=== PATIENT | male | born 1950 | race Caucasian/White ===

== ENCOUNTER 2018-09-23 09:17 | Inpatient (IN) ==
[2018-09-23 10:20] LABS: Basophils # (auto) 0.01 K/uL (0-0.2); Basophils % (auto) 0.2 %; Eosinophils # (auto) 0.04 K/uL (0-0.5); Eosinophils % (auto) 0.7 %; Hematocrit (blood only) 43.5 % (42-52); Hemoglobin 15.5 g/dL (14.0-18.0); Immature Granulocytes # (auto) 0.01 K/uL (0.00-0.02); Immature Granulocytes % (auto) 0.2 %; Lymphocytes # (auto) 1.72 K/uL (1.2-3.4); Lymphocytes % (auto) 29.5 %; Mean Corpuscular Hgb Conc 35.6 g/dL (32-36); Mean Corpuscular Volume 89.3 fL (80-100); Mean Platelet Volume 10.2 fL (7.4-10.4); Monocytes # (auto) 0.66 K/uL (0.11-0.59); Monocytes % (auto) 11.3 %; Neutrophils # (auto) 3.39 K/uL (1.4-6.5); Neutrophils % (auto) 58.1 %; Platelet Count 199 K/uL (130-400); RDW Coefficient of Variation 12.8 % (11.5-14.5); RDW Standard Deviation 41.4 fL (36.4-46.3); Red Blood Count 4.87 M/uL (4.7-6.1); White Blood Count 5.83 K/uL (4.8-10.8)
[2018-09-23 10:36] LABS: Appearance Urine Clear (Clear); Bacteria Urine Automated Negative (Negative); Color Urine Dark Yellow; Epithelial Cell Urine Auto 20-30 /lpf (0-5); Glucose Urine UA Negative (Negative); Ketones Urine Trace (Negative); Leukocyte Esterase Urine Trace (Negative); Nitrite Urine Negative (Negative); Protein Urine Negative (Negative); Specific Gravity Urine 1.028 (1.000-1.030); Urobilinogen Urine Negative (Negative)
[2018-09-23 10:39] LABS: Albumin Level 3.8 gm/dl (3.4-5.0); BUN Creatinine Ratio 13.9 (10-20); Calcium 8.8 mg/dl (8.5-10.1); Creatinine Clr Calc Pharmacy 83.9 ml/min; Est GFR (African American) 82.8; Est GFR (Non-African American) 71.5
[2018-09-23 10:41] LABS: Bilirubin Urine Negative (Negative); Ictotest Urine Negative (Negative)
[2018-09-23 10:42] LABS: Acetaminophen < 2 ug/ml (10-30)
[2018-09-23 10:43] LABS: Salicylate < 1.7 mg/dl (2.8-20)
[2018-09-23 10:49] LABS: Albumin Globulin Ratio 0.9 (0.9-2); Bilirubin,Total 0.6 mg/dl (0.2-1); Globulin 4.1 gm/dl (2.5-4.0); Total Protein 7.9 gm/dl (6.4-8.2)
[2018-09-23 11:05] LABS: Amphetamines+Metham, Urine Neg (Neg); Barbiturates, Urine Neg (Neg); Benzodiazepine, Urine Neg (Neg); Cocaine, Urine Neg (Neg); MDMA (Ecstacy), Urine Neg (Neg); Methadone, Urine Neg (Neg); Opiate, Urine Neg (Neg); Phencyclidine, Urine Neg (Neg)
--- NOTE | 2018-09-23 14:15 | Emergency Department Note ---
Entered by Rosa M Gutierrez acting as a scribe for Erwin Christensen MD History of Present Illness General Chief complaint: Mental Health Evaluation Stated complaint: 302 Time Seen by Provider: 09/23/18 09:38 Source: patient and police History of Present Illness Provider complaint: mental health evaluation Onset (ago): hour(s) (today) Location: head Pain Consistency: + constant Maximum Pain Intensity: 0 Quality: + other (mental health evaluation ) Associated symptoms: + denies other symptoms (denies SI and HI) The patient is a 67 year old white male w/ PMHx of schizophrenia who presents to the ED w/ CC of a mental health evaluation today. The patient denies having suicidal and homicidal ideation. He denies having visual and auditory hallucinations. He states that he has not taken his medications in weeks as they made his heart race. The patient states that he has seen someone for his mental health quarterly. He states that he has not had alcoholic beverages in 2 days. He states that he chews tobacco but denies other drug use. Per police, the patient threatened to hurt his older father who the patient lives with. Police report that the patient's father asked the patient's sister to call [employer] today but states that she called the police instead. Police state that the patient wanted to hurt his father. Per police, the patient has a history of schizophrenia and was having hallucinations. Home Medications Home Medications Medication Instructions Recorded Confirmed Type benztropine 1 mg PO QDD 09/23/18 09/23/18 History chlorpromazine 100 mg PO QDD 09/23/18 09/23/18 History ibuprofen 200 mg PO QID PRN 09/23/18 09/23/18 History olanzapine 20 mg PO BIDM 09/23/18 09/23/18 History Allergies Allergy/AdvReac Type Severity Reaction Status Date / Time No Known Allergies Allergy Unknown Verified 05/23/16 15:11 Past Med/Surg History Medical History Schizophrenia (Chronic) Social History Feels Safe at Home: Yes Smoking Status: Never smoker Tobacco Type: smokeless tobacco Beliefs That Will Affect Care: None Preferred Language: Togolese Communication Ability: Effective Autopsy Assistant Required: No Review of Systems See HPI for pertinent positives & negatives. and A total of 10 systems reviewed and were otherwise negative Physical Exam Vital Signs Vital Signs - 24 hr 09/23/18 09:29 09/23/18 09:48 09/23/18 14:07 Temperature 36.7 C Temperature Source Oral Oral Sepsis Recent Fever Within 48 Hours No Sepsis New/Unexplained Change in Mental Status No Sepsis Action Taken by Nursing No Action Required Pulse Rate 68 72 Pulse Rate [Right Radial] Pulse Rhythm [Right Radial] Pulse Strength [Right Radial] Respiratory Rate 18 18 Respiratory Effort / Characteristics Non-Labored Spontaneous Respiratory Depth Normal Respiratory Pattern Regular Blood Pressure 132/82 122/90 Blood Pressure [Right Arm] Blood Pressure Mean 98 Blood Pressure Mean [Right Arm] Blood Pressure Position [Right Arm] Pulse Oximetry 97 100 Oxygen Delivery Method Room Air Room Air 09/23/18 15:53 Temperature 36.6 C Temperature Source Oral Sepsis Recent Fever Within 48 Hours Sepsis New/Unexplained Change in Mental Status Sepsis Action Taken by Nursing Pulse Rate Pulse Rate [Right Radial] 73 Pulse Rhythm [Right Radial] Regular Pulse Strength [Right Radial] Normal Respiratory Rate 16 Respiratory Effort / Characteristics Non-Labored Spontaneous Respiratory Depth Normal Respiratory Pattern Regular Blood Pressure Blood Pressure [Right Arm] 131/91 Blood Pressure Mean Blood Pressure Mean [Right Arm] 104 Blood Pressure Position [Right Arm] Sitting Pulse Oximetry Oxygen Delivery Method GENERAL: Well appearing, well nourished, NAD, non-toxic. Wearing glasses. EYE EXAM: Normal conjunctiva. PERRL, no anisocoria and EOM's grossly intact w/o pain OROPHARYNX: No exudate, posterior pharynx is clear, no tonsillar/uvular deviation or swelling. NECK: Supple, no nuchal rigidity, no adenopathy, non-tender. No signs of meningismus. LUNGS: Clear to auscultation bilaterally. Normal chest wall mechanics. HEART: Normal sinus rhythm, no MRG. ABDOMEN: Abdomen soft, non-tender, no masses, no rebound or guarding. BACK: No CVA TTP. SKIN: No rashes and no bruising. UPPER EXTREMITIES: Upper extremities are grossly normal. LOWER EXTREMITIES: No pitting edema. No calf pain. NEURO EXAM: Cranial nerves II-XII grossly intact, normal speech, 5/5 strength throughout, moves all 4 extremities on command w/o issue. PSYCH: Denies SI, HI, or AVH. Course 0944: Past medical records reviewed. The patient was evaluated in room A7, and a complete history and physical examination were performed. 1113: The patient is medically clear. 1340: The patient was admitted to [facility]. Medical Decision Making Medical Records Attestation: I reviewed the patient's medical records. Home Medications Current Medication List: was personally reviewed by me Laboratory Data Attestation: I reviewed the patient's lab results. Result diagrams: 09/23/18 10:02 09/23/18 10:02 Lab Results 09/23/18 09/23/18 09/23/18 Range/Units 09:55 09:55 10:02 WBC 5.83 (4.8-10.8) K/uL RBC 4.87 (4.7-6.1) M/uL Hgb 15.5 (14.0-18.0) g/dL Hct 43.5 (42-52) % MCV 89.3 (80-100) fL MCH 31.8 (25-34) pg MCHC 35.6 (32-36) g/dL RDW Std Deviation 41.4 (36.4-46.3) fL RDW Coeff of Nerissa 12.8 (11.5-14.5) % Plt Count 199 (130-400) K/uL MPV 10.2 (7.4-10.4) fL Immature Gran % (Auto) 0.2 % Neut % (Auto) 58.1 % Lymph % (Auto) 29.5 % [place] % (Auto) 11.3 % Eos % (Auto) 0.7 % Baso % (Auto) 0.2 % Immature Gran # (Auto) 0.01 (0.00-0.02) K/uL Neut # (Auto) 3.39 (1.4-6.5) K/uL Lymph # (Auto) 1.72 (1.2-3.4) K/uL [place] # (Auto) 0.66 H (0.11-0.59) K/uL Eos # (Auto) 0.04 (0-0.5) K/uL Baso # (Auto) 0.01 (0-0.2) K/uL Sodium (136-145) mmol/L Potassium (3.5-5.1) mmol/L Chloride (98-107) mmol/L Carbon Dioxide (21-32) mmol/L Anion Gap (3-11) BUN (7-18) mg/dl Creatinine (0.6-1.4) mg/dl Est Cr Clr Drug Dosing ml/min Est GFR ( Amer) Est GFR (Non-Af Amer) BUN/Creatinine Ratio (10-20) Glucose (70-99) mg/dl Calcium (8.5-10.1) mg/dl Total Bilirubin (0.2-1) mg/dl AST (15-37) U/L ALT (12-78) U/L Alkaline Phosphatase (45-117) U/L Total Protein (6.4-8.2) gm/dl Albumin (3.4-5.0) gm/dl Globulin (2.5-4.0) gm/dl Albumin/Globulin Ratio (0.9-2) TSH (0.300-4.500) uIu/ml Urine Color Dark Yellow Urine Appearance Clear (Clear) Urine pH 5.0 (4.5-7.5) Ur Specific [place] 1.028 (1.000-1.030) Urine Protein Negative (Negative) Urine Glucose (UA) Negative (Negative) Urine Ketones Trace H (Negative) Urine Blood Trace H (Negative) Urine Nitrite Negative (Negative) Urine Bilirubin Negative (Negative) Urine Urobilinogen Negative (Negative) Ur Leukocyte Esterase Trace H (Negative) Urine WBC (Auto) 5-10 H (0-5) /hpf Urine RBC (Auto) 0-4 (0-4) /hpf U Hyaline Cast (Auto) 5-10 H (0-5) /lpf U Epithel Cells (Auto) 20-30 H (0-5) /lpf Urine Bacteria (Auto) Negative (Negative) Salicylates (2.8-20) mg/dl Urine Opiates Screen Neg (Neg) Ur Methadone, Qual Neg (Neg) Acetaminophen (10-30) ug/ml Urine Barbiturates Neg (Neg) Ur Phencyclidine (PCP) Neg (Neg) U Amphetamin/Meth Scrn Neg (Neg) MDMA (Ecstasy) Screen Neg (Neg) U Benzodiazepines Scrn Neg (Neg) Ur Cocaine Metabolite Neg (Neg) U Marijuana (THC) Screen Neg (Neg) Ethyl Alcohol mg/dL (0-3) mg/dl 09/23/18 09/23/18 09/23/18 Range/Units 10:02 10:02 10:02 WBC (4.8-10.8) K/uL RBC (4.7-6.1) M/uL Hgb (14.0-18.0) g/dL Hct (42-52) % MCV (80-100) fL MCH (25-34) pg MCHC (32-36) g/dL RDW Std Deviation (36.4-46.3) fL RDW Coeff of Nerissa (11.5-14.5) % Plt Count (130-400) K/uL MPV (7.4-10.4) fL Immature Gran % (Auto) % Neut % (Auto) % Lymph % (Auto) % [place] % (Auto) % Eos % (Auto) % Baso % (Auto) % Immature Gran # (Auto) (0.00-0.02) K/uL Neut # (Auto) (1.4-6.5) K/uL Lymph # (Auto) (1.2-3.4) K/uL [place] # (Auto) (0.11-0.59) K/uL Eos # (Auto) (0-0.5) K/uL Baso # (Auto) (0-0.2) K/uL Sodium 135 L (136-145) mmol/L Potassium 4.0 (3.5-5.1) mmol/L Chloride 102 (98-107) mmol/L Carbon Dioxide 23 (21-32) mmol/L Anion Gap 9.0 (3-11) BUN 15 (7-18) mg/dl Creatinine 1.07 (0.6-1.4) mg/dl Est Cr Clr Drug Dosing 83.9 ml/min Est GFR ( Amer) 82.8 Est GFR (Non-Af Amer) 71.5 BUN/Creatinine Ratio 13.9 (10-20) Glucose 183 H (70-99) mg/dl Calcium 8.8 (8.5-10.1) mg/dl Total Bilirubin 0.6 (0.2-1) mg/dl AST 23 (15-37) U/L ALT 39 (12-78) U/L Alkaline Phosphatase 67 (45-117) U/L Total Protein 7.9 (6.4-8.2) gm/dl Albumin 3.8 (3.4-5.0) gm/dl Globulin 4.1 H (2.5-4.0) gm/dl Albumin/Globulin Ratio 0.9 (0.9-2) TSH 1.550 (0.300-4.500) uIu/ml Urine Color Urine Appearance (Clear) Urine pH (4.5-7.5) Ur Specific [place] (1.000-1.030) Urine Protein (Negative) Urine Glucose (UA) (Negative) Urine Ketones (Negative) Urine Blood (Negative) Urine Nitrite (Negative) Urine Bilirubin (Negative) Urine Urobilinogen (Negative) Ur Leukocyte Esterase (Negative) Urine WBC (Auto) (0-5) /hpf Urine RBC (Auto) (0-4) /hpf U Hyaline Cast (Auto) (0-5) /lpf U Epithel Cells (Auto) (0-5) /lpf Urine Bacteria (Auto) (Negative) Salicylates < 1.7 L (2.8-20) mg/dl Urine Opiates Screen (Neg) Ur Methadone, Qual (Neg) Acetaminophen < 2 L (10-30) ug/ml Urine Barbiturates (Neg) Ur Phencyclidine (PCP) (Neg) U Amphetamin/Meth Scrn (Neg) MDMA (Ecstasy) Screen (Neg) U Benzodiazepines Scrn (Neg) Ur Cocaine Metabolite (Neg) U Marijuana (THC) Screen (Neg) Ethyl Alcohol mg/dL < 3.0 (0-3) mg/dl Blood Pressure Blood Pressure Findings: Normal blood pressure MDM Narrative The patient is a 67 year old white male w/ PMHx of schizophrenia who presents to the ED w/ CC of a mental health evaluation today. Differential diagnosis: Etiologies such as psychiatric disorder, infection, hypoglycemia, electrolyte abnormalities, cardiac sources, intracerebral event, toxicological process, neurologic disorder, as well as others were entertained. Patient was seen and evaluated the bedside. There was concern that the patient may be a threat where he was living to his elderly father. The patient did not have any acute complaints. The patient does state that he does use chewing tobacco but no drugs or alcohol. The currently denies any SI, HI, or AVH. The patient has not been taking his medications as prescribed. Patient did a blood work completed the patient was medically cleared. The patient did have his 302 upheld. The patient was admitted to 3 . Impression & Plan Behavioral disorder, Encounter for tobacco use cessation counseling Discharge Plan Visit Data *Final* Discharge Date/Time: 09/23/18 14:07 Chief Complaint: Mental Health Evaluation Stated Complaint: 302 ED Provider: Erwin Christensen Discharge Problem: Behavioral disorder, Encounter for tobacco use cessation counseling Patient Disposition: Admitted As Inpatient Discharge Instructions Interventions: ED Discharge Assessment Last Done: 09/23/18 14:07 The scribe's documentation has been prepared under my direction and personally reviewed by me in its entirety. I confirm that the note above accurately reflects all work, treatment, procedures, and medical decision making performed by me.
[2018-09-23] MEDS ORDERED: BISMUTH SUBSALICYLATE PER ML OMNICELL CHARGE PO PRN (14:32)
[2018-09-23] MEDS ORDERED: ALUMINUM/MAGNESIUM SUSP 30 ML UDC PO PRN (14:32)
[2018-09-23] MEDS ORDERED: ACETAMINOPHEN 325 MG TAB PO PRN (14:32)
[2018-09-23] MEDS ORDERED: SODIUM CHLORIDE 0.65% NA SOLN 45 ML (OCEAN) PRN (14:32)
[2018-09-23] MEDS ORDERED: MAGNESIUM HYDROXIDE SUSP 30 ML UDC PO PRN (14:32)
--- NOTE | 2018-09-23 15:17 | History & Physical ---
Date of Service September 23, 2018 Impression / Recommendations Impression 67 yo M with h/o schizophrenia admitted on a 302 for reportedly threatening to hurt his father, whom he lives with. It is reported that patient has been off his medications for several months and was having hallucinations. Patient denies that he wanted to hurt his father and denies SI/HI and denies having any hallucinations. Patient is with tangentiality and some disorganzation on interview and would benefit from antipsychotic therapy. He has been non- compliant with medications for several months now. He does deny any psychotic symptoms and no major delusions, paranoia or AVH were elicited at this time. However given 302 report of threat to his father and non-compliance with medications, yin will need admission for stabilization. Discussed Invega, given likely need for H[place], and patient reports he has not had this before. Will start Invega PO and consider HARRINGTON if tolerated by patient. (1) Schizophrenia: - Start Invega 3mg PO qhs Inventory Assets Strengths: future oriented, access to care, no suicide attempts Needs: meds, therapy Risk Factors Assessment Male: Yes : Yes Do You Have Access To A Gun?: No Health Problems: No Mental Health Diagnoses: Yes Substance Use Disorders: No Previous Attempt: No Previous Psychiatric Hospitalization: Yes Hopelessness: No Protective Factors Assessment Congregation Beliefs: No : No Responsible for Young Children: No Employed: No Supportive Family: Yes Psychiatric History Identifying Data TOI MCCALL is a 67-year-old M who currently lives with his father at home, has a history of schizophreania, and was admitted on 09/23/18 14:32 on a 302 involuntary commitment for reportedly threatening to hurt his father. Chief Complaint "I'm ok" History of Present Illness 67 yo M with h/o schizophrenia admitted on a 302 for reportedly threatening to hurt his father, whom he lives with. It is reported that patient has been off his medications for several months and was having hallucinations. Patient denies that he wanted to hurt his father and denies SI/HI and denies having any hallucinations. He states he stopped taking his meds in November and reports side effects as the reason why. He reports side effects to haldol and thorazine but denies any allergic reactions. He states he wanted to use natural treatments as well and stopped meds. He states he is cooks, cleans, showers for himself. He was overall tangential on interview and disorganized at times. He made irrelevant statements at times however was redirectable to the line of questioning. He denied any depressive or manic symptoms and denied any history of suicide attempts. Discussed invega and/or another antipsychotic and he stated he wanted natural treatments. Past Psychiatric History Previous Psych History: schizophrenia Current Psychiatric Diagnosis: Paranoid Schizophrenia Previous Psych Admissions: yes Do You Have Access To A Gun?: No History of Previous Suicide Attempt: No Past Medication Trials: navane, thorazine, haldol, zyprexa Allergies Allergy/AdvReac Type Severity Reaction Status Date / Time No Known Allergies Allergy Unknown Verified 05/23/16 15:11 Home Medications Home Medications Medication Instructions Recorded Confirmed Type benztropine 1 mg PO QDD 09/23/18 09/23/18 History chlorpromazine 100 mg PO QDD 09/23/18 09/23/18 History ibuprofen 200 mg PO QID PRN 09/23/18 09/23/18 History olanzapine 20 mg PO BIDM 09/23/18 09/23/18 History Family History Family History of: Doesn't Know Alcohol History Hx of Alcohol Use Over the Past 12 Months: No Smoking Use tobacco type: smokeless tobacco Smoking Status: Never smoker Substance History Hx of Prescription Med Misuse Over the Past 12 Months: No Hx of Over the Counter Med Misuse Over the Past 12 Months: No Hx of Inhalent Misuse Over the Past 12 Months: No Hx of Organic Substance Use Over the Past 12 Months: No Hx of Illegal Substances/Street Drug Use Over Past 12 Months: No Personal History Living Arrangements: Home Patient History Medical History Schizophrenia (Chronic) Social History Feels Safe at Home: Yes Smoking Status: Never smoker Tobacco Type: smokeless tobacco Preferred Language: Burmese Review of Systems All systems reviewed & are unremarkable except as noted in HPI & below Physical Exam Psychiatric Orientation: alert, oriented to person and oriented to place Apperance: appropriately dressed Eye Contact: + fair eye contact Motor Behavior: no abnormal motor movements Speech: normal rate/rhythm/volume of speech Affect: euthymic affect and mood congruent with affect Thought Process: + circumstantial thought process and + tangential thought process Thought Content: reality based without delusions Suicidal Thoughts: denies suicidal thoughts Homicidal Thoughts: denies homicidal thoughts Hallucinations: no auditory hallucinations and no visual hallucinations Cognition: attention grossly intact Insight: + poor insight Judgement: + poor judgement Vital Signs (Past 24 Hours) Last Vital Signs Temp 36.7 C 09/23/18 09:29 Pulse 68 09/23/18 09:29 Resp 18 09/23/18 09:29 BP 132/82 09/23/18 09:29 Pulse Ox 97 09/23/18 09:29 Results & Data Laboratory Results Laboratory Results - last 24 hr 09/23/18 09/23/18 09/23/18 09:55 09:55 10:02 WBC 5.83 RBC 4.87 Hgb 15.5 Hct 43.5 MCV 89.3 MCH 31.8 MCHC 35.6 RDW Std Deviation 41.4 RDW Coeff of Nerissa 12.8 Plt Count 199 MPV 10.2 Immature Gran % (Auto) 0.2 Neut % (Auto) 58.1 Lymph % (Auto) 29.5 [place] % (Auto) 11.3 Eos % (Auto) 0.7 Baso % (Auto) 0.2 Immature Gran # (Auto) 0.01 Neut # (Auto) 3.39 Lymph # (Auto) 1.72 [place] # (Auto) 0.66 H Eos # (Auto) 0.04 Baso # (Auto) 0.01 Sodium Potassium Chloride Carbon Dioxide Anion Gap BUN Creatinine Est Cr Clr Drug Dosing Est GFR ( Amer) Est GFR (Non-Af Amer) BUN/Creatinine Ratio Glucose Calcium Total Bilirubin AST ALT Alkaline Phosphatase Total Protein Albumin Globulin Albumin/Globulin Ratio TSH Urine Color Dark Yellow Urine Appearance Clear Urine pH 5.0 Ur Specific [place] 1.028 Urine Protein Negative Urine Glucose (UA) Negative Urine Ketones Trace H Urine Blood Trace H Urine Nitrite Negative Urine Bilirubin Negative Urine Urobilinogen Negative Ur Leukocyte Esterase Trace H Urine WBC (Auto) 5-10 H Urine RBC (Auto) 0-4 U Hyaline Cast (Auto) 5-10 H U Epithel Cells (Auto) 20-30 H Urine Bacteria (Auto) Negative Salicylates Urine Opiates Screen Neg Ur Methadone, Qual Neg Acetaminophen Urine Barbiturates Neg Ur Phencyclidine (PCP) Neg U Amphetamin/Meth Scrn Neg MDMA (Ecstasy) Screen Neg U Benzodiazepines Scrn Neg Ur Cocaine Metabolite Neg U Marijuana (THC) Screen Neg Ethyl Alcohol mg/dL 09/23/18 09/23/18 09/23/18 10:02 10:02 10:02 WBC RBC Hgb Hct MCV MCH MCHC RDW Std Deviation RDW Coeff of Nerissa Plt Count MPV Immature Gran % (Auto) Neut % (Auto) Lymph % (Auto) [place] % (Auto) Eos % (Auto) Baso % (Auto) Immature Gran # (Auto) Neut # (Auto) Lymph # (Auto) [place] # (Auto) Eos # (Auto) Baso # (Auto) Sodium 135 L Potassium 4.0 Chloride 102 Carbon Dioxide 23 Anion Gap 9.0 BUN 15 Creatinine 1.07 Est Cr Clr Drug Dosing 83.9 Est GFR ( Amer) 82.8 Est GFR (Non-Af Amer) 71.5 BUN/Creatinine Ratio 13.9 Glucose 183 H Calcium 8.8 Total Bilirubin 0.6 AST 23 ALT 39 Alkaline Phosphatase 67 Total Protein 7.9 Albumin 3.8 Globulin 4.1 H Albumin/Globulin Ratio 0.9 TSH 1.550 Urine Color Urine Appearance Urine pH Ur Specific [place] Urine Protein Urine Glucose (UA) Urine Ketones Urine Blood Urine Nitrite Urine Bilirubin Urine Urobilinogen Ur Leukocyte Esterase Urine WBC (Auto) Urine RBC (Auto) U Hyaline Cast (Auto) U Epithel Cells (Auto) Urine Bacteria (Auto) Salicylates < 1.7 L Urine Opiates Screen Ur Methadone, Qual Acetaminophen < 2 L Urine Barbiturates Ur Phencyclidine (PCP) U Amphetamin/Meth Scrn MDMA (Ecstasy) Screen U Benzodiazepines Scrn Ur Cocaine Metabolite U Marijuana (THC) Screen Ethyl Alcohol mg/dL < 3.0 Current Inpatient Medications Current Inpatient Medications: Current Inpatient Medications Acetaminophen (Tylenol) 650 mg PO Q4H PRN PRN Reason: Headache or Minor Fever Stop: 10/23/18 14:31 Al Hydrox/Mg Hydrox/Simethicone (Maalox) 30 ml PO Q4H PRN PRN Reason: GI Upset Stop: 10/23/18 14:31 Bismuth Subsalicylate (Kaopectate) 15 ml PO PRN PRN PRN Reason: Loose Stool Stop: 10/23/18 14:31 Hydroxyzine HCl (Vistaril) 50 mg PO HSZ PRN PRN Reason: Insomnia Stop: 10/23/18 14:31 Magnesium Hydroxide (Milk Of Magnesia) 30 ml PO DAILY PRN PRN Reason: Heartburn Stop: 10/23/18 14:31 Paliperidone (Invega) 3 mg PO HS MARIAMA Stop: 10/23/18 20:59 Sodium Chloride ([place] Nasal) 1 - 2 sprays NA PRN PRN PRN Reason: Nasal Dryness/Congestion Stop: 10/23/18 14:31 CPT Code CPT Code Initial Hospital Care: [id number]
[2018-09-23] MEDS ORDERED: PALIPERIDONE 3 MG TABCR PO SCH (21:00)
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
[2018-09-24] MEDS: PALIPERIDONE 3 MG TABCR PO SCH ×2 (10:47→21:09)
[2018-09-25] MEDS: PALIPERIDONE 3 MG TABCR PO SCH ×2 (08:34→20:47)
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
[2018-09-25] MEDS ORDERED: PALIPERIDONE PALMITATE 234 MG/1.5 ML SYR IM ONE (12:00)
[2018-09-26] MEDS: PALIPERIDONE 3 MG TABCR PO SCH ×3 (07:45→21:04)
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
--- NOTE | 2018-09-27 09:50 | Psychiatric Progress Note ---
Date of Service September 27, 2018 Impression / Recommendations Impression 67 yo M with h/o schizophrenia admitted on a 302 for reportedly threatening to hurt his father, whom he lives with. It is reported that patient has been off his medications for several months and was having hallucinations. Patient continues to deny that he wanted to hurt his father and denies SI/HI/aVH. Possible TD noticed on admission with classic lip smacking type movement. This is likely from prior treatments with older first gen antipsychotics like Navane and thorazine for extended periods of time. Today, patient seems to be with improvement, much less disorganized and is likely reconstituting after receiving antipsychotic treatment. Second dose of Invega pending, completing treatment, family meeting and stability needs to be consistent prior to discharge and will need continued treatment at this time. 09/23/18: Discussed Invega, given likely need for HARRINGTON, and patient reports he has not had this before. Will start Invega PO and consider HARRINGTON if tolerated by patient. 09/24/18: Patient cooperative with medications and tolerated invega PO initial dose. Will increase to 3mg bid today and will consider first loading dose if tolerating increase. Did deny Si/Hi/aVH. Educated patient on Invega and patient agrees to take this medications. Encouraged patient to contact family members. Possible TD noticed on admission with classic lip smacking type movement. This is likely from prior treatments with older first generation antipsychotics like Navane and thorazine for extended periods of time. Will continue to observe for new side effects. 09/25/18: Patient with less tangentiality and less disorganization today. Tolerating PO invega and will initiate loading invega 234mg dose today. Patient with mild improvement, but given 302 and patient non-compliance with meds, will need continued treatment for stabilization. 09/26/18: Patient with continued improvement today and tolerated initial loading dose of Invega yesterday. with improving insight and will allow patient to sign in voluntarily today. Will continue treatment for stabilization. Decrease Invega PO to 3mg qhs to taper off and observe for stability. 09/27/18: Patient is appropriate and shows improving insight today with ability to relay what happened prior to admission and understand his need for medications. He seems to be reconstituting however remains with a delusion that their house is a cottage. Family meeting today. Second Invega loading planned for Sunday09/30/18. (1) Schizophrenia: - Continue Invega to 3mg PO qhs (consider stopping if patient stable wit HARRINGTON) - Invega IM 234mg loading dose given on 09/25/18 - Invega IM 156mg pending Inventory Assets Strengths: future oriented, access to care, no suicide attempts Needs: meds, therapy Risk Factors Assessment Male: Yes : Yes Do You Have Access To A Gun?: No Health Problems: No Mental Health Diagnoses: Yes Substance Use Disorders: No Previous Attempt: No Previous Psychiatric Hospitalization: Yes Hopelessness: No Protective Factors Assessment Baptist Beliefs: No : No Responsible for Young Children: No Employed: No Supportive Family: Yes Interval History Chief Complaint "I'm fine today doctor" Review of Systems Sleep Information Total Hours of Sleep: 6.25 Sleep Comments: very loud initial sleep snoring-obstructed breathing noted. he toileted at 0200. Meal Information Percent Meal Consumed - Breakfast: 100 Percent Meal Consumed - Lunch: 100 Percent Meal Consumed - Dinner: 100 Subjective Subjective Patient states that his mood feels better today. He reported that he has a family meeting on the phone with his sister today. He reports that he likes the invega and he is not having side effects. When asked about when happened with his father before admission, he states he was repetative about the the drive way and he got mad and was yelling at his dad. He states his dad didn't say much but it was he that got upset. He states "I know it's because I was off my medications". He also reported that [place] he lives [place], but that the [employer] has nothing to do with it. He denies SI/HI/AVH. Per nursing, he is cooperative and pleasant. Patient was seen & assessed and interval progress reviewed with Treatment Team and Nursing Physical Exam Psychiatric A+Ox3, euthymic affect Apperance: appropriately dressed and appropriately groomed Eye Contact: + fair eye contact Motor Behavior: no abnormal motor movements Speech: normal rate/rhythm/volume of speech Affect: euthymic affect and mood congruent with affect Thought Process: goal directed thought process Thought Content: + delusions (about his house being a owned cottage ( dad's house now owned by sister)); not paranoid Suicidal Thoughts: denies suicidal thoughts Homicidal Thoughts: denies homicidal thoughts Hallucinations: no auditory hallucinations and no visual hallucinations denies Cognition: recent memory grossly intact and remote memory grossly intact Estimated Intelligence: average estimated intelligence improving improving Vital Signs (Past 24 Hours) Last Vital Signs Temp 36.7 C 09/27/18 06:49 Pulse 93 H 09/27/18 06:50 Resp 16 09/27/18 06:49 BP 102/72 09/27/18 06:50 Pulse Ox 100 09/23/18 14:07 Results & Data Current Inpatient Medications Current Inpatient Medications: Current Inpatient Medications Acetaminophen (Tylenol) 650 mg PO Q4H PRN PRN Reason: Headache or Minor Fever Stop: 10/23/18 14:31 Al Hydrox/Mg Hydrox/Simethicone (Maalox) 30 ml PO Q4H PRN PRN Reason: GI Upset Stop: 10/23/18 14:31 Bismuth Subsalicylate (Kaopectate) 15 ml PO PRN PRN PRN Reason: Loose Stool Stop: 10/23/18 14:31 Hydroxyzine HCl (Vistaril) 50 mg PO HSZ PRN PRN Reason: Insomnia Stop: 10/23/18 14:31 Magnesium Hydroxide (Milk Of Magnesia) 30 ml PO DAILY PRN PRN Reason: Heartburn Stop: 10/23/18 14:31 Paliperidone (Invega) 3 mg PO HS MARIAMA Stop: 10/26/18 21:59 Last Admin: 09/26/18 21:04 Dose: 3 mg Sodium Chloride ([place] Nasal) 1 - 2 sprays NA PRN PRN PRN Reason: Nasal Dryness/Congestion Stop: 10/23/18 14:31 Post Discharge Appointments Primary Care Physician Name Of Family Doctor: Geovany Dumont in [place] Primary Care Provider Appointment Comment: [address] [place] [address] [place] [address] Psychiatrist Name of Psychiatrist: Cherri Amaro PA-C Psychiatrist's Therapist Name of Therapist: None Wader Boot Top Assembler Name of Wader Boot Top Assembler: INDY in the past, Contact Information Discharge Discharge Address: [address] [place] [address] EPIFANIO Barrios [id number] CPT Code CPT Code 80290 _ (1) Schizophrenia Schizophrenia type:
[2018-09-27] MEDS: PALIPERIDONE 3 MG TABCR PO SCH (21:23)
--- NOTE | 2018-09-28 07:23 | Psychiatric Progress Note ---
Date of Service September 28, 2018 Impression / Recommendations Impression 67 yo M with h/o schizophrenia admitted on a 302 for reportedly threatening to hurt his father, whom he lives with. It is reported that patient has been off his medications for several months and was having hallucinations. Here he is denying thoughts of harming himself or others, and has demonstrated improvement after being restarted on antipsychotic medication. He has received the first loading dose of Invega Sustenna. Continued inpatient treatment is necessary at this time due to ongoing psychosis, lack of insight, and the risk of noncompliance and decompensating if discharged prematurely. (1) Schizophrenia: 09/23/18: Discussed Invega, given likely need for HARRINGTON, and patient reports he has not had this before. Will start Invega PO and consider HARRINGTON if tolerated by patient. 09/24/18: Patient cooperative with medications and tolerated Invega PO initial dose. Will increase to 3mg bid today and will consider first loading dose if tolerating increase. Did deny Si/Hi/aVH. Educated patient on Invega and patient agrees to take this medications. Encouraged patient to contact family members. Possible TD noticed on admission with classic lip smacking type movement. This is likely from prior treatments with older first generation antipsychotics like Navane and thorazine for extended periods of time. Will continue to observe for new side effects. 09/25/18: Patient with less tangentiality and less disorganization today. Tolerating PO invega and will initiate loading Invega 234mg dose today. Patient with mild improvement, but given 302 and patient non-compliance with meds, will need continued treatment for stabilization. 09/26/18: Patient with continued improvement today and tolerated initial loading dose of Invega yesterday. with improving insight and will allow patient to sign in voluntarily today. Will continue treatment for stabilization. Decrease Invega PO to 3mg qhs to taper off and observe for stability. 09/27/18: Patient is appropriate and shows improving insight today with ability to relay what happened prior to admission and understand his need for medications. He seems to be reconstituting however remains with a delusion that their house is a cottage. Family meeting today. Second Invega loading planned for Sunday09/30/18. 09/28/18: Continue current medication plan. Encouraged ongoing group attendance , reality testing is able to tolerate, and discharge planning. Inventory Assets Strengths: future oriented, access to care, no suicide attempts Needs: meds, therapy Risk Factors Assessment Male: Yes : Yes Do You Have Access To A Gun?: No Health Problems: No Mental Health Diagnoses: Yes Substance Use Disorders: No Previous Attempt: No Previous Psychiatric Hospitalization: Yes Hopelessness: No Protective Factors Assessment Oriental Orthodox Beliefs: No : No Responsible for Young Children: No Employed: No Supportive Family: Yes Interval History Chief Complaint "Just going to the classes". Review of Systems Sleep Information Total Hours of Sleep: 5.5 Sleep Comments: stayed awake later then usual "because it's Sunday". he was asleep at 0100 Meal Information Percent Meal Consumed - Breakfast: 100 Percent Meal Consumed - Lunch: 100 Percent Meal Consumed - Dinner: 100 Subjective Subjective Patient was seen & assessed and interval progress reviewed with nursing and social work. Staff report he goes to some groups, has inappropriate laughter, and otherwise isolates on the unit. On my assessment, the patient states that he is enjoying his time here, is going to classes, and then becomes increasingly disorganized with word salad. He says "basic psych, even that was capitalist, jayant, the thesis, you know." He is able to answer yes or no questions appropriately, states he likes the groups, and is eating well. Physical Exam Mental Examination Overweight white male appearing stated age. Casually dressed, limited grooming and hygiene. Seated in no acute distress. Good eye contact and no abnormal movements. Alert and oriented to self and hospital. Cooperative with the assessment, but a limited historian. Mood is "doing well," and affect is euthymic. Speech is normal rate, volume, and tone. Thoughts are disorganized, unable to answer appropriately at times, but denies thoughts of harming himself or anyone else. Denies hallucinations and paranoia. Insight and judgment are impaired. Vital Signs (Past 24 Hours) Last Vital Signs Temp 36.6 C 09/28/18 06:37 Pulse 76 09/28/18 06:37 Resp 20 09/28/18 06:37 BP 115/73 09/28/18 06:37 Pulse Ox 100 09/23/18 14:07 Results & Data Current Inpatient Medications Current Inpatient Medications: Current Inpatient Medications Acetaminophen (Tylenol) 650 mg PO Q4H PRN PRN Reason: Headache or Minor Fever Stop: 10/23/18 14:31 Al Hydrox/Mg Hydrox/Simethicone (Maalox) 30 ml PO Q4H PRN PRN Reason: GI Upset Stop: 10/23/18 14:31 Bismuth Subsalicylate (Kaopectate) 15 ml PO PRN PRN PRN Reason: Loose Stool Stop: 10/23/18 14:31 Hydroxyzine HCl (Vistaril) 50 mg PO HSZ PRN PRN Reason: Insomnia Stop: 10/23/18 14:31 Magnesium Hydroxide (Milk Of Magnesia) 30 ml PO DAILY PRN PRN Reason: Heartburn Stop: 10/23/18 14:31 Paliperidone (Invega) 3 mg PO HS MARIAMA Stop: 10/26/18 21:59 Last Admin: 09/27/18 21:23 Dose: 3 mg Sodium Chloride ([place] Nasal) 1 - 2 sprays NA PRN PRN PRN Reason: Nasal Dryness/Congestion Stop: 10/23/18 14:31 Post Discharge Appointments Primary Care Physician Name Of Family Doctor: Geovany Dumont in [place] Primary Care Provider Appointment Comment: [address] [place] [address] [place] [address] Psychiatrist Name of Psychiatrist: Cherri Amaro PA-C Psychiatrist's Therapist Name of Therapist: None Product Safety Consultant Name of Product Safety Consultant: INDY in the past, Contact Information Discharge Discharge Address: [address] [place] [address] EPIFANIO Barrios [id number] CPT Code CPT Code 85740 _ (1) Schizophrenia Schizophrenia type:
[2018-09-28] MEDS: PALIPERIDONE 3 MG TABCR PO SCH (21:19)
--- NOTE | 2018-09-29 08:31 | Psychiatric Progress Note ---
Date of Service September 29, 2018 Impression / Recommendations Impression 67 yo M with h/o schizophrenia admitted on a 302 for reportedly threatening to hurt his father, whom he lives with. It is reported that patient has been off his medications for several months and was having hallucinations. Here he is denying thoughts of harming himself or others, and has demonstrated improvement after being restarted on antipsychotic medication. He has received the first loading dose of Invega Sustenna. Continued inpatient treatment is necessary at this time due to ongoing psychosis, lack of insight, and the risk of noncompliance, decompensation, and aggression towards others if discharged prematurely. (1) Schizophrenia: 09/23/18: Discussed Invega, given likely need for HARRINGTON, and patient reports he has not had this before. Will start Invega PO and consider HARRINGTON if tolerated by patient. 09/24/18: Patient cooperative with medications and tolerated Invega PO initial dose. Will increase to 3mg bid today and will consider first loading dose if tolerating increase. Did deny Si/Hi/aVH. Educated patient on Invega and patient agrees to take this medications. Encouraged patient to contact family members. Possible TD noticed on admission with classic lip smacking type movement. This is likely from prior treatments with older first generation antipsychotics like Navane and thorazine for extended periods of time. Will continue to observe for new side effects. 09/25/18: Patient with less tangentiality and less disorganization today. Tolerating PO invega and will initiate loading Invega 234mg dose today. Patient with mild improvement, but given 302 and patient non-compliance with meds, will need continued treatment for stabilization. 09/26/18: Patient with continued improvement today and tolerated initial loading dose of Invega yesterday. with improving insight and will allow patient to sign in voluntarily today. Will continue treatment for stabilization. Decrease Invega PO to 3mg qhs to taper off and observe for stability. 09/27/18: Patient is appropriate and shows improving insight today with ability to relay what happened prior to admission and understand his need for medications. He seems to be reconstituting however remains with a delusion that their house is [place] cottage. Family meeting today. Second Invega loading planned for Sunday09/30/18. 09/28/18: Continue current medication plan. Encouraged ongoing group attendance , reality testing as able to tolerate, and discharge planning. 09/29 -continue current plan. Contact family tomorrow for their assistance in ascertaining how close he is to baseline and to discuss discharge plans. Inventory Assets Strengths: future oriented, access to care, no suicide attempts Needs: meds, therapy Risk Factors Assessment Male: Yes : Yes Do You Have Access To A Gun?: No Health Problems: No Mental Health Diagnoses: Yes Substance Use Disorders: No Previous Attempt: No Previous Psychiatric Hospitalization: Yes Hopelessness: No Protective Factors Assessment Lutheran Beliefs: No : No Responsible for Young Children: No Employed: No Supportive Family: Yes Interval History Chief Complaint "All right". Review of Systems Sleep Information Total Hours of Sleep: 5.5 Sleep Comments: he again stayed up late because it is the weekend. he again sat at the little table facing the day area. he played the radio softly and would talk loudly with any one who talked to him. Meal Information Percent Meal Consumed - Breakfast: 100 Percent Meal Consumed - Lunch: 100 Percent Meal Consumed - Dinner: 100 Subjective Subjective Patient was seen & assessed and interval progress reviewed with Nursing. Staff report he remains disorganized, although improved from admission. He is taking medication as ordered and is scheduled for his second Invega Sustenna loading injection tomorrow. On my assessment, he states that his mood is "high, equaling out, may be a 7." He denies mood swings, suicidal thoughts, and thoughts of harming anyone else. He is spending his time "getting prepared, resting, in between lectures, therapy in the community." He describes sleep as "improving more and more," noting that he is a "light sleeper," but feels rested in the morning. He reports good appetite. When asked to explain why he was hospitalized, he states "I wouldn't give up the need of medication, the standard hospital, lemon picker the state police, the process." When asked about his discharge plans, he says "premonitions of dad, even more profound, love and sharing feelings." Physical Exam Mental Examination Weight white male appearing his stated age. Casually dressed, limited hygiene and grooming. Seated in no acute distress, with no abnormal movements. Good eye contact. Calm and cooperative with the assessment, but a limited historian due to disorganization. Mood is "high, equaling out, may be a 7," and affect is stable and mildly blunted. Speech is normal rate, volume, and tone. Thoughts are disorganized. He denies SI, HI, hallucinations, and paranoia. He is alert and oriented to self and situation. Insight and judgment are impaired. Vital Signs (Past 24 Hours) Last Vital Signs Temp 36.7 C 09/29/18 06:26 Pulse 97 H 09/29/18 06:26 Resp 20 09/29/18 06:26 BP 110/77 09/29/18 06:26 Pulse Ox 100 09/23/18 14:07 Results & Data Current Inpatient Medications Current Inpatient Medications: Current Inpatient Medications Acetaminophen (Tylenol) 650 mg PO Q4H PRN PRN Reason: Headache or Minor Fever Stop: 10/23/18 14:31 Al Hydrox/Mg Hydrox/Simethicone (Maalox) 30 ml PO Q4H PRN PRN Reason: GI Upset Stop: 10/23/18 14:31 Bismuth Subsalicylate (Kaopectate) 15 ml PO PRN PRN PRN Reason: Loose Stool Stop: 10/23/18 14:31 Hydroxyzine HCl (Vistaril) 50 mg PO HSZ PRN PRN Reason: Insomnia Stop: 10/23/18 14:31 Magnesium Hydroxide (Milk Of Magnesia) 30 ml PO DAILY PRN PRN Reason: Heartburn Stop: 10/23/18 14:31 Paliperidone (Invega) 3 mg PO HS MARIAMA Stop: 10/26/18 21:59 Last Admin: 09/28/18 21:19 Dose: 3 mg Paliperidone Palmitate (Invega Sustenna) 156 mg IM ONE ONE Stop: 09/30/18 09:01 Sodium Chloride ([place] Nasal) 1 - 2 sprays NA PRN PRN PRN Reason: Nasal Dryness/Congestion Stop: 10/23/18 14:31 Post Discharge Appointments Primary Care Physician Name Of Family Doctor: Geovany Dumont in [place] Primary Care Provider Appointment Comment: [address] [place] [address] [place] [address] Psychiatrist Name of Psychiatrist: Cherri Amaro PA-C Psychiatrist's Therapist Name of Therapist: None Turkey Farmer Name of Turkey Farmer: INDY in the past, Contact Information Discharge Discharge Address: [address], [place] [address] CPT Code CPT Code 98540 _ (1) Schizophrenia Schizophrenia type:
[2018-09-29] MEDS: PALIPERIDONE 3 MG TABCR PO SCH (21:05)
[2018-09-30] MEDS ORDERED: PALIPERIDONE PALMITATE 156 MG/ML SYR IM ONE (09:00)
--- NOTE | 2018-09-30 10:22 | Psychiatric Progress Note ---
Date of Service September 30, 2018 Impression / Recommendations Impression 67 yo M with h/o schizophrenia admitted on a 302 for reportedly threatening to hurt his father, whom he lives with. It is reported that patient has been off his medications for several months and was having hallucinations. Here he is denying thoughts of harming himself or others, and has demonstrated improvement after being restarted on antipsychotic medication, but continues to have some disorganization and delusional thought content. He has received the loading doses of Invega Sustenna, and oral Invega will be discontinued. Continued inpatient treatment is necessary at this time due to ongoing psychosis, lack of insight, and the risk of noncompliance, decompensation, and aggression towards others if discharged prematurely. He will meet with his case worker this afternoon, and we are working on increasing his outpatient supports and mental health services so that he can continue to stabilize and to decrease his risk of relapse after discharge. (1) Schizophrenia: 09/23/18: Discussed Invega, given likely need for HARRINGTON, and patient reports he has not had this before. Will start Invega PO and consider HARRINGTON if tolerated by patient. 09/24/18: Patient cooperative with medications and tolerated Invega PO initial dose. Will increase to 3mg bid today and will consider first loading dose if tolerating increase. Did deny Si/Hi/aVH. Educated patient on Invega and patient agrees to take this medications. Encouraged patient to contact family members. Possible TD noticed on admission with classic lip smacking type movement. This is likely from prior treatments with older first generation antipsychotics like Navane and thorazine for extended periods of time. Will continue to observe for new side effects. 09/25/18: Patient with less tangentiality and less disorganization today. Tolerating PO invega and will initiate loading Invega 234mg dose today. Patient with mild improvement, but given 302 and patient non-compliance with meds, will need continued treatment for stabilization. 09/26/18: Patient with continued improvement today and tolerated initial loading dose of Invega yesterday. with improving insight and will allow patient to sign in voluntarily today. Will continue treatment for stabilization. Decrease Invega PO to 3mg qhs to taper off and observe for stability. 09/27/18: Patient is appropriate and shows improving insight today with ability to relay what happened prior to admission and understand his need for medications. He seems to be reconstituting however remains with a delusion that their house is a cottage. Family meeting today. Second Invega loading planned for Sunday09/30/18. 09/28/18: Continue current medication plan. Encouraged ongoing group attendance , reality testing as able to tolerate, and discharge planning. 09/29 -continue current plan. Contact family tomorrow for their assistance in ascertaining how close he is to baseline and to discuss discharge plans. 09/30 - Second Invega Sustenna loading dose today. Discontinue PO Invega. Meeting with CM this afternoon - refer for psych rehab. Refer for home health. Inventory Assets Strengths: future oriented, access to care, no suicide attempts Needs: meds, therapy Risk Factors Assessment Male: Yes : Yes Do You Have Access To A Gun?: No Health Problems: No Mental Health Diagnoses: Yes Substance Use Disorders: No Previous Attempt: No Previous Psychiatric Hospitalization: Yes Hopelessness: No Protective Factors Assessment Restorationism Beliefs: No : No Responsible for Young Children: No Employed: No Supportive Family: Yes Interval History Chief Complaint "It was my presumption to go through the base service unit". Review of Systems Sleep Information Total Hours of Sleep: 5.5 Sleep Comments: pt appeared to wake up x2 to the bathroom. pt on q-15 minute checks Meal Information Percent Meal Consumed - Breakfast: 100 Percent Meal Consumed - Lunch: 90 Percent Meal Consumed - Dinner: 100 Subjective Subjective Patient was seen & assessed and interval progress reviewed with Treatment Team. Staff report he has been attending and participating in groups, and is scheduled to receive his second Sustenna loading injection today. His case worker is coming to meet with him tomorrow and we have recommended referral to Psych Rehab. His sister reported to staff that he is still expressing delusions , and she is worried about what will happen with her when their father dies, as he will likely need a supervised living situation. On my assessment, the patient states that his mood is good, he feels safe here, and he is hoping to be able to go home soon. He tolerated his second Invega Sustenna injection, and the oral medication was stopped. He is agreeable to meeting with his case worker this afternoon. Physical Exam Mental Examination Overweight white male appearing his stated age. Casually dressed, with limited hygiene and grooming. Good eye contact, and no abnormal movements. Calm and cooperative with the interview, and less disorganized than previously in his hospitalization. Mood is "pretty good," and affect is stable and euthymic. Speech is normal rate, volume, and tone. Thoughts are disorganized at times, but other times are goal-directed, and is able to answer questions appropriately for the most part. He denies SI, HI, hallucinations, and paranoia. Insight and judgment are fair. Vital Signs (Past 24 Hours) Last Vital Signs Temp 36.6 C 09/30/18 07:00 Pulse 89 09/30/18 07:01 Resp 16 09/30/18 07:00 BP 118/87 09/30/18 07:01 Pulse Ox 100 09/23/18 14:07 Results & Data Current Inpatient Medications Current Inpatient Medications: Current Inpatient Medications Acetaminophen (Tylenol) 650 mg PO Q4H PRN PRN Reason: Headache or Minor Fever Stop: 10/23/18 14:31 Al Hydrox/Mg Hydrox/Simethicone (Maalox) 30 ml PO Q4H PRN PRN Reason: GI Upset Stop: 10/23/18 14:31 Bismuth Subsalicylate (Kaopectate) 15 ml PO PRN PRN PRN Reason: Loose Stool Stop: 10/23/18 14:31 Hydroxyzine HCl (Vistaril) 50 mg PO HSZ PRN PRN Reason: Insomnia Stop: 10/23/18 14:31 Magnesium Hydroxide (Milk Of Magnesia) 30 ml PO DAILY PRN PRN Reason: Heartburn Stop: 10/23/18 14:31 Sodium Chloride ([place] Nasal) 1 - 2 sprays NA PRN PRN PRN Reason: Nasal Dryness/Congestion Stop: 10/23/18 14:31 Post Discharge Appointments Primary Care Physician Name Of Family Doctor: Geovany Dumont in [place] Primary Care Provider Appointment Comment: [address] [place] [address] [place] [address] Psychiatrist Name of Psychiatrist: Cherri Amaro PA-C Psychiatrist's Therapist Name of Therapist: None Starch Dumper Name of Starch Dumper: INDY in the past, Contact Information Discharge Discharge [address]: [address] [place] [address] [place] [address] CPT Code CPT Code 78277 _ (1) Schizophrenia Schizophrenia type:
--- NOTE | 2018-10-01 09:27 | Discharge Summary ---
Date of Service October 01, 2018 History of Present Illness 67 yo M with h/o schizophrenia admitted on a 302 for reportedly threatening to hurt his father, whom he lives with. It is reported that patient has been off his medications for several months and was having hallucinations. Patient denies that he wanted to hurt his father and denies SI/HI and denies having any hallucinations. He states he stopped taking his meds in November and reports side effects as the reason why. He reports side effects to haldol and thorazine but denies any allergic reactions. He states he wanted to use natural treatments as well and stopped meds. He states he is cooks, cleans, showers for himself. He was overall tangential on interview and disorganized at times. He made irrelevant statements at times however was redirectable to the line of questioning. He denied any depressive or manic symptoms and denied any history of suicide attempts. Discussed invega and/or another antipsychotic and he stated he wanted natural treatments. Physical Exam Psychiatric Orientation: alert, oriented x 3 and cooperative Apperance: appropriately dressed, appropriately groomed and appeared stated age Eye Contact: good eye contact Motor Behavior: steady gait and station and no abnormal motor movements Speech: normal rate/rhythm/volume of speech Affect: euthymic affect and mood congruent with affect Mood: no depressed mood and no anxious mood Thought Process: goal directed thought process Suicidal Thoughts: denies suicidal thoughts Homicidal Thoughts: denies homicidal thoughts Hallucinations: no auditory hallucinations and no visual hallucinations Cognition: attention grossly intact and language grossly intact Insight: + limited insight Judgement: + limited judgement Vital Signs (Past 24 Hours) Last Vital Signs Temp 36.6 C 10/01/18 08:30 Pulse 73 10/01/18 08:30 Resp 16 10/01/18 08:30 BP 113/80 10/01/18 08:30 Pulse Ox 100 10/01/18 08:30 Principal Diagnosis Schizophrenia Psychiatric Data On admission, the patient was started on paliperidone, with a plan to transition to the long-acting injectable Sustenna version if effective and tolerated. The dose was increased to 3 mg twice daily, and he tolerated it well. He is disorganization improved, and he was started on Invega Sustenna ( received the first loading dose 09/25/2018, and the second 09/30/2018). The oral paliperidone was discontinued. As his psychotic symptoms improved, he was able to attend and participate appropriately in groups. He was calm and cooperative throughout his stay, and consistently denied thoughts of harming himself or others. He did admit to getting into an argument with his father prior to admission, but denied that he had attempted to or wanted to hurt his father, and stated he planned to return home to live with him. He did have endorse delusions involving the , which per family are present at baseline. He did not bring these up spontaneously, and they did not appear to direct his behavior or prevent him from functioning on a day-to-day basis. He had inappropriate laughter at times, but this had improved by discharge. Although his disorganized thought process improved, he continued to make unintelligible statements at times. He was appropriate in his interactions with staff and peers. He was referred for case management, and his BCM met with him on the unit. His sister was also involved in treatment and discharge planning, and expressed concerns that once the patient's father dies, he will likely need to go to a supervised living situation. Day of Discharge Assessment The patient states he is looking forward to going home, "back to reality." He reports good mood, denies anxiety, and denies thoughts of harming himself or anyone else. He denies hallucinations and paranoia. He denies any safety concerns with discharge, and is able to review his emergency contact/safety plan. He denies side effects to medications. He says he is glad to be on a long acting injectable antipsychotic, stating it is nice not to have to take pills. He feels treatment here has been helpful. Transition of Care Transition Of Care Record: was reviewed with the patient Advance Directives Advance Directives Information Provided: Yes Advance Directives: No Mental Health Advance Directive: No Advance Directives on File: No Living Will: No Power of Starch Crab: No Advance Directives Reason:: Declines as Mental Health Visit. Risk Factors Assessment Male: Yes : Yes Do You Have Access To A Gun?: No Health Problems: No Mental Health Diagnoses: Yes Substance Use Disorders: No Previous Attempt: No Previous Psychiatric Hospitalization: Yes Hopelessness: No Protective Factors Assessment Evangelical Beliefs: No : No Responsible for Young Children: No Employed: No Supportive Family: Yes Tobacco Cessation at Discharge Tobacco Cessation Medication Prescribed at Discharge: Not Applicable/Non-Smoker Total Time Total Time Spent: Greater Than 30 Minutes Total Time Includes: Examination of the patient, Discharge Planning and Medication Reconciliation Discharge Data Lab Results 09/23/18 09/23/18 09/23/18 09:55 09:55 10:02 WBC 5.83 RBC 4.87 Hgb 15.5 Hct 43.5 MCV 89.3 MCH 31.8 MCHC 35.6 RDW Std Deviation 41.4 RDW Coeff of Nerissa 12.8 Plt Count 199 MPV 10.2 Immature Gran % (Auto) 0.2 Neut % (Auto) 58.1 Lymph % (Auto) 29.5 Carver % (Auto) 11.3 Eos % (Auto) 0.7 Baso % (Auto) 0.2 Immature Gran # (Auto) 0.01 Neut # (Auto) 3.39 Lymph # (Auto) 1.72 Carver # (Auto) 0.66 H Eos # (Auto) 0.04 Baso # (Auto) 0.01 Sodium Potassium Chloride Carbon Dioxide Anion Gap BUN Creatinine Est Cr Clr Drug Dosing Est GFR ( Amer) Est GFR (Non-Af Amer) BUN/Creatinine Ratio Glucose Calcium Total Bilirubin AST ALT Alkaline Phosphatase Total Protein Albumin Globulin Albumin/Globulin Ratio TSH Urine Color Dark Yellow Urine Appearance Clear Urine pH 5.0 Ur Specific [place] 1.028 Urine Protein Negative Urine Glucose (UA) Negative Urine Ketones Trace H Urine Blood Trace H Urine Nitrite Negative Urine Bilirubin Negative Urine Urobilinogen Negative Ur Leukocyte Esterase Trace H Urine WBC (Auto) 5-10 H Urine RBC (Auto) 0-4 U Hyaline Cast (Auto) 5-10 H U Epithel Cells (Auto) 20-30 H Urine Bacteria (Auto) Negative Salicylates Urine Opiates Screen Neg Ur Methadone, Qual Neg Acetaminophen Urine Barbiturates Neg Ur Phencyclidine (PCP) Neg U Amphetamin/Meth Scrn Neg MDMA (Ecstasy) Screen Neg U Benzodiazepines Scrn Neg Ur Cocaine Metabolite Neg U Marijuana (THC) Screen Neg Ethyl Alcohol mg/dL 09/23/18 09/23/18 09/23/18 10:02 10:02 10:02 WBC RBC Hgb Hct MCV MCH MCHC RDW Std Deviation RDW Coeff of Nerissa Plt Count MPV Immature Gran % (Auto) Neut % (Auto) Lymph % (Auto) Carver % (Auto) Eos % (Auto) Baso % (Auto) Immature Gran # (Auto) Neut # (Auto) Lymph # (Auto) Carver # (Auto) Eos # (Auto) Baso # (Auto) Sodium 135 L Potassium 4.0 Chloride 102 Carbon Dioxide 23 Anion Gap 9.0 BUN 15 Creatinine 1.07 Est Cr Clr Drug Dosing 83.9 Est GFR ( Amer) 82.8 Est GFR (Non-Af Amer) 71.5 BUN/Creatinine Ratio 13.9 Glucose 183 H Calcium 8.8 Total Bilirubin 0.6 AST 23 ALT 39 Alkaline Phosphatase 67 Total Protein 7.9 Albumin 3.8 Globulin 4.1 H Albumin/Globulin Ratio 0.9 TSH 1.550 Urine Color Urine Appearance Urine pH Ur Specific [place] Urine Protein Urine Glucose (UA) Urine Ketones Urine Blood Urine Nitrite Urine Bilirubin Urine Urobilinogen Ur Leukocyte Esterase Urine WBC (Auto) Urine RBC (Auto) U Hyaline Cast (Auto) U Epithel Cells (Auto) Urine Bacteria (Auto) Salicylates < 1.7 L Urine Opiates Screen Ur Methadone, Qual Acetaminophen < 2 L Urine Barbiturates Ur Phencyclidine (PCP) U Amphetamin/Meth Scrn MDMA (Ecstasy) Screen U Benzodiazepines Scrn Ur Cocaine Metabolite U Marijuana (THC) Screen Ethyl Alcohol mg/dL < 3.0 Hospital Course (1) Schizophrenia: 09/23/18: Discussed Invega, given likely need for HARRINGTON, and patient reports he has not had this before. Will start Invega PO and consider HARRINGTON if tolerated by patient. 09/24/18: Patient cooperative with medications and tolerated Invega PO initial dose. Will increase to 3mg bid today and will consider first loading dose if tolerating increase. Did deny Si/Hi/aVH. Educated patient on Invega and patient agrees to take this medications. Encouraged patient to contact family members. Possible TD noticed on admission with classic lip smacking type movement. This is likely from prior treatments with older first generation antipsychotics like Navane and thorazine for extended periods of time. Will continue to observe for new side effects. 09/25/18: Patient with less tangentiality and less disorganization today. Tolerating PO invega and will initiate loading Invega 234mg dose today. Patient with mild improvement, but given 302 and patient non-compliance with meds, will need continued treatment for stabilization. 09/26/18: Patient with continued improvement today and tolerated initial loading dose of Invega yesterday. with improving insight and will allow patient to sign in voluntarily today. Will continue treatment for stabilization. Decrease Invega PO to 3mg qhs to taper off and observe for stability. 09/27/18: Patient is appropriate and shows improving insight today with ability to relay what happened prior to admission and understand his need for medications. He seems to be reconstituting however remains with a delusion that their house is [place]. Family meeting today. Second Invega loading planned for Sunday09/30/18. 09/28/18: Continue current medication plan. Encouraged ongoing group attendance , reality testing as able to tolerate, and discharge planning. 09/29 -continue current plan. Contact family tomorrow for their assistance in ascertaining how close he is to baseline and to discuss discharge plans. 09/30 - Second Invega Sustenna loading dose today. Discontinue PO Invega. Meeting with CM this afternoon - refer for psych rehab. Refer for home health. 10/01 -discharged to home. -Invega Sustenna maintenance dose of 117 mg IM due 10/28/18. Prescription sent to patient's pharmacy. Referral for home health to administer the injection. -[facility] records were never received; fasting lipid profile and glucose for monitoring on an atypical antipsychotic will need to be followed up on as an outpatient. -Follow-up with supportive employment case manager, Josh Madison, and EPIFANIO Bae at [facility]. -The patient's sister was encouraged to explore options for supervised living situation, such as a [facility] or [facility], as patient will likely need this in the future. Post Discharge Appointments Primary Care Physician Name Of Family Doctor: Geovany Dumont in [place] Primary Care Provider Appointment Comment: [address] [place] [address] [place] [address] Psychiatrist Name of Psychiatrist: Cherri Amaro PA-C Psychiatrist's Date of Appointment with Psychiatrist: 10/03/18 Time of Appointment with Psychiatrist: 10am Therapist Name of Therapist: None Photoengraving Printer Name of Photoengraving Printer: BSU in the past, Smoking Cessation Counseling Tobacco Cessation Medication Prescribed at Discharge: Not Applicable/Non-Smoker Contact Information Discharge Discharge Address: [address] [facility], [place] [address] Discharge Plan Discharge Items Patient Disposition: Home - Home Health Services Reason For Visit: SCHIZOPHRENIA Discharge Diagnosis: Schizophrenia Discharge Goals: Improve disease control, Improve function, Learn about illness and Therapeutic intervention Activity: Per 'Additional Instructions' section Non-emergency contact: Primary Care Provider, Psychiatrist and Cake Washer Call non-emergency contact if: you have any medication questions and your symptoms worsen Diet: Regular Addtl Provider Instructions: SPECIAL CARE INSTRUCTIONS: 1. Follow through with your scheduled aftercare appointments. If unable to keep an appointment, please call to reschedule. 2. Take your medication only as prescribed. Medication should not be changed or stopped without the approval of your doctor. In the event of worsening symptoms or concerns about side effects, contact your doctor immediately. 3. Utilize new healthy coping skills, anger management skills, and stress management skills learned during your hospitalization. Journal feelings and process them with a support person. Identify stressors or situations that may result in relapse, deterioration or inappropriate behaviors and develop a plan to deal with those issues. 4. If your coping skills are ineffective and you are in crisis, contact your outpatient providers for direction. If unable to reach your providers, please call the CAN HELP LINE AT or go to the closest Emergency Room. 5. Avoid alcohol and un-prescribed drugs. 6. You have been provided with the Mental Health Advance Directives Pamphlet for your review. AFTERCARE APPOINTMENTS: * Please call your insurance company prior to your scheduled appointment to confirm your aftercare providers are covered. Take your insurance information to your appointments. WHO TO CALL AND WHEN: � Medical Emergencies:� For questions or emergencies related to your hospital stay, please contact the Inpatient Behavioral Health Unit at [phone]. � A line ordering clinician is on-call 26/03 for the Behavioral Health Unit for emergencies � At any time you feel your situation is an emergency, you may also call 911 immediately. Your Doctors Instructions noted above were prepared by provider Lisbeth Goddard MD. Prescriptions: New paliperidone palmitate [Invega Sustenna] 117 mg/0.75 mL Syringe 117 mg IM Q4WK Qty: 0.75 RF: 0 Discontinued chlorpromazine 100 mg tablet 100 mg PO QDD RF: 0 benztropine 1 mg tablet 1 mg PO QDD RF: 0 olanzapine 20 mg tablet 20 mg PO BIDM RF: 0 Stand-Alone Forms: My [facility] Admission Data Admit Date/Time: 09/23/18 14:32 Attending Provider: Lisbeth Goddard Admit Provider: Kenyon Sol Primary Care Provider: PCP,DANIEL Service: Psychiatry Other Interventions: Discharge Summary Assessment (RN) Last Done: 10/01/18 08:30 PSY Interdisciplinary Discharge Planning Last Done: 09/30/18 14:50 Pending Studies at Discharge: No
[2018-10-01] MEDS ORDERED: DESTROY THIS MEDICATION ONE (10:16)
[2018-10-28] MEDS ORDERED: PALIPERIDONE PALMITATE 117 MG/0.75 ML SYR IM SCH (09:00)
== END 2018-10-01 11:17 | disposition home health service (06) | DRG 885 ==
LOC: ED 09:17 → 3S 14:07 → SUATTDRO 14:32 → 3S 14:32

== ENCOUNTER 2019-10-20 08:24 | Inpatient (IN) ==
--- NOTE | 2019-10-20 08:24 | Emergency Department Note ---
Entered by Bia King acting as a scribe for Goyo Marshall MD History of Present Illness General Chief complaint: Neuro Symptoms/Deficit Physical Exam GENERAL: Awake, alert, well-appearing, in no distress HENT: Normocephalic, atraumatic. Oropharynx unremarkable. [Mucous membranes dry.] EYES: Normal conjunctiva. Sclera non-icteric. NECK: Supple. No nuchal rigidity. FROM. No JVD. RESPIRATORY: CTAB. CARDIAC: Regular rate, normal rhythm. Extremities warm and well perfused. Pulses equal. ABDOMEN: Soft, non-distended. No tenderness to palpation. No rebound or guarding. No masses. RECTAL: Deferred. MUSCULOSKELETAL: Chest examination reveals no tenderness. The back is symmetrical on inspection without obvious abnormality. There is no CVA tenderness to palpation. No joint edema. LOWER EXTREMITIES: Calves are equal size bilaterally and non-tender. No edema. No discoloration. NEURO: Normal sensorium. No sensory or motor deficits noted. SKIN: No rash or jaundice noted. Course Course 08: The patient was evaluated in room C3, and a complete history and physical examination were performed. Medical Decision Making Differential Diagnosis xxx Medical Records Attestation: I reviewed the patient's medical records. Home Medications Current Medication List: was personally reviewed by me Laboratory Data Attestation: I reviewed the patient's lab results. Imaging Data Radiologist's Impression: Radiology results as stated below per my review and the radiologist's interpretation: Blood Pressure Blood Pressure Findings: Elevated blood pressure Blood Pressure Disposition: Referred to patients primary care provider Discharge Plan Visit Data Chief Complaint: Neuro Symptoms/Deficit ED Provider: Goyo Marshall ED Midlevel Provider: Kelli Cedeño
[2019-10-20] MEDS ORDERED: SODIUM CHLORIDE 0.9% 1000ML 1,000 ML IV ONE (08:50)
[2019-10-20 09:14] LABS: Partial Thromboplastin Ratio 0.8; Partial Thromboplastin Time 21.2 Seconds (21.0-31.0); Prothrombin Time 10.6 Seconds (9.0-12.0)
[2019-10-20 09:37] LABS: Basophils # (auto) 0.01 K/uL (0-0.2); Basophils % (auto) 0.2 %; Eosinophils # (auto) 0.04 K/uL (0-0.5); Eosinophils % (auto) 0.9 %; Hematocrit (blood only) 38.7 % (42-52); Hemoglobin 12.8 g/dL (14.0-18.0); Immature Granulocytes # (auto) 0.01 K/uL (0.00-0.02); Immature Granulocytes % (auto) 0.2 %; Lymphocytes # (auto) 0.65 K/uL (1.2-3.4); Lymphocytes % (auto) 15.3 %; Mean Corpuscular Hemoglobin 31.1 pg (25-34); Mean Corpuscular Hgb Conc 33.1 g/dL (32-36); Mean Corpuscular Volume 94.2 fL (80-100); Mean Platelet Volume 9.5 fL (7.4-10.4); Monocytes # (auto) 0.32 K/uL (0.11-0.59); Monocytes % (auto) 7.5 %; Neutrophils # (auto) 3.21 K/uL (1.4-6.5); Neutrophils % (auto) 75.9 %; Platelet Count 154 K/uL (130-400); RDW Coefficient of Variation 14.1 % (11.5-14.5); RDW Standard Deviation 48.3 fL (36.4-46.3); Red Blood Count 4.11 M/uL (4.7-6.1); White Blood Count 4.24 K/uL (4.8-10.8)
[2019-10-20 09:54] LABS: Alanine Aminotransferase 14 U/L (12-78); Albumin Level 3.3 gm/dl (3.4-5.0); Aspartate Aminotransferase 12 U/L (15-37); BUN Creatinine Ratio 12.6 (10-20); Blood Urea Nitrogen 13 mg/dl (7-18); Carbon Dioxide 29 mmol/L (21-32); Chloride 106 mmol/L (98-107); Est GFR (African American) 82.2; Glucose 134 mg/dl (70-99); Potassium 3.9 mmol/L (3.5-5.1); Sodium 139 mmol/L (136-145)
[2019-10-20 09:58] LABS: Albumin Globulin Ratio 0.8 (0.9-2); Alkaline Phosphatase 85 U/L (45-117); Bilirubin,Total 0.5 mg/dl (0.2-1); Globulin 3.9 gm/dl (2.5-4.0); Total Protein 7.2 gm/dl (6.4-8.2); Troponin I < 0.015 ng/ml (0-0.045)
[2019-10-20] MEDS ORDERED: OPTIRAY 320 125ml IV PRN (10:13)
--- NOTE | 2019-10-20 10:27 | CT Scan Report ---
CT head/brain wo con CLINICAL HISTORY: transient R sided weakness COMPARISON STUDY: No previous studies for comparison. TECHNIQUE: Axial CT of the brain is performed from the vertex to the skull base. IV contrast was not administered for this examination. A dose lowering technique was utilized adhering to the principles of ALARA. CT DOSE: FINDINGS: No intra or extra-axial mass lesions are visualized. There is no CT evidence of acute cortical infarc tion. There is no evidence of midline shift. There is no acute hemorrhage. No calvarial fractures ar e visualized. There are minor white matter hypodensities likely on a small vessel basis. There is no evidence of pathologic ventricular dilatation. There is no evidence of acute sinusitis IMPRESSION: No acute intracranial findings ACT 112: Negative or not required by law. Electronically signed by: Herve Lal M.D. 10/20/2019 10:26 AM
--- NOTE | 2019-10-20 10:31 | CT Scan Report ---
CT angio neck with con CLINICAL HISTORY: transient R sided weakness COMPARISON STUDY: No previous studies for comparison. TECHNIQUE: CT angiography was performed from the aortic arch to the skull base. MIP imaging was perfo rmed. The patient was scanned in a dynamic helical fashion during intravenous administration of 120 c c of Optiray 320. A dose lowering technique was utilized adhering to the principles of ALARA. CT DOSE: Technique: CT angiogram of the carotid and vertebral arteries was obtained using intravenous contrast and 3-D reconstruction. NASCET criteria was utilized. Findings: There is mild dilatation of the ascending thoracic aorta which measures 37 mm. The right carotid revealed no evidence of aneurysm and no evidence of dissection. There is no evidenc e of hemodynamic significant stenosis. The left carotid revealed no evidence of hemodynamic significant stenosis. There is no evidence of an eurysm. There is no evidence of dissection. There is no evidence of hemodynamically significant vertebral stenosis. There is no evidence of verte bral dissection. IMPRESSION: No evidence of hemodynamically significant carotid or vertebral artery stenosis. No evidence of disse ction. ACT 112: Negative or not required by law. Electronically signed by: Herve Lal M.D. 10/20/2019 10:29 AM
--- NOTE | 2019-10-20 10:31 | CT Scan Report ---
CT angio head w con HISTORY: Mental status change transient R sided weakness TECHNIQUE: Multiaxial CT angiography of the head was performed IV contrast: 100 cc nonionic Maximu m intensity projection images were also obtained. A dose lowering technique was utilized adhering to the principles of ALARA. COMPARISON: None. FINDINGS: There is no mass, hematoma, midline shift, or acute infarct. Visualized intracranial procurement intern al carotid arteries, distal vertebral arteries, and basilar artery are widely patent. There is no sig nificant stenosis, occlusion, or aneurysm seen within the bilateral ACAs, MCAs, or balance sheet analyst. IMPRESSION: No significant stenosis, occlusion, or aneurysm within the [place]. Minimal scattered plaque formation ACT 112: Negative or not required by law. The above report was generated using voice recognition software. It may contain grammatical, syntax or spelling errors. Electronically signed by: Juan Morales M.D. 10/20/2019 10:29 AM
--- NOTE | 2019-10-20 11:08 | Emergency Department Note ---
ED Visit Note I saw this patient in conjunction with Dr. Marshall, and agree with the impression and assessment as outlined in his documentation. For all pertinent details and findings regarding this patient's care, please see his documentation. . Resident Activity Tracking Resident Involvement: Resident Care Provided Care Provided: Adult ED
--- NOTE | 2019-10-20 11:45 | History & Physical Report ---
Date of Service October 20, 2019 Assessment & Plan (1) Status post fall: Fall on the kitchen floor, seems to be mechanical fall No significant injury We will get PT and OT evaluation (2) TIA (transient ischemic attack): Questionable TIA symptoms observed by EMS Right-sided weakness with right facial droop Completely resolved on arrival Denies any symptoms during examination Initial work-up with CT of the head, CTA, EKG are unremarkable Will administer baby aspirin We will get an MRI of the head and ECHO Neuro consult if MRI is positive.Did not show any stroke (3) Schizophrenia: Has been getting Invega intramuscularly as directed We will continue that as an outpatient No acute symptoms of schizophrenia (4) Hypertension: Blood pressure is controlled Continue beta-tc (5) Occasional tremors: Has significant tremors involving the extremities Seems to be occasional and not any resting tremor Will observe (6) Abdominal aortic aneurysm (AAA) >39 mm diameter: No acute symptoms (7) Hyperlipidemia: Continue statin DVT prophylaxis Subcu heparin CODE STATUS Full Talk to RINA, the sister Latisha#[phone] History of Present Illness Chief Complaint: Mechanical fall at home with questionable right-sided weakness Primary Care Provider: Cholo Santiago MD He is a 68-year-old male with significant past medical history of paranoid schizophrenia, hypertension, hyperlipidemia, history of tobacco use disorder and vitamin D deficiency was brought into the ER with a history of fall early this morning around 7:30 AM. He lives with the dad and in the morning he woke up and went down the stairs to go to the kitchen to make some food. He ended up falling on the kitchen floor without any significant injury and the loss of consciousness. After repeated questioning he mentioned to have some dizziness before the fall but denies any other significant symptoms. The EMS noted that he had some right-sided weakness and questionable right facial droop when they arrived at his home. He denies any history of fever no chills, any cough and no phlegm. He denies any problem with his speech, any weakness of any side of the body or any numbness no tingling involving any extremities. Denied any visual symptoms or any worsening of his tremors. During examination he did not have any symptoms except some generalized weakness. Denies any visual symptoms, any headache, any problem with speech or swallowing, any numbness and/or tingling involving any of the extremities. His initial work-up including CT of the head, CTA and relevant blood works were unremarkable. He was admitted to medical telemetry unit for continuation of care. Allergies Allergy/AdvReac Type Severity Reaction Status Date / Time No Known Allergies Allergy Unknown Verified 10/08/19 03:10 Home Medications Home Medications Medication Instructions Recorded Confirmed Type haloperidol 10 mg PO BID 07/21/19 10/20/19 History acetaminophen [Tylenol] 325 mg PO Q4H PRN 10/08/19 10/20/19 History ferrous sulfate 325 mg PO TIDM 10/08/19 10/20/19 History oxycodone-acetaminophen 1 tab PO Q8H PRN 10/08/19 10/20/19 History paliperidone palmitate [Invega 234 mg IM DIRECTED 10/08/19 10/20/19 History Sustenna] pioglitazone 30 mg PO DAILY 10/08/19 10/20/19 History potassium chloride 20 meq PO BID 10/08/19 10/20/19 History metoprolol succinate 12.5 mg PO DAILY 10/20/19 10/20/19 History Past Med/Surg History Medical History (Updated 10/20/19 @ 13:51 by Bia King) Abdominal aortic aneurysm (AAA) >39 mm diameter Homicidal ideation (Inactive) Noncompliance with medications (Inactive) Paranoid schizophrenia (Inactive) Psychosis (Inactive) Schizophrenia (Chronic) Suicide ideation (Inactive) Family History Other Family history non-contributory Social History Preferred Language: F[place]ian Communication Ability: Effective Quality Control Lab Technician Required: No Beliefs That Will Affect Care: None Current Living Situation: Parent Other Information That Helps Us Care for You: No Feels Safe at Home: Yes Safety Concerns: Feels Safe At This Time Smoking Status: Never smoker Tobacco Type: cigarettes ; Cigarettes Per Day: 1 pack ; Hx Alcohol Use: No Hx Substance Use: No Review of Systems Review of Systems: All systems reviewed & are unremarkable except as noted in HPI & below Physical Exam Physical Exam: Lying in bed comfortably Constitutional: well developed, well nourished and + ill appearing; no acute distress Eyes: PERRL, conjunctivae normal, anicteric sclerae ENMT: external ear and nose normal, oropharynx normal Neck: trachea midline, no thyromegaly Respiratory: normal respiratory effort; no respiratory distress Auscultation: lungs clear to auscultation bilaterally Cardiovascular: Rate/Rhythm: regular rate and regular rhythm Heart Sounds: no murmur Extremities: + edema (Trace edema bilaterally) Gastrointestinal (Abdomen): Inspection/Auscultation: abdomen normal to inspection and normal bowel sounds Musculoskeletal: No cyanosis or clubbing, extremities more motor strength about 4-5 over 5 Neurologic: moves all extremities; no focal motor deficits Motor/Sensory: + tremor (Has tremors involving mainly the upper extremities. Seems to be benign) Alert, awake and oriented x3. Generally weak. Psychiatric: Orientation: alert and oriented x 3 Insight: + limited insight Lymphatic: no cervical or axillary lymphadenopathy Results & Data Vital Signs (Past 12 Hours) Vital Signs Temp Pulse Pulse Resp BP BP Pulse Ox 10/20/19 11:01 60 12 137/81 96 10/20/19 11:00 63 14 10/20/19 10:31 62 13 99 10/20/19 10:30 61 22 115/89 99 10/20/19 10:01 63 15 97 10/20/19 10:00 63 16 131/79 98 10/20/19 09:53 65 14 113/77 98 10/20/19 09:31 24 98 10/20/19 09:30 27 H 113/77 98 10/20/19 09:01 83 23 96 10/20/19 09:00 84 18 107/73 96 10/20/19 08:58 85 20 101/74 97 10/20/19 08:32 36.4 C L 87 14 102/71 98 10/20/19 08:31 84 16 97 10/20/19 08:29 93 H 17 102/71 97 Laboratory Results Short CBC 10/20/19 Range/Units 09:23 WBC 4.24 L (4.8-10.8) K/uL Hgb 12.8 L (14.0-18.0) g/dL Hct 38.7 L (42-52) % Plt Count 154 (130-400) K/uL BMP 10/20/19 09:23 Sodium 139 Potassium 3.9 Chloride 106 Carbon Dioxide 29 BUN 13 Creatinine 1.07 Glucose 134 H Calcium 9.0 Cardiac Enzymes 10/20/19 Range/Units 09:23 Troponin I < 0.015 (0-0.045) ng/ml Liver Function 10/20/19 Range/Units 09:23 Total Bilirubin 0.5 (0.2-1) mg/dl AST 12 L (15-37) U/L ALT 14 (12-78) U/L Alkaline Phosphatase 85 (45-117) U/L Albumin 3.3 L (3.4-5.0) gm/dl Medications Administered Current Inpatient Medications Ioversol (Optiray 320 125ml) 120 ml IV ONCE PRN PRN Reason: Interaction Checking Stop: 10/24/19 10:12 Last Admin: 10/20/19 10:14 Dose: 120 ml Documented by: Code Status & VTE Plan Code Status Full code VTE Prophylaxis Plan VTE Prophylaxis will be ordered: Yes
[2019-10-20] MEDS ORDERED: ACETAMINOPHEN 325 MG TAB PO PRN (14:25)
--- NOTE | 2019-10-20 15:43 | Magnetic Resonance Report ---
MRI OF THE BRAIN WITHOUT IV CONTRAST CLINICAL HISTORY: Transient ischemic attack. COMPARISON STUDY: CT of the brain dated 10/20/2019. TECHNIQUE: MRI of the brain was performed utilizing various T1 and T2-weighted sequences in the axial , sagittal, and coronal planes. IV contrast was not administered for this examination. FINDINGS: Brain parenchyma: There is age-related involutional change noting minimal microangiopathic disease. T here is no hemorrhage or mass effect. There is no restricted diffusion to suggest acute ischemia. Gra y-white matter differentiation is preserved. No extra-axial fluid collection is seen. The cerebellar tonsils are normal in configuration. Ventricles, sulci, and cisterns: Prominent secondary to involutional change. Pituitary and sella: Unremarkable. Intracranial vasculature: Normal flow voids are maintained at the skull base. Orbits: The bony orbits are grossly intact. Orbital contents are normal in appearance. Sinuses and mastoids: There is a 2.2 cm retention cyst in the right maxillary antrum. A subcentimeter retention cyst is noted on the left. The paranasal sinuses are otherwise clear. The mastoid air cell s are well pneumatized. Calvarium: Unremarkable. Cervical cord: Partially visualized cervical spinal cord is normal in morphology and signal intensity . IMPRESSION: No acute intracranial abnormality. ACT 112: Negative or not required by law. Electronically signed by: Ad George M.D. 10/20/2019 3:42 PM
[2019-10-20] MEDS: METOPROLOL SUCC 25MG EXT REL TAB PO SCH (15:58)
[2019-10-20] MEDS: FERROUS SULFATE 325 MG TAB PO SCH ×2 (15:58→18:35)
--- NOTE | 2019-10-20 15:59 | Emergency Department Note ---
Entered by Bia King acting as a scribe for Goyo Marshall MD History of Present Illness General Chief complaint: TIA Symptoms Time Seen by Provider: 10/20/19 08:27 Source: patient and EMS Mode of arrival: EMS History of Present Illness Onset (ago): hour(s) (0730 this morning) Location: head (weakness) Severity: similar to prior episodes Pain Consistency: + now resolved Quality: + other (weakness) Associated symptoms: + weakness and + other (Positive dizzy, fall, facial droop. Negative blurry vision, trouble speaking.); no syncope Treatments prior to arrival: none The patient is a 68 year old male presenting to the Emergency Department complaining of resolved weakness starting at 0730 this morning. EMS reports that the patient fell in his kitchen this morning. They state that after the fall the patients right arm and leg were weak and that the patient had a right sided facial droop. They explain that the patients weakness resolved before his arrival to the hospital. 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 The patient reports that he was in the kitchen and suddenly became dizzy and fell. He states that he didnt lose consciousness or hit his head upon his fall. He explains that he has a resting tremor. He notes that he had an aortic repair within the past month. He adds that he has no history of NC or CVA. The patient denies blurry vision and trouble speaking. Home Medications Home Medications Medication Instructions Recorded Confirmed Type haloperidol 10 mg PO BID 07/21/19 10/20/19 History acetaminophen [Tylenol] 325 mg PO Q4H PRN 10/08/19 10/20/19 History ferrous sulfate 325 mg PO TIDM 10/08/19 10/20/19 History oxycodone-acetaminophen 1 tab PO Q8H PRN 10/08/19 10/20/19 History paliperidone palmitate [Invega 234 mg IM DIRECTED 10/08/19 10/20/19 History Sustenna] pioglitazone 30 mg PO DAILY 10/08/19 10/20/19 History potassium chloride 20 meq PO BID 10/08/19 10/20/19 History metoprolol succinate 12.5 mg PO DAILY 10/20/19 10/20/19 History Allergies Allergy/AdvReac Type Severity Reaction Status Date / Time No Known Allergies Allergy Unknown Verified 10/08/19 03:10 Past Med/Surg History Medical History Abdominal aortic aneurysm (AAA) >39 mm diameter Homicidal ideation (Inactive) Noncompliance with medications (Inactive) Paranoid schizophrenia (Inactive) Psychosis (Inactive) Schizophrenia (Chronic) Suicide ideation (Inactive) Family History Other Family history non-contributory Social History Preferred Language: [place] Communication Ability: Effective Dialysis Nurse Required: No Beliefs That Will Affect Care: None Current Living Situation: Parent Other Information That Helps Us Care for You: No Feels Safe at Home: Yes Safety Concerns: Feels Safe At This Time Smoking Status: Never smoker Tobacco Type: cigarettes ; Cigarettes Per Day: 1 pack ; Hx Alcohol Use: No Hx Substance Use: No Review of Systems See HPI for pertinent positives & negatives. and A total of 10 systems reviewed and were otherwise negative Physical Exam Vital Signs Vital Signs - 24 hr 10/20/19 08:29 10/20/19 08:31 10/20/19 08:32 Temperature 36.4 C L Temperature Source Oral Pulse Rate 93 H 84 87 Pulse Rate [Apical] Pulse Rate from SpO2 Sensor 88 85 Pulse Rhythm Regular Pulse Rhythm [Apical] Pulse Strength Normal Pulse Strength [Apical] Respiratory Rate 17 16 14 Respiratory Effort / Characteristics Non-Labored Spontaneous Respiratory Depth Normal Respiratory Pattern Regular Blood Pressure 102/71 102/71 Blood Pressure [Right Arm] Blood Pressure Mean 79 81 Blood Pressure Mean [Right Arm] Blood Pressure Position Sitting Blood Pressure Position [Right Arm] Pulse Oximetry 97 97 98 Oxygen Delivery Method Room Air Sepsis Recent Fever Within 48 Hours No Sepsis New/Unexplained Change in Mental Status No Sepsis Action Taken by Nursing No Action Required 10/20/19 08:58 10/20/19 09:00 10/20/19 09:01 Temperature Temperature Source Pulse Rate 85 84 83 Pulse Rate [Apical] Pulse Rate from SpO2 Sensor 86 84 83 Pulse Rhythm Pulse Rhythm [Apical] Pulse Strength Pulse Strength [Apical] Respiratory Rate 20 18 23 Respiratory Effort / Characteristics Respiratory Depth Respiratory Pattern Blood Pressure 101/74 107/73 Blood Pressure [Right Arm] Blood Pressure Mean 84 80 Blood Pressure Mean [Right Arm] Blood Pressure Position Blood Pressure Position [Right Arm] Pulse Oximetry 97 96 96 Oxygen Delivery Method Sepsis Recent Fever Within 48 Hours Sepsis New/Unexplained Change in Mental Status Sepsis Action Taken by Nursing 10/20/19 09:30 10/20/19 09:31 10/20/19 09:53 Temperature Temperature Source Pulse Rate Pulse Rate [Apical] 65 Pulse Rate from SpO2 Sensor 81 80 Pulse Rhythm Pulse Rhythm [Apical] Regular Pulse Strength Pulse Strength [Apical] Normal Respiratory Rate 27 H 24 14 Respiratory Effort / Characteristics Non-Labored Spontaneous Respiratory Depth Normal Respiratory Pattern Regular Blood Pressure 113/77 Blood Pressure [Right Arm] 113/77 Blood Pressure Mean 83 Blood Pressure Mean [Right Arm] 89 Blood Pressure Position Blood Pressure Position [Right Arm] Sitting Pulse Oximetry 98 98 98 Oxygen Delivery Method Room Air Sepsis Recent Fever Within 48 Hours Sepsis New/Unexplained Change in Mental Status Sepsis Action Taken by Nursing 10/20/19 10:00 10/20/19 10:01 10/20/19 10:30 Temperature Temperature Source Pulse Rate 63 63 61 Pulse Rate [Apical] Pulse Rate from SpO2 Sensor 64 65 98 H Pulse Rhythm Pulse Rhythm [Apical] Pulse Strength Pulse Strength [Apical] Respiratory Rate 16 15 22 Respiratory Effort / Characteristics Respiratory Depth Respiratory Pattern Blood Pressure 131/79 115/89 Blood Pressure [Right Arm] Blood Pressure Mean 90 108 Blood Pressure Mean [Right Arm] Blood Pressure Position Blood Pressure Position [Right Arm] Pulse Oximetry 98 97 99 Oxygen Delivery Method Sepsis Recent Fever Within 48 Hours Sepsis New/Unexplained Change in Mental Status Sepsis Action Taken by Nursing 10/20/19 10:31 10/20/19 11:00 10/20/19 11:01 Temperature Temperature Source Pulse Rate 62 63 60 Pulse Rate [Apical] Pulse Rate from SpO2 Sensor 62 61 Pulse Rhythm Pulse Rhythm [Apical] Pulse Strength Pulse Strength [Apical] Respiratory Rate 13 14 12 Respiratory Effort / Characteristics Respiratory Depth Respiratory Pattern Blood Pressure 137/81 Blood Pressure [Right Arm] Blood Pressure Mean 95 Blood Pressure Mean [Right Arm] Blood Pressure Position Blood Pressure Position [Right Arm] Pulse Oximetry 99 96 Oxygen Delivery Method Sepsis Recent Fever Within 48 Hours Sepsis New/Unexplained Change in Mental Status Sepsis Action Taken by Nursing 10/20/19 11:02 10/20/19 11:30 10/20/19 11:31 Temperature Temperature Source Pulse Rate 58 L 77 Pulse Rate [Apical] Pulse Rate from SpO2 Sensor 58 L 77 83 Pulse Rhythm Pulse Rhythm [Apical] Pulse Strength Pulse Strength [Apical] Respiratory Rate 12 14 15 Respiratory Effort / Characteristics Respiratory Depth Respiratory Pattern Blood Pressure 130/88 Blood Pressure [Right Arm] Blood Pressure Mean 93 Blood Pressure Mean [Right Arm] Blood Pressure Position Blood Pressure Position [Right Arm] Pulse Oximetry 96 98 97 Oxygen Delivery Method Sepsis Recent Fever Within 48 Hours Sepsis New/Unexplained Change in Mental Status Sepsis Action Taken by Nursing GENERAL: Awake, alert, fatigued-appearing, in no distress HENT: Normocephalic, atraumatic. Oropharynx with dry mucous membranes and otherwise unremarkable. EYES: Normal conjunctiva. Sclera non-icteric. EOMI. No nystamgus. PEARRL. NECK: Supple. No nuchal rigidity. FROM. No JVD. RESPIRATORY: CTAB. CARDIAC: Regular rate, normal rhythm. Extremities warm and well perfused. Pulses equal. ABDOMEN: Abdominal incision sight well healed. Soft, non-distended. No tenderness to palpation. No rebound or guarding. No masses. RECTAL: Deferred. MUSCULOSKELETAL: Chest examination reveals no tenderness. The back is symmetrical on inspection without obvious abnormality. There is no CVA tenderness to palpation. No joint edema. LOWER EXTREMITIES: Calves are equal size bilaterally and non-tender. No edema. No discoloration. NEURO: Normal sensorium. No sensory or motor deficits noted. Normal cerebellar function including finger to nose, alternating palms and heal to garza. 5/5 strength. SILT x 4 extremities. SKIN: No rash or jaundice noted. Course Course 08: The patient was evaluated in room C3, and a complete history and physical examination were performed. 1051: I reevaluated the patient at this time. 1055: I discussed the patients case with Suzi Sebastian PA-C. Dr. Sridhar Armenta hospitalist will evaluate the patient for further management. Administered Medications Ferrous Sulfate (Feosol) 325 mg PO TIDM MARIAMA Stop: 11/19/19 14:24 Last Admin: 10/20/19 18:35 Dose: 325 mg Documented by: [id number] Admin: 10/20/19 15:58 Dose: 325 mg Documented by: [id number] Haloperidol (Haldol) 10 mg PO BID MARIAMA Stop: 11/19/19 20:59 Last Admin: 10/20/19 20:52 Dose: 10 mg Documented by: [id number] Heparin Sodium (Porcine) (Heparin Sodium (Porcine)) 5,000 units SQ Q12 MARIAMA Stop: 11/19/19 20:59 Last Admin: 10/20/19 20:53 Dose: 5,000 units Documented by: [id number] Cosigned by: [id number] Metoprolol Succinate (Toprol Xl) 12.5 mg PO DAILY MARIAMA Stop: 11/19/19 14:24 Last Admin: 10/20/19 15:58 Dose: 12.5 mg Documented by: [id number] Potassium Chloride (Klor-Con M20) 20 meq PO BID MARIAMA Stop: 11/19/19 20:59 Last Admin: 10/20/19 20:53 Dose: 20 meq Documented by: [id number] Discontinued Medications Sodium Chloride (Nss 1000ml) 1,000 mls @ 999 mls/hr IV .Q1H1M ONE Stop: 10/20/19 09:50 Last Infusion: 10/20/19 11:13 Dose: 0 mls/hr Documented by: [id number] Admin: 10/20/19 08:57 Dose: 999 mls/hr Documented by: [id number] Ioversol (Optiray 320 125ml) 120 ml IV ONCE PRN PRN Reason: Interaction Checking Stop: 10/24/19 10:12 Last Admin: 10/20/19 10:14 Dose: 120 ml Documented by: [id number] Medical Decision Making Differential Diagnosis Differential Diagnosis includes but is not limited to dehydration, stroke, anemia, hypoglycemia, hyponatremia, hypernatremia, urinary tract infection, pneumonia, bronchitis, sepsis, gastroenteritis, additional abdominal pathology, metabolic abnormalities and infections. Medical Records Attestation: I reviewed the patient's medical records. Home Medications Current Medication List: was personally reviewed by me Laboratory Data Attestation: I reviewed the patient's lab results. Result diagrams: 10/20/19 09:23 10/20/19 09:23 Lab Results 10/20/19 10/20/19 10/20/19 Range/Units 08:47 08:55 09:23 WBC 4.24 L (4.8-10.8) K/uL RBC 4.11 L (4.7-6.1) M/uL Hgb 12.8 L (14.0-18.0) g/dL Hct 38.7 L (42-52) % MCV 94.2 (80-100) fL MCH 31.1 (25-34) pg MCHC 33.1 (32-36) g/dL RDW Std Deviation 48.3 H (36.4-46.3) fL RDW Coeff of Nerissa 14.1 (11.5-14.5) % Plt Count 154 (130-400) K/uL MPV 9.5 (7.4-10.4) fL Immature Gran % (Auto) 0.2 % Neut % (Auto) 75.9 % Lymph % (Auto) 15.3 % Burnet % (Auto) 7.5 % Eos % (Auto) 0.9 % Baso % (Auto) 0.2 % Immature Gran # (Auto) 0.01 (0.00-0.02) K/uL Neut # (Auto) 3.21 (1.4-6.5) K/uL Lymph # (Auto) 0.65 L (1.2-3.4) K/uL [place]et # (Auto) 0.32 (0.11-0.59) K/uL Eos # (Auto) 0.04 (0-0.5) K/uL Baso # (Auto) 0.01 (0-0.2) K/uL PT 10.6 (9.0-12.0) Seconds INR 1.0 (0.9-1.1) APTT 21.2 (21.0-31.0) Seconds PTT Ratio 0.8 Sodium (136-145) mmol/L Potassium (3.5-5.1) mmol/L Chloride (98-107) mmol/L Carbon Dioxide (21-32) mmol/L Anion Gap (3-11) BUN (7-18) mg/dl Creatinine (0.6-1.4) mg/dl Est Cr Clr Drug Dosing Est GFR ( Amer) Est GFR (Non-Af Amer) BUN/Creatinine Ratio (10-20) Glucose (70-99) mg/dl POC Glucose 141 H (70-99) mg/dl Calcium (8.5-10.1) mg/dl Total Bilirubin (0.2-1) mg/dl AST (15-37) U/L ALT (12-78) U/L Alkaline Phosphatase (45-117) U/L Troponin I (0-0.045) ng/ml Total Protein (6.4-8.2) gm/dl Albumin (3.4-5.0) gm/dl Globulin (2.5-4.0) gm/dl Albumin/Globulin Ratio (0.9-2) 10/20/19 Range/Units 09:23 WBC (4.8-10.8) K/uL RBC (4.7-6.1) M/uL Hgb (14.0-18.0) g/dL Hct (42-52) % MCV (80-100) fL MCH (25-34) pg MCHC (32-36) g/dL RDW Std Deviation (36.4-46.3) fL RDW Coeff of Nerissa (11.5-14.5) % Plt Count (130-400) K/uL MPV (7.4-10.4) fL Immature Gran % (Auto) % Neut % (Auto) % Lymph % (Auto) % Burnet % (Auto) % Eos % (Auto) % Baso % (Auto) % Immature Gran # (Auto) (0.00-0.02) K/uL Neut # (Auto) (1.4-6.5) K/uL Lymph # (Auto) (1.2-3.4) K/uL [place]et # (Auto) (0.11-0.59) K/uL Eos # (Auto) (0-0.5) K/uL Baso # (Auto) (0-0.2) K/uL PT (9.0-12.0) Seconds INR (0.9-1.1) APTT (21.0-31.0) Seconds PTT Ratio Sodium 139 (136-145) mmol/L Potassium 3.9 (3.5-5.1) mmol/L Chloride 106 (98-107) mmol/L Carbon Dioxide 29 (21-32) mmol/L Anion Gap 4.0 (3-11) BUN 13 (7-18) mg/dl Creatinine 1.07 (0.6-1.4) mg/dl Est Cr Clr Drug Dosing Not Reportable Est GFR ( Amer) 82.2 Est GFR (Non-Af Amer) 71.0 BUN/Creatinine Ratio 12.6 (10-20) Glucose 134 H (70-99) mg/dl POC Glucose (70-99) mg/dl Calcium 9.0 (8.5-10.1) mg/dl Total Bilirubin 0.5 (0.2-1) mg/dl AST 12 L (15-37) U/L ALT 14 (12-78) U/L Alkaline Phosphatase 85 (45-117) U/L Troponin I < 0.015 (0-0.045) ng/ml Total Protein 7.2 (6.4-8.2) gm/dl Albumin 3.3 L (3.4-5.0) gm/dl Globulin 3.9 (2.5-4.0) gm/dl Albumin/Globulin Ratio 0.8 L (0.9-2) Imaging Data Radiologist's Impression: Radiology results as stated below per my review and the radiologist's interpretation: CT angio head w con HISTORY: Mental status change transient R sided weakness TECHNIQUE: Multiaxial CT angiography of the head was performed IV contrast: 100 cc nonionic Maximum intensity projection images were also obtained. A dose lowering technique was utilized adhering to the principles of ALARA. COMPARISON: None. FINDINGS: There is no mass, hematoma, midline shift, or acute infarct. Visualized intracranial internal carotid arteries, distal vertebral arteries, and basilar artery are widely patent. There is no significant stenosis, occlusion, or aneurysm seen within the bilateral ACAs, MCAs, or graduate intern. IMPRESSION: No significant stenosis, occlusion, or aneurysm within the standing [place] of [place]. Minimal scattered plaque formation ACT 112: Negative or not required by law. The above report was generated using voice recognition software. It may contain grammatical, syntax or spelling errors. Electronically signed by: Juan Morales M.D. 10/20/2019 10:[address] angio neck with con CLINICAL HISTORY: transient R sided weakness COMPARISON STUDY: No previous studies for comparison. TECHNIQUE: CT angiography was performed from the aortic arch to the skull base. MIP imaging was performed. The patient was scanned in a dynamic helical fashion during intravenous administration of 120 cc of Optiray 320. A dose lowering technique was utilized adhering to the principles of ALARA. CT DOSE: Technique: CT angiogram of the carotid and vertebral arteries was obtained using intravenous contrast and 3-D reconstruction. NASCET criteria was utilized. Findings: There is mild dilatation of the ascending thoracic aorta which measures 37 mm. The right carotid revealed no evidence of aneurysm and no evidence of dissection. There is no evidence of hemodynamic significant stenosis. The left carotid revealed no evidence of hemodynamic significant stenosis. There is no evidence of aneurysm. There is no evidence of dissection. There is no evidence of hemodynamically significant vertebral stenosis. There is no evidence of vertebral dissection. IMPRESSION: No evidence of hemodynamically significant carotid or vertebral artery stenosis. No evidence of dissection. ACT 112: Negative or not required by law. Electronically signed by: Herve Lal M.D. 10/20/2019 10:[address] head/brain wo con CLINICAL HISTORY: transient R sided weakness COMPARISON STUDY: No previous studies for comparison. TECHNIQUE: Axial CT of the brain is performed from the vertex to the skull base. IV contrast was not administered for this examination. A dose lowering technique was utilized adhering to the principles of ALARA. CT DOSE: FINDINGS: No intra or extra-axial mass lesions are visualized. There is no CT evidence of acute cortical infarction. There is no evidence of midline shift. There is no acute hemorrhage. No calvarial fractures are visualized. There are minor white matter hypodensities likely on a small vessel basis. There is no evidence of pathologic ventricular dilatation. There is no evidence of acute sinusitis IMPRESSION: No acute intracranial findings ACT 112: Negative or not required by law. Electronically signed by: Herve Lal M.D. 10/20/2019 10:26 AM ECG Data Attestation: I personally reviewed and interpreted this ECG as follows: Indication: + weakness Rate (beats per minute): 85 ECG Intervals/blocks: + Normal QRS (QRS 86.) and + Normal QT-c (QT-c 452.) ECG [place]: + Normal ECG ST segments: no ST depression and no ST elevation Blood Pressure Blood Pressure Findings: Elevated blood pressure Blood Pressure Disposition: further management by hospitalist ANILA Alvarez The patient is a pleasant 68-year-old gentleman with a past medical history of hypertension, hyperlipidemia, schizophrenia, AAA repair within the past month who presents emergency department after having dizziness leading to a fall in the kitchen this morning with subsequent note of right arm and leg weakness and right-sided facial droop that resolved after minutes per HPI. On arrival the patient is no acute distress, afebrile stable vital signs. On exam the patient has no focal neuro deficits at this time. EKG without overt acute ischemia. WBC 4.2, nonspecific and similar to prior. H/H 12.8/30.7 similar to prior values. Platelets within normal limits. Chemistry without acidosis. Electrolytes and LFTs unremarkable. Troponin negative/undetectable. CT CTA of the head and neck was performed and negative for ICH, ischemia, severe narrowing or occlusion of large vessels. Patient was agreeable for admission for further stroke evaluation. Resident, Dr. Cedeño, discussed the case with Geovany Bennett PA-C, who will evaluate the patient for admission. Impression & Plan Stroke-like symptom, Near syncope, Schizophrenia, S/P AAA repair Discharge Plan Visit Data *Final* Discharge Date/Time: 10/20/19 13:44 Chief Complaint: TIA Symptoms ED Provider: Goyo Marshall ED Midlevel Provider: Kelli Cedeño Discharge Problem: Stroke-like symptom, Near syncope, Schizophrenia, S/P AAA repair Patient Disposition: Admitted As Inpatient Discharge Instructions Interventions: ED Discharge Assessment Last Done: 10/20/19 13:44 The scribe's documentation has been prepared under my direction and personally reviewed by me in its entirety. I confirm that the note above accurately reflects all work, treatment, procedures, and medical decision making performed by me.
[2019-10-20] MEDS: HALOPERIDOL 10 MG TABLET PO SCH (20:52)
[2019-10-20] MEDS: HEPARIN SOD 5,000 UNIT/0.5 ML VIAL SQ SCH (20:53)
[2019-10-20] MEDS: POTASSIUM CHLORIDE 20 MEQ TABCR PO SCH (20:53)
[2019-10-21] MEDS: METOPROLOL SUCC 25MG EXT REL TAB PO SCH (09:21)
[2019-10-21] MEDS: HALOPERIDOL 10 MG TABLET PO SCH ×2 (09:21→20:57)
[2019-10-21] MEDS: POTASSIUM CHLORIDE 20 MEQ TABCR PO SCH ×2 (09:21→20:53)
[2019-10-21] MEDS: PIOGLITAZONE HCL 15 MG TAB PO SCH (09:21)
[2019-10-21] MEDS: FERROUS SULFATE 325 MG TAB PO SCH ×3 (09:22→18:04)
[2019-10-21] MEDS: HEPARIN SOD 5,000 UNIT/0.5 ML VIAL SQ SCH ×2 (09:22→20:53)
[2019-10-21] MEDS: ASPIRIN 81 MG ECTAB PO SCH (09:22)
--- NOTE | 2019-10-21 14:37 | Hospitalist Progress Note ---
Date of Service October 21, 2019 Assessment & Plan (1) Status post fall: Fall on the kitchen floor, seems to be mechanical fall No significant injury PT/OT on board and no inpatient rehab required (2) Stroke-like symptom: Questionable TIA symptoms observed by EMS Right-sided weakness with right facial droop Completely resolved on arrival Denies any symptoms during examination No focal neuro symptoms on exam CT / CTA head showed no acute intracranial finding CTA neck showed no evidence of hemodynamically significant carotid or vertebral artery stenosis. MRI brain showed no acute intracranial abnormality. ECHO showed no LV wall motion abnormality with EF 60-65% No focal neuro deficit on admission and during the hospital stay Will continue ASA 81mg daily TIA ruled out (3) Schizophrenia: His next Invega injection schedule on 10/28/19 at 12:45 pm at [facility] nurse from On Haldol 10mg BID No acute symptoms of schizophrenia Pt has no psychiatrist currently, his PCP has been prescribed the Invega and Haldol I told her sister that i would put a psych consult while in the hospital, she declined the service I spoke to our psych nurse liaison, who will try to provide some info about outpatient psych provider that we can arrange the pt to seen outpatient (4) Hypertension: Blood pressure is controlled Continue beta-tc (5) Occasional tremors: Has significant tremors involving the extremities Seems to be occasional and not any resting tremor Stable (6) Abdominal aortic aneurysm (AAA) >39 mm diameter: No acute symptoms (7) Hyperlipidemia: Continue statin DVT prophylaxis Subcu heparin CODE STATUS Full Disposition Will discharge home today with services Update provided to the sister who is the RINA Good#[phone] Admission and Anticipated Discharge Date Admission Date: October 20, 2019 Subjective Pt was seen and examined Lying in bed with no distress Pt said that he feels fine now He ambulates in the hallway with therapist He thinks the reason he fell is because of the Invega and haldol He said that when he takes the invega and haldol, he develops brief blanking moment sometimes He said that he gets his Invega every 21days . He is next Invega injection schedule on 10/28/19 at 12:45 pm at [facility] nurse from I spoke to his sister who is 2 hr away. She said that the invega has been keeping him stable and avoid any inpatient psych admission The sister said that his PCP has been prescribed the invega since pt has no psychiatrist at this time I offered the sister about to consult our inpatient psychiatrist, she declined the service Pt denies any chest pain, palpitation, dizziness and SOB Physical Exam Physical Exam: General- No acute distress Head- atraumatic Eyes- PERRL, EOMI, ENT- oropharynx clear Neck- supple, no JVD Lungs- clear to auscultation Heart- regular rhythm; no murmur Abdomen- normal bowel sounds, soft, nontender Extremities- no calf tenderness Neuro- alert, oriented x 3; PERRL, EOMI; no facial palsy; no dysarthria, +tremor in upper extremity Skin- warm & dry Results & Data ([facility]) Vital Signs (Past 12 Hours) Vital Signs Temp Pulse Pulse Resp BP Pulse Ox 10/21/19 07:26 36.3 C L 59 L 18 123/75 97 10/21/19 07:17 60 10/21/19 03:34 36.7 C 74 18 118/77 98 10/21/19 02:33 63
--- NOTE | 2019-10-21 18:02 | Communication Note ---
Date of Service: October 21, 2019 I was ready to discharge Mr Gao today. But after i went back to evaluate him again and to talk to his ride (brother in law i believe), Pt was very confused. He gave me a note to call someone that is in charge of euthanasia. Early today He was AAOx3 and followed commands. His brother in law said that, he has been feeling like that every time after getting the Invega Injection. He said that the patient had the injection few days ago and since them his symptoms wax and wane and sometimes he is like a zombie as per brother in law. He said that the patient lives with dad who is an elderly. Early I spoke to his sister about to be seen by our psychiatrist, she declined the service. Currently he is not acting appropriately and he is not safe to discharge him home today. Last year he was admitting for inpatient psych and he was discharged on Invega 117mg [id number], but currently he is on Invega 234mg [id number]. We will consult psych to evaluate if the Invega dose that he is getting his appropriate. Will continue monitor closely.
--- NOTE | 2019-10-21 20:47 | Electrocardiogram Report ---
Test Reason : Blood Pressure : / mmHG Vent. Rate : 085 BPM Atrial Rate : 085 BPM P-R Int : 158 ms QRS Dur : 086 ms QT Int : 380 ms P-R-T Axes : 043 029 026 degrees QTc Int : 452 ms Normal sinus rhythm Cannot rule out Inferior infarct (cited on or before 21-JUL-2019) Cannot rule out Anterior infarct , age undetermined Abnormal ECG When compared with ECG of 21-JUL-2019 12:50, No significant change Confirmed by Luiz Max ([id number]) on 10/21/2019 8:46:51 PM Referred By: REFERRED SELF Confirmed By:Luiz Max
--- NOTE | 2019-10-22 11:15 | Psychiatric Consultation ---
Date of Consultation October 22, 2019 Impression / Recommendations Impression Dr. Lisbeth Goddard was directly involved in review and discussion of the patient's case and participated in medical decision making regarding treatment recommendations. RECOMMENDATIONS: 10/22/2019 - Pt presents as cooperative and pleasant, admitting to episodes of confusion and disorganization - this was not overtly witnessed at time of this provider's encounter with the patient, as he was A&Ox4. - Pt reports numerous side effects he believes are related to receiving the Invega Sustenna - very few of which are likely to be directly related to this medication, at this point patient has received the injectable medication, and there are no acute recommendations at this time. Will attempt to gather collateral from PCP and most recent psychiatric prescriber regarding medication history and any history of adverse effects - Pt is refusing scheduled dosing of haloperidol based on reports it causes him to feel sedated. Will request outpatient records to clarify medication history. Continue regularly offering the scheduled medication, even if declining initial offer - We have been attempting to gather collateral from patient's sister/POA and case fitter regarding change in symptoms and psychiatric concerns. There are likely numerous explanations for episodic confusion, including but certainly not limited to transitioning between physical environments (hospitalization, physical rehab, home), recent surgical procedure, age, multiple medical conditions, and polypharmacy. Will attempt to better ascertain changes in patient's presentation to determine if there is sufficient criteria to suggest inpatient psychiatric admission. While the concern for possible harm to father is understandable, patient must demonstrate a clear and present danger to self or others or exhibit probability of , serious bodily injury or serious physical debilitation within the next 30 days. While it is possible patient may be meet such criteria, we will continue to gather information to suggest his current psychiatric symptoms are amenable to inpatient psychiatric treatment, and that this is the least restrictive and most appropriate setting for treatment. - In the interim, we will attempt to determine available for patient to be seen by a psychiatric prescriber promptly on an outpatient basis - We will update as able with additional recommendations - please reach out to our service with any questions or updates Psych History Identifying Data 68-year-old male admitted medically on 10/20/2019 after presenting to the ED s/p fall and stroke-like symptoms. Pt has reportedly been experiencing intermittent episodes of confusion. Psychiatric consultation was requested to determine impact of Invega Sustenna on these presenting symptoms - most recently injection was reportedly received several days prior to his admission. Chief Complaint "I passed out. This has been the second time now." History of Present Illness Luther Gao is a 68-year-old male admitted medically on 10/20/2019 after presenting to the ED s/p fall. Pt had reportedly exhibited stroke-like symptoms and was admitted for further work-up. Pt does have a reported history of schizophrenia. There was reported concern for increased confusion - with patient apparently suggesting he felt it was related to his Invega Sustenna injection. Psychiatric consultation was requested to evaluate this further. Pt was cooperative with psychiatric evaluation. He provided verbal consent to allow Nataliia Goins PA-C to observe today's interaction. Pt states he was brought to the hospital as "I passed out." He reports this has been the second incident of this, the first being in 07/2019. Before answering further questions, patient requests a notepad, showing this provider many notes he has written over the course of his admission. When asked what medical providers believe contributed to these falls, the patient states "I know what it was, psychosis." Pt believes his medications are causing these concerns. Pt states he has a list of side effects related to his Invega Sustenna. Pt lists: "saliva, hair loss, urinating, snuffles, dizziness, farting, and dandruff" as side effects directly related to this medication. Pt also feels the haloperidol is "abusive" - reporting concerns for sedation and "tripping." Pt denies concerns related to his mood, rating his mood a 7/10 rather consistently. He denies anxiety concerns. Pt denies SI/HI, and also states he has not been experiencing any auditory or visual hallucinations. He does admit to episodes of confusion that he reports are occurring on a daily basis. At this time, patient feels he is thinking rather clearly. Pt continues to decline to take his scheduled haloperidol. He does report desire for medication adjustments and is willing for referral for an outpatient psychiatric prescriber. He reports he continues to meet with his case fitter weekly. He denies any other outpatient psychiatric providers. Pt reports willingness at this time for inpatient psychiatric treatment should it be recommended. He remains agreeable with us communicating with his sister/POA and his case fitter to gather additional information. He denies other needs or concerns from our service at this time. Past Psychiatric History Previous Psych History: Reported history of schizophrenia. Pt was admitted to our unit in 09/2018, and was discharged on Invega Sustenna injections. He subsequently spent 2.5 - 3 months at the [facility] shortly thereafter. Pt had been followed at [facility], but has not been seen since August and had been following up with his PCP in the interim. Plan to re-establish care with a psychiatric prescriber was unknown. Pt does have a case fitter, Josh Madison, whom he reportedly sees every week. Previous Psych Admissions: [facility] - 09/2018 [facility] - Spring 2018 Past Medication Trials: Per past medical documentation: 1. Zyprexa 2. Cogentin 3. Navane 4. Thorazine 5. Haloperidol 6. Invega 7. Invega Sustenna Allergies Allergy/AdvReac Type Severity Reaction Status Date / Time No Known Allergies Allergy Unknown Verified 10/08/19 03:10 Home Medications Home Medications Medication Instructions Recorded Confirmed Type haloperidol 10 mg PO BID 07/21/19 10/20/19 History Invega Sustenna 234 mg IM DIRECTED 10/08/19 10/20/19 History acetaminophen [Tylenol] 325 mg PO Q4H PRN 10/08/19 10/20/19 History ferrous sulfate 325 mg PO TIDM 10/08/19 10/20/19 History pioglitazone 30 mg PO DAILY 10/08/19 10/20/19 History potassium chloride 20 meq PO BID 10/08/19 10/20/19 History metoprolol succinate 12.5 mg PO DAILY 10/20/19 10/20/19 History aspirin [Ecotrin Low Strength] 81 mg PO DAILY 30 Days #30 tab 10/21/19 Rx Family History Denied Substance Abuse History Denied Personal History Living Arrangements: Home (in [place] with elderly father (91y/o)) Marital Status: Single Number Of Children: 3 adult children; reports he has no relationship with children Beliefs That Will Affect Care: None History of Legal Problems: Denies Psychological Trauma History Comment: Denies Patient History Medical History Abdominal aortic aneurysm (AAA) >39 mm diameter Homicidal ideation (Inactive) Noncompliance with medications (Inactive) Paranoid schizophrenia (Inactive) Psychosis (Inactive) Schizophrenia (Chronic) Suicide ideation (Inactive) Family History Other Family history non-contributory Social History Preferred Language: Belarusian Communication Ability: Effective Virtualization Architect Required: No Beliefs That Will Affect Care: None Current Living Situation: Parent Other Information That Helps Us Care for You: No Feels Safe at Home: Yes Safety Concerns: Feels Safe At This Time Smoking Status: Never smoker Tobacco Type: cigarettes ; Cigarettes Per Day: 1 pack ; Hx Alcohol Use: No Hx Substance Use: No Physical Exam Psychiatric: Orientation: alert and oriented x 3 Eye Contact: + fair eye contact Motor Behavior: + tremor Speech: normal rate/rhythm/volume of speech Affect: + blunted affect Mood: no depressed mood and no anxious mood Thought Process: goal directed thought process Thought Content: no delusions, no hopelessness and no worthlessness Suicidal Thoughts: denies suicidal thoughts and denies suicidal intent Homicidal Thoughts: denies homicidal thoughts Hallucinations: no auditory hallucinations and no visual hallucinations denying these presently Cognition: attention grossly intact and language grossly intact; + recent memory not intact Insight: + limited insight Judgement: + limited judgement Vital Signs (Past 24 Hours): Last Vital Signs Temp 36.4 C L 10/22/19 08:55 Pulse 110 H 10/22/19 08:55 Resp 16 10/22/19 08:55 BP 100/48 L 10/22/19 09:02 Pulse Ox 97 10/22/19 08:55 Review of Systems Constitutional: denied Cardiovascular: denied Respiratory: denied Gastrointestinal: denied Neurological: denied Psychiatric: denies symptoms other than stated above Total of at least 10 systems reviewed, pertinent positives as above and in HPI. Results & Data (PSY) Medications Administered Aspirin (Ecotrin Ectab) 81 mg PO DAILY [facility] Stop: 11/20/19 08:59 Last Admin: 10/21/19 09:22 Dose: 81 mg Documented by: [id number] Ferrous Sulfate (Feosol) 325 mg PO TIDM [facility] Stop: 11/19/19 14:24 Last Admin: 10/21/19 18:04 Dose: Not Given Documented by: [id number] Admin: 10/21/19 12:28 Dose: 325 mg Documented by: [id number] Admin: 10/21/19 09:22 Dose: 325 mg Documented by: [id number] Admin: 10/20/19 18:35 Dose: 325 mg Documented by: [id number] Admin: 10/20/19 15:58 Dose: 325 mg Documented by: [id number] Haloperidol (Haldol) 10 mg PO BID MARI[facility] Stop: 11/19/19 20:59 Last Admin: 10/21/19 20:57 Dose: Not Given Documented by: [id number] Admin: 10/21/19 09:21 Dose: 10 mg Documented by: [id number] Admin: 10/20/19 20:52 Dose: 10 mg Documented by: [id number] Heparin Sodium (Porcine) (Heparin Sodium (Porcine)) 5,000 units SQ Q12 [facility] Stop: 11/19/19 20:59 Last Admin: 10/21/19 20:53 Dose: Not Given Documented by: [id number] Admin: 10/21/19 09:22 Dose: 5,000 units Documented by: [id number] Cosigned by: [id number] Admin: 10/20/19 20:53 Dose: 5,000 units Documented by: [id number] Cosigned by: [id number] Metoprolol Succinate (Toprol Xl) 12.5 mg PO DAILY [facility] Stop: 11/19/19 14:24 Last Admin: 10/21/19 09:21 Dose: 12.5 mg Documented by: [id number] Admin: 10/20/19 15:58 Dose: 12.5 mg Documented by: [id number] Pioglitazone HCl (Actos) 30 mg PO DAILY [facility] Stop: 11/20/19 08:59 Last Admin: 10/21/19 09:21 Dose: 30 mg Documented by: [id number] Potassium Chloride (Klor-Con M20) 20 meq PO BID [facility] Stop: 11/19/19 20:59 Last Admin: 10/21/19 20:53 Dose: Not Given Documented by: [id number] Admin: 10/21/19 09:21 Dose: 20 meq Documented by: [id number] Admin: 10/20/19 20:53 Dose: 20 meq Documented by: [id number] Coding Level of Care Code 51392 U Intl Hosp Care Lvl 2
--- NOTE | 2019-10-22 12:47 | Hospitalist Progress Note ---
Date of Service October 22, 2019 Assessment & Plan (1) Schizophrenia: His next Invega injection schedule on 10/28/19 at 12:45 pm at [facility] nurse from On Haldol 10mg BID Spoke with RN. We will continue to encourage patient to take medication Will appreciate psychiatry's evaluation and recommendations Attempted to contact patient's caser up Aly Gricelda. Call was unanswered. Will attempt again later in the day. (2) Status post fall: Fall on the kitchen floor, seems to be mechanical fall No significant injury PT/OT on board and no inpatient rehab required (3) Stroke-like symptom: Questionable TIA symptoms observed by EMS Right-sided weakness with right facial droop Completely resolved on arrival Denies any symptoms during examination No focal neuro symptoms on exam CT / CTA head showed no acute intracranial finding CTA neck showed no evidence of hemodynamically significant carotid or vertebral artery stenosis. MRI brain showed no acute intracranial abnormality. ECHO showed no LV wall motion abnormality with EF 60-65% No focal neuro deficit on admission and during the hospital stay Will continue ASA 81mg daily (4) Hypertension: Blood pressure is controlled Continue beta-tc (5) Occasional tremors: Reported to have significant tremors involving the extremities Seems to be occasional and not any resting tremor. Not present on my evaluation today Stable (6) Abdominal aortic aneurysm (AAA) >39 mm diameter: No acute symptoms (7) Hyperlipidemia: Continue statin DVT prophylaxis Sq heparin CODE STATUS Full Latisha (sister , RINA) #[phone] Admission and Anticipated Discharge Date Admission Date: October 21, 2019 Subjective Patient seen and examined. Patient denied any complaints today. Per RN, patient has been refusing his medications including Haldol. Patient believes some of the medication causing him to be sedated. Physical Exam Constitutional: + well hydrated and average body habitus; no acute distress and not ill appearing Eyes: PERRL, conjunctivae normal, anicteric sclerae ENMT: external ear and nose normal, oropharynx normal Respiratory: normal respiratory effort, lungs clear to auscultation Cardiovascular: RRR, no murmur, no edema Gastrointestinal (Abdomen): normal bowel sounds, soft, nontender, no hepatosplenomegaly Musculoskeletal: no cyanosis or clubbing, extremities motor strength 5/5 Neurologic: PERRL, EOMI, accommodation nl, no face palsy, no dysarthria Psychiatric: Orientation: alert and oriented x 3 Affect: + flat affect Results & Data ([facility]) Vital Signs (Past 12 Hours) Vital Signs Temp Pulse Resp BP BP Pulse Ox 10/22/19 09:02 100/48 L 10/22/19 08:55 36.4 C L 110 H 16 71/46 L 94/65 L 97 Laboratory Results Abnormal lab results 10/22/19 Range/Units 12:03 POC Glucose 107 H (70-99) mg/dl
[2019-10-22] MEDS: FERROUS SULFATE 325 MG TAB PO SCH ×3 (13:42→17:22)
[2019-10-22] MEDS: PIOGLITAZONE HCL 15 MG TAB PO SCH (13:42)
[2019-10-22] MEDS: HALOPERIDOL 10 MG TABLET PO SCH ×2 (13:42→20:42)
[2019-10-22] MEDS: ASPIRIN 81 MG ECTAB PO SCH (13:42)
[2019-10-22] MEDS: POTASSIUM CHLORIDE 20 MEQ TABCR PO SCH ×2 (13:43→20:41)
[2019-10-22] MEDS: METOPROLOL SUCC 25MG EXT REL TAB PO SCH (13:43)
[2019-10-22] MEDS: HEPARIN SOD 5,000 UNIT/0.5 ML VIAL SQ SCH ×2 (13:43→20:42)
[2019-10-23] MEDS: HALOPERIDOL 10 MG TABLET PO SCH ×2 (01:51→09:18)
[2019-10-23] MEDS: METOPROLOL SUCC 25MG EXT REL TAB PO SCH (09:18)
[2019-10-23] MEDS: PIOGLITAZONE HCL 15 MG TAB PO SCH (09:18)
[2019-10-23] MEDS: ASPIRIN 81 MG ECTAB PO SCH (09:18)
[2019-10-23] MEDS: HEPARIN SOD 5,000 UNIT/0.5 ML VIAL SQ SCH (09:19)
[2019-10-23] MEDS: POTASSIUM CHLORIDE 20 MEQ TABCR PO SCH (09:19)
[2019-10-23] MEDS: FERROUS SULFATE 325 MG TAB PO SCH ×3 (10:15→16:29)
--- NOTE | 2019-10-23 12:39 | Psychiatric Progress Note ---
Date of Service October 23, 2019 Impression / Recommendations Impression Dr. Lisbeth Goddard was directly involved in review and discussion of the patient's case and participated in medical decision making regarding treatment recommendations. See associated communication note from 10/23/2019 regarding treatment recommendations. RECOMMENDATIONS: 10/22/2019 - Pt remains cooperative and pleasant during evaluation, he continues to be A&Ox4 during conversations with this provider - Pt has been taking scheduled doses of oral haloperidol, and nursing notes suggest appropriate behavioral control - He is scheduled to receive his next injection of Invega Sustenna on 10/29/2019 - we are attempting to coordinate outpatient psychiatric medication management, as it is believed patient requires this level of care. Numerous phone calls have been made to the [facility] (housing records from former [facility] patients) and to [facility] directly regarding patient being high priority for psychiatric follow-up given chronic schizophrenia and treatment with routine [facility]. - Psychiatric liaison has gathered collateral information from numerous sources involved in the patient's care - none of which are able at this time to offer sufficient criteria for an involuntary inpatient psychiatric admission. Again, based on the presently available information, we cannot recommend pursuing inpatient psychiatric treatment against the patient's will. Interval History Identifying Information 68-year-old male admitted medically on 10/20/2019 after presenting to the ED s/p fall and stroke-like symptoms. Pt has reportedly been experiencing intermittent episodes of confusion. Initial psychiatric consultation was completed on 10/22/2019. Pt seen for follow-up today to better ascertain psychiatric di latosha recommendations. Chief Complaint "I'm been fine. I'm doing alright." Review of Systems Notes Constitutional: reports mild fatigue Cardiovascular: denied Respiratory: denied Gastrointestinal: denied Neurological: denied Psychiatric: denies symptoms other than stated above Total of at least 10 systems reviewed, pertinent positives as above and in HPI. Subjective Subjective Patient's case was reviewed and discussed during morning report with psychiatric nurse liaison and supervising psychiatrist. Patient was seen for initial psychiatric evaluation on 10/22/2019. Follow-up assessment was attempted today, specifically to assess patient's willingness for inpatient psychiatric treatment. Patient admits that he is "feeling all right." He does admit to "time-consuming boredness", but otherwise denies complaints - admitting he feels safe and well cared for in the hospital. Patient continues to deny suicidal ideation as well as any homicidal ideation or thoughts to physically harm any individuals. This provider specifically discussed concerns from his outpatient supports as it relates to potential harm to the patient's father if he were to return home. Patient denies any recall regarding history of agitation towards his father, denies making any threats recently, and denies any current thoughts to physically harm his father. Patient was able to verbalize that his father has in-home healthcare workers who assist him with his daily needs. The patient does admit that the patient himself is responsible for laundry, cooking his own meals, taking out the garbage, and caring for his personal hygiene. Patient does feel at this point that he would be able to maintain these roles if he were to be discharged home. This provider did discuss that we were continuing to determine if inpatient psychiatric treatment would be recommended. Patient was asked his willingness for inpatient treatment should this be the recommendation, to which she responded "no, not again. I will never do that again. I went voluntarily the last time, and it did not work out well for me." By this statement, patient is referring to the fact that he was admitted to [facility] behavioral health unit, and then was readmitted for inpatient psychiatric treatment at the [facility]. Pt did states that there is documentation of his psychiatric history "the philosophy and idealogy and everything." Pt does verbalize willingness to continue to follow-up with his current outpatient supports, and remains agreeable with outpatient psychiatric treatment for ongoing psychotropic medication management. He denies other needs or concerns from our service at this time. Physical Exam Psychiatric Orientation: alert, oriented x 3 and cooperative (and pleasant) Apperance: appropriately dressed (in hospital gown) and + disheveled (mildly unkempt) Eye Contact: good eye contact Motor Behavior: + tremor Speech: normal rate/rhythm/volume of speech (brief, but appropriate responses to questions) Affect: + flat affect Mood: no depressed mood ("I'm alright") Thought Process: goal directed thought process and + concrete thought process The majority of patient's conversation is reality-based. Pt does briefly mention a "Juan Negron" who claims he has documentation of his "treatment" - but does not verbalize any delusional content beyond offering this information Suicidal Thoughts: denies suicidal thoughts and denies suicidal intent Homicidal Thoughts: denies homicidal thoughts and denies homicidal intent Hallucinations: no auditory hallucinations and no visual hallucinations Cognition: attention grossly intact and language grossly intact Insight: + limited insight Judgement: + fair judgement Vital Signs (Past 24 Hours) Last Vital Signs Temp 36.3 C L 10/23/19 08:33 Pulse 67 10/23/19 08:33 Resp 16 10/23/19 08:33 BP 120/72 10/23/19 08:33 Pulse Ox 95 10/23/19 08:33 Results & Data ([facility]) Laboratory Results Laboratory Results - last 24 hr 10/22/19 10/22/19 17:01 20:07 POC Glucose 102 H 136 H Current Inpatient Medications Current Inpatient Medications: Current Inpatient Medications Acetaminophen (Tylenol) 325 mg PO Q4H PRN PRN Reason: pain/fever Stop: 11/19/19 14:24 Aspirin (Ecotrin Ectab) 81 mg PO DAILY [facility] Stop: 11/20/19 08:59 Last Admin: 10/23/19 09:18 Dose: 81 mg Documented by: Ferrous Sulfate (Feosol) 325 mg PO TIDM [facility]IAMA Stop: 11/19/19 14:24 Last Admin: 10/23/19 10:15 Dose: 325 mg Documented by: Haloperidol (Haldol) 10 mg PO BID MARIAMA Stop: 11/19/19 20:59 Last Admin: 10/23/19 09:18 Dose: 10 mg Documented by: Heparin Sodium (Porcine) (Heparin Sodium (Porcine)) 5,000 units SQ Q12 [facility] Stop: 11/19/19 20:59 Last Admin: 10/23/19 09:19 Dose: Not Given Documented by: Metoprolol Succinate (Toprol Xl) 12.5 mg PO DAILY [facility] Stop: 11/19/19 14:24 Last Admin: 10/23/19 09:18 Dose: 12.5 mg Documented by: Pioglitazone HCl (Actos) 30 mg PO DAILY [facility] Stop: 11/20/19 08:59 Last Admin: 10/23/19 09:18 Dose: 30 mg Documented by: Potassium Chloride (Klor-Con M20) 20 meq PO BID [facility]IAMA Stop: 11/19/19 20:59 Last Admin: 10/23/19 09:19 Dose: 20 meq Documented by: Mental Health & Subst Abuse Tx Psychiatrist Name of Psychiatrist: uJ - to call patient directly to schedule services Quilting Machine Operator Name of Quilting Machine Operator: Josh Madison Phone Number for Quilting Machine Operator: [phone] Post Discharge Appointments Other #1: Name of Aftercare Appointment: Tatiana Sparks Phone Number of Aftercare Appointment: [phone]
--- NOTE | 2019-10-23 15:11 | Communication Note ---
Date of Service: October 23, [address] Ross and reviewed patient's case, also discussed with Gypsy GODFREY who saw the patient today, and reviewed the records. Patient is known to me from pervious hospitalization. He lives with his elderly father, and both his outpatient immigration case manager and sister have expressed concerns that he might become aggressive. He also has a history of aggression, although I can find no indication in the record of when he was last aggressive, or what behaviors he has displayed that concerned his sister or immigration case manager. As of today he is unwi lling for inpatient psychiatric treatment, and based on the current information, he does not meet criteria for involuntarily commitment. I am concerned however that he does not have an outpatient psychiatrist or nonphysician prescriber to follow up with, as his referral for ongoing psychiatric care did not occur when [facility] closed, although the psychiatric liaison nurse has been working on this and trying to get him scheduled at [facility] for medication management. I have asked the liaison nurse to contact his father to clarify recent behavior and any safety concerns, and to determine if there are criteria for involuntary commitment. Dr. Ross indicates he will likely be discharged from medical care today or tomorrow.
--- NOTE | 2019-10-23 16:59 | Hospitalist Progress Note ---
Date of Service October 23, 2019 Assessment & Plan (1) Schizophrenia: His next Invega injection schedule on 10/28/19 at 12:45 pm at [facility] Pharm-A nurse from On Haldol 10mg BID Continue home medications Counselled patient on need to take his meds. Even though he stated he has some doubts about the psychiatric diagnosis, he stated he will take his meds as recommended Needs psychiatrist outpatient follow-up (2) Status post fall: Fall on the kitchen floor, seems to be mechanical fall No significant injury PT/OT evaluated and no inpatient rehab required (3) Stroke-like symptom: Questionable TIA symptoms observed by EMS Right-sided weakness with right facial droop Completely resolved on arrival Denies any symptoms during examination No focal neuro symptoms on exam CT / CTA head showed no acute intracranial finding CTA neck showed no evidence of hemodynamically significant carotid or vertebral artery stenosis. MRI brain showed no acute intracranial abnormality. ECHO showed no LV wall motion abnormality with EF 60-65% No focal neuro deficit on admission and during the hospital stay Will continue ASA 81mg daily (4) Hypertension: Blood pressure is controlled Continue beta-tc (5) Occasional tremors: Reported to have significant tremors involving the extremities Seems to be occasional and not any resting tremor. Not present on my evaluation today Stable (6) Abdominal aortic aneurysm (AAA) >39 mm diameter: No acute symptoms (7) Hyperlipidemia: Continue statin Diabetes mellitus Continue home medication pioglitazone Admission and Anticipated Discharge Date Admission Date: October 21, 2019 Plan to discharge today if sister is able to arrange transport. If not tomorrow morning Subjective Seen and examined today. Denies any complaints. No events per RN. Patient has agreed to start him his medications today. Spoke with Dr. Lisbeth Goddard earlier. Patient had apparently been considering voluntary hospitalization with psych 201 but changed his mind today. She stated that her liaison was working on getting more information to make a determination as to if patient needs to be 302 considering reports from patient's medical case manager and family. I later spoke with psychiatry liaison who confirmed that the psychiatric team do not recommend 302. I discussed with sister the final recommendations this evening. Patient stated he will like to be discharged this evening if sister is able to make transport arrangements today. Physical Exam Constitutional: + well hydrated; no acute distress Eyes: PERRL, conjunctivae normal, anicteric sclerae ENMT: external ear and nose normal, oropharynx normal Respiratory: normal respiratory effort, lungs clear to auscultation Cardiovascular: RRR, no murmur, no edema Gastrointestinal (Abdomen): normal bowel sounds, soft, nontender, no hepatosplenomegaly Musculoskeletal: no cyanosis or clubbing, extremities motor strength 5/5 Neurologic: PERRL, EOMI, accommodation nl, no face palsy, no dysarthria Psychiatric: Orientation: alert and oriented x 3 Affect: + flat affect Insight: + limited insight Results & Data ([facility]) Vital Signs (Past 12 Hours) Vital Signs Temp Pulse Resp BP Pulse Ox 10/23/19 15:00 36.9 C 61 16 109/67 97 10/23/19 08:33 36.3 C L 67 16 120/72 95
--- NOTE | 2019-10-23 18:57 | Discharge Summary ---
Date of Service October 23, 2019 Admission HPI Per Admitting Provider He is a 68-year-old male with significant past medical history of paranoid schizophrenia, hypertension, hyperlipidemia, history of tobacco use disorder and vitamin D deficiency was brought into the ER with a history of fall early this morning around 7:30 AM. He lives with the dad and in the morning he woke up and went down the stairs to go to the kitchen to make some food. He ended up falling on the kitchen floor without any significant injury and the loss of consciousness. After repeated questioning he mentioned to have some dizziness before the fall but denies any other significant symptoms. The EMS noted that he had some right-sided weakness and questionable right facial droop when they arrived at his home. He denies any history of fever no chills, any cough and no phlegm. He denies any problem with his speech, any weakness of any side of the body or any numbness no tingling involving any extremities. Denied any visual symptoms or any worsening of his tremors. During examination he did not have any symptoms except some generalized weakness. Denies any visual symptoms, any headache, any problem with speech or swallowing, any numbness and/or tingling involving any of the extremities. His initial work-up including CT of the head, CTA and relevant blood works were unremarkable. He was admitted to medical telemetry unit for continuation of care. Admission Exam Per Admitting Provider Physical Exam: Lying in bed comfortably Constitutional: well developed, well nourished and + ill appearing; no acute distress Eyes: PERRL, conjunctivae normal, anicteric sclerae ENMT: external ear and nose normal, oropharynx normal Neck: trachea midline, no thyromegaly Respiratory: normal respiratory effort; no respiratory distress Auscultation: lungs clear to auscultation bilaterally Cardiovascular: Rate/Rhythm: regular rate and regular rhythm Heart Sounds: no murmur Extremities: + edema (Trace edema bilaterally) Gastrointestinal (Abdomen): Inspection/Auscultation: abdomen normal to inspection and normal bowel sounds Musculoskeletal: No cyanosis or clubbing, extremities more motor strength about 4-5 over 5 Neurologic: moves all extremities; no focal motor deficits Motor/Sensory: + tremor (Has tremors involving mainly the upper extremities. Seems to be benign) Alert, awake and oriented x3. Generally weak. Psychiatric: Orientation: alert and oriented x 3 Insight: + limited insight Lymphatic: no cervical or axillary lymphadenopathy Principal Diagnosis Fall Stroke like symptom Schizophrenia Discharge Exam Constitutional: + well hydrated; no acute distress Eyes: PERRL, conjunctivae normal, anicteric sclerae ENMT: external ear and nose normal, oropharynx normal Respiratory: normal respiratory effort, lungs clear to auscultation Cardiovascular: RRR, no murmur, no edema Gastrointestinal (Abdomen): normal bowel sounds, soft, nontender, no hepatosplenomegaly Musculoskeletal: no cyanosis or clubbing, extremities motor strength 5/5 Neurologic: PERRL, EOMI, accommodation nl, no face palsy, no dysarthria Psychiatric: Orientation: alert and oriented x 3 Affect: + flat affect Insight: + limited insight Discharge Data Allergies Allergy/AdvReac Type Severity Reaction Status Date / Time No Known Allergies Allergy Unknown Verified 10/08/19 03:10 Consultations 10/20/19 10:57 ED Decision to Admit Stat 10/21/19 17:42 Consult Psychiatry Routine Ordered Studies 10/20/19 08:50 CT angio head w con Stat CT angio head w con HISTORY: Mental status change transient R sided weakness TECHNIQUE: Multiaxial CT angiography of the head was performed IV contrast: 100 cc nonionic Maximum intensity projection images were also obtained. A dose lowering technique was utilized adhering to the principles of ALARA. COMPARISON: None. FINDINGS: There is no mass, hematoma, midline shift, or acute infarct. Visualized intracranial internal carotid arteries, distal vertebral arteries, and basilar artery are widely patent. There is no significant stenosis, occlusion, or aneurysm seen within the bilateral ACAs, MCAs, or window shade estimator. IMPRESSION: No significant stenosis, occlusion, or aneurysm within the [place] of [place]. Minimal scattered plaque formation CT angio neck with con Stat CLINICAL HISTORY: transient R sided weakness COMPARISON STUDY: No previous studies for comparison. TECHNIQUE: CT angiography was performed from the aortic arch to the skull base. MIP imaging was performed. The patient was scanned in a dynamic helical fashion during intravenous administration of 120 cc of Optiray 320. A dose lowering technique was utilized adhering to the principles of ALARA. CT DOSE: Technique: CT angiogram of the carotid and vertebral arteries was obtained using intravenous contrast and 3-D reconstruction. NASCET criteria was utilized. Findings: There is mild dilatation of the ascending thoracic aorta which measures 37 mm. The right carotid revealed no evidence of aneurysm and no evidence of dissection. There is no evidence of hemodynamic significant stenosis. The left carotid revealed no evidence of hemodynamic significant stenosis. There is no evidence of aneurysm. There is no evidence of dissection. There is no evidence of hemodynamically significant vertebral stenosis. There is no evidence of vertebral dissection. IMPRESSION: No evidence of hemodynamically significant carotid or vertebral artery stenosis. No evidence of dissection. CT head/brain wo con Stat No intra or extra-axial mass lesions are visualized. There is no CT evidence of acute cortical infarction. There is no evidence of midline shift. There is no acute hemorrhage. No calvarial fractures are visualized. There are minor white matter hypodensities likely on a small vessel basis. There is no evidence of pathologic ventricular dilatation. There is no evidence of acute sinusitis IMPRESSION: No acute intracranial findings 10/20/19 12:05 MR brain wo con Routine No acute intracranial abnormality. Hospital Course (1) Schizophrenia: His next Invega injection schedule on 10/28/19 at 12:45 pm at [facility] Pharm-A nurse from There is concern for poor control of patient's schizophrenia He refused a few doses of his medications while in the hospital. There were safety concerns expressed by patient's manager rn case and family He was evaluated by psychiatry who recommended to continue current antipsychotics and outpatient follow up It is very important that he follows up with psych outpatient On Haldol 10mg BID Continue home medications Counselled patient on need to take his meds. Even though he stated he has some doubts about the psychiatric diagnosis, he stated he will take his meds as recommended (2) Status post fall: Fall on the kitchen floor, seems to be mechanical fall No significant injury PT/OT evaluated and no inpatient rehab required (3) Stroke-like symptom: Questionable TIA symptoms observed by EMS Right-sided weakness with right facial droop Completely resolved on arrival Denies any symptoms during examination No focal neuro symptoms on exam CT / CTA head showed no acute intracranial finding CTA neck showed no evidence of hemodynamically significant carotid or vertebral artery stenosis. MRI brain showed no acute intracranial abnormality. ECHO showed no LV wall motion abnormality with EF 60-65% No focal neuro deficit on admission and during the hospital stay Will continue ASA 81mg daily (4) Hypertension: Blood pressure is controlled Continue beta-tc (5) Occasional tremors: Reported to have significant tremors involving the extremities Seems to be occasional and not any resting tremor. Not present on my evaluation today Stable (6) Abdominal aortic aneurysm (AAA) >39 mm diameter: No acute symptoms (7) Hyperlipidemia: Continue statin Diabetes mellitus Continue home medication pioglitazone Total Time Total Time Spent Total Time Spent (In Minutes): 40 Total Time Includes: Examination of the Patient, Discharge Planning, Medication Reconciliation, Communication With Other Providers and Other (Communicating with sister) Discharge Plan Discharge Items Patient Disposition: Home - Self-Care Reason For Visit: FALL Discharge Diagnosis: Status post fall: Stroke-like symptom: Schizophrenia: Hypertension: Occasional tremors: Activity: Resume your previous activity Non-emergency contact: Primary Care Provider and Psychiatrist Call non-emergency contact if: you have any medication questions Follow-up/Referrals: Cholo Santiago MD [Primary Care Provider] - 10/28/19 11:05 am () Diet: Heart Healthy Addtl Attending Provider Instructions: You came into the hospital for a fall You were evaluated with multiple scans and stroke was ruled out. You were evaluated by psychiatrist. It is very important that you continue taking your medications as prescribed. It is very important that you follow up with psychiatrist in the clinic Follow up with your primary care provider Dr. Santiago within 1 week You will need to find a psychiatry and follow up if you need your Invega to titrate Continue to take your Invega as prescribed for now unless adjustment is made by psychiatry Pending Studies at Discharge: No Stand-Alone Forms: My [facility] [employer], Smoking Cessation Medications and DC Order Prescriptions: New aspirin [Ecotrin Low Strength] 81 mg Tablet,Delayed Release (Dr/Ec) 81 mg PO DAILY 30 Days Qty: 30 RF: 0 Continued haloperidol 5 mg tablet 10 mg PO BID RF: 0 metoprolol succinate 25 mg tablet extended release 24 hr 12.5 mg PO DAILY RF: 0 Invega Sustenna 234 mg/1.5 mL Syringe 234 mg IM DIRECTED RF: 0 ferrous sulfate 325 mg (65 mg iron) Tablet 325 mg PO TIDM RF: 0 pioglitazone 30 mg Tablet 30 mg PO DAILY RF: 0 potassium chloride 20 mEq Tablet Extended Release 20 meq PO BID RF: 0 acetaminophen [Tylenol] 325 mg Tablet 325 mg PO Q4H PRN (Reason: pain/fever) RF: 0 Discontinued oxycodone-acetaminophen 5-325 mg Tablet 1 tab PO Q8H PRN (Reason: Pain) RF: 0 Discharge Orders: Discharge Order (Routine); Ordered 10/23/19 Ordered By: Irena Ross Admission Data Admit Date/Time: 10/21/19 17:42 Attending Provider: Irena Ross I. Admit Provider: Stephanie Waller Primary Care Provider: Cholo Santiago Other Providers: Stephanie Waller ; Ronan Hampton ; Christie Caputo Other Interventions: Discharge Summary Assessment (RN) Last Done: 10/23/19 16:51 PSY Interdisciplinary Discharge Planning Last Done: 10/23/19 16:35 DC Date/Time DO NOT enter until pt leaves facility: 10/23/19 17:38
--- NOTE | 2019-10-27 09:35 | Coding Query ---
CODING QUERY To promote full compliance with coding requirements relating to patient care, provider participation is requested in all cases of population health manager uncertainty. Please assist us with the question(s) below: Coding Question(s): Dr. Ross, Please clarify if the diagnosis of TIA was: ( ) confirmed ( ) ruled out ( x ) other, please explain ( ) unable to determine Physician's Response(s): Possible TIA as patient had a fall and was reported to have certain neurological deficits by EMS prior to arrival to hospital. Symptoms did resolve and imaging studies did not show any infarct or bleed. This does not eliminate possibility of TIA based on history Thank you for your time, Ale Simms [facility] Principal Diagnosis: "that condition established after study, to be chiefly responsible for occasioning the admission of the patient to the hospital for care." Co-Existing Principal Diagnosis: "when two or more diagnoses equally meet the criteria for principal diagnosis as determined by the circumstances of admission, diagnostic work up, and/or therapy provided, and the Alphabetic Index, Tabular List, or another coding guideline does not provide sequencing direction, any one of the diagnoses may be sequenced first." "When the physician has documented what appears to be a current diagnosis in the body of the record, but has not included the diagnosis in the final diagnostic statement, the physician should be asked whether the diagnosis should be added." (Source Coding Clinic 2 QTR90. p3-4) JOHNY
== END 2019-10-23 17:38 | disposition home or self-care (01) | DRG 69 ==
LOC: 2N 08:24 → ED 08:24 → SUATTDRO 11:45 → 2N 13:44 → SUATTDRO 10-21 17:42 → 4W 10-21 21:13

== ENCOUNTER 2021-02-12 19:22 | Inpatient (IN) ==
[2021-02-12 20:06] LABS: Basophils # (auto) 0.01 K/uL (0-0.2); Basophils % (auto) 0.2 %; Eosinophils # (auto) 0.08 K/uL (0-0.5); Eosinophils % (auto) 1.5 %; Hemoglobin 13.4 g/dL (14.0-18.0); Lymphocytes # (auto) 1.23 K/uL (1.2-3.4); Lymphocytes % (auto) 23.5 %; Mean Corpuscular Hgb Conc 35.3 g/dL (32-36); Mean Corpuscular Volume 90.7 fL (80-100); Mean Platelet Volume 9.1 fL (7.4-10.4); Monocytes # (auto) 0.56 K/uL (0.11-0.59); Monocytes % (auto) 10.7 %; Neutrophils # (auto) 3.36 K/uL (1.4-6.5); Neutrophils % (auto) 64.1 %; Platelet Count 180 K/uL (130-400); RDW Coefficient of Variation 12.9 % (11.5-14.5); RDW Standard Deviation 42.7 fL (36.4-46.3); Red Blood Count 4.19 M/uL (4.7-6.1); White Blood Count 5.24 K/uL (4.8-10.8)
[2021-02-12] MEDS ORDERED: SODIUM CHLORIDE 0.9% 1000ML 2,000 ML IV ONE (20:07)
[2021-02-12 20:14] LABS: Alanine Aminotransferase 18 U/L (12-78); Albumin Level 2.9 gm/dl (3.4-5.0); Aspartate Aminotransferase 15 U/L (15-37); BUN Creatinine Ratio 10.9 (10-20); Blood Urea Nitrogen 11 mg/dl (7-18); Calcium 8.2 mg/dl (8.5-10.1); Carbon Dioxide 28 mmol/L (21-32); Chloride 108 mmol/L (98-107); Est GFR (Non-African American) 71.6 ml/min; Glucose 117 mg/dl (70-99); Lipase 102 U/L (73-393); Potassium 3.8 mmol/L (3.5-5.1); Sodium 141 mmol/L (136-145)
--- NOTE | 2021-02-12 20:14 | Emergency Department Note ---
Impression & Plan Syncope, Altered mental status, High serum chloride ED Provider Note NAME: TOI MCCALL AGE: 70 SEX: M : 1950 ARRIVES VIA: Ambulance INFORMANT: Patient ED PROVIDER(S): Sebastian Rosales DO CHIEF COMPLAINT: Altered mental status HPI: Patient is a 70-year-old male who presents the ER for altered mental status. He has a history of strokelike symptoms, AAA, hyperlipidemia, hypertension, TIA and schizophrenia. Patient was at home and was unresponsive. Initially unable to obtain any additional history due to confusion. Later patient notes that he believes he passed out. He believes he was in his bedroom and was not trying to sleep but passed out and lost track of time. This is not intentional. Patient lives with his 90-year-old father. There is initially reported that he passed out in the kitchen but later in the question if he passed out in his room. Where event was they were unable to wake him up. EMS was called and they were initially not able to arouse him either. He eventually woke up just prior to arrival to the ER per report. Patient currently denies any headache or change in vision. No chest pain or shortness of breath. No nausea vomiting or diarrhea. He admits to diffuse weakness. No other exacerbating or remitting factors. ROS: See above HPI for pertinent positives & negatives. A total of 10 systems reviewed and were otherwise negative. PAST MEDICAL HISTORY:See Below PAST SURGICAL HISTORY:See Below FAMILY HISTORY:See Below SOCIAL HISTORY:See Below HOME MEDICATIONS:See Below ALLERGIES:See Below VITALS:See Below PHYSICAL EXAMINATION: GENERAL: Sitting up in bed, sleeping but awakens to voice and follows commands intermittently, chronically ill-appearing EYE EXAM: normal conjunctiva. PERRL and EOM's grossly intact. OROPHARYNX: no exudate, no erythema, lips, buccal mucosa, and tongue normal and mucous membranes are moist NECK: supple, no nuchal rigidity, no adenopathy, non-tender LUNGS: Clear to auscultation. Normal chest wall mechanics HEART: no murmurs, S1 normal and S2 normal ABDOMEN: abdomen soft, non-tender, normo-active bowel sounds, no masses, no rebound or guarding. UPPER EXTREMITIES: upper extremities are grossly normal. LOWER EXTREMITIES: No pitting edema. NEURO EXAM: Laying in bed gazing off, intermittently following commands, cranial nerves II-XII intact, slightly garbled speech, no weakness of arms, no weakness of legs. Unable to perform drift in. Nose MEDICAL DECISION MAKING: Patient is a 70-year-old male with a above history who presents the ER as stated above. IV was established blood was obtained. Labs show no significant leukocytosis or anemia. BMP with slightly elevated chloride. LFTs bilirubin troponin was negative. Lipase unremarkable. UA was negative. Tox was negative. Alcohol was negative. CT head was negative. Chest x-ray was unremarkable. He is a extremely difficult historian and was difficult to obtain history from family as well. Based on his age and syncope did elect to discuss with the hospitalist for observation. He was given his 10 mg of Tylenol which he takes at night orally. Triage Nursing notes reviewed. Limited review of prior medical records performed Vital Signs: reviewed and remarkable for no significant abnormalities Differential diagnosis: Differential diagnoses includes but is not limited to toxic, metabolic, infectious, traumatic, cardiac, neurologic, hematologic, psychiatric and inflammatory etiologies. ER treatment provided: See below Diagnostics interpreted by me: ECG: Sinus rhythm rate 85 Inferior Q waves QTC 464 No PVCs Cardiac Monitoring: An order was placed for continuous cardiac monitoring. The monitor shows a rate of 81 with sinus rhythm. Laboratory studies: As stated above and show below. Imaging studies: Portable AP upright 1 view of the chest per my read shows no focal infiltrate or pneumothorax CT head was negative per stat read Consultation(s): Discussed with Dr. Strauss for further evaluation Procedures: none Critical Care: None Past Med/Surg History Medical History (Updated 02/12/21 @ 23:35 by Sebastian Rosales DO) Abdominal aortic aneurysm (AAA) >39 mm diameter Homicidal ideation Noncompliance with medications Paranoid schizophrenia Psychosis Schizophrenia Suicide ideation Family History Other Family history non-contributory Social History Smoking Status: Unknown if ever smoked Cigarettes Per Day: 1 pack; Hx Alcohol Use: No Hx Substance Use: No Preferred Language: Turkish Communication Ability: Effective Mexican Food Cook Required: No Beliefs That Will Affect Care: None Current Living Situation: Parent Feels Safe at Home: Yes Assistive Devices: None Allergies Allergies Allergy/AdvReac Type Severity Reaction Status Date / Time No Known Allergies Allergy Unknown Verified 08/10/20 14:45 Home Meds Home Medications Medication Instructions Recorded Confirmed haloperidol 10 mg PO BID 07/21/19 08/10/20 Invega Sustenna 234 mg IM DIRECTED 10/08/19 08/10/20 pioglitazone 30 mg PO DAILY 10/08/19 08/10/20 potassium chloride 20 meq PO BID 10/08/19 08/10/20 amantadine HCl 100 mg PO BID 08/10/20 08/10/20 clopidogrel 75 mg PO DAILY 08/10/20 08/10/20 Results & Data (ED) Vital Signs Vital Signs - 24 hr 02/12/21 19:30 02/12/21 19:31 02/12/21 19:40 Temperature Temperature Source Pulse Rate 85 81 79 Pulse Rate [Left Finger] Pulse Rate from SpO2 Sensor 85 81 80 Pulse Rhythm [Left Finger] Pulse Strength [Left Finger] Respiratory Rate 13 15 13 Respiratory Effort / Characteristics Respiratory Depth Respiratory Pattern Blood Pressure 126/68 Blood Pressure [Right Arm] Blood Pressure Mean 87 Blood Pressure Mean [Right Arm] Blood Pressure Position [Right Arm] Pulse Oximetry 97 98 97 Oxygen Delivery Method Sepsis Recent Fever Within 48 Hours Sepsis New/Unexplained Change in Mental Status Sepsis Action Taken by Nursing 02/12/21 19:50 02/12/21 19:57 02/12/21 20:00 Temperature 36.5 C Temperature Source Oral Pulse Rate 80 74 77 Pulse Rate [Left Finger] 74 Pulse Rate from SpO2 Sensor 80 76 Pulse Rhythm [Left Finger] Regular Pulse Strength [Left Finger] Normal Respiratory Rate 12 14 3 L Respiratory Effort / Characteristics Non-Labored Respiratory Depth Normal Normal Respiratory Pattern Regular Blood Pressure 125/61 125/66 Blood Pressure [Right Arm] 147/76 H Blood Pressure Mean 82 85 Blood Pressure Mean [Right Arm] 99 Blood Pressure Position [Right Arm] Lying Pulse Oximetry 98 95 99 Oxygen Delivery Method Room Air Nasal Cannula Sepsis Recent Fever Within 48 Hours No Sepsis New/Unexplained Change in Mental Status Yes Sepsis Action Taken by Nursing No Action Required 02/12/21 20:01 02/12/21 20:10 02/12/21 20:20 Temperature Temperature Source Pulse Rate 75 78 76 Pulse Rate [Left Finger] Pulse Rate from SpO2 Sensor 75 78 76 Pulse Rhythm [Left Finger] Pulse Strength [Left Finger] Respiratory Rate 3 L 15 12 Respiratory Effort / Characteristics Respiratory Depth Respiratory Pattern Blood Pressure Blood Pressure [Right Arm] Blood Pressure Mean Blood Pressure Mean [Right Arm] Blood Pressure Position [Right Arm] Pulse Oximetry 98 100 99 Oxygen Delivery Method Sepsis Recent Fever Within 48 Hours Sepsis New/Unexplained Change in Mental Status Sepsis Action Taken by Nursing 02/12/21 20:30 02/12/21 20:31 02/12/21 20:40 Temperature Temperature Source Pulse Rate 72 73 74 Pulse Rate [Left Finger] Pulse Rate from SpO2 Sensor 73 74 75 Pulse Rhythm [Left Finger] Pulse Strength [Left Finger] Respiratory Rate 12 13 11 L Respiratory Effort / Characteristics Respiratory Depth Respiratory Pattern Blood Pressure 140/76 Blood Pressure [Right Arm] Blood Pressure Mean 97 Blood Pressure Mean [Right Arm] Blood Pressure Position [Right Arm] Pulse Oximetry 99 99 100 Oxygen Delivery Method Sepsis Recent Fever Within 48 Hours Sepsis New/Unexplained Change in Mental Status Sepsis Action Taken by Nursing 02/12/21 20:50 02/12/21 21:00 02/12/21 21:10 Temperature Temperature Source Pulse Rate 70 69 69 Pulse Rate [Left Finger] Pulse Rate from SpO2 Sensor 71 69 Pulse Rhythm [Left Finger] Pulse Strength [Left Finger] Respiratory Rate 11 L 11 L 5 L Respiratory Effort / Characteristics Respiratory Depth Respiratory Pattern Blood Pressure 135/75 Blood Pressure [Right Arm] Blood Pressure Mean 95 Blood Pressure Mean [Right Arm] Blood Pressure Position [Right Arm] Pulse Oximetry 100 100 Oxygen Delivery Method Sepsis Recent Fever Within 48 Hours Sepsis New/Unexplained Change in Mental Status Sepsis Action Taken by Nursing 02/12/21 21:20 02/12/21 21:30 02/12/21 21:31 Temperature Temperature Source Pulse Rate 68 66 69 Pulse Rate [Left Finger] Pulse Rate from SpO2 Sensor Pulse Rhythm [Left Finger] Pulse Strength [Left Finger] Respiratory Rate 10 L 12 10 L Respiratory Effort / Characteristics Respiratory Depth Respiratory Pattern Blood Pressure 128/82 Blood Pressure [Right Arm] Blood Pressure Mean 97 Blood Pressure Mean [Right Arm] Blood Pressure Position [Right Arm] Pulse Oximetry Oxygen Delivery Method Sepsis Recent Fever Within 48 Hours Sepsis New/Unexplained Change in Mental Status Sepsis Action Taken by Nursing 02/12/21 23:15 Temperature Temperature Source Pulse Rate 76 Pulse Rate [Left Finger] Pulse Rate from SpO2 Sensor 77 Pulse Rhythm [Left Finger] Pulse Strength [Left Finger] Respiratory Rate 13 Respiratory Effort / Characteristics Respiratory Depth Respiratory Pattern Blood Pressure 159/93 H Blood Pressure [Right Arm] Blood Pressure Mean 115 Blood Pressure Mean [Right Arm] Blood Pressure Position [Right Arm] Pulse Oximetry 99 Oxygen Delivery Method Room Air Sepsis Recent Fever Within 48 Hours Sepsis New/Unexplained Change in Mental Status Sepsis Action Taken by Nursing Laboratory Data Result diagrams: 02/12/21 19:30 02/12/21 19:30 Lab Results 02/12/21 02/12/21 02/12/21 Range/Units 19:30 19:30 20:31 WBC 5.24 (4.8-10.8) K/uL RBC 4.19 L (4.7-6.1) M/uL Hgb 13.4 L (14.0-18.0) g/dL Hct 38.0 L (42-52) % MCV 90.7 (80-100) fL MCH 32.0 (25-34) pg MCHC 35.3 (32-36) g/dL RDW Std Deviation 42.7 (36.4-46.3) fL RDW Coeff of Nerissa 12.9 (11.5-14.5) % Plt Count 180 (130-400) K/uL MPV 9.1 (7.4-10.4) fL Immature Gran % (Auto) 0.0 % Neut % (Auto) 64.1 % Lymph % (Auto) 23.5 % Brule % (Auto) 10.7 % Eos % (Auto) 1.5 % Baso % (Auto) 0.2 % Neut # (Auto) 3.36 (1.4-6.5) K/uL Lymph # (Auto) 1.23 (1.2-3.4) K/uL Brule # (Auto) 0.56 (0.11-0.59) K/uL Eos # (Auto) 0.08 (0-0.5) K/uL Baso # (Auto) 0.01 (0-0.2) K/uL Immature Gran # (Auto) 0.00 (0.00-0.02) K/uL Sodium 141 (136-145) mmol/L Potassium 3.8 (3.5-5.1) mmol/L Chloride 108 H (98-107) mmol/L Carbon Dioxide 28 (21-32) mmol/L Anion Gap 5.0 (3-11) BUN 11 (7-18) mg/dl Creatinine 1.05 (0.6-1.4) mg/dl Est Cr Clr Drug Dosing Not Reportable Est GFR ( Amer) 83.0 ml/min Est GFR (Non-Af Amer) 71.6 ml/min BUN/Creatinine Ratio 10.9 (10-20) Glucose 117 H (70-99) mg/dl Calcium 8.2 L (8.5-10.1) mg/dl Total Bilirubin 0.4 (0.2-1) mg/dl AST 15 (15-37) U/L ALT 18 (12-78) U/L Alkaline Phosphatase 86 (45-117) U/L Troponin I < 0.015 (0-0.045) ng/ml Total Protein 6.3 L (6.4-8.2) gm/dl Albumin 2.9 L (3.4-5.0) gm/dl Globulin 3.4 (2.5-4.0) gm/dl Albumin/Globulin Ratio 0.9 (0.9-2) Lipase 102 (73-393) U/L Urine Color Urine Appearance (Clear) Urine pH (4.5-7.5) Ur Specific [place] (1.000-1.030) Urine Protein (Negative) Urine Glucose (UA) (Negative) Urine Ketones (Negative) Urine Blood (Negative) Urine Nitrite (Negative) Urine Bilirubin (Negative) Urine Urobilinogen (Negative) Ur Leukocyte Esterase (Negative) Urine Opiates Screen (Neg) Ur Methadone, Qual (Neg) Urine Barbiturates (Neg) Ur Phencyclidine (PCP) (Neg) U Amphetamin/Meth Scrn (Neg) MDMA (Ecstasy) Screen (Neg) U Benzodiazepines Scrn (Neg) Ur Cocaine Metabolite (Neg) U Marijuana (THC) Screen (Neg) Ethyl Alcohol mg/dL < 3.0 (0-3) mg/dl 02/12/21 02/12/21 Range/Units 21:10 21:10 WBC (4.8-10.8) K/uL RBC (4.7-6.1) M/uL Hgb (14.0-18.0) g/dL Hct (42-52) % MCV (80-100) fL MCH (25-34) pg MCHC (32-36) g/dL RDW Std Deviation (36.4-46.3) fL RDW Coeff of Nerissa (11.5-14.5) % Plt Count (130-400) K/uL MPV (7.4-10.4) fL Immature Gran % (Auto) % Neut % (Auto) % Lymph % (Auto) % Brule % (Auto) % Eos % (Auto) % Baso % (Auto) % Neut # (Auto) (1.4-6.5) K/uL Lymph # (Auto) (1.2-3.4) K/uL Brule # (Auto) (0.11-0.59) K/uL Eos # (Auto) (0-0.5) K/uL Baso # (Auto) (0-0.2) K/uL Immature Gran # (Auto) (0.00-0.02) K/uL Sodium (136-145) mmol/L Potassium (3.5-5.1) mmol/L Chloride (98-107) mmol/L Carbon Dioxide (21-32) mmol/L Anion Gap (3-11) BUN (7-18) mg/dl Creatinine (0.6-1.4) mg/dl Est Cr Clr Drug Dosing Est GFR ( Amer) ml/min Est GFR (Non-Af Amer) ml/min BUN/Creatinine Ratio (10-20) Glucose (70-99) mg/dl Calcium (8.5-10.1) mg/dl Total Bilirubin (0.2-1) mg/dl AST (15-37) U/L ALT (12-78) U/L Alkaline Phosphatase (45-117) U/L Troponin I (0-0.045) ng/ml Total Protein (6.4-8.2) gm/dl Albumin (3.4-5.0) gm/dl Globulin (2.5-4.0) gm/dl Albumin/Globulin Ratio (0.9-2) Lipase (73-393) U/L Urine Color Yellow Urine Appearance Clear (Clear) Urine pH 7.5 (4.5-7.5) Ur Specific [place] 1.006 (1.000-1.030) Urine Protein Negative (Negative) Urine Glucose (UA) Negative (Negative) Urine Ketones Negative (Negative) Urine Blood Negative (Negative) Urine Nitrite Negative (Negative) Urine Bilirubin Negative (Negative) Urine Urobilinogen Negative (Negative) Ur Leukocyte Esterase Negative (Negative) Urine Opiates Screen Neg (Neg) Ur Methadone, Qual Neg (Neg) Urine Barbiturates Neg (Neg) Ur Phencyclidine (PCP) Neg (Neg) U Amphetamin/Meth Scrn Neg (Neg) MDMA (Ecstasy) Screen Neg (Neg) U Benzodiazepines Scrn Neg (Neg) Ur Cocaine Metabolite Neg (Neg) U Marijuana (THC) Screen Neg (Neg) Ethyl Alcohol mg/dL (0-3) mg/dl Administered Medications Discontinued Medications Sodium Chloride (Nss 1000ml) 2,000 mls @ 999 mls/hr IV .Q2H1M ONE Stop: 02/12/21 22:07 Last Infusion: 02/12/21 22:21 Dose: 0 mls/hr Documented by: [id number] Admin: 02/12/21 20:32 Dose: 999 mls/hr Documented by: [id number] Discharge Plan Visit Data Chief Complaint: Altered Mental Status Stated Complaint: ALTEREDMENTAL STATUS ED Provider: Sebastian Rosales Discharge Problem: Syncope, Altered mental status, High serum chloride Forms Stand Alone Forms: My [facility] Prescriptions Prescriptions: No Action haloperidol 5 mg tablet 10 mg PO BID RF: 0 amantadine HCl 100 mg tablet 100 mg PO BID RF: 0 clopidogrel 75 mg tablet 75 mg PO DAILY RF: 0 Invega Sustenna 234 mg/1.5 mL Syringe 234 mg IM DIRECTED RF: 0 pioglitazone 30 mg Tablet 30 mg PO DAILY RF: 0 potassium chloride 20 mEq Tablet Extended Release 20 meq PO BID RF: 0 Discharge Problem: Syncope Qualifiers: Syncope type: unspecified Qualified Code(s): R55 - Syncope and collapse Altered mental status Qualifiers: Altered mental status type: unspecified Qualified Code(s): R41.82 - Altered mental status, unspecified
[2021-02-12 20:19] LABS: Albumin Globulin Ratio 0.9 (0.9-2); Alkaline Phosphatase 86 U/L (45-117); Bilirubin,Total 0.4 mg/dl (0.2-1); Globulin 3.4 gm/dl (2.5-4.0); Total Protein 6.3 gm/dl (6.4-8.2); Troponin I < 0.015 ng/ml (0-0.045)
[2021-02-12 22:03] LABS: Appearance Urine Clear (Clear); Bilirubin Urine Negative (Negative); Blood Urine Negative (Negative); Color Urine Yellow; Glucose Urine UA Negative (Negative); Ketones Urine Negative (Negative); Leukocyte Esterase Urine Negative (Negative); Nitrite Urine Negative (Negative); Protein Urine Negative (Negative); Specific Gravity Urine 1.006 (1.000-1.030); Urobilinogen Urine Negative (Negative); pH Urine 7.5 (4.5-7.5)
[2021-02-12 22:28] LABS: Amphetamines+Metham, Urine Neg (Neg); Barbiturates, Urine Neg (Neg); Benzodiazepine, Urine Neg (Neg); Cocaine, Urine Neg (Neg); MDMA (Ecstacy), Urine Neg (Neg); Methadone, Urine Neg (Neg); Opiate, Urine Neg (Neg); Phencyclidine, Urine Neg (Neg)
[2021-02-12] MEDS ORDERED: haloperidoL 5 MG TAB PO STA (23:40)
[2021-02-13] MEDS ORDERED: HALOPERIDOL LACTATE 5 MG/ML 1 ML VIAL IM STA (00:26)
[2021-02-13] MEDS ORDERED: NITROGLYCERIN SL 0.4 MG/TAB TAB SL PRN (02:53)
[2021-02-13] MEDS ORDERED: ACETAMINOPHEN 325 MG TAB PO PRN (02:53)
[2021-02-13] MEDS ORDERED: HALOPERIDOL LACTATE 5 MG/ML 1 ML VIAL IM PRN (02:53)
[2021-02-13] MEDS ORDERED: GLUCOSE 10 TABS/TUBE PO PRN (03:00)
[2021-02-13] MEDS ORDERED: DEXTROSE 50% 50 ML SYRINGE IV PRN (03:00)
[2021-02-13] MEDS ORDERED: GLUCAGON FOR INJ 1 MG VIAL IM PRN (03:00)
[2021-02-13] MEDS ORDERED: GLUCOSE 40% GEL 15 GM TUBE PO PRN (03:00)
[2021-02-13] MEDS ORDERED: CARBOHYDRATES FOR HYPOGLYCEMIA PO PRN (03:00)
[2021-02-13] MEDS ORDERED: PNEUMOCOCCAL POLYSACCHARIDES 25 MCG/0.5 ML VIAL/SYR IM ONE (03:30)
--- NOTE | 2021-02-13 06:31 | History and Physical Report ---
DATE OF ADMISSION: 02/13/2021 CHIEF COMPLAINT: Syncope. HISTORY OF PRESENT ILLNESS: This is a 70-year-old male with past medical history significant for hyperlipidemia, hypertension, currently not on any medication, history of vitamin D deficiency, paranoid schizophrenia history of tobacco use disorder, history of status post AAA repair using straight graft, history of status post repair of ventral hernia. He lives with his parents, was brought in because of unresponsive episode, the patient states he was lying in bed and he became unresponsive, no shaking of the body, no biting of tongue, no incontinence. Initially when saw the the patient he was very agitated, where he was shouting and angry, but after giving a dose of IM Haldol, he seemed to calm down and he allowed me to examine him. He states his problems are he takes Invega IM monthly and that has caused the side effects and that is the cause of his syncopal episode. Denies any chest pain. Denies nausea, no abdominal pain, no headaches, no cough. Afebrile. Diabetes, he seems to be not taking his medications, pioglitazone for diabetes. ALLERGIES: No known drug allergies. PAST MEDICAL HISTORY: As mentioned above. PAST SURGICAL HISTORY: Balloon angioplasty of right proximal common iliac artery with stent placement in June 2020. Abdominal aortic aneurysm repair using single graft at [place] in 09/2019 and also ventral hernia repair in [place] in 09/2019. Reconstructive knee surgery from a fall injury in 1970. MEDICATIONS: The patient currently on amantadine 100 mg p.o. b.i.d., aspirin 81 mg p.o. daily, haloperidol 10 mg p.o. a.m. and 20 mg p.o. at bedtime, Invega Sustenna 234 mg IM monthly, supposed to be on pioglitazone 30 mg p.o. daily. FAMILY HISTORY: No family history on file. SOCIAL HISTORY: Smokes 0.25 packs a day for 48 years. No alcohol use, no drug use. REVIEW OF SYMPTOMS: As per HPI, could not get complete review of symptoms. PHYSICAL EXAMINATION: GENERAL: The patient is somewhat uncooperative. VITAL SIGNS: Temperature 36.6, pulse 69, respiratory rate 18, blood pressure 111/79, oxygen 98% on room air. HEENT: Pupils equal, round, and reactive to light. NECK: No neck masses seen. CARDIOVASCULAR: S1, S2 heard. Regular rate and rhythm. No murmur, no gallop. RESPIRATORY SYSTEM: Normal AP diameter. No accessory muscle use. No wheezing, no crackles. ABDOMEN: Soft, bowel sounds present, nontender. No distention. CENTRAL NERVOUS SYSTEM: Alert and awake, somewhat agitated. Speech is clear, no facial droop. Moves extremities. EXTREMITIES: No edema, no erythema. LABORATORY DATA: WBC 5.1, hemoglobin 13.4, hematocrit 38, platelets 180. Sodium 141, potassium 3.8, chloride 108, bicarbonate 28, BUN 11, creatinine 1.05, serum glucose 117, calcium 8.2, total bilirubin 0.4, AST15, ALT 18, alkaline phosphatase 86. Troponin I less than 0.015. Lipase 102. Urinalysis negative. Urine drug screen negative. SARS-CoV-2 PCR negative. Chest x-ray: No acute findings. CT of the head: No acute intracranial hemorrhage, hydrocephalus, edema, or mass effect. No fracture. EKG: Normal sinus rhythm, rate of 85, no significant change was found. ASSESSMENT AND PLAN: 1. This is a 70-year-old male who presents with syncope, probably from his medications or underlying psychiatric illness. No seizure-like activity. We will monitor tele, echo and serial enzymes, check orthostatics.. If any concern will consult cardiology. 2. History of paranoid schizophrenia. Continue his home medications. Psych consulted. The patient was seen by psychiatric nurse in the ER and appreciate inputs.. 3. History of diabetes, currently seems to not taking his medications. Follow hemoglobin A1c levels. 4. History of hypertension, currently not on any medications. We will follow the blood pressure. 5. History of hyperlipidemia, not on medications. Follow lipid profile. 6. History of peripheral vascular disease, on aspirin. 7. Deep vein thrombosis prophylaxis, sequential compression devices for now. 8. Disposition: Observe in med tele. Expect to discharge home and follow with family doctor. JOHNY
--- NOTE | 2021-02-13 07:03 | XRay Report ---
XR chest 1V portable CLINICAL HISTORY: Acute change in mental status COMPARISON STUDY: 08/22/2020 FINDINGS: The heart is the upper limits of normal in size. There is aortic tortuosity/ectasia. There are increased basilar interstitial markings. These can be atelectatic or infectious/inflammatory. Cli nical and radiographic follow-up recommended.[ IMPRESSION: 1. Slight increase in the basilar interstitial markings. This can be atelectatic or infectious/inflam matory. Clinical and radiographic follow-up are recommended. ACT 112: Negative or not required by law. Electronically signed by: Herve Lal M.D. 02/13/2021 7:02 AM
[2021-02-13 07:07] LABS: Basophils # (auto) 0.01 K/uL (0-0.2); Basophils % (auto) 0.2 %; Eosinophils # (auto) 0.08 K/uL (0-0.5); Eosinophils % (auto) 1.6 %; Hematocrit (blood only) 39.9 % (42-52); Hemoglobin 14.1 g/dL (14.0-18.0); Lymphocytes % (auto) 22.4 %; Mean Corpuscular Hemoglobin 32.1 pg (25-34); Mean Corpuscular Hgb Conc 35.3 g/dL (32-36); Mean Corpuscular Volume 90.9 fL (80-100); Mean Platelet Volume 8.8 fL (7.4-10.4); Monocytes % (auto) 10.2 %; Neutrophils # (auto) 3.21 K/uL (1.4-6.5); Neutrophils % (auto) 65.6 %; Platelet Count 164 K/uL (130-400); RDW Coefficient of Variation 12.9 % (11.5-14.5); RDW Standard Deviation 42.6 fL (36.4-46.3); Red Blood Count 4.39 M/uL (4.7-6.1)
--- NOTE | 2021-02-13 07:21 | CT Scan Report ---
CT head/brain wo con CLINICAL HISTORY: Acute change in mental status COMPARISON STUDY: 1220 TECHNIQUE: Axial CT of the brain is performed from the vertex to the skull base. IV contrast was not administered for this examination. A dose lowering technique was utilized adhering to the principles of ALARA. CT DOSE: 614.27 mGy.cm FINDINGS: No intra or extra-axial mass lesions are visualized. There is no CT evidence of acute cortical infarc tion. There is no evidence of midline shift. There is no acute hemorrhage. No calvarial fractures ar e visualized. There are minor white matter hypodensities likely on a small vessel basis. There is no evidence of pathologic ventricular dilatation. There is no evidence of acute sinusitis IMPRESSION: No acute intracranial findings ACT 112: Negative or not required by law. Electronically signed by: Herve Lal M.D. 02/13/2021 7:19 AM
[2021-02-13 07:24] LABS: BUN Creatinine Ratio 10.5 (10-20); Blood Urea Nitrogen 10 mg/dl (7-18); Calcium 8.7 mg/dl (8.5-10.1); Carbon Dioxide 25 mmol/L (21-32); Chloride 109 mmol/L (98-107); Creatinine Clr Calc Pharmacy 82.9 ml/min; Est GFR (African American) 98.6 ml/min; Est GFR (Non-African American) 85.1 ml/min; Glucose 119 mg/dl (70-99); Magnesium 2.3 mg/dl (1.8-2.4); Potassium 3.7 mmol/L (3.5-5.1); Sodium 141 mmol/L (136-145)
[2021-02-13 07:28] LABS: Chol HDL Ratio 4; Cholesterol 160 mg/dl (0-200); HDL Cholesterol 37 mg/dl; LDL Cholesterol Calculated 95 mg/dl; Triglycerides 141 mg/dl (0-150); Troponin I < 0.015 ng/ml (0-0.045); VLDL Cholesterol 28 mg/dl
[2021-02-13] MEDS: ASPIRIN 81 MG ECTAB PO SCH (08:03)
[2021-02-13] MEDS: AMANTADINE HCL 100 MG CAPSULE PO SCH ×2 (08:03→20:22)
[2021-02-13] MEDS: INSULIN ASPART 100 UNITS/ML 3 ML PEN SC SCH ×4 (09:00→20:55)
--- NOTE | 2021-02-13 09:54 | Electrocardiogram Report ---
Test Reason : Blood Pressure : / mmHG Vent. Rate : 085 BPM Atrial Rate : 085 BPM P-R Int : 166 ms QRS Dur : 088 ms QT Int : 390 ms P-R-T Axes : 046 019 042 degrees QTc Int : 464 ms Poor data quality, interpretation may be adversely affected Normal sinus rhythm Normal ECG When compared with ECG of 10-AUG-2020 12:44, No significant change was found Confirmed by Lars Marcelino ([id number]) on 02/13/2021 9:54:12 AM Referred By: REFERRED SELF Confirmed By:Lars Marcelino
--- NOTE | 2021-02-13 11:18 | Communication Note ---
Date of Service: February 13, 2021 He is a 70-year-old male with paranoid schizophrenia lives with his parents and has been getting Invega IM every 21 days was noted to have a questionable unr esponsive episode in bed for more than an hour. No seizure-like activities noted. He has had this problem before and he thinks is due to his disease itself. He denies any significant symptoms as of this morning.We will get psychiatric evaluation while in the hospital. He will be ruled out for any possible ACS and his scans have been negative. He has been feeling much better this morning. Full progress note will be done tomorrow. Dr Domonique Waller
--- NOTE | 2021-02-13 11:29 | Psychiatric Consultation ---
Date of Consultation February 13, 2021 Impression / Recommendations Impression 70 yo male with long history of schizophrenia admit with AMS/syncopal episode, hx of previous, on combo of Haldol and [place], reported frustration over medical problems and passive wish in the setting of poor coping skills, it's suspected his current level of paranoia and intermittent visual varela are baseline but have reached out to family to see if any criteria for involuntary commitment. He states he will refuse Haldol and reviewed that that is not advised as if stops 30 mg dose abruptly he can have withdrawal dyskinesias and significant worsening. It is also important for us to witness any worsening of his EPS on current meds to report to psychiatrist when office reopens tomorrow. Will order Haldol 5 mg po now and 10 mg po this hs. His medication doses were confirmed with the pharmacy surescripts. He claims to receive his Invega injection at the [facility] pharmacy itself so attempting to confirm with father if given on 01/15 as per surescripts as would be due today. No evidence of NMS, no akathisia, no significant dystonia currently but does have EPS (tremor, reports drooling). No evidence of anticholintergic tox from amantadine. Head CT negative. Continue medical work up, consider EEG. Risk Factors Assessment Do You Have Access To A Gun?: No Psych History Chief Complaint "this whole psych thing is all a conspiracy. I zap those souls I see with my eyes". History of Present Illness Patient has well a well established diagnosis of schizophrenia, maintained on high dose Haldol and long acting injectable for which he does experience EPS. He is anti medication in general due to baseline paranoia but states he has been taking meds as prescribed as father puts it out for him with his meals. He doesn't have much recollection of his AMS/syncopal spell yesterday. He states that he has some baseline issues with motor movements attributable to med side effect--resting tremor of hands, some intermittent leg cramps, occasionally will also have oral/buccal movements that last up to 1 hour but denies difficulty eating or swallowing. His recent baseline is not available as it's Sunday so [facility] is closed. He was agreeable to me calling his father as staff expressed concern in ED he made statements about not wanting to live. He denies any intent or plan to harm himself, "not that I'd tell the establishment anyway". He states that his sleep is disrupted by seeing "souls of children or demons" which he manages by "zapping them with my eyes". He denies experiencing that here. He denies auditory or command hallucinations. He claims he mainly lies in bed listening to music. Past Psychiatric History Previous Psych History: need to confirm if active with case management, previously [facility] and on current meds for several years. Current Psychiatric Diagnosis: schizophrenia Outpatient Services: [facility]--Dr. Pascual Previous Psych Admissions: 09/21 [facility] and extended say soon after at the [facility]. Do You Have Access To A Gun?: No History of Previous Suicide Attempt: No Past Medication Trials: Zyprexa, Cogentin, Navane, Thorazine, Haldol, Invega Allergies Allergy/AdvReac Type Severity Reaction Status Date / Time No Known Allergies Allergy Unknown Verified 08/10/20 14:45 Home Medications Medication Instructions Recorded Confirmed Type Invega Sustenna 234 mg IM MONTHLY 10/08/19 02/13/21 History pioglitazone 30 mg PO DAILY 10/08/19 08/10/20 History amantadine HCl 100 mg PO BID 08/10/20 08/10/20 History aspirin [Aspir-Low] 81 mg PO DAILY 02/13/21 02/13/21 History haloperidol 10 mg PO QAM 02/13/21 02/13/21 History haloperidol 20 mg PO HS 02/13/21 02/13/21 History Family History denied Substance Abuse History past ETOH Personal History Living Arrangements: Home (with 90 yo father) Highest Grade Completed: High School Graduate Highest Grade Completed Comment: history of service in [facility] Employment Status: Disabled Beliefs That Will Affect Care: None History of Legal Problems: denied Psychological Trauma History Comment: denied war related but unreliable historian Patient History Medical History Abdominal aortic aneurysm (AAA) >39 mm diameter Homicidal ideation Noncompliance with medications Paranoid schizophrenia Psychosis Schizophrenia Suicide ideation Family History Other Family history non-contributory Social History Smoking Status: Unknown if ever smoked Cigarettes Per Day: 1 pack; Preferred Language: Italian Communication Ability: Effective Associate Professor Of Geology Required: No Beliefs That Will Affect Care: None Current Living Situation: Parent Other Information That Helps Us Care for You: No Feels Safe at Home: Yes Safety Concerns: Feels Safe At This Time Assistive Devices: None Assistive Devices Comment: Unable to obtain Physical Exam Psychiatric: Orientation: alert, oriented to person and oriented to place Apperance: + disheveled Eye Contact: + fair eye contact Motor Behavior: + tremor (hands bilaterally) Speech: normal rate/rhythm/volume of speech Affect: + blunted affect Mood: + depressed mood Thought Process: + tangential thought process Thought Content: + preoccupation, + paranoid and + delusions Suicidal Thoughts: denies suicidal thoughts Homicidal Thoughts: denies homicidal thoughts Hallucinations: no auditory hallucinations and no visual hallucinations (endorses at home but not hospital, doesn't appear to be responding to stim) Cognition: + attention not intact Estimated Intelligence: + below average estimated intelligence Insight: + poor insight Judgement: + poor judgement Vital Signs (Past 24 Hours): Last Vital Signs Temp 37.1 C 02/13/21 07:21 Pulse 70 02/13/21 08:00 Resp 14 02/13/21 07:21 BP 128/84 02/13/21 07:21 Pulse Ox 96 02/13/21 07:21 Review of Systems All systems reviewed & are unremarkable except as noted in HPI & below Results & Data (PSY) Medications Administered Amantadine HCl (Amantadine Hcl 100 Mg Capsule) 100 mg PO BID MARIAMA Stop: 03/15/21 08:59 Last Admin: 02/13/21 08:03 Dose: 100 mg Documented by: [id number] Aspirin (Aspirin 81 Mg Ectab) 81 mg PO DAILY MARIAMA Stop: 03/15/21 08:59 Last Admin: 02/13/21 08:03 Dose: 81 mg Documented by: [id number] Insulin Aspart (Insulin Aspart 100 Units/Ml 3 Ml Pen) 0 units SC ACHS MARIAMA Stop: 03/15/21 07:29 Last Admin: 02/13/21 09:00 Dose: Not Given Documented by: [id number] Cosigned by: [id number] Coding Level of Care Code 30040 [facility] Intl Hosp Care Lvl 3
--- NOTE | 2021-02-13 13:06 | Cardiology Consultation ---
Date of Consultation February 13, 2021 Assessment & Plan (1) Syncope: Patient is a 70-year-old male with complex history as outlined on multiple medications for underlying history of paranoid schizophrenia with episode of possible syncope while in bed. He notes prior falls and near syncope in the past without acute finding Current event notable for normal EKG and cardiac enzymes no arrhythmias on telemetry overnight. Findings do not suggest cardiac etiology. Recommendations: Given history of abdominal aneurysm repair no recent interrogation would recommend CTA of abdomen if patient able to be compliant with study (2) Altered mental status: (3) S/P AAA repair: History of Present Illness Reason for Consultation: Syncope Requesting Physician: Dr. Waller Attending Physician: Stephanie Waller MD History of Present Illness Patient is a 70-year-old male with complex past history and relatively poor historian secondary to underlying psychiatric issues. His cardiac concerns include 1. Hypertension chart history 2. Massive abdominal aortic aneurysm status post stent graft repair June 2020 [facility] 3. Chronic paranoid schizophrenia Patient presents now having had a syncopal spell while in bed at home. Patient aroused agitated and combative per report. Patient has limited recall but notes prior episodes of falls with near syncope in the past. No sense of tachypalpitations chest pains or worsening shortness of breath. Historian poor No bleeding signs. Only changes in medications involve psychiatric therapies Allergies Allergy/AdvReac Type Severity Reaction Status Date / Time No Known Allergies Allergy Unknown Verified 08/10/20 14:45 Home Medications Medication Instructions Recorded Confirmed Type Invega Sustenna 234 mg IM MONTHLY 10/08/19 02/13/21 History pioglitazone 30 mg PO DAILY 10/08/19 08/10/20 History amantadine HCl 100 mg PO BID 08/10/20 08/10/20 History aspirin [Aspir-Low] 81 mg PO DAILY 02/13/21 02/13/21 History haloperidol 10 mg PO QAM 02/13/21 02/13/21 History haloperidol 20 mg PO HS 02/13/21 02/13/21 History Patient History Medical History Abdominal aortic aneurysm (AAA) >39 mm diameter Homicidal ideation Noncompliance with medications Paranoid schizophrenia Psychosis Schizophrenia Suicide ideation Family History Other Family history non-contributory Social History Smoking Status: Unknown if ever smoked Cigarettes Per Day: 1 pack; Preferred Language: Sinhala Communication Ability: Effective Laboratory Mechanical Technician Required: No Beliefs That Will Affect Care: None Current Living Situation: Parent Other Information That Helps Us Care for You: No Feels Safe at Home: Yes Safety Concerns: Feels Safe At This Time Assistive Devices: None Assistive Devices Comment: Unable to obtain Review of Systems Review of Systems: Unobtainable due to mental health condition Physical Exam Constitutional: WD/WN, vitals as above Eyes: PERRL, conjunctivae normal, anicteric sclerae ENMT: external ear and nose normal, oropharynx normal Neck: trachea midline, no thyromegaly Respiratory: normal respiratory effort, lungs clear to auscultation Cardiovascular: Rate/Rhythm: regular rate and regular rhythm Heart Sounds: normal S1 and normal S2; no gallop and no murmur Palpation: normal PMI Vessels: normal carotid upstroke and radial pulses present; no JVD and no carotid bruit Extremities: no edema Gastrointestinal (Abdomen): normal bowel sounds, soft, nontender, no hepatosplenomegaly Musculoskeletal: Extremities: no cyanosis and no clubbing Skin: no rashes, warm and dry Neurologic: PERRL, EOMI, accommodation nl, no face palsy, no dysarthria Psychiatric: Orientation: alert and oriented x 3 Results & Data ([facility]) Vital Signs (Past 12 Hours) Vital Signs Temp Pulse Pulse Resp BP BP Pulse Ox 02/13/21 11:49 37.1 C 85 18 127/80 97 02/13/21 08:00 70 02/13/21 07:21 37.1 C 68 14 128/84 96 02/13/21 03:07 69 02/13/21 02:53 36.6 C 81 18 111/79 98 02/13/21 02:00 69 13 150/90 H 99 02/13/21 01:30 75 12 148/95 H 98 Laboratory Results Laboratory Results - last 24 hr 02/12/21 02/12/21 02/12/21 19:30 19:30 20:31 WBC 5.24 RBC 4.19 L Hgb 13.4 L Hct 38.0 L MCV 90.7 MCH 32.0 MCHC 35.3 RDW Std Deviation 42.7 RDW Coeff of Nerissa 12.9 Plt Count 180 MPV 9.1 Immature Gran % (Auto) 0.0 Neut % (Auto) 64.1 Lymph % (Auto) 23.5 [place] % (Auto) 10.7 Eos % (Auto) 1.5 Baso % (Auto) 0.2 Neut # (Auto) 3.36 Lymph # (Auto) 1.23 [place] # (Auto) 0.56 Eos # (Auto) 0.08 Baso # (Auto) 0.01 Immature Gran # (Auto) 0.00 Sodium 141 Potassium 3.8 Chloride 108 H Carbon Dioxide 28 Anion Gap 5.0 BUN 11 Creatinine 1.05 Est Cr Clr Drug Dosing Not Reportable Est GFR ( Amer) 83.0 Est GFR (Non-Af Amer) 71.6 BUN/Creatinine Ratio 10.9 Glucose 117 H POC Glucose Estimat Average Glucose Hemoglobin A1c Calcium 8.2 L Magnesium Total Bilirubin 0.4 AST 15 ALT 18 Alkaline Phosphatase 86 Troponin I < 0.015 Total Protein 6.3 L Albumin 2.9 L Globulin 3.4 Albumin/Globulin Ratio 0.9 Triglycerides Cholesterol LDL Cholesterol, Calc VLDL Cholesterol, Calc HDL Cholesterol Cholesterol/HDL Ratio Lipase 102 Urine Color Urine Appearance Urine pH Ur Specific Marcell Urine Protein Urine Glucose (UA) Urine Ketones Urine Blood Urine Nitrite Urine Bilirubin Urine Urobilinogen Ur Leukocyte Esterase Urine Opiates Screen Ur Methadone, Qual Urine Barbiturates Ur Phencyclidine (PCP) U Amphetamin/Meth Scrn MDMA (Ecstasy) Screen U Benzodiazepines Scrn Ur Cocaine Metabolite U Marijuana (THC) Screen Ethyl Alcohol mg/dL < 3.0 COVID-19 Eval Order SARS-CoV-2 (PCR) 02/12/21 02/12/21 02/13/21 21:10 21:10 00:30 WBC RBC Hgb Hct MCV MCH MCHC RDW Std Deviation RDW Coeff of Nerissa Plt Count MPV Immature Gran % (Auto) Neut % (Auto) Lymph % (Auto) [place] % (Auto) Eos % (Auto) Baso % (Auto) Neut # (Auto) Lymph # (Auto) [place] # (Auto) Eos # (Auto) Baso # (Auto) Immature Gran # (Auto) Sodium Potassium Chloride Carbon Dioxide Anion Gap BUN Creatinine Est Cr Clr Drug Dosing Est GFR ( Amer) Est GFR (Non-Af Amer) BUN/Creatinine Ratio Glucose POC Glucose Estimat Average Glucose Hemoglobin A1c Calcium Magnesium Total Bilirubin AST ALT Alkaline Phosphatase Troponin I Total Protein Albumin Globulin Albumin/Globulin Ratio Triglycerides Cholesterol LDL Cholesterol, Calc VLDL Cholesterol, Calc HDL Cholesterol Cholesterol/HDL Ratio Lipase Urine Color Yellow Urine Appearance Clear Urine pH 7.5 Ur Specific Marcell 1.006 Urine Protein Negative Urine Glucose (UA) Negative Urine Ketones Negative Urine Blood Negative Urine Nitrite Negative Urine Bilirubin Negative Urine Urobilinogen Negative Ur Leukocyte Esterase Negative Urine Opiates Screen Neg Ur Methadone, Qual Neg Urine Barbiturates Neg Ur Phencyclidine (PCP) Neg U Amphetamin/Meth Scrn Neg MDMA (Ecstasy) Screen Neg U Benzodiazepines Scrn Neg Ur Cocaine Metabolite Neg U Marijuana (THC) Screen Neg Ethyl Alcohol mg/dL COVID-19 Eval Order Covid19 at [facility] SARS-CoV-2 (PCR) 02/13/21 02/13/21 02/13/21 00:30 06:59 06:59 WBC 4.90 RBC 4.39 L Hgb 14.1 Hct 39.9 L MCV 90.9 MCH 32.1 MCHC 35.3 RDW Std Deviation 42.6 RDW Coeff of Nerissa 12.9 Plt Count 164 MPV 8.8 Immature Gran % (Auto) 0.0 Neut % (Auto) 65.6 Lymph % (Auto) 22.4 [place] % (Auto) 10.2 Eos % (Auto) 1.6 Baso % (Auto) 0.2 Neut # (Auto) 3.21 Lymph # (Auto) 1.10 L [place] # (Auto) 0.50 Eos # (Auto) 0.08 Baso # (Auto) 0.01 Immature Gran # (Auto) 0.00 Sodium Potassium Chloride Carbon Dioxide Anion Gap BUN Creatinine Est Cr Clr Drug Dosing Est GFR ( Amer) Est GFR (Non-Af Amer) BUN/Creatinine Ratio Glucose POC Glucose Estimat Average Glucose Hemoglobin A1c Calcium Magnesium Total Bilirubin AST ALT Alkaline Phosphatase Troponin I Total Protein Albumin Globulin Albumin/Globulin Ratio Triglycerides 141 Cholesterol 160 LDL Cholesterol, Calc 95 VLDL Cholesterol, Calc 28 HDL Cholesterol 37 Cholesterol/HDL Ratio 4 Lipase Urine Color Urine Appearance Urine pH Ur Specific Marcell Urine Protein Urine Glucose (UA) Urine Ketones Urine Blood Urine Nitrite Urine Bilirubin Urine Urobilinogen Ur Leukocyte Esterase Urine Opiates Screen Ur Methadone, Qual Urine Barbiturates Ur Phencyclidine (PCP) U Amphetamin/Meth Scrn MDMA (Ecstasy) Screen U Benzodiazepines Scrn Ur Cocaine Metabolite U Marijuana (THC) Screen Ethyl Alcohol mg/dL COVID-19 Eval Order SARS-CoV-2 (PCR) NEGATIVE 02/13/21 02/13/21 02/13/21 06:59 06:59 11:16 WBC RBC Hgb Hct MCV MCH MCHC RDW Std Deviation RDW Coeff of Nerissa Plt Count MPV Immature Gran % (Auto) Neut % (Auto) Lymph % (Auto) [place] % (Auto) Eos % (Auto) Baso % (Auto) Neut # (Auto) Lymph # (Auto) [place] # (Auto) Eos # (Auto) Baso # (Auto) Immature Gran # (Auto) Sodium 141 Potassium 3.7 Chloride 109 H Carbon Dioxide 25 Anion Gap 7.0 BUN 10 Creatinine 0.91 Est Cr Clr Drug Dosing 82.9 Est GFR ( Amer) 98.6 Est GFR (Non-Af Amer) 85.1 BUN/Creatinine Ratio 10.5 Glucose 119 H POC Glucose 130 H Estimat Average Glucose Pending Hemoglobin A1c Pending Calcium 8.7 Magnesium 2.3 Total Bilirubin AST ALT Alkaline Phosphatase Troponin I < 0.015 Total Protein Albumin Globulin Albumin/Globulin Ratio Triglycerides Cholesterol LDL Cholesterol, Calc VLDL Cholesterol, Calc HDL Cholesterol Cholesterol/HDL Ratio Lipase Urine Color Urine Appearance Urine pH Ur Specific Marcell Urine Protein Urine Glucose (UA) Urine Ketones Urine Blood Urine Nitrite Urine Bilirubin Urine Urobilinogen Ur Leukocyte Esterase Urine Opiates Screen Ur Methadone, Qual Urine Barbiturates Ur Phencyclidine (PCP) U Amphetamin/Meth Scrn MDMA (Ecstasy) Screen U Benzodiazepines Scrn Ur Cocaine Metabolite U Marijuana (THC) Screen Ethyl Alcohol mg/dL COVID-19 Eval Order SARS-CoV-2 (PCR) ECG Additional Comments: [id number] 12-FEB-2021 19:31:52 [facility] Poor data quality, interpretation may be adversely affected Normal sinus rhythm Normal ECG When compared with ECG of 10-AUG-2020 12:44, No significant change was found Confirmed by Lars Marcelino ([id number]) on 02/13/2021 9:54:12 AM 25mm/s 10mm/mV 150Hz 9.0.9 12SL 241 SHYANN: 15 Referred by: REFERRED SELF Confirmed By: Lars Booth. rate 85 BPM (1) Syncope Syncope type: unspecified Qualified Code(s): R55 - Syncope and collapse (2) Altered mental status Altered mental status type: unspecified Qualified Code(s): R41.82 - Altered mental status, unspecified
--- NOTE | 2021-02-13 15:14 | Communication Note ---
Date of Service: February 13, 2021 see consult addendum.
[2021-02-13] MEDS ORDERED: haloperidoL 5 MG TAB PO SCH ×2 (21:00)
[2021-02-14] MEDS: INSULIN ASPART 100 UNITS/ML 3 ML PEN SC SCH ×4 (07:59→21:37)
[2021-02-14] MEDS: ASPIRIN 81 MG ECTAB PO SCH (08:00)
[2021-02-14] MEDS: AMANTADINE HCL 100 MG CAPSULE PO SCH ×2 (08:00→20:39)
[2021-02-14 08:27] LABS: Estimated Average Glucose 103 mg/dl; Hemoglobin A1C 5.2 % (4.5-5.6)
[2021-02-14] MEDS ORDERED: haloperidoL 5 MG TAB PO SCH ×2 (09:00)
--- NOTE | 2021-02-14 10:25 | Communication Note ---
Date of Service: February 14, [address] Pascual. Confirmed he was just seen last week. Sedation from medication is less than ideal but otherwise patient becomes increasingly irritable around government conspiracies and necessary for father to be able to manage him at home. Baseline functioning is as described, rather low and showers q1-2 weeks. Psychiatrist aware of discharge pending medical clearance and will resume Haldol 10 mg am and [address] Pascual is support of family's plan to pursue longer term planning/placement options.
--- NOTE | 2021-02-14 12:43 | Electrocardiogram Report ---
Test Reason : Blood Pressure : / mmHG Vent. Rate : 071 BPM Atrial Rate : 071 BPM P-R Int : 158 ms QRS Dur : 086 ms QT Int : 386 ms P-R-T Axes : 030 002 035 degrees QTc Int : 419 ms Normal sinus rhythm Inferior infarct , age undetermined Abnormal ECG When compared with ECG of 12-FEB-2021 19:31, Inferior infarct is now Present QT has shortened Confirmed by Vasile Tsang ([id number]) on 02/14/2021 12:43:05 PM Referred By: REFERRED SELF Confirmed By:Jeremias Tsang
[2021-02-14] MEDS ORDERED: OPTIRAY 350 500ml IV ONE (16:12)
--- NOTE | 2021-02-14 16:37 | Hospitalist Progress Note ---
Date of Service February 14, 2021 Assessment & Plan (1) Syncope: Brought into the hospital with unusual episode of less/unresponsiveness Could well be secondary to akinesia related to schizophrenia No significant arrhythmias noted in the hospital and no more episode of syncope under presyncope Appreciate cardiology input and recommendation Remains stable Discussed with sister The patient lives with his father which is 91 years of old and is deaf and generally weak, cannot take care of him anymore at home The patient remains in bed for most of the time and requires assistance with ADL S Most likely he will need to go to a facility for continued care PT OT requested and patient case coordinator is working on it (2) Altered mental status: Mental status seems to be at baseline Communicating normally No significant symptoms of schizophrenia (3) Schizophrenia: Has been on IM Invega every 21 days Haldol 10 mg in the morning and 20 in the afternoon Appreciate psychiatric input and recommendation to continue current medications He does not qualify for inpatient psychiatric care (4) Abdominal aortic aneurysm (AAA) >39 mm diameter: History of abdominal aortic aneurysm repair We will check CTA to evaluate it further (5) Occasional tremors: He has occasional tremors Worse with activity (6) Hypertension: Seems to be controlled DVT prophylaxis We will give subcu heparin Admission and Anticipated Discharge Date Admission Date: February 13, 2021 Subjective 02/14/2021 The patient was seen and examined in telemetry unit He has been feeling lot better and denies any symptoms He is schizophrenic symptoms seems to be intermittent Did not have any more syncopal/presyncopal episode Review of Systems Review of Systems: All systems reviewed and are unremarkable except as noted below Physical Exam Physical Exam: Lying in bed comfortably Constitutional: well developed, well nourished and + ill appearing Eyes: PERRL, conjunctivae normal, anicteric sclerae ENMT: external ear and nose normal, oropharynx normal Neck: trachea midline, no thyromegaly Respiratory: no respiratory distress Auscultation: lungs clear to auscultation bilaterally Cardiovascular: Rate/Rhythm: regular rate and regular rhythm Heart Sounds: no murmur Extremities: + edema (Trace edema bilaterally) Gastrointestinal (Abdomen): Inspection/Auscultation: normal bowel sounds; abdomen not distended Percussion/Palpation: abdomen soft; abdomen nontender Musculoskeletal: No acute arthritis in any joint Neurologic: Alert and awake. Pleasantly confused. Generally weak and lethargic Psychiatric: Hallucinations: no auditory hallucinations, no visual hallucinations and no tactile hallucinations Lymphatic: no cervical or axillary lymphadenopathy Results & Data Results & Data ([facility]) Vital Signs (Past 12 Hours) Vital Signs Temp Pulse Resp BP BP Pulse Ox 02/14/21 15:24 36.9 C 76 16 142/84 H 93 02/14/21 11:03 36.5 C 73 20 122/73 95 02/14/21 07:18 37.1 C 70 19 125/79 94 Medications Administered Current Inpatient Medications Acetaminophen (Acetaminophen 325 Mg Tab) 650 mg PO Q4H PRN PRN Reason: Pain or Fever Stop: 03/15/21 02:52 Amantadine HCl (Amantadine Hcl 100 Mg Capsule) 100 mg PO BID MARIAMA Stop: 03/15/21 08:59 Last Admin: 02/14/21 08:00 Dose: 100 mg Documented by: Aspirin (Aspirin 81 Mg Ectab) 81 mg PO DAILY MARIAMA Stop: 03/15/21 08:59 Last Admin: 02/14/21 08:00 Dose: 81 mg Documented by: Dextrose (Dextrose 50% 50 Ml Syringe) 25 - 50 ml IV UD PRN; Protocol PRN Reason: Hypoglycemia Protocol Stop: 03/15/21 02:59 Glucagon (Glucagon For Inj 1 Mg Vial) 1 mg IM UD PRN; Protocol PRN Reason: Hypoglycemia Protocol Stop: 03/15/21 02:59 Glucose (Glucose 40% Gel 15 Gm Tube) 15 - 30 gm PO UD PRN; Protocol PRN Reason: Hypoglycemia Protocol Stop: 03/15/21 02:59 Glucose (Glucose 10 Tabs/Tube) 4 - 8 tabs PO UD PRN; Protocol PRN Reason: Hypoglycemia Protocol Stop: 03/15/21 02:59 Haloperidol (Haloperidol 5 Mg Tab) 10 mg PO QAM MARIAMA Stop: 03/17/21 08:59 Haloperidol (Haloperidol 5 Mg Tab) 20 mg PO HS MARIMAA Stop: 03/16/21 20:59 Haloperidol Lactate (Haloperidol Lactate 5 Mg/Ml 1 Ml Vial) 2.5 mg IM Q4H PRN PRN Reason: Agitation Stop: 03/15/21 02:52 Insulin Aspart (Insulin Aspart 100 Units/Ml 3 Ml Pen) 0 units SC ACHS MARIAMA Stop: 03/15/21 07:29 Last Admin: 02/14/21 11:46 Dose: Not Given Documented by: Miscellaneous (Carbohydrates For Hypoglycemia ) 15 - 30 gm PO UD PRN PRN Reason: Hypoglycemia Treatment Stop: 03/15/21 02:59 Nitroglycerin (Nitroglycerin Sl 0.4 Mg/Tab Tab) 0.4 mg SL UD PRN PRN Reason: Chest Pain Stop: 03/15/21 02:52 (1) Syncope Syncope type: unspecified Qualified Code(s): R55 - Syncope and collapse (2) Altered mental status Altered mental status type: unspecified Qualified Code(s): R41.82 - Altered mental status, unspecified
--- NOTE | 2021-02-14 16:45 | CT Scan Report ---
CT ANGIOGRAM OF THE ABDOMEN AND PELVIS WITH BILATERAL LOWER EXTREMITY RUNOFF CLINICAL HISTORY: Abdominal aortic aneurysm status post repair. COMPARISON STUDY: CT angiogram of the abdomen and pelvis dated 07/21/2019. TECHNIQUE: Following the IV administration of 120 cc of Optiray 320, CT angiogram of the abdomen and pelvis with bilateral lower externally runoff was performed from the lung bases to the feet. Images a re reviewed in the axial, sagittal, and coronal planes. 3-D MIPS images are created and assessed. IV contrast was administered without complication. A dose lowering technique was utilized adhering to t he principles of ALARA. CT DOSE: 1414.05 mGy.cm FINDINGS: Lower chest: The heart is top normal in size and without pericardial effusion. Emphysematous change i s noted. There is bibasilar scarring/atelectasis. No airspace consolidation or pleural effusion is id entified. There is a small hiatal hernia. Liver: The contrast-enhanced liver is normal in size, contour, and attenuation. There is no intrahepa tic biliary ductal dilatation. Foci of shunt vascularity are incidentally noted. The main portal vein is patent. Gallbladder: There are large calcified gallstones with no CT evidence of acute cholecystitis. Spleen: Normal in size and attenuation noting heterogeneous arterial phase enhancement. Pancreas: A 1.5 cm simple cystic lesion in the pancreatic tail is image #130. 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 Adrenal glands: Unremarkable. Kidneys: The contrast since kidneys are normal in size and without hydronephrosis. The kidneys enhanc e symmetrically. Abdominal aorta and iliac arteries: There is advanced atherosclerotic calcification of the abdominal aorta. The patient is status post graft repair of an infrarenal abdominal aortic aneurysm. The residu al aneurysm sac measures 3.6 x 4.0 cm (AP x transverse). No dissection is seen. A right common iliac artery stent is patent, as are the right internal and external Iliac arteries. The left common iliac arteries patent, as are the left internal and external iliac arteries.. Major branches of the abdominal aorta: The celiac trunk and superior mesenteric artery are widely pat ent. 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 The vessel is filled via ret rograde flow. There is a replaced hepatic artery which arises from the superior mesenteric artery. Th e splenic artery is patent. Bilateral renal arteries are patent. A tiny accessory right renal artery is seen on axial image #135. Right lower extremity runoff: The right common femoral artery is patent, as is the right profunda fem partha. The right superficial femoral artery is patent, as is the right popliteal artery. The calf heber dany are diminutive but patent. There is three-vessel runoff to the foot. The dorsalis pedis artery i s clear. Left lower extremity runoff: The left common femoral artery is widely patent, as is the left profunda femoris artery. The left superficial femoral artery is widely patent, as is the popliteal artery. Th e calf arteries are diminutive but patent with three-vessel runoff to the foot. Dorsalis pedis is aida ar. Bowel: There is moderate colonic fecal retention. No bowel obstruction is seen. A hypervascular small bowel lesion is again questioned on image #245. The appendix is not visualized. Peritoneum: There is no intraperitoneal free air or abdominal ascites. Lymphadenopathy: There is bulky and hyperdense abdominopelvic lymphadenopathy. Retrocrural nodes steven ure up to 1.4 cm short axis. A marvel anchor did posterior to the portosplenic confluence on image #10 5 measures 7.1 x 2.9 cm. A gastrohepatic node on image #83 measures 4.4 x 2.4 cm. A similar-appearing nodule along the dome of the liver on image #48 measures 1.8 cm. A left periaortic node on image #16 9 and measures 3.2 x 3.0 cm. Bulky mesenteric lymph nodes are noted. A node in the central mesentery on image #210 measures 5.3 x 3.7 cm. Pelvic viscera: The prostate gland is enlarged and heterogeneous noting median lobe hypertrophy. The bladder wall is thickened and trabeculated indicating chronic outlet obstruction. There is a left-iris ed hydrocele. Skeletal structures: The skeletal structures are osteopenic. There is btga-gy-edlcghws lumbosacral sp ondylosis. No destructive bony lesions are seen. 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 Lower extremity soft tissues: There is generalized atrophy of the lower extremity musculature. No sig nificant soft tissue edema is identified. No soft tissue gas is seen. IMPRESSION: 1. There is postoperative change from graft repair of an infrarenal abdominal aortic aneurysm. The gr aft is patent, and the residual aneurysm sac measures 3.6 x 4.0 cm. 2. 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 The vessel fills via collatera l flow. 3. Otherwise unremarkable CT angiogram of the major branches of the abdominal aorta. 4. A right common iliac artery stent is patent. 5. Unremarkable CT runoff of the lower extremities. Lower extremity arteries are diminutive but paten t bilaterally with no evidence of focal/high-grade stenosis or vessel cutoff. 6. There is hyperdense/hypervascular appearing abdominopelvic lymphadenopathy as detailed above, with a possible hyperdense lesion involving a loop of small bowel right lower quadrant. This is unchanged to minimally progressed as compared to 07/21/2019. Correlation with the patient's oncological histor y be required. A small bowel neoplasm such as carcinoid tumor or possibly a lymphoproliferative disor damien are top considerations. 7. Emphysema. 8. Cholelithiasis. 9. Additional findings as above. ACT 112: Negative or not required by law. Electronically signed by: Ad George M.D. 02/14/2021 4:44 PM
[2021-02-14] MEDS: haloperidoL 5 MG TAB PO SCH (20:40)
[2021-02-15] MEDS: AMANTADINE HCL 100 MG CAPSULE PO SCH ×2 (07:45→21:22)
[2021-02-15] MEDS: ASPIRIN 81 MG ECTAB PO SCH (07:45)
[2021-02-15] MEDS: INSULIN ASPART 100 UNITS/ML 3 ML PEN SC SCH ×4 (07:45→21:53)
[2021-02-15] MEDS: haloperidoL 5 MG TAB PO SCH ×2 (07:46→21:22)
--- NOTE | 2021-02-15 12:11 | Electrocardiogram Report ---
Test Reason : Blood Pressure : / mmHG Vent. Rate : 079 BPM Atrial Rate : 079 BPM P-R Int : 156 ms QRS Dur : 088 ms QT Int : 380 ms P-R-T Axes : 037 -02 027 degrees QTc Int : 435 ms Normal sinus rhythm possible Inferior infarct (cited on or before 14-FEB-2021) Abnormal ECG When compared with ECG of 14-FEB-2021 06:03, No significant change was found Confirmed by Vasile Tsang ([id number]) on 02/15/2021 12:10:53 PM Referred By: REFERRED SELF Confirmed By:Jeremias Tsang
--- NOTE | 2021-02-15 13:37 | Hospitalist Progress Note ---
Date of Service February 15, 2021 Assessment & Plan (1) Syncope: Brought into the hospital with unusual episode of less/unresponsiveness Could well be secondary to akinesia related to schizophrenia No significant arrhythmias noted in the hospital and no more episode of syncope under presyncope Appreciate cardiology input and recommendation CT of the abdomen showed a stable aneurysm It did show questionable small intestinal lesion-we will have follow-up with PCP for a repeat scan down the line Discussed with sister The patient lives with his father which is 91 years of old and is deaf and generally weak, cannot take care of him anymore at home The patient remains in bed for most of the time and requires assistance with ADL S Most likely he will need to go to a facility for continued care PT recommended home with 24-hour care, OT is pending The patient does not want to go home as he cannot take care of himself and he cannot rely on his 91-year-old that to 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 (2) Altered mental status: Mental status seems to be at baseline Communicating normally No significant symptoms of schizophrenia (3) Schizophrenia: Has been on IM Invega every 21 days Haldol 10 mg in the morning and 20 in the afternoon Appreciate psychiatric input and recommendation to continue current medications He does not qualify for inpatient psychiatric care His outpatient psychiatrist recommended that he will be better off with placement as per the family members especially the sister (4) Abdominal aortic aneurysm (AAA) >39 mm diameter: History of abdominal aortic aneurysm repair We will check CTA to evaluate it further (5) Occasional tremors: He has occasional tremors Worse with activity (6) Hypertension: Seems to be controlled DVT prophylaxis We will give subcu heparin Admission and Anticipated Discharge Date Admission Date: February 15, 2021 Subjective 02/14/2021 The patient was seen and examined in telemetry unit He has been feeling lot better and denies any symptoms He is schizophrenic symptoms seems to be intermittent Did not have any more syncopal/presyncopal episode 12/16/2020 The patient was seen and examined in telemetry unit He remains drowsy and generally weak and denies any hallucination today He clearly mentioned that he does not want to go back home Review of Systems Review of Systems: All systems reviewed and are unremarkable except as noted below Neurologic: + generalized weakness Physical Exam Physical Exam: Lying in bed comfortably Constitutional: well developed, well nourished and + ill appearing Eyes: PERRL, conjunctivae normal, anicteric sclerae ENMT: external ear and nose normal, oropharynx normal Neck: trachea midline, no thyromegaly Respiratory: no respiratory distress Auscultation: lungs clear to auscultation bilaterally Cardiovascular: Rate/Rhythm: regular rate and regular rhythm Heart Sounds: no murmur Extremities: + edema (Trace edema bilaterally) Gastrointestinal (Abdomen): Inspection/Auscultation: normal bowel sounds; abdomen not distended Percussion/Palpation: abdomen soft; abdomen nontender Musculoskeletal: No acute arthritis in any joint Neurologic: Alert, awake. Pleasantly confused. Generally weak. Denies any hallucination Psychiatric: Hallucinations: no auditory hallucinations, no visual hallucinations and no tactile hallucinations Lymphatic: no cervical or axillary lymphadenopathy Results & Data Results & Data ([facility]) Vital Signs (Past 12 Hours) Vital Signs Temp Pulse Resp BP BP Pulse Ox 02/15/21 11:15 36.5 C 79 20 116/82 97 02/15/21 07:31 37.0 C 84 16 127/83 94 02/15/21 03:54 36.9 C 82 19 132/89 99 Medications Administered Current Inpatient Medications Acetaminophen (Acetaminophen 325 Mg Tab) 650 mg PO Q4H PRN PRN Reason: Pain or Fever Stop: 03/15/21 02:52 Amantadine HCl (Amantadine Hcl 100 Mg Capsule) 100 mg PO BID MARIAMA Stop: 03/15/21 08:59 Last Admin: 02/15/21 07:45 Dose: 100 mg Documented by: Aspirin (Aspirin 81 Mg Ectab) 81 mg PO DAILY MARIAMA Stop: 03/15/21 08:59 Last Admin: 02/15/21 07:45 Dose: 81 mg Documented by: Dextrose (Dextrose 50% 50 Ml Syringe) 25 - 50 ml IV UD PRN; Protocol PRN Reason: Hypoglycemia Protocol Stop: 03/15/21 02:59 Glucagon (Glucagon For Inj 1 Mg Vial) 1 mg IM UD PRN; Protocol PRN Reason: Hypoglycemia Protocol Stop: 03/15/21 02:59 Glucose (Glucose 40% Gel 15 Gm Tube) 15 - 30 gm PO UD PRN; Protocol PRN Reason: Hypoglycemia Protocol Stop: 03/15/21 02:59 Glucose (Glucose 10 Tabs/Tube) 4 - 8 tabs PO UD PRN; Protocol PRN Reason: Hypoglycemia Protocol Stop: 03/15/21 02:59 Haloperidol (Haloperidol 5 Mg Tab) 10 mg PO QAM [facility] Stop: 03/17/21 08:59 Last Admin: 02/15/21 07:46 Dose: 10 mg Documented by: Haloperidol (Haloperidol 5 Mg Tab) 20 mg PO HS [facility] Stop: 03/16/21 20:59 Last Admin: 02/14/21 20:40 Dose: 20 mg Documented by: Haloperidol Lactate (Haloperidol Lactate 5 Mg/Ml 1 Ml Vial) 2.5 mg IM Q4H PRN PRN Reason: Agitation Stop: 03/15/21 02:52 Insulin Aspart (Insulin Aspart 100 Units/Ml 3 Ml Pen) 0 units SC ACHS [facility] Stop: 03/15/21 07:29 Last Admin: 02/15/21 12:53 Dose: Not Given Documented by: Miscellaneous (Carbohydrates For Hypoglycemia ) 15 - 30 gm PO UD PRN PRN Reason: Hypoglycemia Treatment Stop: 03/15/21 02:59 Nitroglycerin (Nitroglycerin Sl 0.4 Mg/Tab Tab) 0.4 mg SL UD PRN PRN Reason: Chest Pain Stop: 03/15/21 02:52 (1) Syncope Syncope type: unspecified Qualified Code(s): R55 - Syncope and collapse (2) Altered mental status Altered mental status type: unspecified Qualified Code(s): R41.82 - Altered mental status, unspecified
[2021-02-16] MEDS: AMANTADINE HCL 100 MG CAPSULE PO SCH ×2 (07:42→20:12)
[2021-02-16] MEDS: ASPIRIN 81 MG ECTAB PO SCH (07:42)
[2021-02-16] MEDS: haloperidoL 5 MG TAB PO SCH ×2 (07:43→20:12)
[2021-02-16] MEDS: INSULIN ASPART 100 UNITS/ML 3 ML PEN SC SCH ×4 (10:03→21:52)
--- NOTE | 2021-02-16 14:30 | Hospitalist Progress Note ---
Date of Service February 16, 2021 Assessment & Plan (1) Syncope: Brought into the hospital with unusual episode of less/unresponsiveness Could well be secondary to akinesia related to schizophrenia No significant arrhythmias noted in the hospital and no more episode of syncope under presyncope CT of the abdomen showed stable aneurysm. Questionable intestinal lesion, will need to follow-up with PCP. Appreciate cardiology input. Transthoracic echo with a EF of 65%. Discussed with sister The patient lives with his father which is 91 years of old and is deaf and generally weak, cannot take care of him anymore at home The patient remains in bed for most of the time and requires assistance with ADL S. Patient and the family is requesting for placement. Care management is working on it. Continue to work with PT/OT.e (2) Altered mental status: Today patient was awake, alert and oriented. No significant symptoms of schizophrenia (3) Schizophrenia: Has been on IM Invega every 21 days Haldol 10 mg in the morning and 20 in the afternoon Appreciate psychiatric input and recommendation to continue current medications He does not qualify for inpatient psychiatric care His outpatient psychiatrist recommended that he will be better off with placement as per the family members especially the sister (4) Abdominal aortic aneurysm (AAA) >39 mm diameter: History of abdominal aortic aneurysm repair We will check CTA to evaluate it further (5) Occasional tremors: He has occasional tremors Worse with activity (6) Hypertension: Seems to be controlled DVT prophylaxis We will give subcu heparin Admission and Anticipated Discharge Date Admission Date: February 15, 2021 Subjective This morning patient is awake and alert. Oriented x3. He does not had any major complaints at the moment. Review of system is mainly negative. Review of Systems Review of Systems: All systems reviewed & are unremarkable except as noted in HPI & below Physical Exam Physical Exam: General: A&Ox3, ill-appearing gentleman HENT: NCAT, MMM, EOMI Eyes: PERRLA Neck: Supple, normal range of motion CVS: normal rate and rhythm Resp: b/l good breath sounds Abdomen: Soft, ND/NT, +BS Extremities: No c/c/e Neuro: face symmetric, no focal deficit Skin: warm and dry MSK: normal ROM, no joint swelling/erythema Results & Data Results & Data ([facility]) Vital Signs (Past 12 Hours) Vital Signs Temp Pulse Pulse Resp BP Pulse Ox 02/16/21 11:24 36.5 C 84 16 125/80 98 02/16/21 07:49 78 02/16/21 07:41 36.8 C 81 16 113/77 94 02/16/21 03:40 36.5 C 83 18 115/81 93 (1) Syncope Syncope type: unspecified Qualified Code(s): R55 - Syncope and collapse (2) Altered mental status Altered mental status type: unspecified Qualified Code(s): R41.82 - Altered mental status, unspecified
[2021-02-17] MEDS: AMANTADINE HCL 100 MG CAPSULE PO SCH ×2 (09:28→20:38)
[2021-02-17] MEDS: ASPIRIN 81 MG ECTAB PO SCH (09:28)
[2021-02-17] MEDS: haloperidoL 5 MG TAB PO SCH ×2 (09:29→20:36)
[2021-02-17] MEDS: INSULIN ASPART 100 UNITS/ML 3 ML PEN SC SCH ×4 (09:33→20:38)
--- NOTE | 2021-02-17 13:30 | Psychiatric Progress Note ---
Date of Service February 17, 2021 Impression / Recommendations Impression 02/17/21--more cooperative in conversation than last contact, continue Haldol as ordered. Awaiting placement options. initial consult: 70 yo male with long history of schizophrenia admit with AMS/syncopal episode, hx of previous, on combo of Haldol and [place], reported frustration over medical problems and passive wish in the setting of poor coping skills, it's suspected his current level of paranoia and intermittent visual varela are baseline but have reached out to family to see if any criteria for involuntary commitment. He states he will refuse Haldol and reviewed that that is not advised as if stops 30 mg dose abruptly he can have withdrawal dyskinesias and significant worsening. It is also important for us to witness any worsening of his EPS on current meds to report to psychiatrist when office reopens tomorrow. Will order Haldol 5 mg po now and 10 mg po this hs. His medication doses were confirmed with the [facility]. He claims to receive his Invega injection at the [facility] pharmacy itself so attempting to confirm with father if given on 01/15 as per sures[employer] as would be due today. No evidence of NMS, no akathisia, no significant dystonia currently but does have EPS (tremor, reports drooling). No evidence of anticholintergic tox from amantadine. Head CT negative. Continue medical work up, consider EEG. Risk Factors Assessment Do You Have Access To A Gun?: No Interval History Chief Complaint "I like it here". Review of Systems Notes sleep intact, no dizzy, +hand tremor, no drooling Subjective Subjective Patient was seen & assessed and interval progress reviewed. He can be irritable with staff changes but overall cooperative with PO meds, no psychomotor agitation or aggressive outbursts. Physical Exam Psychiatric Orientation: alert, oriented to person and oriented to place Apperance: + disheveled Eye Contact: + fair eye contact Motor Behavior: + tremor (hands bilaterally) Speech: normal rate/rhythm/volume of speech (but lacks spontaneity) Affect: + blunted affect Mood: no depressed mood Thought Process: + concrete thought process Thought Content: + delusions Suicidal Thoughts: denies suicidal thoughts Homicidal Thoughts: denies homicidal thoughts Hallucinations: no auditory hallucinations, no visual hallucinations and no tactile hallucinations Cognition: + attention not intact Estimated Intelligence: + below average estimated intelligence Insight: + poor insight Judgement: + poor judgement Vital Signs (Past 24 Hours) Last Vital Signs Temp 36.4 C L 02/17/21 11:50 Pulse 99 H 02/17/21 11:50 Resp 18 02/17/21 11:50 BP 131/80 02/17/21 11:50 Pulse Ox 96 02/17/21 11:50 Results & Data ([facility]) Laboratory Results Laboratory Results - last 24 hr 02/16/21 02/17/21 02/17/21 16:34 07:28 11:33 POC Glucose 105 H 103 H 122 H Current Inpatient Medications Current Inpatient Medications: Current Inpatient Medications Acetaminophen (Acetaminophen 325 Mg Tab) 650 mg PO Q4H PRN PRN Reason: Pain or Fever Stop: 03/15/21 02:52 Amantadine HCl (Amantadine Hcl 100 Mg Capsule) 100 mg PO BID MARIAMA Stop: 03/15/21 08:59 Last Admin: 02/17/21 09:28 Dose: 100 mg Documented by: Aspirin (Aspirin 81 Mg Ectab) 81 mg PO DAILY MARIAMA Stop: 03/15/21 08:59 Last Admin: 02/17/21 09:28 Dose: 81 mg Documented by: Dextrose (Dextrose 50% 50 Ml Syringe) 25 - 50 ml IV UD PRN; Protocol PRN Reason: Hypoglycemia Protocol Stop: 03/15/21 02:59 Glucagon (Glucagon For Inj 1 Mg Vial) 1 mg IM UD PRN; Protocol PRN Reason: Hypoglycemia Protocol Stop: 03/15/21 02:59 Glucose (Glucose 40% Gel 15 Gm Tube) 15 - 30 gm PO UD PRN; Protocol PRN Reason: Hypoglycemia Protocol Stop: 03/15/21 02:59 Glucose (Glucose 10 Tabs/Tube) 4 - 8 tabs PO UD PRN; Protocol PRN Reason: Hypoglycemia Protocol Stop: 03/15/21 02:59 Haloperidol (Haloperidol 5 Mg Tab) 10 mg PO QAM MARIAMA Stop: 03/17/21 08:59 Last Admin: 02/17/21 09:29 Dose: 10 mg Documented by: Haloperidol (Haloperidol 5 Mg Tab) 20 mg PO HS [facility] Stop: 03/16/21 20:59 Last Admin: 02/16/21 20:12 Dose: 20 mg Documented by: Haloperidol Lactate (Haloperidol Lactate 5 Mg/Ml 1 Ml Vial) 2.5 mg IM Q4H PRN PRN Reason: Agitation Stop: 03/15/21 02:52 Insulin Aspart (Insulin Aspart 100 Units/Ml 3 Ml Pen) 0 units SC ACHS MARIAMA Stop: 03/15/21 07:29 Last Admin: 02/17/21 13:02 Dose: 4 units Documented by: Miscellaneous (Carbohydrates For Hypoglycemia ) 15 - 30 gm PO UD PRN PRN Reason: Hypoglycemia Treatment Stop: 03/15/21 02:59 Nitroglycerin (Nitroglycerin Sl 0.4 Mg/Tab Tab) 0.4 mg SL UD PRN PRN Reason: Chest Pain Stop: 03/15/21 02:52 Mental Health & Subst Abuse Tx Psychiatrist Name of Psychiatrist: Dr. Pascual @ [facility] in [place] Psychiatrist's Date of Appointment with Psychiatrist: 03/15/21 Time of Appointment with Psychiatrist: 11:15 Post Discharge Appointments Other #1: Name of Aftercare Appointment: [facility] Date of Aftercare Appointment: 02/23/21 Aftercare Appointment Comment: for Invega Sustenna injection.
--- NOTE | 2021-02-17 14:10 | Hospitalist Progress Note ---
Date of Service February 17, 2021 Assessment & Plan (1) Syncope: Brought into the hospital with unusual episode of less/unresponsiveness Could well be secondary to akinesia related to schizophrenia No significant arrhythmias noted in the hospital and no more episode of syncope under presyncope CT of the abdomen showed stable aneurysm. Questionable intestinal lesion, will need to follow-up with PCP. Appreciate cardiology input. Transthoracic echo with a EF of 65%. Discussed with sister The patient lives with his father which is 91 years of old and is deaf and generally weak, cannot take care of him anymore at home The patient remains in bed for most of the time and requires assistance with ADL S. Patient and the family is requesting for placement. Care management is working on it. Continue to work with PT/OT.e (2) Altered mental status: Today patient was awake, alert and oriented. No significant symptoms of schizophrenia (3) Schizophrenia: Has been on IM Invega every 21 days Haldol 10 mg in the morning and 20 in the afternoon Appreciate psychiatric input and recommendation to continue current medications He does not qualify for inpatient psychiatric care His outpatient psychiatrist recommended that he will be better off with placement as per the family members especially the sister (4) Abdominal aortic aneurysm (AAA) >39 mm diameter: History of abdominal aortic aneurysm repair We will check CTA to evaluate it further (5) Occasional tremors: He has [id number] tremors Worse with activity (6) Hypertension: Seems to be controlled DVT prophylaxis Lovenox Admission and Anticipated Discharge Date Admission Date: February 15, 2021 Subjective Patient is doing okay. He is awake, alert and oriented x3. No new issues. Review of system is negative. Review of Systems Review of Systems: All systems reviewed & are unremarkable except as noted in HPI & below Physical Exam Physical Exam: General: A&Ox3, ill-appearing gentleman HENT: NCAT, MMM, EOMI Eyes: PERRLA Neck: Supple, normal range of motion CVS: normal rate and rhythm Resp: b/l good breath sounds Abdomen: Soft, ND/NT, +BS Extremities: No c/c/e Neuro: face symmetric, no focal deficit Skin: warm and dry MSK: normal ROM, no joint swelling/erythema Results & Data Results & Data ([facility]) Vital Signs (Past 12 Hours) Vital Signs Temp Pulse Resp BP BP Pulse Ox 02/17/21 11:50 36.4 C L 99 H 18 131/80 96 02/17/21 07:07 36.3 C L 75 16 126/84 98 02/17/21 03:28 36.5 C 84 16 106/74 96 (1) Syncope Syncope type: unspecified Qualified Code(s): R55 - Syncope and collapse (2) Altered mental status Altered mental status type: unspecified Qualified Code(s): R41.82 - Altered mental status, unspecified
[2021-02-17] MEDS: ENOXAPARIN INJ 40 MG/0.4 ML SYR SQ SCH (15:31)
[2021-02-18] MEDS: ASPIRIN 81 MG ECTAB PO SCH (08:15)
[2021-02-18] MEDS: haloperidoL 5 MG TAB PO SCH ×2 (08:15→21:25)
[2021-02-18] MEDS: ENOXAPARIN INJ 40 MG/0.4 ML SYR SQ SCH (08:16)
[2021-02-18] MEDS: INSULIN ASPART 100 UNITS/ML 3 ML PEN SC SCH ×4 (08:16→21:43)
[2021-02-18] MEDS: AMANTADINE HCL 100 MG CAPSULE PO SCH ×2 (08:16→21:25)
[2021-02-18 08:43] LABS: Mean Corpuscular Hgb Conc 34.6 g/dL (32-36); Mean Platelet Volume 9.4 fL (7.4-10.4); Platelet Count 193 K/uL (130-400)
[2021-02-18 09:04] LABS: BUN Creatinine Ratio 22.7 (10-20); Calcium 9.1 mg/dl (8.5-10.1); Creatinine Clr Calc Pharmacy 76.2 ml/min; Est GFR (African American) 89.1 ml/min; Est GFR (Non-African American) 76.8 ml/min; Potassium 3.6 mmol/L (3.5-5.1)
[2021-02-18 09:10] LABS: Basophils # (auto) 0.01 K/uL (0-0.2); Basophils % (auto) 0.2 %; Eosinophils # (auto) 0.22 K/uL (0-0.5); Eosinophils % (auto) 4.8 %; Hematocrit (blood only) 43.4 % (42-52); Immature Granulocytes # (auto) 0.01 K/uL (0.00-0.02); Immature Granulocytes % (auto) 0.2 %; Lymphocytes # (auto) 1.08 K/uL (1.2-3.4); Lymphocytes % (auto) 23.3 %; Mean Corpuscular Hemoglobin 32.3 pg (25-34); Mean Corpuscular Volume 93.5 fL (80-100); Monocytes # (auto) 0.57 K/uL (0.11-0.59); Monocytes % (auto) 12.3 %; Neutrophils # (auto) 2.74 K/uL (1.4-6.5); Neutrophils % (auto) 59.2 %; RDW Coefficient of Variation 13.1 % (11.5-14.5); RDW Standard Deviation 45.1 fL (36.4-46.3); Red Blood Count 4.64 M/uL (4.7-6.1); Toxic Granulation 1+; White Blood Count 4.63 K/uL (4.8-10.8)
--- NOTE | 2021-02-18 13:22 | Hospitalist Progress Note ---
Date of Service February 18, 2021 Assessment & Plan (1) Syncope: Brought into the hospital with unusual episode of less/unresponsiveness Could well be secondary to akinesia related to schizophrenia No significant arrhythmias noted in the hospital and no more episode of syncope under presyncope CT of the abdomen showed stable aneurysm. Questionable intestinal lesion, will need to follow-up with PCP. Appreciate cardiology input. Transthoracic echo with a EF of 65%. The patient lives with his father which is 91 years of old and is deaf and generally weak, cannot take care of him anymore at home The patient remains in bed for most of the time and requires assistance with ADL S. Patient and the family is requesting for placement. Care management is working on it. Continue to work with PT/OT. (2) Altered mental status: Today patient was awake, alert and oriented. No significant symptoms of schizophrenia (3) Schizophrenia: Has been on IM Invega every 21 days Haldol 10 mg in the morning and 20 in the afternoon Appreciate psychiatric input and recommendation to continue current medications He does not qualify for inpatient psychiatric care His outpatient psychiatrist recommended that he will be better off with placement as per the family members especially the sister (4) Abdominal aortic aneurysm (AAA) >39 mm diameter: History of abdominal aortic aneurysm repair CTA without any acute issues. (5) Occasional tremors: He has occasional tremors Worse with activity (6) Hypertension: Seems to be controlled DVT prophylaxis Lovenox Admission and Anticipated Discharge Date Admission Date: February 15, 2021 Subjective Patient is doing okay. Clinically status quo. No new issues. Review of Systems Review of Systems: All systems reviewed & are unremarkable except as noted in HPI & below Physical Exam Physical Exam: General: A&Ox3, ill-appearing gentleman HENT: NCAT, MMM, EOMI Eyes: PERRLA Neck: Supple, normal range of motion CVS: normal rate and rhythm Resp: b/l good breath sounds Abdomen: Soft, ND/NT, +BS Extremities: No c/c/e Neuro: face symmetric, no focal deficit Skin: warm and dry MSK: normal ROM, no joint swelling/erythema Results & Data Results & Data ([facility]) Vital Signs (Past 12 Hours) Vital Signs Temp Pulse Pulse Resp BP BP Pulse Ox 02/18/21 11:35 36.4 C L 81 16 110/74 94 02/18/21 08:11 36.4 C L 71 16 117/80 97 02/18/21 07:21 72 02/18/21 03:44 36.9 C 67 18 104/69 97 (1) Syncope Syncope type: unspecified Qualified Code(s): R55 - Syncope and collapse (2) Altered mental status Altered mental status type: unspecified Qualified Code(s): R41.82 - Altered mental status, unspecified
[2021-02-19] MEDS: INSULIN ASPART 100 UNITS/ML 3 ML PEN SC SCH ×4 (09:06→21:16)
[2021-02-19] MEDS: haloperidoL 5 MG TAB PO SCH ×2 (09:09→21:17)
[2021-02-19] MEDS: AMANTADINE HCL 100 MG CAPSULE PO SCH ×2 (09:09→21:17)
[2021-02-19] MEDS: ENOXAPARIN INJ 40 MG/0.4 ML SYR SQ SCH (09:10)
[2021-02-19] MEDS: ASPIRIN 81 MG ECTAB PO SCH (09:10)
--- NOTE | 2021-02-19 12:24 | Hospitalist Progress Note ---
Date of Service February 19, 2021 Assessment & Plan (1) Syncope: Brought into the hospital with unusual episode of less/unresponsiveness Could well be secondary to akinesia related to schizophrenia No significant arrhythmias noted in the hospital and no more episode of syncope under presyncope CT of the abdomen showed stable aneurysm. Questionable intestinal lesion, will need to follow-up with PCP. Appreciate cardiology input. Transthoracic echo with a EF of 65%. The patient lives with his father which is 91 years of old and is deaf and generally weak, cannot take care of him anymore at home The patient remains in bed for most of the time and requires assistance with ADL S. Patient and the family is requesting for placement. Care management is working on it. Continue to work with PT/OT. (2) Altered mental status: Today patient was awake, alert and oriented. No significant symptoms of schizophrenia (3) Schizophrenia: Has been on IM Invega every 21 days Haldol 10 mg in the morning and 20 in the afternoon Appreciate psychiatric input and recommendation to continue current medications He does not qualify for inpatient psychiatric care His outpatient psychiatrist recommended that he will be better off with placement as per the family members especially the sister (4) Abdominal aortic aneurysm (AAA) >39 mm diameter: History of abdominal aortic aneurysm repair CTA without any acute issues. (5) Occasional tremors: He has occasional tremors Worse with activity (6) Hypertension: Seems to be controlled DVT prophylaxis Lovenox (7) Neuroendocrine tumor: I was notified by his sister today that he has a history of tumor which was never worked up. Patient will need oncology referral at discharge. I reviewed documents from [facility] Dr. 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 He does not have any carcinoid syndrome. Most common primary site well-differentiated neuroendocrine carcinomas are GI tract and pancreas. Prognosis very with the site of origin. In addition to cross-sectional imaging, gallium Dottatae PET scan is sensitive in detecting occult primaries and small metastatic lesion Recomendation 1- referral to Gastroentrogist for GI evaluation for primary site 2-Gallium Dottatate PET Scan 3-serum chromogranin and serum serotonin levels 4 cbc cmp "Patient is accompnied by his sister , he has history of Scizophrenia, his sister lives [address] from patient s tresidence . His sister is not sure whether patient will comply with the above recommendation. She also want to find an oncology center close to patient's home. At present patient and her sister has decided not to proceed with any further investigation. If they want investigation or transfer her care to another center, they will contact me or my office staff" Admission and Anticipated Discharge Date Admission Date: February 15, 2021 Subjective No new issues. Patient is resting comfortably. Hemodynamically doing fine. Physical Exam Physical Exam: General: A&Ox3, ill-appearing gentleman HENT: NCAT, MMM, EOMI Eyes: PERRLA Neck: Supple, normal range of motion CVS: normal rate and rhythm Resp: b/l good breath sounds Abdomen: Soft, ND/NT, +BS Extremities: No c/c/e Neuro: face symmetric, no focal deficit Skin: warm and dry MSK: normal ROM, no joint swelling/erythema Results & Data Results & Data ([facility]) Vital Signs (Past 12 Hours) Vital Signs Temp Pulse Resp BP BP Pulse Ox 02/19/21 12:10 36.4 C L 79 20 103/68 94 02/19/21 07:52 36.3 C L 68 20 132/82 93 02/19/21 04:00 36.4 C L 69 18 129/82 94 (1) Syncope Syncope type: unspecified Qualified Code(s): R55 - Syncope and collapse (2) Altered mental status Altered mental status type: unspecified Qualified Code(s): R41.82 - Altered mental status, unspecified
[2021-02-20] MEDS: INSULIN ASPART 100 UNITS/ML 3 ML PEN SC SCH ×4 (08:46→20:15)
[2021-02-20] MEDS: AMANTADINE HCL 100 MG CAPSULE PO SCH ×2 (08:47→20:15)
[2021-02-20] MEDS: haloperidoL 5 MG TAB PO SCH ×2 (08:47→20:15)
[2021-02-20] MEDS: ASPIRIN 81 MG ECTAB PO SCH (08:48)
[2021-02-20] MEDS: ENOXAPARIN INJ 40 MG/0.4 ML SYR SQ SCH (08:48)
--- NOTE | 2021-02-20 14:34 | Hospitalist Progress Note ---
Date of Service February 20, 2021 Assessment & Plan (1) Syncope: Thought secondary to schizophrenia medicine Cardiac etiology thought unlikely secondary to negative work-up. History of abdominal aneurysm repair status post CT of the abdomen revealing stable aneurysm Questionable intestinal lesion, needs follow-up with primary care physician for further investigation as outpatient Patient lives with his father who is disabled and cannot care for him anymore. Placement pending Continue working with PT/OT. (2) Altered mental status: resolved. (3) Schizophrenia: Has been on IM Invega every 21 days Haldol 10 mg in the morning and 20 in the afternoon Appreciate psychiatric input and recommendation to continue current medications He does not qualify for inpatient psychiatric care His outpatient psychiatrist recommended that he will be better off with placement as per the family members especially the sister (4) Abdominal aortic aneurysm (AAA) >39 mm diameter: History of abdominal aortic aneurysm repair CTA reveals stability of aneurysm. (5) Occasional tremors: He has occasional tremors Worse with activity (6) Hypertension: BP at goal, cont low salt diet. (7) Neuroendocrine tumor: Per [facility] specialist Dr. 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 He does not have any carcinoid syndrome. Most common primary site well-differentiated neuroendocrine carcinomas are GI tract and pancreas. Prognosis very with the site of origin. In addition to cross-sectional imaging, gallium Dottatae PET scan is sensitive in detecting occult primaries and small metastatic lesion Recomendation 1- referral to Gastroentrogist for GI evaluation for primary site 2-Gallium Dottatate PET Scan 3-serum chromogranin and serum serotonin levels 4 cbc cmp "Patient is accompnied by his sister , he has history of Scizophrenia, his sister lives [address] from patient s tresidence . His sister is not sure whether patient will comply with the above recommendation. She also want to find an oncology center close to patient's home. At present patient and her sister has decided not to proceed with any further investigation. If they want investigation or transfer her care to another center, they will contact me or my office staff" Outpatient follow-up with PCP with urgent referral to Oncology and GI. (8) DMII (diabetes mellitus, type 2): Hold home pioglitazone and given insulin with carb coverage and correction factor as needed. A1C is 5.2. Consider de-escalating medication as outpatient. Defer to PCP. (9) DVT prophylaxis: Lovenox Full Code Dispo-to rehab DO Geovany Troy Hospitalist Admission and Anticipated Discharge Date Admission Date: February 15, 2021 Subjective The patient is a 7-year-old schizophrenic male who presented to the ER with strokelike symptoms. He was unresponsive at home and initially unable to obtain any history due to confusion. There was a question of possible syncope. The patient lives with his 90-year-old father. EMS was called and they were unable to arouse him. In the ER he was chronically ill-appearing laying in bed gazing off and intermittently following commands. He had slightly garbled speech but no weakness of arms or legs. Alcohol was negative talk screen was negative UA was negative. Lipase was unremarkable. Labs showed no significant leukocytosis or anemia. When he arrived on the floor he was agitated, shouting and angry at staff, better after IM Haldol. He takes in [place] IM monthly that is caused side effects and is believed to be the cause of his syncopal episode. Psychiatry was consulted. There was not an acute change that would meet criteria for an inpatient psychiatric admission, particularly on an involuntary basis and this would be against his father's wishes given past experiences. The patient expressed no intent to self-harm and has no suicidal ideations. Long-term placement was considered ideal. Cardiology was consulted for syncopal episode. As he has a normal EKG and negative cardiac enzymes and no evidence of arrhythmias on telemetry overnight findings were not suggestive of a cardiac etiology. Given his history of abdominal aneurysm repair and no recent imaging a CTA of the abdomen was recommended. This was performed and revealed a stable aneurysm. It did show a questionable small intestinal lesion which will need to be followed up with primary care physician with a possible repeat scan down the line. Today he reports no pain or symptoms. He is tolerating p.o. He is not walking well and reports walking independently prior to arrival. He reports generalized weakness for unknown reason. He understands he is moving to rehab tomorrow or the next day. He denies any other issues at this time. Review of Systems Review of Systems: All systems reviewed & are unremarkable except as noted in Subjective Physical Exam Physical Exam: CONSTITUTIONAL: WNWD, vitals as above, NAD EYES: normal conjunctivae, no scleral icterus ENT: external ear and nose normal, MMM RESPIRATORY: clear to auscultation bilaterally, no crackles, rales or wheezes, normal respiratory effort CARDIOVASCULAR: regular rate and rhythm, S1 and 2 heard without murmurs, gallops or rubs, no JVD, no peripheral edema GASTROINTESTINAL: soft, nontender, nondistended MUSCULOSKELETAL: generalized weakness, appears to move all extremities symmetrically, head is normocephalic and atraumatic SKIN: warm and dry NEUROLOGIC: CN 2-12 grossly intact, no sensory deficit, normal cognition, normal speech, no gross focal deficits. PSYCHIATRIC: alert cooperative and oriented to person, place and time. Results & Data Results & Data ([facility]) Vital Signs (Past 12 Hours) Vital Signs Temp Pulse Resp BP BP Pulse Ox 02/20/21 12:24 36.5 C 78 19 119/16 L 96 02/20/21 07:25 36.3 C L 68 19 121/74 93 02/20/21 04:00 36.3 C L 68 18 138/67 95 Medications Administered Current Inpatient Medications Acetaminophen (Acetaminophen 325 Mg Tab) 650 mg PO Q4H PRN PRN Reason: Pain or Fever Stop: 03/15/21 02:52 Amantadine HCl (Amantadine Hcl 100 Mg Capsule) 100 mg PO BID [facility] Stop: 03/15/21 08:59 Last Admin: 02/20/21 08:47 Dose: 100 mg Documented by: Aspirin (Aspirin 81 Mg Ectab) 81 mg PO DAILY [facility] Stop: 03/15/21 08:59 Last Admin: 02/20/21 08:48 Dose: 81 mg Documented by: Dextrose (Dextrose 50% 50 Ml Syringe) 25 - 50 ml IV UD PRN; Protocol PRN Reason: Hypoglycemia Protocol Stop: 03/15/21 02:59 Enoxaparin Sodium (Enoxaparin Inj 40 Mg/0.4 Ml Syr) 40 mg SQ QAM [facility] Stop: 03/19/21 14:14 Last Admin: 02/20/21 08:48 Dose: 40 mg Documented by: Glucagon (Glucagon For Inj 1 Mg Vial) 1 mg IM UD PRN; Protocol PRN Reason: Hypoglycemia Protocol Stop: 03/15/21 02:59 Glucose (Glucose 40% Gel 15 Gm Tube) 15 - 30 gm PO UD PRN; Protocol PRN Reason: Hypoglycemia Protocol Stop: 03/15/21 02:59 Glucose (Glucose 10 Tabs/Tube) 4 - 8 tabs PO UD PRN; Protocol PRN Reason: Hypoglycemia Protocol Stop: 03/15/21 02:59 Haloperidol (Haloperidol 5 Mg Tab) 10 mg PO QAM [facility] Stop: 03/17/21 08:59 Last Admin: 02/20/21 08:47 Dose: 10 mg Documented by: Haloperidol (Haloperidol 5 Mg Tab) 20 mg PO HS [facility] Stop: 03/16/21 20:59 Last Admin: 02/19/21 21:17 Dose: 20 mg Documented by: Haloperidol Lactate (Haloperidol Lactate 5 Mg/Ml 1 Ml Vial) 2.5 mg IM Q4H PRN PRN Reason: Agitation Stop: 03/15/21 02:52 Insulin Aspart (Insulin Aspart 100 Units/Ml 3 Ml Pen) 0 units SC ACHS [facility] Stop: 03/15/21 07:29 Last Admin: 02/20/21 12:11 Dose: 6 units Documented by: Miscellaneous (Carbohydrates For Hypoglycemia ) 15 - 30 gm PO UD PRN PRN Reason: Hypoglycemia Treatment Stop: 03/15/21 02:59 Nitroglycerin (Nitroglycerin Sl 0.4 Mg/Tab Tab) 0.4 mg SL UD PRN PRN Reason: Chest Pain Stop: 03/15/21 02:52 (1) Syncope Syncope type: unspecified Qualified Code(s): R55 - Syncope and collapse (2) Altered mental status Altered mental status type: unspecified Qualified Code(s): R41.82 - Altered mental status, unspecified
[2021-02-21] MEDS: INSULIN ASPART 100 UNITS/ML 3 ML PEN SC SCH ×5 (08:29→20:58)
[2021-02-21] MEDS: AMANTADINE HCL 100 MG CAPSULE PO SCH ×2 (08:29→20:58)
[2021-02-21] MEDS: ASPIRIN 81 MG ECTAB PO SCH (08:30)
[2021-02-21] MEDS: haloperidoL 5 MG TAB PO SCH ×2 (08:31→20:57)
[2021-02-21] MEDS: ENOXAPARIN INJ 40 MG/0.4 ML SYR SQ SCH (08:32)
--- NOTE | 2021-02-21 21:30 | Hospitalist Progress Note ---
Date of Service February 21, 2021 Assessment & Plan (1) Syncope: Thought secondary to schizophrenia medicine Cardiac etiology thought unlikely secondary to negative work-up. History of abdominal aneurysm repair status post CT of the abdomen revealing stable aneurysm Questionable intestinal lesion, needs follow-up with primary care physician for further investigation as outpatient Patient lives with his father who is disabled and cannot care for him anymore. Placement pending Continue working with PT/OT. (2) Altered mental status: resolved. (3) Schizophrenia: Has been on IM Invega every 21 days Haldol 10 mg in the morning and 20 in the afternoon Appreciate psychiatric input and recommendation to continue current medications He does not qualify for inpatient psychiatric care His outpatient psychiatrist recommended that he will be better off with placement as per the family members especially the sister (4) Abdominal aortic aneurysm (AAA) >39 mm diameter: History of abdominal aortic aneurysm repair CTA reveals stability of aneurysm. (5) Occasional tremors: He has occasional tremors Worse with activity (6) Hypertension: BP at goal, cont low salt diet. (7) Neuroendocrine tumor: Per [facility] specialist Dr. 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 He does not have any carcinoid syndrome. Most common primary site well-differentiated neuroendocrine carcinomas are GI tract and pancreas. Prognosis very with the site of origin. In addition to cross-sectional imaging, gallium Dottata[place] PET scan is sensitive in detecting occult primaries and small metastatic lesion Recomendation 1- referral to Gastroentrogist for GI evaluation for primary site 2-Gallium Dottatate PET Scan 3-serum chromogranin and serum serotonin levels 4 cbc cmp "Patient is accompnied by his sister , he has history of Scizophrenia, his sister lives [address] from patient s tresidence . His sister is not sure whether patient will comply with the above recommendation. She also want to find an oncology center close to patient's home. At present patient and her sister has decided not to proceed with any further investigation. If they want investigation or transfer her care to another center, they will contact me or my office staff" Outpatient follow-up with PCP with urgent referral to Oncology and GI. (8) DMII (diabetes mellitus, type 2): Hold home pioglitazone and given insulin with carb coverage and correction factor as needed. A1C is 5.2. Consider de-escalating medication as outpatient. Defer to PCP. (9) DVT prophylaxis: Lovenox Full Code Dispo-to rehab when bed available. Discussed care plan regarding Oncology followup for patient with [facility] nurse coordinator who is assisting with this transition. Sarita Mac DO [facility] Hospitalist Admission and Anticipated Discharge Date Admission Date: February 15, 2021 Subjective The patient is a 70-year-old schizophrenic male who presented to the ER with strokelike symptoms. He was unresponsive at home and initially unable to obtain any history due to confusion. Today he reports no pain or symptoms. He is tolerating p.o. He is not walking well and reports walking independently prior to arrival. He reports generalized weakness for unknown reason. He understands he is moving to rehab tomorrow or the next day. He denies any other issues at this time. Tolerating PO. Review of Systems Review of Systems: All systems reviewed & are unremarkable except as noted in Subjective Physical Exam Physical Exam: CONSTITUTIONAL: WNWD, vitals as above, NAD EYES: normal conjunctivae, no scleral icterus ENT: external ear and nose normal, MMM RESPIRATORY: clear to auscultation bilaterally, no crackles, rales or wheezes, normal respiratory effort CARDIOVASCULAR: regular rate and rhythm, S1 and 2 heard without murmurs, gallops or rubs, no JVD, no peripheral edema GASTROINTESTINAL: soft, nontender, nondistended MUSCULOSKELETAL: generalized weakness, appears to move all extremities symmetrically, head is normocephalic and atraumatic SKIN: warm and dry NEUROLOGIC: CN 2-12 grossly intact, no sensory deficit, normal cognition, normal speech, some bilateral tremors at rest and with movement noted. PSYCHIATRIC: alert cooperative and oriented to person, place and time. Results & Data Results & Data ([facility]) Vital Signs (Past 12 Hours) Vital Signs Temp Pulse Resp BP Pulse Ox 02/21/21 19:00 36.5 C 75 20 134/76 94 02/21/21 16:00 36.5 C 70 18 123/71 94 02/21/21 11:44 36.4 C L 67 18 117/72 94 Medications Administered Current Inpatient Medications Acetaminophen (Acetaminophen 325 Mg Tab) 650 mg PO Q4H PRN PRN Reason: Pain or Fever Stop: 03/15/21 02:52 Amantadine HCl (Amantadine Hcl 100 Mg Capsule) 100 mg PO BID [facility] Stop: 03/15/21 08:59 Last Admin: 02/21/21 20:58 Dose: 100 mg Documented by: Aspirin (Aspirin 81 Mg Ectab) 81 mg PO DAILY [facility] Stop: 03/15/21 08:59 Last Admin: 02/21/21 08:30 Dose: 81 mg Documented by: Dextrose (Dextrose 50% 50 Ml Syringe) 25 - 50 ml IV UD PRN; Protocol PRN Reason: Hypoglycemia Protocol Stop: 03/15/21 02:59 Enoxaparin Sodium (Enoxaparin Inj 40 Mg/0.4 Ml Syr) 40 mg SQ QAM [facility] Stop: 03/19/21 14:14 Last Admin: 02/21/21 08:32 Dose: 40 mg Documented by: Glucagon (Glucagon For Inj 1 Mg Vial) 1 mg IM UD PRN; Protocol PRN Reason: Hypoglycemia Protocol Stop: 03/15/21 02:59 Glucose (Glucose 40% Gel 15 Gm Tube) 15 - 30 gm PO UD PRN; Protocol PRN Reason: Hypoglycemia Protocol Stop: 03/15/21 02:59 Glucose (Glucose 10 Tabs/Tube) 4 - 8 tabs PO UD PRN; Protocol PRN Reason: Hypoglycemia Protocol Stop: 03/15/21 02:59 Haloperidol (Haloperidol 5 Mg Tab) 10 mg PO QAM [facility] Stop: 03/17/21 08:59 Last Admin: 02/21/21 08:31 Dose: 10 mg Documented by: Haloperidol (Haloperidol 5 Mg Tab) 20 mg PO HS [facility] Stop: 03/16/21 20:59 Last Admin: 02/21/21 20:57 Dose: 20 mg Documented by: Haloperidol Lactate (Haloperidol Lactate 5 Mg/Ml 1 Ml Vial) 2.5 mg IM Q4H PRN PRN Reason: Agitation Stop: 03/15/21 02:52 Insulin Aspart (Insulin Aspart 100 Units/Ml 3 Ml Pen) 0 units SC [facility] Stop: 03/15/21 07:29 Last Admin: 02/21/21 20:58 Dose: Not Given Documented by: Miscellaneous (Carbohydrates For Hypoglycemia ) 15 - 30 gm PO UD PRN PRN Reason: Hypoglycemia Treatment Stop: 03/15/21 02:59 Nitroglycerin (Nitroglycerin Sl 0.4 Mg/Tab Tab) 0.4 mg SL UD PRN PRN Reason: Chest Pain Stop: 03/15/21 02:52 (1) Syncope Syncope type: unspecified Qualified Code(s): R55 - Syncope and collapse (2) Altered mental status Altered mental status type: unspecified Qualified Code(s): R41.82 - Altered mental status, unspecified
[2021-02-22] MEDS: ASPIRIN 81 MG ECTAB PO SCH (07:59)
[2021-02-22] MEDS: haloperidoL 5 MG TAB PO SCH ×2 (07:59→21:10)
[2021-02-22] MEDS: AMANTADINE HCL 100 MG CAPSULE PO SCH ×2 (07:59→21:10)
[2021-02-22] MEDS: ENOXAPARIN INJ 40 MG/0.4 ML SYR SQ SCH (07:59)
[2021-02-22] MEDS: INSULIN ASPART 100 UNITS/ML 3 ML PEN SC SCH ×4 (08:00→21:35)
--- NOTE | 2021-02-22 16:09 | Hospitalist Progress Note ---
Date of Service February 22, 2021 Assessment & Plan (1) Syncope: Thought secondary to schizophrenia medicine Cardiac etiology thought unlikely secondary to negative work-up. History of abdominal aneurysm repair status post CT of the abdomen revealing stable aneurysm Questionable intestinal lesion, needs follow-up with primary care physician for further investigation as outpatient Patient lives with his father who is disabled and cannot care for him anymore. Continue working with PT/OT. Awaiting placement (2) Altered mental status: No acute confusion (3) Schizophrenia: Has been on IM Invega every 21 days Haldol 10 mg in the morning and 20 in the afternoon Appreciate psychiatric input and recommendation to continue current medications He does not qualify for inpatient psychiatric care His outpatient psychiatrist recommended that he will be better off with placement as per the family members especially the sister History of current symptomatology seems to be due to schizophrenia He will have his Invega shot ,IM tomorrow (4) Abdominal aortic aneurysm (AAA) >39 mm diameter: History of abdominal aortic aneurysm repair CTA reveals stability of aneurysm. (5) Occasional tremors: He has occasional tremors Worse with activity (6) Hypertension: BP at goal, cont low salt diet. (7) Neuroendocrine tumor: Per [facility] specialist Dr. 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 He does not have any carcinoid syndrome. Most common primary site well-differentiated neuroendocrine carcinomas are GI tract and pancreas. Prognosis very with the site of origin. In addition to cross-sectional imaging, gallium Dottatae PET scan is sensitive in detecting occult primaries and small metastatic lesion Recomendation 1- referral to Gastroentrogist for GI evaluation for primary site 2-Gallium Dottatate PET Scan 3-serum chromogranin and serum serotonin levels 4 cbc cmp "Patient is accompnied by his sister , he has history of Scizophrenia, his sister lives [address] from patient s tresidence . His sister is not sure whether patient will comply with the above recommendation. She also want to find an oncology center close to patient's home. At present patient and her sister has decided not to proceed with any further investigation. If they want investigation or transfer her care to another center, they will contact me or my office staff" Outpatient follow-up with PCP with urgent referral to Oncology and GI. (8) DMII (diabetes mellitus, type 2): Hold home pioglitazone and given insulin with carb coverage and correction factor as needed. A1C is 5.2. Consider de-escalating medication as outpatient. Defer to PCP. (9) DVT prophylaxis: Lovenox Full Code Dispo-to rehab when bed available. Discussed care plan regarding Oncology followup for patient with [facility] nurse coordinator who is assisting with this transition. Awaiting placement Admission and Anticipated Discharge Date Admission Date: February 15, 2021 Subjective 02/22/2021 The patient was seen and examined in medical telemetry unit He remains weak and lethargic and is still hallucinating specially visual Has not had his lunch and does not want it He denies any specific symptoms Review of Systems Review of Systems: Unobtainable due to cognitive status Physical Exam Physical Exam: Lying in bed comfortably but remains very weak and lethargic Constitutional: well developed, well nourished and + ill appearing Eyes: PERRL, conjunctivae normal, anicteric sclerae ENMT: external ear and nose normal, oropharynx normal Neck: trachea midline, no thyromegaly Respiratory: no respiratory distress Auscultation: lungs clear to auscultation bilaterally Cardiovascular: Rate/Rhythm: regular rate and regular rhythm Heart Sounds: no murmur Extremities: + edema (Trace edema bilaterally) Gastrointestinal (Abdomen): Inspection/Auscultation: normal bowel sounds; abdomen not distended Percussion/Palpation: abdomen soft; abdomen nontender Musculoskeletal: No acute arthritis in any joint Neurologic: Alert and awake. Psychiatric: Mood: + depressed mood Hallucinations: + visual abrams llucinations; no auditory hallucinations and no tactile hallucinations Lymphatic: no cervical or axillary lymphadenopathy Results & Data Results & Data ([facility]) Vital Signs (Past 12 Hours) Vital Signs Temp Pulse Pulse Resp BP BP Pulse Ox 02/22/21 15:28 36.8 C 76 18 136/86 94 02/22/21 14:58 80 02/22/21 12:18 36.3 C L 74 22 153/80 H 94 02/22/21 09:48 60 02/22/21 07:19 36.5 C 63 16 121/77 95 02/22/21 05:10 36.3 C L 61 18 111/68 95 Medications Administered Current Inpatient Medications Acetaminophen (Acetaminophen 325 Mg Tab) 650 mg PO Q4H PRN PRN Reason: Pain or Fever Stop: 03/15/21 02:52 Amantadine HCl (Amantadine Hcl 100 Mg Capsule) 100 mg PO BID [facility] Stop: 03/15/21 08:59 Last Admin: 02/22/21 07:59 Dose: 100 mg Documented by: Aspirin (Aspirin 81 Mg Ectab) 81 mg PO DAILY [facility] Stop: 03/15/21 08:59 Last Admin: 02/22/21 07:59 Dose: 81 mg Documented by: Dextrose (Dextrose 50% 50 Ml Syringe) 25 - 50 ml IV UD PRN; Protocol PRN Reason: Hypoglycemia Protocol Stop: 03/15/21 02:59 Enoxaparin Sodium (Enoxaparin Inj 40 Mg/0.4 Ml Syr) 40 mg SQ QAM [facility] Stop: 03/19/21 14:14 Last Admin: 02/22/21 07:59 Dose: 40 mg Documented by: Glucagon (Glucagon For Inj 1 Mg Vial) 1 mg IM UD PRN; Protocol PRN Reason: Hypoglycemia Protocol Stop: 03/15/21 02:59 Glucose (Glucose 40% Gel 15 Gm Tube) 15 - 30 gm PO UD PRN; Protocol PRN Reason: Hypoglycemia Protocol Stop: 03/15/21 02:59 Glucose (Glucose 10 Tabs/Tube) 4 - 8 tabs PO UD PRN; Protocol PRN Reason: Hypoglycemia Protocol Stop: 03/15/21 02:59 Haloperidol (Haloperidol 5 Mg Tab) 10 mg PO QAM [facility] Stop: 03/17/21 08:59 Last Admin: 02/22/21 07:59 Dose: 10 mg Documented by: Haloperidol (Haloperidol 5 Mg Tab) 20 mg PO HS [facility] Stop: 03/16/21 20:59 Last Admin: 02/21/21 20:57 Dose: 20 mg Documented by: Haloperidol Lactate (Haloperidol Lactate 5 Mg/Ml 1 Ml Vial) 2.5 mg IM Q4H PRN PRN Reason: Agitation Stop: 03/15/21 02:52 Insulin Aspart (Insulin Aspart 100 Units/Ml 3 Ml Pen) 0 units SC ACHS [facility] Stop: 03/15/21 07:29 Last Admin: 02/22/21 13:04 Dose: Not Given Documented by: Miscellaneous (Carbohydrates For Hypoglycemia ) 15 - 30 gm PO UD PRN PRN Reason: Hypoglycemia Treatment Stop: 03/15/21 02:59 Nitroglycerin (Nitroglycerin Sl 0.4 Mg/Tab Tab) 0.4 mg SL UD PRN PRN Reason: Chest Pain Stop: 03/15/21 02:52 Paliperidone Palmitate (Paliperidone Palmitate 234 Mg/1.5 Ml Syr) 234 mg IM ONCE ONE Stop: 02/23/21 08:01 (1) Syncope Syncope type: unspecified Qualified Code(s): R55 - Syncope and collapse (2) Altered mental status Altered mental status type: unspecified Qualified Code(s): R41.82 - Altered mental status, unspecified
[2021-02-23 07:23] LABS: Basophils # (auto) 0.02 K/uL (0-0.2); Basophils % (auto) 0.4 %; Eosinophils # (auto) 0.21 K/uL (0-0.5); Eosinophils % (auto) 3.7 %; Hematocrit (blood only) 42.5 % (42-52); Hemoglobin 14.7 g/dL (14.0-18.0); Immature Granulocytes # (auto) 0.01 K/uL (0.00-0.02); Immature Granulocytes % (auto) 0.2 %; Lymphocytes # (auto) 1.57 K/uL (1.2-3.4); Lymphocytes % (auto) 27.5 %; Mean Corpuscular Hemoglobin 31.7 pg (25-34); Mean Corpuscular Hgb Conc 34.6 g/dL (32-36); Mean Corpuscular Volume 91.6 fL (80-100); Mean Platelet Volume 9.6 fL (7.4-10.4); Monocytes # (auto) 0.62 K/uL (0.11-0.59); Monocytes % (auto) 10.9 %; Neutrophils # (auto) 3.27 K/uL (1.4-6.5); Neutrophils % (auto) 57.3 %; Platelet Count 150 K/uL (130-400); RDW Standard Deviation 43.4 fL (36.4-46.3); Red Blood Count 4.64 M/uL (4.7-6.1)
[2021-02-23 07:59] LABS: Calcium 8.7 mg/dl (8.5-10.1); Creatinine Clr Calc Pharmacy 85.7 ml/min; Est GFR (African American) 100.9 ml/min; Magnesium 2.2 mg/dl (1.8-2.4); Phosphorus 3.1 mg/dl (2.5-4.9); Potassium 3.9 mmol/L (3.5-5.1)
[2021-02-23] MEDS ORDERED: PALIPERIDONE PALMITATE 234 MG/1.5 ML SYR IM ONE (08:00)
[2021-02-23] MEDS: AMANTADINE HCL 100 MG CAPSULE PO SCH ×2 (08:43→20:08)
[2021-02-23] MEDS: ASPIRIN 81 MG ECTAB PO SCH (08:43)
[2021-02-23] MEDS: INSULIN ASPART 100 UNITS/ML 3 ML PEN SC SCH ×4 (08:44→20:56)
[2021-02-23] MEDS: haloperidoL 5 MG TAB PO SCH ×2 (08:44→20:08)
[2021-02-23] MEDS: ENOXAPARIN INJ 40 MG/0.4 ML SYR SQ SCH (08:45)
--- NOTE | 2021-02-23 16:49 | Hospitalist Progress Note ---
Date of Service February 23, 2021 Assessment & Plan (1) Syncope: Thought secondary to schizophrenia medicine Cardiac etiology thought unlikely secondary to negative work-up. History of abdominal aneurysm repair status post CT of the abdomen revealing stable aneurysm Questionable intestinal lesion, needs follow-up with primary care physician for further investigation as outpatient Patient lives with his father who is disabled and cannot care for him anymore. Continue working with PT/OT. Awaiting placement (2) Altered mental status: No acute confusion (3) Schizophrenia: Has been on IM Invega every 21 days Haldol 10 mg in the morning and 20 in the afternoon Appreciate psychiatric input and recommendation to continue current medications He does not qualify for inpatient psychiatric care His outpatient psychiatrist recommended that he will be better off with placement as per the family members especially the sister History of current symptomatology seems to be due to schizophrenia He will have his Invega shot ,IM tomorrow He refused to take Invega shot today and wanted ti discuss about euthanasia. I tried to persuade him but he behaved very badly with me and did not want to see me anymore Psychiatric service was reconsulted for this and he was transferred under the care of Dr Collins from tomorrow (4) Abdominal aortic aneurysm (AAA) >39 mm diameter: History of abdominal aortic aneurysm repair CTA reveals stability of aneurysm. (5) Occasional tremors: He has occasional tremors Worse with activity (6) Hypertension: BP at goal, cont low salt diet. (7) Neuroendocrine tumor: Per [facility] specialist Dr. 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 He does not have any carcinoid syndrome. Most common primary site well-differentiated neuroendocrine carcinomas are GI tract and pancreas. Prognosis very with the site of origin. In addition to cross-sectional imaging, gallium Dottatae PET scan is sensitive in detecting occult primaries and small metastatic lesion Recomendation 1- referral to Gastroentrogist for GI evaluation for primary site 2-Gallium Dottatate PET Scan 3-serum chromogranin and serum serotonin levels 4 cbc cmp "Patient is accompnied by his sister , he has history of Scizophrenia, his sister lives [address] from patient s tresidence . His sister is not sure whether patient will comply with the above recommendation. She also want to find an oncology center close to patient's home. At present patient and her sister has decided not to proceed with any further investigation. If they want investigation or transfer her care to another center, they will contact me or my office staff" Outpatient follow-up with PCP with urgent referral to Oncology and GI. (8) DMII (diabetes mellitus, type 2): Hold home pioglitazone and given insulin with carb coverage and correction factor as needed. A1C is 5.2. Consider de-escalating medication as outpatient. Defer to PCP. (9) DVT prophylaxis: Lovenox Full Code Dispo-to rehab when bed available. Discussed care plan regarding Oncology followup for patient with [facility] nurse coordinator who is assisting with this transition. Awaiting placement Admission and Anticipated Discharge Date Admission Date: February 15, 2021 Subjective 02/22/2021 The patient was seen and examined in medical telemetry unit He remains weak and lethargic and is still hallucinating specially visual Has not had his lunch and does not want it He denies any specific symptoms 02/23/2021 The patient was seen in medical telemetry unit He remains weak and lethargic and does not want to talk or be examined He refused to take his Invega injection today as it causes constant frequency with voiding. He shouted at me with bad name and fired me from his care.He wanted to see an [place] Doctor Review of Systems Review of Systems: Unobtainable due to cognitive status Physical Exam Physical Exam: Lying in bed comfortably but remains very weak and lethargic Constitutional: well developed, well nourished and + ill appearing Eyes: PERRL, conjunctivae normal, anicteric sclerae ENMT: external ear and nose normal, oropharynx normal Neck: trachea midline, no thyromegaly Respiratory: no respiratory distress Cardiovascular: Rate/Rhythm: regular rate and regular rhythm Gastrointestinal (Abdomen): Inspection/Auscultation: abdomen not distended Psychiatric: Mood: + depressed mood Results & Data Results & Data ([facility]) Vital Signs (Past 12 Hours) Vital Signs Temp Pulse Pulse Resp BP Pulse Ox 02/23/21 15:45 78 02/23/21 15:03 36.3 C L 74 18 124/75 96 02/23/21 10:56 36.4 C L 78 18 104/66 96 02/23/21 07:44 36.6 C 65 18 115/76 94 02/23/21 07:14 62 Laboratory Results Short CBC 02/23/21 Range/Units 06:51 WBC 5.70 (4.8-10.8) K/uL Hgb 14.7 (14.0-18.0) g/dL Hct 42.5 (42-52) % Plt Count 150 (130-400) K/uL BMP 02/23/21 06:51 Sodium 138 Potassium 3.9 Chloride 105 Carbon Dioxide 29 BUN 18 Creatinine 0.88 Glucose 91 Calcium 8.7 Medications Administered Current Inpatient Medications Acetaminophen (Acetaminophen 325 Mg Tab) 650 mg PO Q4H PRN PRN Reason: Pain or Fever Stop: 03/15/21 02:52 Amantadine HCl (Amantadine Hcl 100 Mg Capsule) 100 mg PO BID [facility] Stop: 03/15/21 08:59 Last Admin: 02/23/21 08:43 Dose: 100 mg Documented by: Aspirin (Aspirin 81 Mg Ectab) 81 mg PO DAILY [facility] Stop: 03/15/21 08:59 Last Admin: 02/23/21 08:43 Dose: 81 mg Documented by: Dextrose (Dextrose 50% 50 Ml Syringe) 25 - 50 ml IV UD PRN; Protocol PRN Reason: Hypoglycemia Protocol Stop: 03/15/21 02:59 Enoxaparin Sodium (Enoxaparin Inj 40 Mg/0.4 Ml Syr) 40 mg SQ QAM [facility] Stop: 03/19/21 14:14 Last Admin: 02/23/21 08:45 Dose: 40 mg Documented by: Glucagon (Glucagon For Inj 1 Mg Vial) 1 mg IM UD PRN; Protocol PRN Reason: Hypoglycemia Protocol Stop: 03/15/21 02:59 Glucose (Glucose 40% Gel 15 Gm Tube) 15 - 30 gm PO UD PRN; Protocol PRN Reason: Hypoglycemia Protocol Stop: 03/15/21 02:59 Glucose (Glucose 10 Tabs/Tube) 4 - 8 tabs PO UD PRN; Protocol PRN Reason: Hypoglycemia Protocol Stop: 03/15/21 02:59 Haloperidol (Haloperidol 5 Mg Tab) 10 mg PO QAM [facility] Stop: 03/17/21 08:59 Last Admin: 02/23/21 08:44 Dose: 10 mg Documented by: Haloperidol (Haloperidol 5 Mg Tab) 20 mg PO HS [facility] Stop: 03/16/21 20:59 Last Admin: 02/22/21 21:10 Dose: 20 mg Documented by: Haloperidol Lactate (Haloperidol Lactate 5 Mg/Ml 1 Ml Vial) 2.5 mg IM Q4H PRN PRN Reason: Agitation Stop: 03/15/21 02:52 Insulin Aspart (Insulin Aspart 100 Units/Ml 3 Ml Pen) 0 units SC ACHS [facility] Stop: 03/15/21 07:29 Last Admin: 02/23/21 12:42 Dose: 6 units Documented by: Miscellaneous (Carbohydrates For Hypoglycemia ) 15 - 30 gm PO UD PRN PRN Reason: Hypoglycemia Treatment Stop: 03/15/21 02:59 Nitroglycerin (Nitroglycerin Sl 0.4 Mg/Tab Tab) 0.4 mg SL UD PRN PRN Reason: Chest Pain Stop: 03/15/21 02:52 (1) Syncope Syncope type: unspecified Qualified Code(s): R55 - Syncope and collapse (2) Altered mental status Altered mental status type: unspecified Qualified Code(s): R41.82 - Altered mental status, unspecified
--- NOTE | 2021-02-23 18:11 | Consultation Report ---
DATE OF CONSULTATION: 02/23/2021 REASON FOR CONSULTATION: Assess for dementia. HISTORY OF PRESENT ILLNESS: The patient serves as the chief historian. I have discussed the patient's case with Dr. Waller and reviewed the patient's chart. The patient was admitted after several syncopal episodes. The patient was lying in bed for all of these episodes, the loss of consciousness duration is unknown. There was no incontinence or tongue biting. The patient has no history of seizure in the past and none of his medicines were new or changed in dose. There was no medication withdrawal, and the patient does not drink alcohol to any extent. With regard to the history of syncope, the patient had a CT of the head, which I have reviewed and it appears noncontributory. Cardiac etiology thought to be unlikely secondary to negative workup. Psychiatry has been seeing the patient for ongoing treatment of schizophrenia. He apparently does not qualify for inpatient psychiatric care and it appears that family may be seeking placement. The patient currently lives with his father who administers his medications and his sister manages his finances. The patient indicates that he attended college and was a pre-med major as well as some other majors. He graduated from high school, but it is unclear to me that he had any sustained profession. 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 He is also a , having served in the [place]. The patient indicates that he is in the hospital, I believe, because of medication side effects. I believe that is what he is attempting to communicate to me. He has no complaints of headache. He denies a history of head trauma. No history of stroke. He indicates that his mother may have some cognitive issues, although they have not been diagnosed. The patient indicates that his weight has been stable. He has no incontinence of bowel or bladder. The patient denies any olfactory hallucinations. PAST MEDICAL HISTORY: Notable for the aforementioned syncope, schizophrenia, abdominal aortic aneurysm, hypertension, neuroendocrine tumor metastatic to the peritoneum and liver and he was asymptomatic in that regard. Further workup was suggested by the [facility] specialist. He also has diabetes. PAST SURGICAL HISTORY: Repair of abdominal aortic aneurysm, status post repair of ventral hernia. He indicates to me that he had multiple lumbar surgeries and had an injury to his back in [place]. Reconstructive knee surgery from a fall in 1970. ALLERGIES: None known. HOME MEDICATIONS: Amantadine, aspirin, Haldol, Invega Sustenna, pioglitazone. FAMILY HISTORY: Noted as above. SOCIAL HISTORY: The patient smokes, does not drink alcohol or drugs. PHYSICAL EXAMINATION: VITAL SIGNS: 124/75, 78, 18, 36.3. GENERAL: The patient is awake and alert, cooperative. His general exam is notable for him to be mildly disheveled. He is mildly tangential. HEAD AND NECK: He has facial masking, prominent bilaterally symmetric resting tremor. There are no carotid bruits. HEART: No heart murmur. Heart is regular rate and rhythm. NEUROLOGIC: Pupils are equal, round and reactive to light. I had difficulty visualizing the optic nerves. Normal spangler, motility, facial symmetry. Tongue was midline. Speech was not dysarthric. There may be mild hypophonia. There is the prominent resting tremor with some cogwheel rigidity. Strength appears full. There is some mild atrophy below the left knee. Reflexes are symmetric. Ankle jerks are reduced. Toes are downgoing. Light touch is symmetric bilaterally. Vibration sense is present on the toes. [id number] is mildly tremulous on the left and [id number] is normal. I did not test gait as I was alone. MENTAL STATUS TESTING: The patient was awake and alert and oriented x3. His fund of knowledge is normal. He knows who the president is, who the governor is, he knows the coming holidays. Calculations and concentration were all normal. He had 1/3 memory at 3 minutes with normal naming, repetitions and 3- step commands. He did admit to occasional hallucinations of spirits. The patient is mildly tangential. It is difficult to follow some of his work- related history. IMPRESSION AND PLAN: This patient who has chronic schizophrenia and multiple medical comorbidities, at most appears to have mild cognitive impairment. Family would be helpful in that regard, but on mini-mental status testing, although it was modified, he would likely score 28/30. With regard to his history of these unwitnessed syncopal episodes, it would be reasonable to do an EEG. It may be helpful as well if it shows slowing, which might be seen at least in part with a cognitive disorder. I would recommend additional laboratory tests including B12, folate, thyroid function, RPR, and thiamine level. He does not appear to be overtly confused or delirious. However, if it is thought that he is confused, consider discontinuing the amantadine. 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 I will attempt to ambulate with him tomorrow. An MRI of the brain would be very reasonable, although I do not know if the patient would tolerate that. This patient is obviously not competent to live alone. He does not have a significant dementia, however, that would require placement in a dementia unit. Job ID: [id number] [id number]
[2021-02-24 06:41] LABS: Hematocrit (blood only) 41.9 % (42-52); Hemoglobin 14.6 g/dL (14.0-18.0); Mean Corpuscular Hemoglobin 31.9 pg (25-34); Mean Corpuscular Hgb Conc 34.8 g/dL (32-36); Mean Corpuscular Volume 91.7 fL (80-100); Mean Platelet Volume 9.1 fL (7.4-10.4); Platelet Count 151 K/uL (130-400); RDW Coefficient of Variation 13.1 % (11.5-14.5); RDW Standard Deviation 43.4 fL (36.4-46.3); Red Blood Count 4.57 M/uL (4.7-6.1); White Blood Count 5.55 K/uL (4.8-10.8)
[2021-02-24 07:08] LABS: Albumin Level 3.2 gm/dl (3.4-5.0); BUN Creatinine Ratio 23.4 (10-20); Creatinine Clr Calc Pharmacy 87.7 ml/min; Est GFR (African American) 101.8 ml/min; Est GFR (Non-African American) 87.9 ml/min; Potassium 3.8 mmol/L (3.5-5.1)
[2021-02-24 07:19] LABS: Albumin Globulin Ratio 0.9 (0.9-2); Bilirubin,Total 0.4 mg/dl (0.2-1); Globulin 3.7 gm/dl (2.5-4.0); Thyroid Stimulating Hormone 4.01 uIu/ml (0.300-4.500); Total Protein 6.9 gm/dl (6.4-8.2)
[2021-02-24 07:50] LABS: Folate (Folic Acid) > 20.00 ng/ml (>5.38); Vitamin B12 947 pg/ml (193-986)
[2021-02-24] MEDS: ASPIRIN 81 MG ECTAB PO SCH (08:20)
[2021-02-24] MEDS: AMANTADINE HCL 100 MG CAPSULE PO SCH ×2 (08:20→21:38)
[2021-02-24] MEDS: haloperidoL 5 MG TAB PO SCH ×2 (08:20→21:38)
[2021-02-24] MEDS: ENOXAPARIN INJ 40 MG/0.4 ML SYR SQ SCH (08:21)
[2021-02-24] MEDS: INSULIN ASPART 100 UNITS/ML 3 ML PEN SC SCH ×4 (08:21→21:42)
--- NOTE | 2021-02-24 09:55 | Hospitalist Progress Note ---
Date of Service February 24, 2021 Assessment & Plan (1) Syncope: Thought secondary to schizophrenia medicine Cardiac etiology thought unlikely secondary to negative work-up. History of abdominal aneurysm repair status post CT of the abdomen revealing stable aneurysm Questionable intestinal lesion, needs follow-up with primary care physician for further investigation as outpatient Patient lives with his father who is disabled and cannot care for him anymore. Continue working with PT/OT. Awaiting placement (2) Altered mental status: No acute confusion (3) Schizophrenia: Has been on IM Invega every 21 days Haldol 10 mg in the morning and 20 in the afternoon Appreciate psychiatric input and recommendation to continue current medications He does not qualify for inpatient psychiatric care His outpatient psychiatrist recommended that he will be better off with placement as per the family members especially the sister History of current symptomatology seems to be due to schizophrenia He will have his Invega shot ,IM tomorrow He refused to take Invega shot today and wanted to discuss euthanasia. Psychiatric service was reconsulted Neurology recs noted, EEG, B12, Folate, RPR, EEG (4) Abdominal aortic aneurysm (AAA) >39 mm diameter: History of abdominal aortic aneurysm repair CTA reveals stability of aneurysm. (5) Occasional tremors: He has occasional tremors Worse with activity (6) Hypertension: BP at goal, cont low salt diet. (7) Neuroendocrine tumor: Per [facility] specialist Dr. 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 He does not have any carcinoid syndrome. Most common primary site well-differentiated neuroendocrine carcinomas are GI tract and pancreas. Prognosis very with the site of origin. In addition to cross-sectional imaging, gallium [place] PET scan is sensitive in detecting occult primaries and small metastatic lesion Recomendation 1- referral to Gastroentrogist for GI evaluation for primary site 2-Gallium [place]ott[place] PET Scan 3-serum chromogranin and serum serotonin levels 4 cbc cmp "Patient is accompnied by his sister , he has history of Scizophrenia, his sister lives [address] from patient s tresidence . His sister is not sure whether patient will comply with the above recommendation. She also want to find an oncology center close to patient's home. At present patient and her sister has decided not to proceed with any further investigation. If they want investigation or transfer her care to another center, they will contact me or my office staff" Outpatient follow-up with PCP with urgent referral to Oncology and GI. (8) DMII (diabetes mellitus, type 2): Hold home pioglitazone and given insulin with carb coverage and correction factor as needed. A1C is 5.2. Consider de-escalating medication as outpatient. Defer to PCP. (9) DVT prophylaxis: Lovenox Full Code Dispo-to rehab when bed available. Discussed care plan regarding Oncology followup for patient with [facility] nurse coordinator who is assisting with this transition. Awaiting placement Labs checked ROS-No Headache, No Visual Changes, No Nausea, No Vomiting, No Fever, No Chills, No Neck Pain or Stiffness, No Chest Pain, No Palpitations, No SOB, No GALVEZ, No Cough, No Sputum, No Wheezing, No Abdominal Pain, No Diarrhea, No Hematemesis, No Hemoptysis, No Unexpected Weight Loss, No Flank pain, No Melena, No Hematochezia, No Frequency, No Urgency, No Burning, No Hematuria, No Rashes, No Diaphoresis. Appetite is Normal Physical Exam Gen-AAO x 3, NAD, Afebrile Head-NCAT, EOMI, PERRLA, Anicteric Sclera, No Posterior Pharyngeal Erythema Neck-Supple, No JVD, No Thyromegaly, No Masses, No LAD, No Bruits Lungs-Clear to Auscultation Bilaterally, No Rales, No Rhonchi, No Wheezing, No Crepitus Chest-No S4, +S1, +S2, No S3, No Murmurs, No Rubs, No Gallops, No Ectopy Abdomen-Soft, Bowel Sounds Present, Non Tender, Non Distended, No Hepatomegaly, No Splenomegaly, No Palpable Masses, No Rebound, No Rigidity, No Guarding Musculoskeletal-Full Range of Motion Bilaterally, No CVAT Extremities-No Cyanosis, No Clubbing, No Edema Nuero-Cranial Nerves II-XII grossly intact, Motor WNL, DTRs WNL, Strength WNL, Non Focal Psych-Flat Mood Admission and Anticipated Discharge Date Admission Date: February 15, 2021 Results & Data Results & Data ([facility]) Vital Signs (Past 12 Hours) Vital Signs Temp Pulse Pulse Resp BP BP Pulse Ox 02/24/21 07:22 68 02/24/21 07:10 36.5 C 63 18 132/80 94 02/24/21 03:15 36.4 C L 67 20 114/72 99 02/24/21 00:43 76 02/23/21 23:25 36.5 C 74 20 104/67 97 (1) Syncope Syncope type: unspecified Qualified Code(s): R55 - Syncope and collapse (2) Altered mental status Altered mental status type: unspecified Qualified Code(s): R41.82 - Altered mental status, unspecified
--- NOTE | 2021-02-24 15:58 | Progress Notes ---
DATE OF SERVICE: 02/24/2021 I have reviewed the patient's chart today. It appears that an EEG has not yet been ordered. Please see my prior recommendations. This patient appears at most to have mild cognitive impairment associa dahlia with his schizophrenia. Family would be helpful in further elucidating any cognitive decline. I did not order an MRI of the brain as I felt the patient likely would not tolerate this, but it would be very reasonable to do given he has an abdominal malignancy. If there were no contraindications, I would do an MRI of the brain with and without contrast. An EEG would be reasonable due to multiple syncopal episodes. See my prior note regarding recommendations for lab work. Please reconsult if m any new information or change occurs. We would be glad to see the patient as an outpatient in our [facility] [place] with family members. Job ID: [id number]
[2021-02-25] MEDS ORDERED: diphenhydrAMINE 50 MG/ML VIAL IV PRN (06:12)
[2021-02-25] MEDS: haloperidoL 5 MG TAB PO SCH ×3 (07:39→22:09)
[2021-02-25] MEDS: AMANTADINE HCL 100 MG CAPSULE PO SCH ×2 (07:39→22:09)
[2021-02-25] MEDS: ASPIRIN 81 MG ECTAB PO SCH (07:40)
--- NOTE | 2021-02-25 08:05 | Hospitalist Progress Note ---
Date of Service February 25, 2021 Assessment & Plan (1) Syncope: Thought secondary to schizophrenia medicine Cardiac etiology thought unlikely secondary to negative work-up. History of abdominal aneurysm repair status post CT of the abdomen revealing stable aneurysm Questionable intestinal lesion, needs follow-up with primary care physician for further investigation as outpatient Patient lives with his father who is disabled and cannot care for him anymore. Continue working with PT/OT. Awaiting placement (2) Altered mental status: No acute confusion (3) Schizophrenia: Has been on IM Invega every 21 days Haldol 10 mg in the morning and 20 in the afternoon Appreciate psychiatric input and recommendation to continue current medications He does not qualify for inpatient psychiatric care His outpatient psychiatrist recommended that he will be better off with placement as per the family members especially the sister History of current symptomatology seems to be due to schizophrenia He will have his Invega shot ,IM tomorrow He refused to take Invega shot today and wanted to discuss euthanasia. Psychiatric service was reconsulted Neurology recs noted, B12, Folate, and RPR are normal, MRI and EEG ordered (4) Abdominal aortic aneurysm (AAA) >39 mm diameter: History of abdominal aortic aneurysm repair CTA reveals stability of aneurysm. (5) Occasional tremors: He has occasional tremors Worse with activity (6) Hypertension: BP at goal, cont low salt diet. (7) Neuroendocrine tumor: Per [facility] specialist Dr. 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 He does not have any carcinoid syndrome. Most common primary site well-differentiated neuroendocrine carcinomas are GI tract and pancreas. Prognosis very with the site of origin. In addition to cross-sectional imaging, gallium [place] PET scan is sensitive in detecting occult primaries and small metastatic lesion Recomendation 1- referral to Gastroentrogist for GI evaluation for primary site 2-Gallium [place] PET Scan 3-serum chromogranin and serum serotonin levels 4 cbc cmp "Patient is accompnied by his sister , he has history of Scizophrenia, his sister lives [address] from patient s tresidence . His sister is not sure whether patient will comply with the above recommendation. She also want to find an oncology center close to patient's home. At present patient and her sister has decided not to proceed with any further investigation. If they want investigation or transfer her care to another center, they will contact me or my office staff" Outpatient follow-up with PCP with urgent referral to Oncology and GI. (8) DMII (diabetes mellitus, type 2): Hold home pioglitazone and given insulin with carb coverage and correction factor as needed. A1C is 5.2. Consider de-escalating medication as outpatient. Defer to PCP. (9) DVT prophylaxis: Lovenox Full Code Dispo-to rehab when bed available. Discussed care plan regarding Oncology followup for patient with [facility] nurse coordinator who is assisting with this transition. Awaiting placement Labs checked ROS-No Headache, No Visual Changes, No Nausea, No Vomiting, No Fever, No Chills, No Neck Pain or Stiffness, No Chest Pain, No Palpitations, No SOB, No GALVEZ, No Cough, No Sputum, No Wheezing, No Abdominal Pain, No Diarrhea, No Hematemesis, No Hemoptysis, No Unexpected Weight Loss, No Flank pain, No Melena, No Hematochezia, No Frequency, No Urgency, No Burning, No Hematuria, No Rashes, No Diaphoresis. Appetite is Normal Physical Exam Gen-AAO x 3, NAD, Afebrile Head-NCAT, EOMI, PERRLA, Anicteric Sclera, No Posterior Pharyngeal Erythema Neck-Supple, No JVD, No Thyromegaly, No Masses, No LAD, No Bruits Lungs-Clear to Auscultation Bilaterally, No Rales, No Rhonchi, No Wheezing, No Crepitus Chest-No S4, +S1, +S2, No S3, No Murmurs, No Rubs, No Gallops, No Ectopy Abdomen-Soft, Bowel Sounds Present, Non Tender, Non Distended, No Hepatomegaly, No Splenomegaly, No Palpable Masses, No Rebound, No Rigidity, No Guarding Musculoskeletal-Full Range of Motion Bilaterally, No CVAT Extremities-No Cyanosis, No Clubbing, No Edema Nuero-Cranial Nerves II-XII grossly intact, Motor WNL, DTRs WNL, Strength WNL, Non Focal Psych-Flat Mood Admission and Anticipated Discharge Date Admission Date: February 15, 2021 Results & Data Results & Data ([facility]) Vital Signs (Past 12 Hours) Vital Signs Temp Pulse Pulse Resp BP BP Pulse Ox 02/25/21 07:09 36.4 C L 72 18 121/78 96 02/25/21 04:00 36.4 C L 71 18 133/78 97 02/25/21 00:24 65 02/24/21 22:57 36.6 C 65 18 105/66 94 (1) Syncope Syncope type: unspecified Qualified Code(s): R55 - Syncope and collapse (2) Altered mental status Altered mental status type: unspecified Qualified Code(s): R41.82 - Altered mental status, unspecified
[2021-02-25] MEDS: ENOXAPARIN INJ 40 MG/0.4 ML SYR SQ SCH (08:12)
[2021-02-25] MEDS: INSULIN ASPART 100 UNITS/ML 3 ML PEN SC SCH ×4 (08:12→20:56)
[2021-02-25 08:30] LABS: Hematocrit (blood only) 44.9 % (42-52); Hemoglobin 15.3 g/dL (14.0-18.0); Mean Corpuscular Hemoglobin 31.7 pg (25-34); Mean Corpuscular Hgb Conc 34.1 g/dL (32-36); Mean Corpuscular Volume 93.2 fL (80-100); Mean Platelet Volume 9.5 fL (7.4-10.4); Platelet Count 173 K/uL (130-400); Red Blood Count 4.82 M/uL (4.7-6.1); White Blood Count 5.73 K/uL (4.8-10.8)
[2021-02-25 09:00] LABS: Albumin Level 3.4 gm/dl (3.4-5.0); BUN Creatinine Ratio 24.8 (10-20); Creatinine Clr Calc Pharmacy 89.8 ml/min; Est GFR (African American) 102.8 ml/min; Est GFR (Non-African American) 88.7 ml/min; Potassium 3.8 mmol/L (3.5-5.1)
[2021-02-25 09:03] LABS: Albumin Globulin Ratio 0.9 (0.9-2); Bilirubin,Total 0.5 mg/dl (0.2-1); Globulin 3.8 gm/dl (2.5-4.0); Total Protein 7.2 gm/dl (6.4-8.2)
[2021-02-25] MEDS ORDERED: LORazepam 1 MG/2 ML VIAL IV PRN (11:00)
[2021-02-25] MEDS ORDERED: GADOBUTROL 65ML VIAL IV ONE (11:16)
--- NOTE | 2021-02-25 11:43 | Magnetic Resonance Report ---
MRI OF THE BRAIN WITHOUT AND WITH IV CONTRAST CLINICAL HISTORY: Altered mental status. Loss, confusion. COMPARISON STUDY: CT scan dated 02/12/2021, MRI dated 10/20/2017 TECHNIQUE: MRI of the brain was performed from the vertex to the skull base utilizing various T1 and T2 weighted sequences. Following the IV administration of 8.5 mL of Gadavist contrast, additional enh anced images were obtained. FINDINGS: Sagittal T1, axial diffusion, proton density and T2 weighted axial, coronal FLAIR, and pre and post a xial T1-weighted images were acquired. These were supplemented with post gadolinium coronal T1 weight ed images. No intra or extra-axial mass lesions are visualized. Axial diffusion-weighted images reveal no evidence of acute or subacute infarction. There is no evidence of ventricular dilatation. Proton density T2-weighted and FLAIR images reveal minimal foci of increased T2 signal within the whi te matter, likely on a small vessel basis. There are no abnormal flow voids. There is no evidence of pathologic enhancement. There is a right maxillary sinus polyp/retention cyst The examination is mildly degraded due to motion artifact IMPRESSION: 1. No acute intracranial findings 2. No evidence of acute or subacute infarction 3. No evidence of intracranial mass ACT 112: Negative or not required by law. Electronically signed by: Herve Lal M.D. 02/25/2021 11:41 AM
--- NOTE | 2021-02-25 13:53 | Electroencephalogram ---
EEG Procedure Note Date of Service February 25, 2021 Start / End Times Start Time: 11 4 5 End Time: 1205 Referring Physician Miky Collins MD History Fluctuating confusion and a chronic schizophrenic question underlying partial seizures or nonconvulsive status epilepticus Home Medication List Medication Instructions Recorded Confirmed Type Invega Sustenna 234 mg IM MONTHLY 10/08/19 02/13/21 History pioglitazone 30 mg PO DAILY 10/08/19 08/10/20 History amantadine HCl 100 mg PO BID 08/10/20 08/10/20 History aspirin [Aspir-Low] 81 mg PO DAILY 02/13/21 02/13/21 History haloperidol 10 mg PO QAM 02/13/21 02/13/21 History haloperidol 20 mg PO HS 02/13/21 02/13/21 History Inpatient Medication List Amantadine HCl (Amantadine Hcl 100 Mg Capsule) 100 mg PO BID MARIAMA Stop: 03/15/21 08:59 Last Admin: 02/25/21 07:39 Dose: 100 mg Documented by: [id number] Admin: 02/24/21 21:38 Dose: 100 mg Documented by: [id number] Admin: 02/24/21 08:20 Dose: 100 mg Documented by: [id number] Admin: 02/23/21 20:08 Dose: 100 mg Documented by: [id number] Admin: 02/23/21 08:43 Dose: 100 mg Documented by: [id number] Admin: 02/22/21 21:10 Dose: 100 mg Documented by: [id number] Admin: 02/22/21 07:59 Dose: 100 mg Documented by: [id number] Admin: 02/21/21 20:58 Dose: 100 mg Documented by: [id number] Admin: 02/21/21 08:29 Dose: 100 mg Documented by: [id number] Admin: 02/20/21 20:15 Dose: 100 mg Documented by: [id number] Admin: 02/20/21 08:47 Dose: 100 mg Documented by: [id number] Admin: 02/19/21 21:17 Dose: 100 mg Documented by: [id number] Admin: 02/19/21 09:09 Dose: 100 mg Documented by: [id number] Admin: 02/18/21 21:25 Dose: 100 mg Documented by: [id number] Admin: 02/18/21 08:16 Dose: 100 mg Documented by: [id number] Admin: 02/17/21 20:38 Dose: 100 mg Documented by: [id number] Admin: 02/17/21 09:28 Dose: 100 mg Documented by: [id number] Admin: 02/16/21 20:12 Dose: 100 mg Documented by: [id number] Admin: 02/16/21 07:42 Dose: 100 mg Documented by: [id number] Admin: 02/15/21 21:22 Dose: 100 mg Documented by: [id number] Admin: 02/15/21 07:45 Dose: 100 mg Documented by: [id number] Admin: 02/14/21 20:39 Dose: 100 mg Documented by: [id number] Admin: 02/14/21 08:00 Dose: 100 mg Documented by: [id number] Admin: 02/13/21 20:22 Dose: 100 mg Documented by: [id number] Admin: 02/13/21 08:03 Dose: 100 mg Documented by: [id number] Aspirin (Aspirin 81 Mg Ectab) 81 mg PO DAILY MARIAMA Stop: 03/15/21 08:59 Last Admin: 02/25/21 07:40 Dose: 81 mg Documented by: [id number] Admin: 02/24/21 08:20 Dose: 81 mg Documented by: [id number] Admin: 02/23/21 08:43 Dose: 81 mg Documented by: [id number] Admin: 02/22/21 07:59 Dose: 81 mg Documented by: [id number] Admin: 02/21/21 08:30 Dose: 81 mg Documented by: [id number] Admin: 02/20/21 08:48 Dose: 81 mg Documented by: [id number] Admin: 02/19/21 09:10 Dose: 81 mg Documented by: [id number] Admin: 02/18/21 08:15 Dose: 81 mg Documented by: [id number] Admin: 02/17/21 09:28 Dose: 81 mg Documented by: [id number] Admin: 02/16/21 07:42 Dose: 81 mg Documented by: [id number] Admin: 02/15/21 07:45 Dose: 81 mg Documented by: [id number] Admin: 02/14/21 08:00 Dose: 81 mg Documented by: [id number] Admin: 02/13/21 08:03 Dose: 81 mg Documented by: [id number] Enoxaparin Sodium (Enoxaparin Inj 40 Mg/0.4 Ml Syr) 40 mg SQ QAM MARIAMA Stop: 03/19/21 14:14 Last Admin: 02/25/21 08:12 Dose: 40 mg Documented by: [id number] Admin: 02/24/21 08:21 Dose: 40 mg Documented by: [id number] Admin: 02/23/21 08:45 Dose: 40 mg Documented by: [id number] Admin: 02/22/21 07:59 Dose: 40 mg Documented by: [id number] Admin: 02/21/21 08:32 Dose: 40 mg Documented by: [id number] Admin: 02/20/21 08:48 Dose: 40 mg Documented by: [id number] Admin: 02/19/21 09:10 Dose: 40 mg Documented by: [id number] Admin: 02/18/21 08:16 Dose: 40 mg Documented by: [id number] Admin: 02/17/21 15:31 Dose: 40 mg Documented by: [id number] Haloperidol (Haloperidol 5 Mg Tab) 10 mg PO QA MARIAMA Stop: 03/17/21 08:59 Last Admin: 02/25/21 07:39 Dose: 10 mg Documented by: [id number] Admin: 02/24/21 08:20 Dose: 10 mg Documented by: [id number] Admin: 02/23/21 08:44 Dose: 10 mg Documented by: [id number] Admin: 02/22/21 07:59 Dose: 10 mg Documented by: [id number] Admin: 02/21/21 08:31 Dose: 10 mg Documented by: [id number] Admin: 02/20/21 08:47 Dose: 10 mg Documented by: [id number] Admin: 02/19/21 09:09 Dose: 10 mg Documented by: [id number] Admin: 02/18/21 08:15 Dose: 10 mg Documented by: [id number] Admin: 02/17/21 09:29 Dose: 10 mg Documented by: [id number] Admin: 02/16/21 07:43 Dose: 10 mg Documented by: [id number] Admin: 02/15/21 07:46 Dose: 10 mg Documented by: [id number] Haloperidol (Haloperidol 5 Mg Tab) 20 mg PO HS MARIAMA Stop: 03/16/21 20:59 Last Admin: 02/24/21 21:38 Dose: 20 mg Documented by: [id number] Admin: 02/23/21 20:08 Dose: 20 mg Documented by: [id number] Admin: 02/22/21 21:10 Dose: 20 mg Documented by: [id number] Admin: 02/21/21 20:57 Dose: 20 mg Documented by: [id number] Admin: 02/20/21 20:15 Dose: 20 mg Documented by: [id number] Admin: 02/19/21 21:17 Dose: 20 mg Documented by: [id number] Admin: 02/18/21 21:25 Dose: 20 mg Documented by: [id number] Admin: 02/17/21 20:36 Dose: 20 mg Documented by: [id number] Admin: 02/16/21 20:12 Dose: 20 mg Documented by: [id number] Admin: 02/15/21 21:22 Dose: 20 mg Documented by: [id number] Admin: 02/14/21 20:40 Dose: 20 mg Documented by: [id number] Insulin Aspart (Insulin Aspart 100 Units/Ml 3 Ml Pen) 0 units SC ACHS MARIAMA Stop: 03/15/21 07:29 Last Admin: 02/25/21 12:22 Dose: Not Given Documented by: [id number] Admin: 02/25/21 08:12 Dose: 5 units Documented by: [id number] Cosigned by: [id number] Admin: 02/24/21 21:42 Dose: Not Given Documented by: [id number] Cosigned by: [id number] Admin: 02/24/21 17:26 Dose: 4 units Documented by: [id number] Cosigned by: [id number] Admin: 02/24/21 12:28 Dose: 5 units Documented by: [id number] Cosigned by: [id number] Admin: 02/24/21 08:21 Dose: 6 units Documented by: [id number] Cosigned by: [id number] Admin: 02/23/21 20:56 Dose: Not Given Documented by: [id number] Cosigned by: [id number] Admin: 02/23/21 17:33 Dose: 6 units Documented by: [id number] Cosigned by: [id number] Admin: 02/23/21 12:42 Dose: 6 units Documented by: [id number] Cosigned by: [id number] Admin: 02/23/21 08:44 Dose: 3 units Documented by: [id number] Cosigned by: [id number] Admin: 02/22/21 21:35 Dose: Not Given Documented by: [id number] Cosigned by: [id number] Admin: 02/22/21 17:47 Dose: 6 units Documented by: [id number] Cosigned by: [id number] Admin: 02/22/21 13:04 Dose: Not Given Documented by: [id number] Admin: 02/22/21 08:00 Dose: 5 units Documented by: [id number] Cosigned by: [id number] Admin: 02/21/21 20:58 Dose: Not Given Documented by: [id number] Cosigned by: [id number] Admin: 02/21/21 17:51 Dose: 2 units Documented by: [id number] Cosigned by: [id number] Admin: 02/21/21 13:36 Dose: 3 units Documented by: [id number] Cosigned by: [id number] Admin: 02/21/21 08:34 Dose: 3 units Documented by: [id number] Cosigned by: [id number] Admin: 02/20/21 20:15 Dose: Not Given Documented by: [id number] Admin: 02/20/21 17:55 Dose: 5 units Documented by: [id number] Cosigned by: [id number] Admin: 02/20/21 12:11 Dose: 6 units Documented by: [id number] Cosigned by: [id number] Admin: 02/20/21 08:46 Dose: 5 units Documented by: [id number] Cosigned by: [id number] Admin: 02/19/21 21:16 Dose: Not Given Documented by: [id number] Admin: 02/19/21 18:04 Dose: 5 units Documented by: [id number] Cosigned by: [id number] Admin: 02/19/21 12:17 Dose: 7 units Documented by: [id number] Cosigned by: [id number] Admin: 02/19/21 09:06 Dose: 300 units Documented by: [id number] Cosigned by: [id number] Admin: 02/18/21 21:43 Dose: Not Given Documented by: [id number] Cosigned by: [id number] Admin: 02/18/21 17:21 Dose: 2 units Documented by: [id number] Cosigned by: [id number] Admin: 02/18/21 12:40 Dose: 1 units Documented by: [id number] Cosigned by: [id number] Admin: 02/18/21 08:16 Dose: 2 units Documented by: [id number] Cosigned by: [id number] Admin: 02/17/21 20:38 Dose: Not Given Documented by: [id number] Admin: 02/17/21 17:02 Dose: 2 units Documented by: [id number] Cosigned by: [id number] Admin: 02/17/21 13:02 Dose: 4 units Documented by: [id number] Cosigned by: [id number] Admin: 02/17/21 09:33 Dose: 5 units Documented by: [id number] Cosigned by: [id number] Admin: 02/16/21 21:52 Dose: Not Given Documented by: [id number] Cosigned by: [id number] Admin: 02/16/21 17:17 Dose: 7 units Documented by: [id number] Cosigned by: [id number] Admin: 02/16/21 13:49 Dose: 3 units Documented by: [id number] Cosigned by: [id number] Admin: 02/16/21 10:03 Dose: 8 units Documented by: [id number] Cosigned by: [id number] Admin: 02/15/21 21:53 Dose: Not Given Documented by: [id number] Cosigned by: [id number] Admin: 02/15/21 16:32 Dose: Not Given Documented by: [id number] Admin: 02/15/21 12:53 Dose: Not Given Documented by: [id number] Admin: 02/15/21 07:45 Dose: Not Given Documented by: [id number] Admin: 02/14/21 21:37 Dose: Not Given Documented by: [id number] Admin: 02/14/21 16:36 Dose: Not Given Documented by: [id number] Admin: 02/14/21 11:46 Dose: Not Given Documented by: [id number] Admin: 02/14/21 07:59 Dose: Not Given Documented by: [id number] Admin: 02/13/21 20:55 Dose: Not Given Documented by: [id number] Admin: 02/13/21 16:41 Dose: Not Given Documented by: [id number] Cosigned by: [id number] Admin: 02/13/21 12:18 Dose: Not Given Documented by: [id number] Cosigned by: [id number] Admin: 02/13/21 09:00 Dose: Not Given Documented by: [id number] Cosigned by: [id number] Discontinued Medications Gadobutrol (Gadobutrol 65ml Vial) 8.5 ml IV ONCE ONE Stop: 02/25/21 11:17 Last Admin: 02/25/21 11:16 Dose: 8.5 ml Documented by: [id number] Haloperidol (Haloperidol 5 Mg Tab) 10 mg PO NOW STA Stop: 02/12/21 23:41 Last Admin: 02/13/21 00:21 Dose: Not Given Documented by: [id number] Haloperidol (Haloperidol 5 Mg Tab) [facility] Stop: 03/16/21 08:59 Last Admin: 02/14/21 08:00 Dose: 5 mg Documented by: [id number] Haloperidol (Haloperidol 5 Mg Tab) 15 mg PO HS MARIAMA Stop: 03/15/21 20:59 Last Admin: 02/13/21 20:22 Dose: 15 mg Documented by: [id number] Haloperidol Lactate (Haloperidol Lactate 5 Mg/Ml 1 Ml Vial) 5 mg IM NOW STA Stop: 02/13/21 00:27 Last Admin: 02/13/21 00:34 Dose: 5 mg Documented by: [id number] Sodium Chloride (Nss 1000ml) 2,000 mls @ 999 mls/hr IV .Q2H1M ONE Stop: 02/12/21 22:07 Last Infusion: 02/12/21 22:21 Dose: 0 mls/hr Documented by: [id number] Admin: 02/12/21 20:32 Dose: 999 mls/hr Documented by: [id number] Ioversol (Optiray 350 500ml) 120 ml IV ONCE ONE Stop: 02/14/21 16:13 Last Admin: 02/14/21 16:13 Dose: 120 ml Documented by: [id number] Paliperidone Palmitate (Paliperidone Palmitate 234 Mg/1.5 Ml Syr) 234 mg IM ONCE ONE Stop: 02/23/21 08:01 Last Admin: 02/23/21 12:51 Dose: 234 mg Documented by: [id number] Pneumococcal Polyvalent Vaccine (Pneumococcal Polysaccharides 25 Mcg/0.5 Ml Vial/Syr) 25 mcg IM .ONCE ONE Stop: 02/13/21 03:31 Last Admin: 02/14/21 07:59 Dose: Not Given Documented by: [id number] Description This is a 21 electrode EEG with a single channel dedicated to limited EKG. The electrodes were placed in accordance with the International 10-20 system. This EEG was done as a bedside recording and is of good technical quality with fewer no muscle movement artifact. Video recording of patient movement behavior was obtained. Photic stimulation was performed. Drowsiness and light sleep was not clearly recorded Under these conditions there is evidence for what appears to be a normal background rhythm in the alpha range of up to 10 Hz maximum frequency and 20 V maximum amplitude which is maximum posterior head regions bilaterally symmetrical. Polymorphic low voltage mid to upper frequency theta activity seen over all head regions without clear focal or regional predominance of then s lightly more well-developed in the central regions and symmetrically. Beta activity seen bifrontally Photic stimulation provokes a modest driving response. No photo myogenic or photoparoxysmal components are noted At no time during the waking tracing is very evidence for potentially epileptogenic activity Interpretation This is a normal EEG during wakefulness without evidence for focal generalized encephalopathy and without evidence for potentially epileptogenic activity Clinical Correlation Essentially normal EEG with no evidence for focal or generalized encephalopathy or ongoing or potentially epileptogenic discharges Nabor Denny MD
--- NOTE | 2021-02-26 07:12 | Discharge Summary ---
Date of Service February 26, 2021 Admission HPI Per Admitting Provider 70-year-old male with past medical history significant for hyperlipidemia, hypertension, currently not on any medication, history of vitamin D deficiency, paranoid schizophrenia history of tobacco use disorder, history of status post AAA repair using straight graft, history of status post repair of ventral hernia. He lives with his parents, was brought in because of unresponsive episode, the patient states he was lying in bed and he became unresponsive, no shaking of the body, no biting of tongue, no incontinence. Initially when saw the the patient he was very agitated, where he was shouting and angry, but after giving a dose of IM Haldol, he seemed to calm down and he allowed me to examine him. He states his problems are he takes Invega IM monthly and that has caused the side effects and that is the cause of his syncopal episode. Denies any chest pain. Denies nausea, no abdominal pain, no headaches, no cough. Afebrile. Diabetes, he seems to be not taking his medications, pioglitazone for diabetes. Admission Exam Per Admitting Provider PHYSICAL EXAMINATION: GENERAL: The patient is somewhat uncooperative. VITAL SIGNS: Temperature 36.6, pulse 69, respiratory rate 18, blood pressure 111/79, oxygen 98% on room air. HEENT: Pupils equal, round, and reactive to light. NECK: No neck masses seen. CARDIOVASCULAR: S1, S2 heard. Regular rate and rhythm. No murmur, no gallop. RESPIRATORY SYSTEM: Normal AP diameter. No accessory muscle use. No wheezing, no crackles. ABDOMEN: Soft, bowel sounds present, nontender. No distention. CENTRAL NERVOUS SYSTEM: Alert and awake, somewhat agitated. Speech is clear, no facial droop. Moves extremities. EXTREMITIES: No edema, no erythema. Principal Diagnosis (1) Syncope: (2) Altered mental status: (3) Schizophrenia: (4) Abdominal aortic aneurysm (AAA) >39 mm diameter: (5) Occasional tremors: (6) Hypertension:. (7) Neuroendocrine tumor: Discharge Exam See Below Discharge Data Allergies Allergy/AdvReac Type Severity Reaction Status Date / Time No Known Allergies Allergy Unknown Verified 08/10/20 14:45 Consultations 02/12/21 23:40 ED Decision to Admit Stat 02/13/21 02:14 Consult Psychiatry Routine 02/13/21 08:00 Consult Cardiology Routine 02/23/21 11:17 Consult Neurology Routine 02/23/21 11:46 Consult Psychiatry Routine Ordered Studies 02/12/21 20:09 CT head/brain wo con Stat 02/14/21 10:42 CT ang AA runof w inc wo ifdon Routine 02/25/21 06:02 MR brain wo/w con Routine Current Diagnoses Other benign neuroendocrine tumors (02/15/21) Type 2 diabetes mellitus without complications (02/15/21) Schizophrenia, unspecified (02/15/21) Essential (primary) hypertension (02/15/21) Abdominal aortic aneurysm, without rupture (02/15/21) Tremor, unspecified (02/15/21) Altered mental status, unspecified (02/15/21) Syncope and collapse (02/15/21) Encounter for prophylactic measures, unspecified (02/15/21) Personal history of other diseases of the circulatory system (02/15/21) Other specified postprocedural states (02/15/21) Allergies No Known Allergies Allergy (Unknown, Verified 08/10/20 14:45) Height/Weight/Isolation Height 6 ft Weight 88.5 kg Chemistry 02/24/21 02/25/21 06:20 07:42 Sodium 140 140 Potassium 3.8 3.8 Chloride 107 107 Carbon Dioxide 27 27 Anion Gap 6.0 6.0 BUN 20 H 21 H Creatinine 0.86 0.84 Glucose 100 H 87 Hospital Course (1) Syncope: Thought secondary to schizophrenia medicine Cardiac etiology thought unlikely secondary to negative work-up. History of abdominal aneurysm repair status post CT of the abdomen revealing stable aneurysm Questionable intestinal lesion, needs follow-up with primary care physician for further investigation as outpatient Patient lives with his father who is disabled and cannot care for him anymore. Continue working with PT/OT. Home c HHC/[facility] Today (2) Altered mental status: No acute confusion (3) Schizophrenia: Has been on IM Invega every 21 days Haldol 10 mg in the morning and 20 in the afternoon Appreciate psychiatric input and recommendation to continue current medications He does not qualify for inpatient psychiatric care His outpatient psychiatrist recommended that he will be better off with placement as per the family members especially the sister History of current symptomatology seems to be due to schizophrenia He will have his Invega shot ,IM tomorrow He refused to take Invega shot today and wanted to discuss euthanasia. Neurology recs noted, B12, Folate, and RPR are normal, MRI and EEG all normal (4) Abdominal aortic aneurysm (AAA) >39 mm diameter: History of abdominal aortic aneurysm repair CTA reveals stability of aneurysm. (5) Occasional tremors: He has occasional tremors Worse with activity (6) Hypertension: BP at goal, cont low salt diet. (7) Neuroendocrine tumor: Per [facility] specialist Dr. 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 He does not have any carcinoid syndrome. Most common primary site well-differentiated neuroendocrine carcinomas are GI tract and pancreas. Prognosis very with the site of origin. In addition to cross-sectional imaging, gallium [place] PET scan is sensitive in detecting occult primaries and small metastatic lesion Recomendation 1- referral to Gastroentrogist for GI evaluation for primary site 2-Gallium [place] PET Scan 3-serum chromogranin and serum serotonin levels 4 cbc cmp "Patient is accompnied by his sister , he has history of Scizophrenia, his sister [address] patient s tresidence . His sister is not sure whether patient will comply with the above recommendation. She also want to find an oncology center close to patient's home. At present patient and her sister has decided not to proceed with any further investigation. If they want investigation or transfer her care to another center, they will contact me or my office staff" Outpatient follow-up with PCP with urgent referral to Oncology and GI. (8) DMII (diabetes mellitus, type 2): Hold home pioglitazone and given insulin with carb coverage and correction factor as needed. A1C is 5.2. Consider de-escalating medication as outpatient. Defer to PCP. (9) DVT prophylaxis: Lovenox Full Code Dispo-Home c HHC today, HOT and Home PT. Plan was discussed with Oncology followup for patient with [facility] nurse coordinator who is assisting with this transition. Labs checked ROS-No Headache, No Visual Changes, No Nausea, No Vomiting, No Fever, No Chills, No Neck Pain or Stiffness, No Chest Pain, No Palpitations, No SOB, No GALVEZ, No Cough, No Sputum, No Wheezing, No Abdominal Pain, No Diarrhea, No Hematemesis, No Hemoptysis, No Unexpected Weight Loss, No Flank pain, No Melena, No Hematochezia, No Frequency, No Urgency, No Burning, No Hematuria, No Rashes, No Diaphoresis. Appetite is Normal Physical Exam Gen-AAO x 3, NAD, Afebrile Head-NCAT, EOMI, PERRLA, Anicteric Sclera, No Posterior Pharyngeal Erythema Neck-Supple, No JVD, No Thyromegaly, No Masses, No LAD, No Bruits Lungs-Clear to Auscultation Bilaterally, No Rales, No Rhonchi, No Wheezing, No Crepitus Chest-No S4, +S1, +S2, No S3, No Murmurs, No Rubs, No Gallops, No Ectopy Abdomen-Soft, Bowel Sounds Present, Non Tender, Non Distended, No Hepatomegaly, No Splenomegaly, No Palpable Masses, No Rebound, No Rigidity, No Guarding Musculoskeletal-Full Range of Motion Bilaterally, No CVAT Extremities-No Cyanosis, No Clubbing, No Edema Nuero-Cranial Nerves II-XII grossly intact, Motor WNL, DTRs WNL, Strength WNL, Non Focal Psych-Flat Mood I certify that this patient is under my care and that I, or a physicians support assistant working with me, had a face to-face encounter that meets the home health [id number] encounter requirements with this patient. The encounter with the patient was in whole, or in part, for the following medical condition, which is the primary reason for home health care (list medical condition): I certify that, based on my findings, the following services are medically necessary home health services: My clinical findings support the need for the above services because: Further, I certify that my clinical findings support that this patient is homebound (i.e. absences from home require considerable and taxing effort and are for medical reasons or episcopal services or infrequently or of short duration when for other reasons) because: Certification for Home Health Services: Based on the above findings, I certify that this patient is confined to the home and needs intermittent penitentiary care, physical therapy and/or speech therapy or continues to need occupational therapy. The patient is under my care, and I have initiated the establishment of the plan of care. This patient will be followed by a physician who will periodically review the plan of care. Total Time Total Time Spent Total Time Spent (In Minutes): 45 mins Total Time Includes: Examination of the Patient, Discharge Planning, Medication Reconciliation and Communication With Other Providers Discharge Plan Discharge Items Patient Disposition: Home - Home Health Services Reason For Visit: ALTERED MENTAL STATUS Discharge Diagnosis: (1) Syncope: (2) Altered mental status: (3) Schizophrenia: (4) Abdominal aortic aneurysm (AAA) >39 mm diameter: (5) Occasional tremors: (6) Hypertension:. (7) Neuroendocrine tumor: Condition on Discharge: Good Health Concerns: Mental Status Activity: As commented below Activity Comment: As tolerated Lifting: Gradually increase as tolerated Bathing: No limitations Exercise/Sports: Gradually increase as tolerated Driving/Machine Use: None Weightbearing: Full weightbearing Non-emergency contact: Primary Care Provider, Oncologist and Psychiatrist Call non-emergency contact if: you have any medication questions Follow-up/Referrals: Cholo Santiago MD [Primary Care Provider] - (Date & Time 02/28/2021 3:00 PM Provider Cholo Santiago MD Department Family Medicine [facility] ) Diet: Carb Consistent or DM2 and Heart Healthy Addtl Attending Provider Instructions: Follow up with [facility] Oncologist Follow up Psychiatry Pending Studies at Discharge: No Stand-Alone Forms: My YAMAP, Smoking Cessation Medications and DC Order Prescriptions: Continued amantadine HCl 100 mg tablet 100 mg PO BID RF: 0 Invega Sustenna 234 mg/1.5 mL Syringe 234 mg IM MONTHLY RF: 0 pioglitazone 30 mg Tablet 30 mg PO DAILY RF: 0 aspirin [Aspir-Low] 81 mg Tablet,Delayed Release (Dr/Ec) 81 mg PO DAILY RF: 0 haloperidol 10 mg tablet 10 mg PO QAM RF: 0 haloperidol 10 mg tablet 20 mg PO HS RF: 0 Discharge Orders: Discharge Order (Routine); Ordered 02/26/21 Ordered By: Miky Collins Admission Data Admit Date/Time: 02/15/21 07:55 Attending Provider: Miky Collins Admit Provider: Adebayo Palacios Primary Care Provider: Cholo Santiago Other Providers: Adebayo Palacios ; Dr Dontae ; Chelsie Servin ; [facility] ; Wesley Means ; Elmer Vasquez ; Babar Baires ; Major Marie ; Antonio Burgos ; Juan Sarmiento ; Cherri Ackerman ; Chica Pate ; Yeny Maier ; Mitesh Leonardo ; [facility] ; [facility] ; [place] ; [facility], ; Laverne Mac. ; Aleena Moss ; Chica Menendez ; Nabor Denny ; Chica Balbuena ; Arvind Dinero Other Interventions: PSY Interdisciplinary Discharge Planning Last Done: 02/14/21 13:39
[2021-02-26 07:16] LABS: Hematocrit (blood only) 44.2 % (42-52); Hemoglobin 15.1 g/dL (14.0-18.0); Mean Corpuscular Hemoglobin 31.8 pg (25-34); Mean Corpuscular Hgb Conc 34.2 g/dL (32-36); Mean Corpuscular Volume 93.1 fL (80-100); Mean Platelet Volume 9.2 fL (7.4-10.4); Platelet Count 173 K/uL (130-400); RDW Coefficient of Variation 12.9 % (11.5-14.5); RDW Standard Deviation 44.3 fL (36.4-46.3); Red Blood Count 4.75 M/uL (4.7-6.1); White Blood Count 6.29 K/uL (4.8-10.8)
[2021-02-26 07:31] LABS: BUN Creatinine Ratio 22.3 (10-20); Calcium 9.3 mg/dl (8.5-10.1); Creatinine Clr Calc Pharmacy 76.2 ml/min; Est GFR (African American) 89.1 ml/min; Est GFR (Non-African American) 76.8 ml/min; Potassium 4.3 mmol/L (3.5-5.1)
[2021-02-26] MEDS: haloperidoL 5 MG TAB PO SCH (08:03)
[2021-02-26] MEDS: ENOXAPARIN INJ 40 MG/0.4 ML SYR SQ SCH (08:03)
[2021-02-26] MEDS: ASPIRIN 81 MG ECTAB PO SCH (08:03)
[2021-02-26] MEDS: AMANTADINE HCL 100 MG CAPSULE PO SCH (08:05)
[2021-02-26] MEDS: INSULIN ASPART 100 UNITS/ML 3 ML PEN SC SCH ×3 (09:19→17:27)
--- NOTE | 2021-03-15 06:55 | Coding Query ---
CODING QUERY To promote full compliance with coding requirements relating to patient care, provider participation is requested in all cases of director digital uncertainty. Please assist us with the question(s) below: Coding Question(s): Discharge summary states, Syncope "thought secondary to schizophrenia medicine." But under Schizophrenia, "History of current symptomatology seems to be due to schizophrenia." Please clarify etiology of Syncope below: ( ) Syncope due to schizophrenia medication ( ) Syncope due to Schizophrenia (xx ) Other Please Explain: unable to determine Thank you Aly Morgan Principal Diagnosis: "that condition established after study, to be chiefly responsible for occasioning the admission of the patient to the hospital for care." Co-Existing Principal Diagnosis: "when two or more diagnoses equally meet the criteria for principal diagnosis as determined by the circumstances of admission, diagnostic work up, and/or therapy provided, and the Alphabetic Index, Tabular List, or another coding guideline does not provide sequencing direction, any one of the diagnoses may be sequenced first." "When the physician has documented what appears to be a current diagnosis in the body of the record, but has not included the diagnosis in the final diagnostic statement, the physician should be asked whether the diagnosis should be added." (Source [facility]oding [facility] 2 QTR90. p3-4) JOHNY
== END 2021-02-26 18:42 | disposition home health service (06) | DRG 885 ==
LOC: 2E 19:22 → ED 19:22 → 2E 02-13 02:31 → SUATTDRO 02-15 07:55 → 2W 02-15 15:42

== ENCOUNTER 2021-03-01 17:32 | Inpatient (IN) ==
[2021-03-01] MEDS ORDERED: SODIUM CHLORIDE 0.9% 500 ML IV SCH (18:15)
--- NOTE | 2021-03-01 18:18 | Emergency Department Note ---
Impression & Plan Weakness, Somnolence, Acute dehydration ED Provider Note NAME: TOI MCCALL AGE: 70 SEX: M : 1950 ARRIVES VIA: Ambulance INFORMANT: [Patient][ems] ED PROVIDER(S): [Ad Bourgeois MD] CHIEF COMPLAINT: Weakness HISTORY OF PRESENT ILLNESS: The patient is a 70-year-old male with a history of schizophrenia and diabetes. He is cared for primarily by his elderly father. The patient was in our hospital and discharged 3 days ago. He was discharged after a bout of syncope that was thought secondary to his psychiatric medications and dehydration. The patient presents today for unresponsiveness. He has been pretty much sleeping since leaving the hospital. Today, he could not be aroused and EMS was summoned. Upon arrival, the patient is sleepy but awakes to voice and answers questions. He denies any pain. He is not short of breath. No further history obtainable as the patient is quite sleepy/somnolent and I do not trust his mental state. REVIEW OF SYSTEMS: Unobtainable given the mental state. PMHx/PSHx: See Below SOCIAL HISTORY: See Below. PHYSICAL EXAM: GENERAL: Patient is in no acute distress. HEENT: No acute trauma, normocephalic atraumatic, mucous membranes dry, no nasal congestion, no scleral icterus. NECK: No stridor, no adenopathy, no meningismus, trachea is midline. LUNGS: Clear to auscultation bilaterally, no wheeze, no rhonchi, breath sounds equal. HEART: Without murmurs gallops or rubs, regular rate and rhythm. ABDOMEN: Soft, nontender, bowel sounds positive, no hernias, no peritonitis. EXTREMITIES: No cyanosis, mild bilateral pedal edema, full range of motion of all the joints without pain or difficulty, no signs for acute trauma. NEUROLOGIC: Somnolent but awakes to voice and tactile stimulation, no speech slur, no acute motor or sensory deficits, no focal weakness. SKIN: No rash, no jaundice, no diaphoresis. DIFFERENTIAL DIAGNOSIS: Infection, dehydration, metabolic abnormality, hypo/hyperglycemia, medication reaction, COVID-19, liver or renal failure, electrolyte disturbance, anemia, hypoxia, cardiac sources, intracerebral event, toxicologic issues, stroke, TIA, as well as other pathologies. EMERGENCY DEPARTMENT COURSE/PROCEDURES: ECG: Indication was weakness. The ECG shows a normal sinus rhythm with a rate of 84. There is no ST elevation, no PVCs. The QTc is 441. Continuous Cardiac Monitoring: An order was placed for continuous cardiac monitoring. The monitor shows a rate of 82 with normal sinus rhythm. MEDICAL DECISION MAKING: There is no leukocytosis or concerning anemia. There is a normal platelet count. No significant electrolyte abnormality or kidney failure. No concerning liver enzyme elevation. The patient appears to be in a euthyroid state. Ammonia level is not elevated. ECG shows a sinus rhythm, no acute ischemia. Cardiac enzyme testing x1 is not consistent with acute cardiac injury. Urinalysis does not show infection. Chest x-ray does not show pneumonia or CHF. Brain CT shows no acute bleed or mass-effect. Covid testing returned negative. On exam, the patient was sleepy but arousable, no focal neurologic findings. No fever. Patient received IV saline, 1 L in total. The patient is awake and interactive. He is no longer sleepy. He seems to be doing well. He seems to have improved with the IV saline. I did talk with case management. I was concerned because of the patient's living situation. His father who is 92 is his primary caregiver. The patient was not felt safe for discharge home. Case management recommended hospitalization for placement. The on-call hospitalist has been consulted. The patient is aware of his findings and situation. Past Med/Surg History Medical History (Updated 03/01/21 @ 20:27 by Ad Bourgeois MD) Abdominal aortic aneurysm (AAA) >39 mm diameter Homicidal ideation Noncompliance with medications Paranoid schizophrenia Psychosis Schizophrenia Suicide ideation Family History Other Family history non-contributory Social History Smoking Status: Unknown if ever smoked Cigarettes Per Day: 1 pack; Preferred Language: Georgian Communication Ability: Effective Data Sme Required: No Beliefs That Will Affect Care: None Current Living Situation: Parent Feels Safe at Home: Yes Assistive Devices: Walker Allergies Allergies Allergy/AdvReac Type Severity Reaction Status Date / Time No Known Allergies Allergy Unknown Verified 03/01/21 18:38 Home Meds Home Medications Medication Instructions Recorded Confirmed Invega Sustenna 234 mg IM MONTHLY 10/08/19 03/01/21 pioglitazone 30 mg PO DAILY 10/08/19 03/01/21 amantadine HCl 100 mg PO BID 08/10/20 03/01/21 aspirin 81 mg PO DAILY 02/13/21 03/01/21 haloperidol 10 mg PO QAM 02/13/21 03/01/21 haloperidol 20 mg PO HS 02/13/21 03/01/21 Results & Data (ED) Vital Signs Vital Signs - 24 hr 03/01/21 17:36 03/01/21 17:41 03/01/21 17:46 Temperature 36.8 C Temperature Source Oral Pulse Rate 82 82 82 Pulse Rate from SpO2 Sensor 83 Respiratory Rate 11 L 22 20 Blood Pressure 132/90 132/90 Blood Pressure Mean 104 104 Pulse Oximetry 93 Oxygen Delivery Method Room Air Sepsis Recent Fever Within 48 Hours No Sepsis New/Unexplained Change in Mental Status N/A Sepsis Action Taken by Nursing No Action Required 03/01/21 17:50 03/01/21 18:00 03/01/21 18:10 Temperature Temperature Source Pulse Rate 86 71 68 Pulse Rate from SpO2 Sensor 85 71 68 Respiratory Rate 18 18 12 Blood Pressure Blood Pressure Mean Pulse Oximetry 95 95 97 Oxygen Delivery Method Sepsis Recent Fever Within 48 Hours Sepsis New/Unexplained Change in Mental Status Sepsis Action Taken by Nursing 03/01/21 18:20 03/01/21 18:22 03/01/21 18:30 Temperature Temperature Source Pulse Rate 77 71 Pulse Rate from SpO2 Sensor 75 71 Respiratory Rate 19 22 Blood Pressure Blood Pressure Mean Pulse Oximetry 93 96 92 Oxygen Delivery Method Room Air Sepsis Recent Fever Within 48 Hours Sepsis New/Unexplained Change in Mental Status Sepsis Action Taken by Nursing 03/01/21 18:40 03/01/21 18:50 03/01/21 19:21 Temperature Temperature Source Pulse Rate 67 66 68 Pulse Rate from SpO2 Sensor 69 66 66 Respiratory Rate 17 17 20 Blood Pressure 121/80 Blood Pressure Mean 93 Pulse Oximetry 93 93 94 Oxygen Delivery Method Sepsis Recent Fever Within 48 Hours Sepsis New/Unexplained Change in Mental Status Sepsis Action Taken by Nursing 03/01/21 19:30 03/01/21 19:50 03/01/21 20:00 Temperature Temperature Source Pulse Rate 62 61 60 Pulse Rate from SpO2 Sensor 62 61 60 Respiratory Rate 17 15 15 Blood Pressure 110/73 106/72 Blood Pressure Mean 85 83 Pulse Oximetry 97 94 94 Oxygen Delivery Method Sepsis Recent Fever Within 48 Hours Sepsis New/Unexplained Change in Mental Status Sepsis Action Taken by Nursing 03/01/21 20:01 03/01/21 20:10 03/01/21 20:20 Temperature Temperature Source Pulse Rate 60 60 64 Pulse Rate from SpO2 Sensor 60 60 64 Respiratory Rate 18 14 14 Blood Pressure Blood Pressure Mean Pulse Oximetry 95 95 94 Oxygen Delivery Method Sepsis Recent Fever Within 48 Hours Sepsis New/Unexplained Change in Mental Status Sepsis Action Taken by Nursing 03/01/21 20:30 03/01/21 20:31 03/01/21 20:40 Temperature Temperature Source Pulse Rate 62 63 64 Pulse Rate from SpO2 Sensor 62 63 64 Respiratory Rate 17 15 16 Blood Pressure 118/77 Blood Pressure Mean 90 Pulse Oximetry 96 95 95 Oxygen Delivery Method Sepsis Recent Fever Within 48 Hours Sepsis New/Unexplained Change in Mental Status Sepsis Action Taken by Skilled Nursing Medications Current Medication List: was personally reviewed by me Laboratory Data Attestation: I reviewed the patient's lab results. Result diagrams: 03/01/21 17:45 03/01/21 17:45 Lab Results 03/01/21 03/01/21 03/01/21 Range/Units 17:45 17:45 18:25 WBC 4.84 (4.8-10.8) K/uL RBC 4.37 L (4.7-6.1) M/uL Hgb 14.0 (14.0-18.0) g/dL Hct 39.8 L (42-52) % MCV 91.1 (80-100) fL MCH 32.0 (25-34) pg MCHC 35.2 (32-36) g/dL RDW Std Deviation 42.3 (36.4-46.3) fL RDW Coeff of Nerissa 12.7 (11.5-14.5) % Plt Count 161 (130-400) K/uL MPV 9.6 (7.4-10.4) fL Immature Gran % (Auto) 0.2 % Neut % (Auto) 47.3 % Lymph % (Auto) 36.8 % [place] % (Auto) 12.8 % Eos % (Auto) 2.5 % Baso % (Auto) 0.4 % Neut # (Auto) 2.29 (1.4-6.5) K/uL Lymph # (Auto) 1.78 (1.2-3.4) K/uL [place] # (Auto) 0.62 H (0.11-0.59) K/uL Eos # (Auto) 0.12 (0-0.5) K/uL Baso # (Auto) 0.02 (0-0.2) K/uL Immature Gran # (Auto) 0.01 (0.00-0.02) K/uL Sodium 140 (136-145) mmol/L Potassium 3.6 (3.5-5.1) mmol/L Chloride 107 (98-107) mmol/L Carbon Dioxide 26 (21-32) mmol/L Anion Gap 7.0 (3-11) BUN 13 (7-18) mg/dl Creatinine 0.88 (0.6-1.4) mg/dl Est Cr Clr Drug Dosing 83.2 ml/min Est GFR ( Amer) 100.9 ml/min Est GFR (Non-Af Amer) 87.0 ml/min BUN/Creatinine Ratio 14.5 (10-20) Glucose 89 (70-99) mg/dl Calcium 8.6 (8.5-10.1) mg/dl Magnesium 2.2 (1.8-2.4) mg/dl Total Bilirubin 0.6 (0.2-1) mg/dl AST 15 (15-37) U/L ALT 23 (12-78) U/L Alkaline Phosphatase 87 (45-117) U/L Ammonia (11-32) umol/L Troponin I < 0.015 (0-0.045) ng/ml Total Protein 6.9 (6.4-8.2) gm/dl Albumin 3.2 L (3.4-5.0) gm/dl Globulin 3.7 (2.5-4.0) gm/dl Albumin/Globulin Ratio 0.9 (0.9-2) TSH 1.930 (0.300-4.500) uIu/ml Urine Color Yellow Urine Appearance Clear (Clear) Urine pH 5.5 (4.5-7.5) Ur Specific [place] 1.011 (1.000-1.030) Urine Protein Negative (Negative) Urine Glucose (UA) Negative (Negative) Urine Ketones Trace H (Negative) Urine Blood Negative (Negative) Urine Nitrite Negative (Negative) Urine Bilirubin Negative (Negative) Urine Urobilinogen Negative (Negative) Ur Leukocyte Esterase Negative (Negative) COVID-19 Eval Order SARS-CoV-2 (PCR) (Negative) 03/01/21 03/01/21 03/01/21 Range/Units 18:25 18:25 18:35 WBC (4.8-10.8) K/uL RBC (4.7-6.1) M/uL Hgb (14.0-18.0) g/dL Hct (42-52) % MCV (80-100) fL MCH (25-34) pg MCHC (32-36) g/dL RDW Std Deviation (36.4-46.3) fL RDW Coeff of Nerissa (11.5-14.5) % Plt Count (130-400) K/uL MPV (7.4-10.4) fL Immature Gran % (Auto) % Neut % (Auto) % Lymph % (Auto) % [place] % (Auto) % Eos % (Auto) % Baso % (Auto) % Neut # (Auto) (1.4-6.5) K/uL Lymph # (Auto) (1.2-3.4) K/uL [place] # (Auto) (0.11-0.59) K/uL Eos # (Auto) (0-0.5) K/uL Baso # (Auto) (0-0.2) K/uL Immature Gran # (Auto) (0.00-0.02) K/uL Sodium (136-145) mmol/L Potassium (3.5-5.1) mmol/L Chloride (98-107) mmol/L Carbon Dioxide (21-32) mmol/L Anion Gap (3-11) BUN (7-18) mg/dl Creatinine (0.6-1.4) mg/dl Est Cr Clr Drug Dosing ml/min Est GFR ( Amer) ml/min Est GFR (Non-Af Amer) ml/min BUN/Creatinine Ratio (10-20) Glucose (70-99) mg/dl Calcium (8.5-10.1) mg/dl Magnesium (1.8-2.4) mg/dl Total Bilirubin (0.2-1) mg/dl AST (15-37) U/L ALT (12-78) U/L Alkaline Phosphatase (45-117) U/L Ammonia 12.2 (11-32) umol/L Troponin I (0-0.045) ng/ml Total Protein (6.4-8.2) gm/dl Albumin (3.4-5.0) gm/dl Globulin (2.5-4.0) gm/dl Albumin/Globulin Ratio (0.9-2) TSH (0.300-4.500) uIu/ml Urine Color Urine Appearance (Clear) Urine pH (4.5-7.5) Ur Specific [place] (1.000-1.030) Urine Protein (Negative) Urine Glucose (UA) (Negative) Urine Ketones (Negative) Urine Blood (Negative) Urine Nitrite (Negative) Urine Bilirubin (Negative) Urine Urobilinogen (Negative) Ur Leukocyte Esterase (Negative) COVID-19 Eval Order Covid19 at [facility] SARS-CoV-2 (PCR) NEGATIVE (Negative) Administered Medications Discontinued Medications Sodium Chloride (Nss) 500 mls @ 999 mls/hr IV .Q31M MARIAMA Stop: 03/01/21 18:45 Last Infusion: 03/01/21 18:45 Dose: 0 mls/hr Documented by: [id number] Admin: 03/01/21 18:15 Dose: 999 mls/hr Documented by: [id number] Sodium Chloride (Nss 1000ml) 500 mls @ 999 mls/hr IV .Q31M ONE Stop: 03/01/21 19:42 Last Infusion: 03/01/21 19:50 Dose: 0 mls/hr Documented by: [id number] Admin: 03/01/21 19:15 Dose: 999 mls/hr Documented by: [id number] Imaging Data Radiologist's Impression: Head CT 03/01/21 18:08 CT head/brain wo con CLINICAL HISTORY: confusion COMPARISON STUDY: 02/12/2021 TECHNIQUE: Axial CT of the brain is performed from the vertex to the skull base. IV contrast was not administered for this examination. A dose lowering technique was utilized adhering to the principles of ALARA. CT DOSE: 537.48 mGy.cm FINDINGS: No intra or extra-axial mass lesions are visualized. There is no CT evidence of acute cortical infarction. There is no evidence of midline shift. There is no acute hemorrhage. No calvarial fractures are visualized. There is no evidence of pathologic ventricular dilatation. There is no evidence of acute sinusitis IMPRESSION: No acute intracranial findings ACT 112: Negative or not required by law. Electronically signed by: Herve Lal M.D. 03/01/2021 7:10 PM Chest X-Ray 03/01/21 18:09 XR chest 1V portable CLINICAL HISTORY: weakness COMPARISON STUDY: 02/12/2021 FINDINGS: The heart is the upper limits of normal in size. There is mild aortic ectasia. There is no failure. There is no lobar consolidation. There are no pleural effusions. There is mild reticulation at the right lateral lung base, finding which is likely chronic. This remain similar to a CT scan the abdomen and pelvis performed 02/14/2021[ IMPRESSION: No active disease in the chest. ACT 112: Negative or not required by law. Electronically signed by: Herve Lal M.D. 03/01/2021 6:46 PM Discharge Plan Visit Data Chief Complaint: Illness ED Provider: Ad Bourgeois Discharge Problem: Weakness, Somnolence, Acute dehydration Forms Stand Alone Forms: [facility] Prescriptions Prescriptions: No Action amantadine HCl 100 mg tablet 100 mg PO BID RF: 0 Invega Sustenna 234 mg/1.5 mL Syringe 234 mg IM MONTHLY RF: 0 pioglitazone 30 mg Tablet 30 mg PO DAILY RF: 0 aspirin 81 mg Tablet,Delayed Release (Dr/Ec) 81 mg PO DAILY RF: 0 haloperidol 10 mg tablet 10 mg PO QAM RF: 0 haloperidol 10 mg tablet 20 mg PO HS RF: 0
[2021-03-01 18:21] LABS: Basophils # (auto) 0.02 K/uL (0-0.2); Basophils % (auto) 0.4 %; Eosinophils # (auto) 0.12 K/uL (0-0.5); Eosinophils % (auto) 2.5 %; Hematocrit (blood only) 39.8 % (42-52); Immature Granulocytes # (auto) 0.01 K/uL (0.00-0.02); Immature Granulocytes % (auto) 0.2 %; Lymphocytes # (auto) 1.78 K/uL (1.2-3.4); Lymphocytes % (auto) 36.8 %; Mean Corpuscular Hgb Conc 35.2 g/dL (32-36); Mean Corpuscular Volume 91.1 fL (80-100); Mean Platelet Volume 9.6 fL (7.4-10.4); Monocytes # (auto) 0.62 K/uL (0.11-0.59); Monocytes % (auto) 12.8 %; Neutrophils # (auto) 2.29 K/uL (1.4-6.5); Neutrophils % (auto) 47.3 %; Platelet Count 161 K/uL (130-400); RDW Coefficient of Variation 12.7 % (11.5-14.5); RDW Standard Deviation 42.3 fL (36.4-46.3); Red Blood Count 4.37 M/uL (4.7-6.1); White Blood Count 4.84 K/uL (4.8-10.8)
[2021-03-01 18:35] LABS: Albumin Level 3.2 gm/dl (3.4-5.0); Aspartate Aminotransferase 15 U/L (15-37); BUN Creatinine Ratio 14.5 (10-20); Blood Urea Nitrogen 13 mg/dl (7-18); Calcium 8.6 mg/dl (8.5-10.1); Carbon Dioxide 26 mmol/L (21-32); Chloride 107 mmol/L (98-107); Creatinine Clr Calc Pharmacy 83.2 ml/min; Est GFR (African American) 100.9 ml/min; Glucose 89 mg/dl (70-99); Magnesium 2.2 mg/dl (1.8-2.4); Potassium 3.6 mmol/L (3.5-5.1); Sodium 140 mmol/L (136-145)
[2021-03-01 18:46] LABS: Alanine Aminotransferase 23 U/L (12-78); Albumin Globulin Ratio 0.9 (0.9-2); Alkaline Phosphatase 87 U/L (45-117); Bilirubin,Total 0.6 mg/dl (0.2-1); Globulin 3.7 gm/dl (2.5-4.0); Total Protein 6.9 gm/dl (6.4-8.2); Troponin I < 0.015 ng/ml (0-0.045)
--- NOTE | 2021-03-01 18:47 | XRay Report ---
XR chest 1V portable CLINICAL HISTORY: weakness COMPARISON STUDY: 02/12/2021 FINDINGS: The heart is the upper limits of normal in size. There is mild aortic ectasia. There is no failure. There is no lobar consolidation. There are no pleural effusions. There is mild reticulation at the right lateral lung base, finding which is likely chronic. This remain similar to a CT scan the abdomen and pelvis performed 02/14/2021[ IMPRESSION: No active disease in the chest. ACT 112: Negative or not required by law. Electronically signed by: Herve Lal M.D. 03/01/2021 6:46 PM
[2021-03-01 19:09] LABS: Appearance Urine Clear (Clear); Bilirubin Urine Negative (Negative); Blood Urine Negative (Negative); Color Urine Yellow; Glucose Urine UA Negative (Negative); Ketones Urine Trace (Negative); Leukocyte Esterase Urine Negative (Negative); Nitrite Urine Negative (Negative); Protein Urine Negative (Negative); Specific Gravity Urine 1.011 (1.000-1.030); Urobilinogen Urine Negative (Negative); pH Urine 5.5 (4.5-7.5)
--- NOTE | 2021-03-01 19:11 | CT Scan Report ---
CT head/brain wo con CLINICAL HISTORY: confusion COMPARISON STUDY: 02/12/2021 TECHNIQUE: Axial CT of the brain is performed from the vertex to the skull base. IV contrast was not administered for this examination. A dose lowering technique was utilized adhering to the principles of ALARA. CT DOSE: 537.48 mGy.cm FINDINGS: No intra or extra-axial mass lesions are visualized. There is no CT evidence of acute cortical infarc tion. There is no evidence of midline shift. There is no acute hemorrhage. No calvarial fractures ar e visualized. There is no evidence of pathologic ventricular dilatation. There is no evidence of acute sinusitis IMPRESSION: No acute intracranial findings ACT 112: Negative or not required by law. Electronically signed by: Herve Lal M.D. 03/01/2021 7:10 PM
[2021-03-01] MEDS ORDERED: SODIUM CHLORIDE 0.9% 1000ML 500 ML IV ONE (19:12)
[2021-03-01] MEDS ORDERED: POLYETHYLENE (MIRALAX) 17 GM PACK PO PRN (23:07)
[2021-03-01] MEDS ORDERED: SODIUM CHLORIDE 0.9% 1000ML 1,000 ML IV SCH (23:07)
--- NOTE | 2021-03-01 23:14 | History and Physical Report ---
DATE OF ADMISSION: 03/01/2021 CHIEF COMPLAINT: Unresponsive episode. HISTORY OF PRESENT ILLNESS: This is a 70-year-old male with past medical history significant for hyperlipidemia, hypertension, not on any medications, history of paranoid schizophrenia, history of tobacco use disorder, history of status post AAA repair using a stent graft, history of status post repair of ventral hernia, history of diabetes who presents with an unresponsive episode. The patient was recently in the hospital with a similar episode, thought it was secondary to schizophrenia medicine and workup was negative. The patient was discharged home. 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 At home, the patient is living with his 92-year-old father. Today he was sleeping in the bed, was pretty much unresponsive per the EMS and was brought in here. Currently, patient is back to his usual self. He says same thing happened last time. Currently, resting comfortably, hemodynamically stable. Denies any chest pain, no shortness of breath, no cough, no headache, no fever, no blurred vision, no earache, no runny nose, no sore throat, no nausea, no abdominal pain. Says he moved his bowels yesterday normal and normal bladder movements. He had his lunch today. Otherwise, he is ambulating okay until this episode happened. It was felt not safe to send him back home. ALLERGIES: No known drug allergies. PAST MEDICAL HISTORY: As mentioned above. PAST SURGICAL HISTORY: Balloon angioplasty of right proximal common iliac artery with stent placement in 06/2020, abdominal aortic aneurysm repair using single graft in [place] in 09/2019 and also ventral hernia repair in [place] in 09/2019, reconstructive knee surgery from a fall injury in 1970. MEDICATIONS: Currently, the patient is on amantadine 100 mg p.o. b.i.d., aspirin 81 mg p.o. daily, haloperidol 10 mg p.o. a.m. and 20 mg at bedtime, Invega Sustenna 234 mg IM monthly, pioglitazone 30 mg p.o. daily. FAMILY HISTORY: No family history in file. SOCIAL HISTORY: Smokes quarter-pack a day for 40 years. No alcohol use. No drug use. REVIEW OF SYSTEMS: As per HPI. Rest of review of symptoms is negative. PHYSICAL EXAMINATION: GENERAL: The patient is of moderate build, not in acute distress. VITAL SIGNS: Temperature 36.8, pulse 64, respiratory rate 16, blood pressure 118/77, oxygen 95% on room air. HEENT: Pupils equal, round and reactive to light. Oral mucosa moist. NECK: No JVD. No neck masses. CARDIOVASCULAR: S1 and S2 heard. Regular rate and rhythm. No murmur, no gallop. RESPIRATORY SYSTEM: Normal AP diameter. No accessory muscle use. No wheezes, no crackles. ABDOMEN: Soft, bowel sounds present, nontender, no distention. CENTRAL NERVOUS SYSTEM: Alert and oriented. No facial droop. Speech clear. Insight is okay. Obeys simple commands. Moves extremities. EXTREMITIES: Mild pedal edema present, no erythema seen. LABORATORY DATA: WBC 4.8, hemoglobin 14, hematocrit 39.8, platelets 161. Sodium 140, potassium 3.6, chloride 107, bicarbonate 26, BUN 13, creatinine 0.8, serum glucose 89, calcium 8.6, magnesium 2.2, total bilirubin 0.6, AST 15, ALT 23, alkaline phosphatase 87, ammonia 12.2. Troponin I less than 0.015. TSH is 1.9. Urinalysis negative. SARS-CoV-2 PCR negative. Chest x-ray: No active disease in the chest. CT of the head: No acute intracranial findings. EKG: Normal sinus rhythm, rate of 84, no significant change was found. ASSESSMENT AND PLAN: This is a 70-year-old male with history of paranoid schizophrenia who was recently in the hospital for unresponsive syncopal episode, was discharged back home, presents with similar complaints. 1. Syncope /unresponsive episode most likely secondary to his psychiatric medications. Had negative workup last admission.The patient is felt not safe to send back home as he is living with his 92-year-old father. We will monitor in the hospital. Physical therapy, occupational therapy. Social service to help with discharge planning, may need placement. Continue his home medications. 2. Paranoid schizophrenia: Continue his home medications. 3. Diabetes mellitus: His HbA1c was 5.2 [address] him on sliding scale. 4. History of occasional tremors. 5. History of hypertension: Currently not on meds. will monitor. 6. Neuroendocrine tumor: He needs to follow up with gastrointestinal and oncology. 7. Deep vein thrombosis prophylaxis: Sequential compression devices. DISPOSITION: Closely monitor in the [facility] tele. Expect discharge home and follow up with family doctor. Job ID: [id number] MTDD
[2021-03-01] MEDS ORDERED: GLUCAGON FOR INJ 1 MG VIAL IM PRN (23:30)
[2021-03-01] MEDS ORDERED: GLUCOSE 40% GEL 15 GM TUBE PO PRN (23:30)
[2021-03-01] MEDS ORDERED: CARBOHYDRATES FOR HYPOGLYCEMIA PO PRN (23:30)
[2021-03-01] MEDS ORDERED: DEXTROSE 50% 50 ML SYRINGE IV PRN (23:30)
[2021-03-01] MEDS ORDERED: GLUCOSE 10 TABS/TUBE PO PRN (23:30)
[2021-03-01] MEDS: AMANTADINE HCL 100 MG CAPSULE PO SCH (23:50)
[2021-03-01] MEDS: haloperidoL 5 MG TAB PO SCH (23:50)
[2021-03-02 05:57] LABS: Basophils # (auto) 0.02 K/uL (0-0.2); Basophils % (auto) 0.4 %; Eosinophils # (auto) 0.18 K/uL (0-0.5); Eosinophils % (auto) 3.6 %; Hematocrit (blood only) 39.4 % (42-52); Hemoglobin 13.7 g/dL (14.0-18.0); Lymphocytes # (auto) 1.59 K/uL (1.2-3.4); Lymphocytes % (auto) 31.6 %; Mean Corpuscular Hemoglobin 31.9 pg (25-34); Mean Corpuscular Hgb Conc 34.8 g/dL (32-36); Mean Corpuscular Volume 91.6 fL (80-100); Monocytes # (auto) 0.59 K/uL (0.11-0.59); Monocytes % (auto) 11.7 %; Neutrophils # (auto) 2.65 K/uL (1.4-6.5); Neutrophils % (auto) 52.7 %; Platelet Count 150 K/uL (130-400); RDW Coefficient of Variation 12.9 % (11.5-14.5); RDW Standard Deviation 42.8 fL (36.4-46.3); White Blood Count 5.03 K/uL (4.8-10.8)
[2021-03-02 06:20] LABS: BUN Creatinine Ratio 13.8 (10-20); Calcium 8.4 mg/dl (8.5-10.1); Creatinine Clr Calc Pharmacy 98.9 ml/min; Est GFR (African American) 108.3 ml/min; Est GFR (Non-African American) 93.5 ml/min; Magnesium 2.3 mg/dl (1.8-2.4); Potassium 3.4 mmol/L (3.5-5.1)
--- NOTE | 2021-03-02 07:38 | Hospitalist Progress Note ---
Date of Service March 02, 2021 Assessment & Plan (1) Weakness: ASSESSMENT AND PLAN: This is a 70-year-old male with history of paranoid schizophrenia who was recently in the hospital for unresponsive syncopal episode, was discharged back home, presents with similar complaints. 1. Syncope /unresponsive episode most likely secondary to his psychiatric medications. Had negative workup last admission.The patient is felt not safe to send back home as he is living with his 92-year-old father. We will monitor in the hospital. Physical therapy, occupational therapy. Social service to help with discharge planning, needs placement. Continue his home medications. 2. Paranoid schizophrenia: Continue his home medications. 3. Diabetes mellitus: His HbA1c was 5.2 [address] admission[address] will [address] him on sliding scale. 4. History of occasional tremors. 5. History of hypertension: Currently not on meds. will monitor. 6. Neuroendocrine tumor: He needs to follow up with gastrointestinal and oncology. 7. Deep vein thrombosis prophylaxis: Sequential compression devices. DISPOSITION: Complete w/u done on last admission, will try to place, these are all social and Mental issues Labs checked ROS-No Headache, No Visual Changes, No Nausea, No Vomiting, No Fever, No Chills, No Neck Pain or Stiffness, No Chest Pain, No Palpitations, No SOB, No GALVEZ, No Cough, No Sputum, No Wheezing, No Abdominal Pain, No Diarrhea, No Hematemesis, No Hemoptysis, No Unexpected Weight Loss, No Flank pain, No Melena, No Hematochezia, No Frequency, No Urgency, No Burning, No Hematuria, No Rashes, No Diaphoresis. Appetite is Normal Physical Exam Gen-AAO x 3, NAD, Afebrile, Flat Head-NCAT, EOMI, PERRLA, Anicteric Sclera, No Posterior Pharyngeal Erythema Neck-Supple, No JVD, No Thyromegaly, No Masses, No LAD, No Bruits Lungs-Clear to Auscultation Bilaterally, No Rales, No Rhonchi, No Wheezing, No Crepitus Chest-No S4, +S1, +S2, No S3, No Murmurs, No Rubs, No Gallops, No Ectopy Abdomen-Soft, Bowel Sounds Present, Non Tender, Non Distended, No Hepatomegaly, No Splenomegaly, No Palpable Masses, No Rebound, No Rigidity, No Guarding Musculoskeletal-Full Range of Motion Bilaterally, No CVAT Extremities-No Cyanosis, No Clubbing, No Edema Nuero-Cranial Nerves II-XII grossly intact, Motor WNL, DTRs WNL, Strength WNL, Non Focal Psych-Normal Mood Admission and Anticipated Discharge Date Admission Date: March 01, 2021 Results & Data Results & Data ([facility]) Vital Signs (Past 12 Hours) Vital Signs Temp Pulse Pulse Resp BP BP Pulse Ox 03/02/21 07:00 63 03/02/21 00:00 72 03/01/21 23:11 36.9 C 72 16 119/81 95 03/01/21 22:51 37.1 C 77 18 134/79 96 03/01/21 22:20 78 20 96 03/01/21 22:10 78 16 96 03/01/21 22:01 84 18 94 03/01/21 22:00 76 17 130/87 93 03/01/21 21:50 75 16 92 03/01/21 21:40 84 19 92 03/01/21 21:31 78 21 94 03/01/21 21:30 22 127/74 93 03/01/21 21:00 65 16 123/78 95 03/01/21 20:40 64 16 95 03/01/21 20:31 63 15 95 03/01/21 20:30 62 17 118/77 96 03/01/21 20:20 64 14 94 03/01/21 20:10 60 14 95 03/01/21 20:01 60 18 95 03/01/21 20:00 60 15 106/72 94 03/01/21 19:50 61 15 94
[2021-03-02] MEDS: ASPIRIN 81 MG ECTAB PO SCH (08:23)
[2021-03-02] MEDS: haloperidoL 5 MG TAB PO SCH ×2 (08:24→20:29)
[2021-03-02] MEDS: INSULIN ASPART 100 UNITS/ML 3 ML PEN SC SCH ×4 (08:25→20:26)
[2021-03-02] MEDS: POTASSIUM CHLORIDE 20 MEQ/15 ML UDC PO SCH ×2 (08:37→20:27)
[2021-03-02] MEDS: AMANTADINE HCL 100 MG CAPSULE PO SCH ×2 (09:45→20:28)
[2021-03-02] MEDS ORDERED: OPTIRAY 320 100ml IV ONE (18:38)
--- NOTE | 2021-03-02 20:52 | CT Scan Report ---
CT SCAN OF THE CHEST, ABDOMEN, AND PELVIS WITH IV CONTRAST CLINICAL HISTORY: Neuroendocrine tumor. COMPARISON STUDY: Chest x-ray dated 03/01/2021. Abdominal CT dated 02/14/2021. TECHNIQUE: Following the IV administration of 89 of Optiray 320, CT scan of the chest, abdomen, and p xiomara was performed from the thoracic inlet to the proximal femora. Images are reviewed in the axial, sagittal, and coronal planes. IV contrast was administered without complication. Oral contrast was u tilized. A dose lowering technique was utilized adhering to the principles of ALARA. CT DOSE: 1353.32 mGycm FINDINGS: CHEST: Thyroid: Imaged portions of the thyroid gland are normal in size and attenuation. Thoracic aorta: There is atherosclerotic calcification of the thoracic aorta, which is normal in trung rai and demonstrates standard 3-vessel arch anatomy. No dissection is seen. Pulmonary vasculature: The pulmonary trunk is normal in caliber. There are no filling defects identif ied in the central pulmonary vessels to indicate pulmonary embolus. Note that this examination was no t protocoled for evaluation of the pulmonary arteries. Heart: The heart is top normal in size and without pericardial effusion. The coronary arteries are de nsely calcified. Lungs and pleural spaces: Mild emphysematous change is noted. There is no airspace consolidation or p leural effusion. The trachea and central airways are clear. Foci of scarring/atelectasis are noted at the lung bases. There are scattered calcified granulomas. A 6 m right upper lobe pulmonary nodule is seen on image #108. There small perifissural nodules in the right upper and right middle lobes seen on images #114 and #155 which measure up to 4 mm. Mediastinum: There is no mediastinal lymphadenopathy. [place]: Clear. Axillae: There is no axillary lymphadenopathy. Bony thorax: The skeletal structures are osteopenic. Mild degenerative change is noted in the shoulde rs and thoracic spine. No lytic or blastic lesions are identified. ABDOMEN AND PELVIS: Liver: The contrast-enhanced liver is normal in size, contour, and attenuation. There is no intra- or extrahepatic biliary ductal dilatation. The hepatic veins and portal veins are patent. Gallbladder: There are large calcified gallstones with no CT evidence of acute cholecystitis. Spleen: Normal in size and attenuation. Pancreas: Unremarkable. Adrenal glands: Unremarkable. Kidneys: The contrast enhanced kidneys are normal in size and without hydronephrosis. The kidneys enh ance symmetrically. Abdominal vasculature: There is advanced atherosclerotic calcification of the abdominal aorta. The pa tient is status post graft repair of an infrarenal abdominal aortic aneurysm. The residual aneurysm s ac measures 3.6 x 4.0 cm (AP x transverse). A right common iliac artery stent is in place. Stomach and bowel: There is a small hiatal hernia. There is no bowel obstruction. Enteric contrast re aches the left colon. There are scattered colonic diverticula without CT evidence of acute diverticul itis. The base of the appendix is likely seen on image #189. A small bowel lesion is again suggested on image #229. Peritoneum: There is no intraperitoneal free air. Trace free fluid is noted in the pelvis. Lymphadenopathy: There is bulky and hyperdense abdominopelvic lymphadenopathy. Retrocrural nodes steven ure up to 1.4 cm short axis. A marvel aggregate posterior to the portosplenic confluence on image #64 measures approximately 7 x 3 cm. A gastrohepatic node on image #42 measures 4.3 x 2.4 4 cm. A similar -appearing nodule along the dome of the liver on image #9 measures 1.8 cm. A left periaortic node on image #129 and measures 3.4 x 2.9 0 cm. Bulky mesenteric lymph nodes are noted. A node in the central mesentery on image #178 measures 5.2 x 3.9 cm. Pelvic viscera: The prostate gland is mildly enlarged and heterogeneous noting median lobe hypertroph y. The bladder wall appears thickened and trabeculated suggesting chronic outlet obstruction. Skeletal structures: The skeletal structures are osteopenic. No lytic or blastic lesions are seen. IMPRESSION: 1. Again seen is hyperdense/hypervascular abdominal lymphadenopathy as detailed above, with a possibl e small bowel lesion in the right lower quadrant. This is unchanged as compared to 02/14/2021. Correla tion with the patient's oncological history be required. 2. Emphysema. 3. Small pulmonary pleural-based nodules measure up to 6 mm. These are pathologically indeterminant a nd attention at follow-up is recommended. 4. There is no airspace consolidation or pleural effusion. 5. Cholelithiasis. 6. Additional findings as above. ACT 112: Negative or not required by law. Electronically signed by: Ad George M.D. 03/02/2021 8:51 PM
[2021-03-03 07:11] LABS: Hematocrit (blood only) 39.8 % (42-52); Hemoglobin 13.6 g/dL (14.0-18.0); Mean Corpuscular Hemoglobin 31.9 pg (25-34); Mean Corpuscular Hgb Conc 34.2 g/dL (32-36); Mean Corpuscular Volume 93.2 fL (80-100); Mean Platelet Volume 9.3 fL (7.4-10.4); Platelet Count 175 K/uL (130-400); RDW Coefficient of Variation 12.9 % (11.5-14.5); RDW Standard Deviation 43.6 fL (36.4-46.3); Red Blood Count 4.27 M/uL (4.7-6.1); White Blood Count 5.07 K/uL (4.8-10.8)
[2021-03-03 07:50] LABS: BUN Creatinine Ratio 16.4 (10-20); Calcium 8.7 mg/dl (8.5-10.1); Creatinine Clr Calc Pharmacy 90.4 ml/min; Est GFR (African American) 104.4 ml/min; Potassium 3.8 mmol/L (3.5-5.1)
--- NOTE | 2021-03-03 07:57 | Hospitalist Progress Note ---
Date of Service March 03, 2021 Assessment & Plan (1) Weakness: ASSESSMENT AND PLAN: This is a 70-year-old male with history of paranoid schizophrenia who was recently in the hospital for unresponsive syncopal episode, was discharged back home, presents with similar complaints. 1. Syncope /unresponsive episode most likely secondary to his psychiatric medications. Had negative workup last admission. The patient is felt not safe to send back home as he is living with his 92-year-old father. We will monitor in the hospital. Physical therapy, occupational therapy. Social service to help with discharge planning, needs placement. Continue his home medications. 2. Paranoid schizophrenia: Continue his home medications. Psych on case. 3. Diabetes mellitus: His HbA1c was 5.2 [address] him on sliding scale. 4. History of occasional tremors. 5. History of hypertension: Currently not on meds. will monitor. 6. Neuroendocrine tumor: He needs to follow up with gastrointestinal and oncology. CT scan Chest, A&P noted, will notify Dr Escudero to check results 7. Deep vein thrombosis prophylaxis: Sequential compression devices. DISPOSITION: Complete w/u done on last admission, will try to place, these are all social and Mental issues Labs checked ROS-No Headache, No Visual Changes, No Nausea, No Vomiting, No Fever, No Chills, No Neck Pain or Stiffness, No Chest Pain, No Palpitations, No SOB, No GALVEZ, No Cough, No Sputum, No Wheezing, No Abdominal Pain, No Diarrhea, No Hematemesis, No Hemoptysis, No Unexpected Weight Loss, No Flank pain, No Melena, No Hematochezia, No Frequency, No Urgency, No Burning, No Hematuria, No Rashes, No Diaphoresis. Appetite is Normal Physical Exam Gen-AAO x 3, NAD, Afebrile, Flat Head-NCAT, EOMI, PERRLA, Anicteric Sclera, No Posterior Pharyngeal Erythema Neck-Supple, No JVD, No Thyromegaly, No Masses, No LAD, No Bruits Lungs-Clear to Auscultation Bilaterally, No Rales, No Rhonchi, No Wheezing, No Crepitus Chest-No S4, +S1, +S2, No S3, No Murmurs, No Rubs, No Gallops, No Ectopy Abdomen-Soft, Bowel Sounds Present, Non Tender, Non Distended, No Hepatomegaly, No Splenomegaly, No Palpable Masses, No Rebound, No Rigidity, No Guarding Musculoskeletal-Full Range of Motion Bilaterally, No CVAT Extremities-No Cyanosis, No Clubbing, No Edema Nuero-Cranial Nerves II-XII grossly intact, Motor WNL, DTRs WNL, Strength WNL, Non Focal Psych-Normal Mood Admission and Anticipated Discharge Date Admission Date: March 01, 2021 Results & Data Results & Data ([facility]) Vital Signs (Past 12 Hours) Vital Signs Temp Pulse Pulse Resp BP Pulse Ox 03/03/21 06:52 36.4 C L 56 L 18 104/67 94 03/03/21 04:51 57 L 03/02/21 22:23 36.7 C 62 18 136/84 97
[2021-03-03] MEDS: AMANTADINE HCL 100 MG CAPSULE PO SCH ×2 (08:31→20:01)
[2021-03-03] MEDS: ASPIRIN 81 MG ECTAB PO SCH (08:31)
[2021-03-03] MEDS: POTASSIUM CHLORIDE 20 MEQ/15 ML UDC PO SCH ×2 (08:31→20:01)
[2021-03-03] MEDS: INSULIN ASPART 100 UNITS/ML 3 ML PEN SC SCH ×4 (08:32→20:02)
[2021-03-03] MEDS: haloperidoL 5 MG TAB PO SCH ×2 (09:11→20:01)
--- NOTE | 2021-03-03 11:25 | Electrocardiogram Report ---
Test Reason : Blood Pressure : / mmHG Vent. Rate : 084 BPM Atrial Rate : 084 BPM P-R Int : 158 ms QRS Dur : 090 ms QT Int : 374 ms P-R-T Axes : 038 010 049 degrees QTc Int : 441 ms Normal sinus rhythm Cannot rule out Inferior infarct (cited on or before 14-FEB-2021) Abnormal ECG When compared with ECG of 15-FEB-2021 06:15, No significant change was found Confirmed by Everardo Graham ([id number]) on 03/03/2021 11:24:47 AM Referred By: REFERRED SELF Confirmed By:Everardo Graham
--- NOTE | 2021-03-03 11:36 | Electrocardiogram Report ---
Test Reason : Blood Pressure : / mmHG Vent. Rate : 061 BPM Atrial Rate : 061 BPM P-R Int : 172 ms QRS Dur : 088 ms QT Int : 438 ms P-R-T Axes : 051 040 039 degrees QTc Int : 440 ms Sinus rhythm with Premature atrial complexes Otherwise normal ECG When compared with ECG of 01-MAR-2021 17:40, (unconfirmed) Premature atrial complexes are now Present Confirmed by Everardo Graham ([id number]) on 03/03/2021 11:36:10 AM Referred By: REFERRED SELF Confirmed By:Everardo Graham
--- NOTE | 2021-03-03 14:33 | Psychiatric Consultation ---
Date of Consultation March 03, 2021 Impression / Recommendations Impression Patient is a 70-year-old male who is presenting to the hospital with complaints of syncope likely secondary to medication noncompliance/misuse as well as poor ADL functioning. Patient has had multiple attempts to reintegrate into the community which he has failed, will likely require placement for safe discharge planning. Recommendations for the time being: Continue current medication regimen including haloperidol 10 mg p.o. every morning, 20 mg p.o. nightly. Patient does not require any acute change to his psychiatric medications at the moment. Continue to search out safe discharge options. Risk Factors Assessment Male: Yes : Yes Do You Have Access To A Gun?: No Mental Health Diagnoses: Yes Substance Use Disorders: No Hopelessness: No Protective Factors Assessment Stable Relationships: Yes Supportive Family: Yes Psych History Identifying Data 70-year-old male with a history of schizophrenia who presented to the hospital for syncopal episode. Chief Complaint "I'm okay,thank you". History of Present Illness Patient is a 7-year-old male with acute schizophrenia well-known to psychiatry service due to his multiple presentations in the hospital. Patient has held this diagnosis for the majority of his life and is chronically delusional at baseline, although not distressed by his psychosis or in any way exhibiting suicidal behavior. During our last visit with this patient, he had been refusing to take his haloperidol medication but returned back to his baseline shortly after receiving it. Patient had return to the hospital due to syncope, which according to medical opinion may be attributed to misuse of his psychiatric medications in addition to poor ADLs. As per psychiatric liaison "Rounded on patient, he presented cooperative, calm with focused delusions that his Invega is altered by the government. Patient was waiting for CAT scan, and noted that he complied with pre-exam protocol of drinking barium fluids as well, he complied with PT assessment. He stated that this is his [facility]th admission to [facility] and he gets "all the tests necessary and they are all negative including the blood work for paranoid schizophrenia, I need you to look into my chart and review the documents revealing the LSD that is in my Invega". This liaison provided 1:1 support to the patient that he has had many experiences and we are here to help him to wellness so he can get out of the hospital. He denies reality based needs from [facility] at this time. " Patient was seen again today by junior underwriter, who stated that he was feeling fine without any issues. He denied any suicidal or homicidal ideation. He denies psychosis but does tend to make delusional statements, specifically regarding his status as well as his lack of mental health symptoms. Patient is however calm and cooperative at this time and does not necessitate any acute changes to his psychiatric regimen. He was administered Invega injection during his last hospitalization here only several days ago, and continues to obtain benefit from that as well as his p.o. antipsychotic medication, haloperidol. Past Psychiatric History Do You Have Access To A Gun?: No Allergies Allergy/AdvReac Type Severity Reaction Status Date / Time No Known Allergies Allergy Unknown Verified 03/01/21 18:38 Home Medications Medication Instructions Recorded Confirmed Type Invega Sustenna 234 mg IM MONTHLY 10/08/19 03/01/21 History pioglitazone 30 mg PO DAILY 10/08/19 03/01/21 History amantadine HCl 100 mg PO BID 08/10/20 03/01/21 History aspirin 81 mg PO DAILY 02/13/21 03/01/21 History haloperidol 10 mg PO QAM 02/13/21 03/01/21 History haloperidol 20 mg PO HS 02/13/21 03/01/21 History Personal History Beliefs That Will Affect Care: None Patient History Medical History (Updated 03/01/21 @ 20:27 by Ad Bourgeois MD) Abdominal aortic aneurysm (AAA) >39 mm diameter Homicidal ideation Noncompliance with medications Paranoid schizophrenia Psychosis Schizophrenia Suicide ideation Family History Other Family history non-contributory Social History Smoking Status: Never smoker Cigarettes Per Day: 1 pack; Hx Alcohol Use: No Hx Substance Use: No Preferred Language: Cambodian Communication Ability: Impaired Gaggerman Required: No Beliefs That Will Affect Care: None Current Living Situation: Parent Feels Safe at Home: Yes Safety Concerns: Feels Safe At This Time Assistive Devices: None Physical Exam Psychiatric: Orientation: alert and oriented x 3 Apperance: + disheveled Eye Contact: + fair eye contact Motor Behavior: + EPS Speech: normal rate/rhythm/volume of speech Affect: euthymic affect, + flat affect and + constricted affect Mood: no depressed mood and no anxious mood Thought Process: linear/logical thought process Thought Content: reality based without delusions Suicidal Thoughts: denies suicidal thoughts Homicidal Thoughts: denies homicidal thoughts Hallucinations: no auditory hallucinations and no visual hallucinations Cognition: recent memory grossly intact Estimated Intelligence: + below average estimated intelligence Insight: + poor insight Judgement: + poor judgement Vital Signs (Past 24 Hours): Last Vital Signs Temp 36.5 C 03/03/21 14:20 Pulse 69 03/03/21 14:20 Resp 16 03/03/21 14:20 BP 134/76 03/03/21 14:20 Pulse Ox 96 03/03/21 14:20 Review of Systems All systems reviewed & are unremarkable except as noted in HPI & below Results & Data ([facility]) Medications Administered Amantadine HCl (Amantadine Hcl 100 Mg Capsule) 100 mg PO BID MARIAMA Stop: 03/31/21 23:06 Last Admin: 03/03/21 08:31 Dose: 100 mg Documented by: [id number] Admin: 03/02/21 20:28 Dose: 100 mg Documented by: [id number] Admin: 03/02/21 09:45 Dose: 100 mg Documented by: [id number] Admin: 03/01/21 23:50 Dose: 100 mg Documented by: [id number] Aspirin (Aspirin 81 Mg Ectab) 81 mg PO DAILY MARIAMA Stop: 04/01/21 08:59 Last Admin: 03/03/21 08:31 Dose: 81 mg Documented by: [id number] Admin: 03/02/21 08:23 Dose: 81 mg Documented by: [id number] Haloperidol (Haloperidol 5 Mg Tab) 10 mg PO QAM MARIAMA Stop: 04/01/21 08:59 Last Admin: 03/03/21 09:11 Dose: 10 mg Documented by: [id number] Admin: 03/02/21 08:24 Dose: 10 mg Documented by: [id number] Haloperidol (Haloperidol 5 Mg Tab) 20 mg PO HS MARIAMA Stop: 03/31/21 23:06 Last Admin: 03/02/21 20:29 Dose: 20 mg Documented by: [id number] Admin: 03/01/21 23:50 Dose: 20 mg Documented by: [id number] Insulin Aspart (Insulin Aspart 100 Units/Ml 3 Ml Pen) 0 units SC ACHS MARIAMA Stop: 04/01/21 07:29 Last Admin: 03/03/21 13:44 Dose: Not Given Documented by: [id number] Cosigned by: [id number] Admin: 03/03/21 08:32 Dose: Not Given Documented by: [id number] Cosigned by: [id number] Admin: 03/02/21 20:26 Dose: Not Given Documented by: [id number] Cosigned by: [id number] Admin: 03/02/21 17:45 Dose: Not Given Documented by: [id number] Admin: 03/02/21 12:33 Dose: Not Given Documented by: [id number] Admin: 03/02/21 08:25 Dose: Not Given Documented by: [id number] Potassium Chloride (Potassium Chloride 20 Meq/15 Ml Udc) 20 meq PO BID MARIAMA Stop: 04/01/21 08:59 Last Admin: 03/03/21 08:31 Dose: 20 meq Documented by: [id number] Admin: 03/02/21 20:27 Dose: 20 meq Documented by: [id number] Admin: 03/02/21 08:37 Dose: 20 meq Documented by: [id number] Coding Level of Care Code 55555 U Intl Hosp Care Lvl 2
--- NOTE | 2021-03-03 14:48 | Electrocardiogram Report ---
Test Reason : Blood Pressure : / mmHG Vent. Rate : 060 BPM Atrial Rate : 060 BPM P-R Int : 166 ms QRS Dur : 088 ms QT Int : 420 ms P-R-T Axes : 034 -06 023 degrees QTc Int : 420 ms Normal sinus rhythm Inferior infarct , age undetermined Abnormal ECG When compared with ECG of 02-MAR-2021 04:41, (unconfirmed) Premature atrial complexes are no longer Present Confirmed by Everardo Graham ([id number]) on 03/03/2021 2:48:03 PM Referred By: REFERRED SELF Confirmed By:Everardo Graham
[2021-03-04] MEDS: INSULIN ASPART 100 UNITS/ML 3 ML PEN SC SCH ×4 (08:30→20:14)
[2021-03-04] MEDS: ASPIRIN 81 MG ECTAB PO SCH (08:36)
[2021-03-04] MEDS: AMANTADINE HCL 100 MG CAPSULE PO SCH ×2 (08:36→20:12)
[2021-03-04] MEDS: haloperidoL 5 MG TAB PO SCH ×2 (08:36→20:12)
[2021-03-04] MEDS: ACETAMINOPHEN 325 MG TAB PO PRN (08:37)
[2021-03-04] MEDS: POTASSIUM CHLORIDE 20 MEQ/15 ML UDC PO SCH (08:37)
--- NOTE | 2021-03-04 18:44 | Hospitalist Progress Note ---
Date of Service March 04, 2021 Assessment & Plan (1) Weakness: Patient is a 70 yr male with H/O Paranoid schizophrenia who was recently in the hospital for unresponsive syncopal episode, was discharged back home, presents with similar complaints. Syncope /unresponsive episode Likely secondary to medication noncompliance/misuse CT Head: No acute intracranial findings Fall precautions General deconditioning Ambulatory dysfunction Patient had multiple attempts to reintegrate with community but failed Appreciate psychiatry input Family no longer able to care for the patient PT OT:Recommends SNF Unsafe to be discharged home Will likely need permanent placement Case management to help with discharge planning Paranoid schizophrenia: Continue home medications Appreciate psychiatry input DM II HbA1C:5.2 Hold PO meds Continue ISS while hospitalized H/O Occasional tremors. H/O Hypertension Continue home meds Neuroendocrine tumor: CT imaging reviewed and discussed with Dr.Nilesh Escudero by prior hospitalist Needs to follow up with gastrointestinal and oncology as outpatient DVT Px: SCDs Code Status Full Code Disposition SNF when arranged Admission and Anticipated Discharge Date Admission Date: March 01, 2021 Subjective Patient is seen and examined at bedside States having generalized weakness Denies chest pain, dyspnea, dizziness, nausea, abdominal pain History difficult to obtain given history of schizophrenia Review of Systems Review of Systems: All systems reviewed & are unremarkable except as noted in HPI & below Physical Exam Physical Exam: Physical Exam: Vitals signs as noted above General Appearance:Moderately built and nourished, no apparent distress Head: normocephalic, Atraumatic Eyes: normal inspection, EOMI Neck: supple, Trachea midline Respiratory/Chest: Normal breath sounds, CTA, No accessory muscle use Cardiovascular: S1, S2, No murmur Abdomen/GI:Soft, Non tender, Bowel sounds present Extremities/Musculoskeletal:normal inspection, no edema Neurologic/Psych:AAO, grossly no focal neurological deficits Skin: normal color, warm Results & Data Results & Data ([facility]) Vital Signs (Past 12 Hours) Vital Signs Temp Pulse Pulse Resp BP BP Pulse Ox 03/04/21 16:54 97 H 03/04/21 15:05 36.3 C L 96 H 18 128/77 97 03/04/21 12:21 36.4 C L 70 18 113/70 96 03/04/21 08:13 55 L 03/04/21 07:54 36.7 C 67 16 126/74 97
[2021-03-05 07:34] LABS: BUN Creatinine Ratio 16.5 (10-20); Calcium 8.8 mg/dl (8.5-10.1); Creatinine Clr Calc Pharmacy 78.7 ml/min; Est GFR (African American) 96.1 ml/min; Est GFR (Non-African American) 82.9 ml/min; Potassium 3.5 mmol/L (3.5-5.1)
[2021-03-05] MEDS: haloperidoL 5 MG TAB PO SCH ×2 (08:15→20:13)
[2021-03-05] MEDS: ASPIRIN 81 MG ECTAB PO SCH (08:15)
[2021-03-05] MEDS: INSULIN ASPART 100 UNITS/ML 3 ML PEN SC SCH ×4 (08:16→20:14)
[2021-03-05] MEDS: AMANTADINE HCL 100 MG CAPSULE PO SCH ×2 (08:16→20:13)
--- NOTE | 2021-03-05 16:51 | Hospitalist Progress Note ---
Date of Service March 05, 2021 Assessment & Plan (1) Weakness: Patient is a 70 yr male with H/O Paranoid schizophrenia who was recently in the hospital for unresponsive syncopal episode, was discharged back home, presents with similar complaints. Syncope /unresponsive episode Likely secondary to medication noncompliance/misuse CT Head: No acute intracranial findings Fall precautions Resolved General deconditioning Ambulatory dysfunction Patient had multiple attempts to reintegrate with community but failed Appreciate psychiatry input Family no longer able to care for the patient PT OT:Recommends SNF Unsafe to be discharged home Will likely need permanent placement Case management to help with discharge planning Paranoid schizophrenia: Continue home medications Appreciate psychiatry input DM II HbA1C:5.2 Hold PO meds Continue ISS while hospitalized H/O Occasional tremors. H/O Hypertension Continue home meds Neuroendocrine tumor: CT imaging reviewed and discussed with Dr.Nilesh Escudero by prior hospitalist Needs to follow up with gastrointestinal and oncology as outpatient DVT Px: SCDs Code Status Full Code Disposition SNF when arranged Waiting for placement Admission and Anticipated Discharge Date Admission Date: March 01, 2021 Subjective Patient is seen and examined at bedside No distress on exam No new complaints Denies chest pain, dyspnea, dizziness, nausea, abdominal pain Poor historian Review of Systems Review of Systems: All systems reviewed & are unremarkable except as noted in HPI & below Physical Exam Physical Exam: Physical Exam: Vitals signs as noted above General Appearance:Moderately built and nourished, no apparent distress Head: normocephalic, Atraumatic Eyes: normal inspection, EOMI Neck: supple, Trachea midline Respiratory/Chest: Normal breath sounds, CTA, No accessory muscle use Cardiovascular: S1, S2, No murmur Abdomen/GI:Soft, Non tender, Bowel sounds present Extremities/Musculoskeletal:normal inspection, no edema Neurologic/Psych:AAO, grossly no focal neurological deficits Skin: normal color, warm Results & Data Results & Data ([facility]) Vital Signs (Past 12 Hours) Vital Signs Temp Pulse Pulse Resp BP BP Pulse Ox 03/05/21 14:54 36.5 C 64 16 116/75 95 03/05/21 14:21 64 03/05/21 13:00 36.6 C 64 18 112/73 93 03/05/21 08:00 36.7 C 56 L 20 114/74 99 03/05/21 07:09 59 L Laboratory Results [facility] 03/05/21 06:16 Sodium 138 Potassium 3.5 Chloride 106 Carbon Dioxide 26 BUN 15 Creatinine 0.93 Glucose 89 Calcium 8.8
[2021-03-06] MEDS: INSULIN ASPART 100 UNITS/ML 3 ML PEN SC SCH ×3 (07:55→16:31)
[2021-03-06] MEDS: ASPIRIN 81 MG ECTAB PO SCH (08:30)
[2021-03-06] MEDS: AMANTADINE HCL 100 MG CAPSULE PO SCH ×2 (08:30→22:48)
[2021-03-06] MEDS: haloperidoL 5 MG TAB PO SCH ×2 (08:30→22:48)
[2021-03-06 09:26] LABS: BUN Creatinine Ratio 20.4 (10-20); Calcium 9.3 mg/dl (8.5-10.1); Creatinine Clr Calc Pharmacy 88.2 ml/min; Est GFR (African American) 103.3 ml/min; Est GFR (Non-African American) 89.2 ml/min
--- NOTE | 2021-03-06 15:58 | Hospitalist Progress Note ---
Date of Service March 06, 2021 Assessment & Plan (1) Weakness: Patient is a 70 yr male with H/O Paranoid schizophrenia who was recently in the hospital for unresponsive syncopal episode, was discharged back home, presents with similar complaints. Syncope /unresponsive episode Likely secondary to medication noncompliance/misuse CT Head: No acute intracranial findings Fall precautions Resolved General deconditioning Ambulatory dysfunction Patient had multiple attempts to reintegrate with community but failed Appreciate psychiatry input Family no longer able to care for the patient PT OT:Recommends SNF Unsafe to be discharged home Will likely need permanent placement Case management to help with discharge planning Plan to discharge when placement available Paranoid schizophrenia: Continue home medications Appreciate psychiatry input DM II HbA1C:5.2 Hold PO meds Continue ISS while hospitalized H/O Occasional tremors. H/O Hypertension Continue home meds Neuroendocrine tumor: CT imaging reviewed and discussed with Dr.Nilesh Escudero by prior hospitalist Needs to follow up with gastrointestinal and oncology as outpatient DVT Px: SCDs Code Status Full Code Disposition SNF when arranged Waiting for placement Admission and Anticipated Discharge Date Admission Date: March 01, 2021 Subjective Patient is seen and examined at bedside Lying comfortably Afebrile Waiting for placement Denies chest pain, dyspnea, dizziness, nausea, abdominal pain Review of Systems Review of Systems: All systems reviewed & are unremarkable except as noted in HPI & below Physical Exam Physical Exam: Physical Exam: Vitals signs as noted above General Appearance:Moderately built and nourished, no apparent distress Head: normocephalic, Atraumatic Eyes: normal inspection, EOMI Neck: supple, Trachea midline Respiratory/Chest: Normal breath sounds, CTA, No accessory muscle use Cardiovascular: S1, S2, No murmur Abdomen/GI:Soft, Non tender, Bowel sounds present Extremities/Musculoskeletal:normal inspection, no edema Neurologic/Psych:AAO, grossly no focal neurological deficits Skin: normal color, warm Results & Data Results & Data ([facility]) Vital Signs (Past 12 Hours) Vital Signs Temp Pulse Pulse Resp BP Pulse Ox 03/06/21 15:52 72 03/06/21 15:33 36.4 C L 83 22 136/78 99 03/06/21 11:28 36.4 C L 96 H 16 101/68 96 03/06/21 07:26 79 03/06/21 06:54 36.5 C 59 L 18 110/70 93 Laboratory Results BMP 03/06/21 03/06/21 08:13 09:45 Sodium 139 Potassium 3.7 Chloride 106 Carbon Dioxide 29 BUN 17 Creatinine 0.83 Glucose 110 H Calcium 9.3
--- NOTE | 2021-03-06 21:32 | Communication Note ---
Date of Service: March 06, 2021 Notified by RN around 9:20 PM of patient gurgling speech and right facial droop. Patient last known to be well around 7 PM as per RN. BSG 110s No prior episodes as per patient. I do not feel well as per patient. No chest pain, no S OB, no headache. PPE Dysarthric Right nasolabial fold flattening Chronic rest tremors AP Possible CVA Stroke alert called. ICU transfer pending telestroke evaluation CT head initial read: No acute intracranial abnormality identified. Stable mild chronic small vessel ischemic disease and cerebral volume loss. Polyp versus mucous retention cyst in the right maxillary sinus. Atherosclerotic calcifications of the intracranial vasculature. Case discussed with [facility] [place] specialist (Dr. Arellano) who recommends IV TPA administration. Earlier conversation with patient who is agreeable with IV TPA if recommended by specialist for possible acute stroke given potential complications of bleeding and from treatment. Patient sister updated over the phone of developments. Will relay to AM provider.
[2021-03-06 21:57] LABS: Basophils # (auto) 0.01 K/uL (0-0.2); Basophils % (auto) 0.2 %; Eosinophils # (auto) 0.25 K/uL (0-0.5); Eosinophils % (auto) 3.8 %; Hemoglobin 15.1 g/dL (14.0-18.0); Immature Granulocytes # (auto) 0.01 K/uL (0.00-0.02); Immature Granulocytes % (auto) 0.2 %; Lymphocytes # (auto) 1.88 K/uL (1.2-3.4); Lymphocytes % (auto) 28.7 %; Mean Corpuscular Hgb Conc 35.1 g/dL (32-36); Mean Corpuscular Volume 91.1 fL (80-100); Mean Platelet Volume 9.6 fL (7.4-10.4); Monocytes # (auto) 0.65 K/uL (0.11-0.59); Monocytes % (auto) 9.9 %; Neutrophils # (auto) 3.76 K/uL (1.4-6.5); Neutrophils % (auto) 57.2 %; Platelet Count 183 K/uL (130-400); RDW Coefficient of Variation 12.6 % (11.5-14.5); RDW Standard Deviation 42.1 fL (36.4-46.3); Red Blood Count 4.72 M/uL (4.7-6.1); White Blood Count 6.56 K/uL (4.8-10.8)
[2021-03-06] MEDS ORDERED: LACTATED RINGER'S 1,000 ML IV ONE (22:09)
[2021-03-06 22:10] LABS: Partial Thromboplastin Ratio 0.9; Partial Thromboplastin Time 23.4 Seconds (21.0-31.0)
[2021-03-06] MEDS ORDERED: TPA for Stroke IV STA (22:17)
[2021-03-06] MEDS ORDERED: PRIMARY PLUMSET, PE LINED TUBING, 113 IN, NON-DEHP (2260-0500) IV ONE (22:28)
[2021-03-06] MEDS ORDERED: ALTEPLASE, RECOMBINANT 72 MG in EMPTY BAG 0 ML IV ONE (22:30)
[2021-03-06] MEDS ORDERED: Alteplase Bolus 8 MG in SYRINGE 0 ML IV ONE (22:30)
[2021-03-06] MEDS ORDERED: No Aspirin within 24 hrs of TPA for Stroke PO SCH (22:30)
[2021-03-06] MEDS ORDERED: PHARMACIST DISCHARGE MED REC CONSULT PRN (22:38)
[2021-03-06] MEDS ORDERED: CARBOHYDRATES FOR HYPOGLYCEMIA PO PRN (22:38)
[2021-03-06] MEDS ORDERED: DEXTROSE 50% 50 ML SYRINGE IV PRN (22:38)
[2021-03-06] MEDS ORDERED: GLUCOSE 10 TABS/TUBE PO PRN (22:38)
[2021-03-06] MEDS ORDERED: GLUCAGON FOR INJ 1 MG VIAL SQ PRN (22:38)
[2021-03-06] MEDS ORDERED: GLUCOSE 40% GEL 15 GM TUBE PO PRN (22:38)
[2021-03-06] MEDS ORDERED: PROMETHAZINE HCL 12.5 MG in SODIUM CHLORIDE 0.9% 50 ML IV PRN (23:15)
[2021-03-06] MEDS ORDERED: OPTIRAY 320 125ml IV ONE (23:28)
--- NOTE | 2021-03-06 23:47 | Critical Care Consultation ---
Date of Consultation March 06, 2021 Assessment & Plan (1) Acute CVA (cerebrovascular accident): Reason Critically Ill: 70-year-old male presents to the ICU as a code stroke with presumed acute CVA and status post TPA administration at 2235. Neuro - Acute CVA (presumed)neurological exam as above. Patient received TPA at 2236 -CT head without contrast without acute intracranial findings -CTA head and neck pending read -Follow-up MRI -Last A1c 5.2, follow-up lipid panel in a.m. -Follow-up echo -Patient previously on aspirin. Will follow up with neurology recommendations concerning addition of Plavix -Monitor in ICU per 24-hour post TPA protocol. Follow-up CT head at 24 hours post TPA Syncopal eventsappears to be resolved and has been attributed to patient's noncompliance with medications. Per previous charting he was awaiting placement at SNF as patient's family is no longer able to provide care. Cardiac - HLD/HTNcan hold p.o. meds for the time being with permissive hypertension for SBP less than 180 Monitor in ICU on telemetry Respiratory - Apneano known prior history and unsure if this is neurological from an acute CVA. We will follow up imaging -Emphysema-like changes of the lung noted on CT. No known diagnosis of COPD and no home meds -Patient appears to be tight in the airway and is maintaining oxygen saturations on room air. -Continuous monitoring on pulse ox in ICU. No current indication for invasive airway or BiPAP at that time as these episodes are relatively short without desaturation. We will certainly continue to monitor closely and if patient were to decompensate may require intubation. GI - N.p.o. until evaluated by speech RENAL/LYTES - Continue IV fluid resuscitation while n.p.o. Creatinine within normal limits, monitor routine BMPs replete electrolytes as indicated - Strict I's and O's ENDO - DM type II? (controlled)last hemoglobin A1c 5.2 -Patient normally takes pioglitazone, will transition to sliding scale -ICU hyperglycemic protocol HEME - H&H stable, monitor for bleeding following TPA administration Routine CBCs ID - No indication for infectious process at this time LINES/IV ACCESS - Peripheral IVs DVT PROPHYLAXIS - SCDs, no anticoagulation following TPA administration for 24-hour I have personally spent 38 minutes of critical care time in the direct management of this patient. This is a life/limb threatening event. This includes time spent evaluating patient, direct bedside care, chart review, placing orders, interpretation of diagnostic studies, discussion with consultants, patient, and family members, as well as other required patient management activities. This time is exclusive of all separately billable procedures, and teaching time and separate from and in addition to any other critical care service time. Thank you for allowing us to participate in the care of this patient. Please refer to my attending physician's documentation for any further recommendations. (2) DMII (diabetes mellitus, type 2): (3) Neuroendocrine tumor: (4) Stroke-like symptom: (5) Near syncope: (6) S/P AAA repair: (7) Hyperlipidemia: (8) Hypertension: (9) Schizophrenia: History of Present Illness Attending Physician: Howard Swartz MD History of Present Illness Patient is a 70-year-old male with PMH including HLD, HTN, paranoid schizophrenia, tobacco abuse, AAA repair with stent graft, ventral hernia repair, and DM type II who initially presented to the emergency department on 03/01 for syncopal event. This was thought to be attributed to noncompliance with home meds and failure to thrive. Patient was awaiting placement in a SNF. This evening patient developed acute onset of dysarthria and right-sided facial droop. Last known normal around 1900. Stroke alert was initiated and patient was taken for CT head which was negative for acute intracranial findings. Initial NIH score of 2. Patient was taken to the ICU and evaluated by telene urology who recommended TPA. TPA administered at 2236. CTA head and neck pending. On exam patient is alert and oriented and is showing mild dysarthria but otherwise normal neurological exam. He is noted to have intermittent episodes of apnea which was noted initially on his neurological exam and is reported to be significantly improving by nursing staff. I do not feel that his airway is compromised at this point and will continue to monitor. There is some concern for posterior infarct given symptoms. His CTA head and neck are still pending read. Patient will also get an MRI. Currently patient denies pain, headache, dizziness, syncope, nausea or vomiting, shortness of breath, wheezing, sore throat, cough, chest pain, palpitations, abdominal pain, swelling in hands and feet. He denies neurological symptoms including weakness or numbness in extremities. Patient to remain in ICU for time being following 24-hour TPA protocol. Allergies Allergy/AdvReac Type Severity Reaction Status Date / Time No Known Allergies Allergy Unknown Verified 03/01/21 18:38 Home Medications Medication Instructions Recorded Confirmed Type Invega Sustenna 234 mg IM MONTHLY 10/08/19 03/01/21 History pioglitazone 30 mg PO DAILY 10/08/19 03/01/21 History amantadine HCl 100 mg PO BID 08/10/20 03/01/21 History aspirin 81 mg PO DAILY 02/13/21 03/01/21 History haloperidol 10 mg PO QAM 02/13/21 03/01/21 History haloperidol 20 mg PO HS 02/13/21 03/01/21 History Patient History Medical History (Updated 03/06/21 @ 23:45 by MACHO Liu) Abdominal aortic aneurysm (AAA) >39 mm diameter Homicidal ideation Noncompliance with medications Paranoid schizophrenia Psychosis Schizophrenia Suicide ideation Family History Other Family history non-contributory Social History Smoking Status: Never smoker Cigarettes Per Day: 1 pack; Hx Alcohol Use: No Hx Substance Use: No Preferred Language: Armenian Communication Ability: Impaired Dbas Required: No Beliefs That Will Affect Care: None Current Living Situation: Parent Feels Safe at Home: Yes Safety Concerns: Feels Safe At This Time Assistive Devices: None Review of Systems Review of Systems: All systems reviewed & are unremarkable except as noted in HPI & below Physical Exam Constitutional: cooperative and comfortable Eyes: PERRL, conjunctivae normal, anicteric sclerae ENMT: external ear and nose normal, oropharynx normal Neck: trachea midline, no thyromegaly Respiratory: normal respiratory effort, lungs clear to auscultation Cardiovascular: RRR, no murmur, no edema Heart Sounds: normal S1 and normal S2 Vessels: no JVD Extremities: normal capillary refill; no edema Gastrointestinal (Abdomen): normal bowel sounds, soft, nontender, no hepatosplenomegaly Musculoskeletal: no cyanosis or clubbing, extremities motor strength 5/5 Skin: no rashes, warm and dry Neurologic: Patient with mild dysarthria. Patient alert and oriented. Cranial nerves intact. Equal strength and sensation bilaterally. Psychiatric: A+Ox3, euthymic affect Results & Data Results & Data ([facility]) Vital Signs (Past 12 Hours) Vital Signs Temp Pulse Pulse Resp BP Pulse Ox 03/06/21 21:27 36.3 C L 69 18 113/69 96 03/06/21 19:06 36.4 C L 79 18 112/74 97 03/06/21 15:52 72 03/06/21 15:33 36.4 C L 83 22 136/78 99 Coding Level of Care Code Critical Care 1st 30-74 mins Diagnoses Acute CVA (cerebrovascular accident) I63.9 DMII (diabetes mellitus, type 2) E11.9 Neuroendocrine tumor D3A.8 Stroke-like symptom R29.90 Near syncope R55 S/P AAA repair Z98.890; Z86.79 Hyperlipidemia E78.5 Hypertension I10 Schizophrenia F20.9
[2021-03-07] MEDS: INSULIN ASPART 100 UNITS/ML 3 ML PEN SC SCH ×6 (02:02→20:25)
[2021-03-07] MEDS ORDERED: LACTATED RINGER'S 1,000 ML IV SCH (03:10)
[2021-03-07 05:44] LABS: Basophils # (auto) 0.02 K/uL (0-0.2); Basophils % (auto) 0.3 %; Eosinophils % (auto) 3.1 %; Hematocrit (blood only) 45.4 % (42-52); Hemoglobin 15.6 g/dL (14.0-18.0); Immature Granulocytes # (auto) 0.01 K/uL (0.00-0.02); Immature Granulocytes % (auto) 0.2 %; Lymphocytes # (auto) 1.54 K/uL (1.2-3.4); Lymphocytes % (auto) 23.8 %; Mean Corpuscular Hemoglobin 31.9 pg (25-34); Mean Corpuscular Hgb Conc 34.4 g/dL (32-36); Mean Corpuscular Volume 92.8 fL (80-100); Mean Platelet Volume 9.7 fL (7.4-10.4); Monocytes # (auto) 0.57 K/uL (0.11-0.59); Monocytes % (auto) 8.8 %; Neutrophils # (auto) 4.12 K/uL (1.4-6.5); Neutrophils % (auto) 63.8 %; Platelet Count 155 K/uL (130-400); RDW Coefficient of Variation 12.8 % (11.5-14.5); RDW Standard Deviation 43.4 fL (36.4-46.3); Red Blood Count 4.89 M/uL (4.7-6.1); White Blood Count 6.46 K/uL (4.8-10.8)
[2021-03-07 05:48] LABS: BUN Creatinine Ratio 25.7 (10-20); Calcium 8.6 mg/dl (8.5-10.1); Creatinine Clr Calc Pharmacy 103.1 ml/min; Est GFR (African American) 110.2 ml/min; Est GFR (Non-African American) 95.1 ml/min; Magnesium 1.9 mg/dl (1.8-2.4); Potassium 3.7 mmol/L (3.5-5.1)
[2021-03-07 05:51] LABS: Phosphorus 3.4 mg/dl (2.5-4.9)
[2021-03-07] MEDS ORDERED: MAGNESIUM SULFATE / D5W 1 GM/100 ML BAG IV ONE (06:30)
[2021-03-07] MEDS: POTASSIUM CHLORIDE / WTR 10 MEQ/100 ML PLCT IV SCH ×2 (06:32→07:35)
--- NOTE | 2021-03-07 07:03 | Magnetic Resonance Report ---
MRI OF THE BRAIN WITHOUT IV CONTRAST CLINICAL HISTORY: Strokelike symptoms. COMPARISON STUDY: CT of the brain dated 03/06/2021. TECHNIQUE: MRI of the brain was performed utilizing various T1 and T2-weighted sequences in the axial , sagittal, and coronal planes. IV contrast was not administered for this examination. The examinatio n is modestly degraded by motion artifact. FINDINGS: Brain parenchyma: There is age-related involutional change noting minimal microangiopathic disease. T here is no hemorrhage or mass effect. There is no restricted diffusion to suggest acute ischemia. Gra y-white matter differentiation is preserved. No extra-axial fluid collection is seen. The cerebellar tonsils are normal in configuration. Ventricles, sulci, and cisterns: Prominent secondary to involutional change. Pituitary and sella: Unremarkable. Intracranial vasculature: Normal flow voids are maintained at the skull base. Orbits: The bony orbits are grossly intact. Orbital contents are normal in appearance. Sinuses and mastoids: Clear. Calvarium: Unremarkable. Cervical cord: Partially visualized cervical spinal cord is normal in morphology and signal intensity . IMPRESSION: No acute intracranial abnormality. ACT 112: Negative or not required by law. Electronically signed by: Ad George M.D. 03/07/2021 7:02 AM
--- NOTE | 2021-03-07 07:10 | CT Scan Report ---
CT SCAN OF THE BRAIN WITHOUT IV CONTRAST CLINICAL HISTORY: Strokelike symptoms. Right-sided facial droop. COMPARISON STUDY: CT of the brain dated 03/01/2021. TECHNIQUE: Unenhanced axial CT scan of the brain is performed from the vertex to the skull base. A do se lowering technique was utilized adhering to the principles of ALARA. CT DOSE: 955.79 mGy.cm FINDINGS: Brain parenchyma: There are age-related involutional changes noting minimal microangiopathic change. There is no hemorrhage, mass effect, or evidence of acute territorial ischemia by CT criteria. Boyd- white matter differentiation is preserved. No extra-axial fluid collection is seen. Ventricles, sulci, cisterns: Prominent secondary to involutional change. Intracranial vasculature: There is mild atherosclerotic calcification of the cavernous carotid arteri es. Calvarium: Unremarkable. Sinuses and mastoids: The visualized paranasal sinuses are clear. The mastoid air cells are well pneu matized. Orbits: The bony orbits are grossly intact. IMPRESSION: There is no hemorrhage, mass effect, or evidence of acute territorial ischemia by CT nata phan. ACT 112: Negative or not required by law. Electronically signed by: Ad George M.D. 03/07/2021 7:08 AM
--- NOTE | 2021-03-07 08:28 | CT Scan Report ---
HEAD & NECK CTA HISTORY: Right-sided facial droop. TECHNIQUE: Multiaxial CT images of the head were performed following the intravenous administration o f contrast to evaluate the major cerebral vessels. Multiaxial CT images of the neck were also perform ed following the intravenous administration of contrast to evaluate the major cervical vessels. Maxim um intensity projection images were also obtained. A dose lowering technique was utilized adhering to the principles of ALARA. COMPARISON: Head CT 03/06/2021. FINDINGS: There is no mass, hematoma, midline shift, or acute infarct. Visualized intracranial internal carotid arteries, distal vertebral arteries, and basilar artery are widely patent. There is no significant s tenosis, occlusion, or aneurysm seen within the bilateral ACAs, MCAs, or hand chain maker. The aortic arch and proximal great vessels are widely patent. There is no significant stenosis, occ lusion, or dissection identified within the bilateral common carotid, internal carotid, or vertebral arteries. IMPRESSION: 1. No significant stenosis, occlusion, or aneurysm within the [place]. 2. No significant stenosis, occlusion, or dissection identified within the carotid or vertebral arter ies. ACT 112: Negative or not required by law. Electronically signed by: Ji Flynn M.D. 03/07/2021 8:27 AM
--- NOTE | 2021-03-07 08:28 | CT Scan Report ---
HEAD & NECK CTA HISTORY: Right-sided facial droop. TECHNIQUE: Multiaxial CT images of the head were performed following the intravenous administration o f contrast to evaluate the major cerebral vessels. Multiaxial CT images of the neck were also perform ed following the intravenous administration of contrast to evaluate the major cervical vessels. Maxim um intensity projection images were also obtained. A dose lowering technique was utilized adhering to the principles of ALARA. COMPARISON: Head CT 03/06/2021. FINDINGS: There is no mass, hematoma, midline shift, or acute infarct. Visualized intracranial internal carotid arteries, distal vertebral arteries, and basilar artery are widely patent. There is no significant s tenosis, occlusion, or aneurysm seen within the bilateral ACAs, MCAs, or customer acquisition specialist. The aortic arch and proximal great vessels are widely patent. There is no significant stenosis, occ lusion, or dissection identified within the bilateral common carotid, internal carotid, or vertebral arteries. IMPRESSION: 1. No significant stenosis, occlusion, or aneurysm within the [place]. 2. No significant stenosis, occlusion, or dissection identified within the carotid or vertebral arter ies. ACT 112: Negative or not required by law. Electronically signed by: Ji Flynn M.D. 03/07/2021 8:27 AM
--- NOTE | 2021-03-07 09:11 | Critical Care Progress Note ---
Date of Service March 07, 2021 Assessment & Plan (1) TIA (transient ischemic attack): Reason Critically Ill: 70-year-old male transferred from floor to the ICU as a code stroke with presumed acute CVA and status post TPA administration at 2236 03/06/21. --Presumed acute CVA S/p TPA 03/06/2021, 2235 CT head negative MRI of the brain negative Follow-up 2D echo Neuro check every 4 hours Aspiration precautions. Repeat CT head around 10 PM today. Follow-up neurology recommendation --Schizophrenia On haloperidol at home --COPD with emphysema Not on any medications at home PFT as an outpatient would be thought of On discharge can start the patient on Incruse --Diabetes type 2 ICU hyperglycemia protocol --Multiple pulmonary nodules 6 mm Patient was ex-smoker quit long time ago Can monitor on an yearly basis --Prophylaxis VTE: IPC's GI: None Lines: Peripheral Diet: N.p.o. Plan: In/out: +901, urine output 1351 Swallow eval Can start aspirin with addition of Plavix after the repeat CT is negative Follow-up neurology recommendation Can be transitioned out of the ICU repeat CT is negative Please note the above document was generated using voice recognition software. It may contain grammatical, syntax or spelling errors.Any formal questions or concerns about the content, text or information contained within the body of this dictation should be directly addressed to the provider for clarification. (2) Stroke-like symptom: (3) Schizophrenia: (4) Admitted to intensive care unit: Admission and Anticipated Discharge Date Admission Date: March 01, 2021 Subjective Patient seen and examined at bedside. No acute distress, no adverse events overnight. Denies any headache, no nausea, no vomiting. No chest pain, no shortness of breath. States that he is doing better. Review of Systems Review of Systems: All systems reviewed & are unremarkable except as noted in Subjective Physical Exam Physical Exam: Constitutional: No acute distress HEENT: EOMI, PERRLA Respiratory system: Good air entry bilaterally, no wheeze, no rhonchi, no crackles CVS: S1-S2 positive, no murmurs or gallops Abdomen: Soft, nontender, nondistended, positive bowel sounds x4 Extremities: +2 pulses bilaterally radialis/ dorsalis pedis, no cyanosis, no edema, strength 5/5 bilateral upper and lower extremity, cranial nerves II to XII grossly intact Patient has resting tremors bilateral upper extremity. It resolves when we are talking to the patient. Neuro: Awake alert oriented x3 Psych: Normal mood and affect G/U: No [place] Skin: no rashes, warm and dry Lymphatic: no cervical or axillary lymphadenopathy Results & Data Results & Data ([facility]) Vital Signs (Past 12 Hours) Vital Signs Temp Pulse Pulse Resp BP BP Pulse Ox 03/07/21 07:34 36.6 C 77 14 130/72 94 03/07/21 06:34 36.7 C 68 16 122/75 96 03/07/21 06:04 36.6 C 71 18 133/81 98 03/07/21 05:34 36.6 C 71 16 107/65 98 03/07/21 05:04 36.6 C 69 16 112/79 98 03/07/21 04:34 36.6 C 67 16 114/71 99 03/07/21 04:04 36.6 C 67 16 128/79 99 03/07/21 03:34 36.6 C 64 16 121/74 99 03/07/21 03:04 36.6 C 87 16 127/77 100 03/07/21 02:34 36.4 C L 87 16 126/75 99 03/07/21 02:04 36.6 C 89 20 128/72 98 03/07/21 01:34 36.4 C L 73 16 137/78 100 03/07/21 01:04 36.5 C 72 14 134/72 97 03/07/21 00:34 36.6 C 71 14 140/83 98 03/07/21 00:19 36.6 C 73 16 132/79 96 03/07/21 00:04 36.5 C 73 14 134/72 97 03/06/21 23:59 75 03/06/21 23:49 36.6 C 74 16 132/79 98 03/06/21 23:34 36.4 C L 74 15 123/73 95 03/06/21 23:19 36.4 C L 78 16 119/78 91 03/06/21 23:07 03/06/21 23:05 79 03/06/21 23:04 36.6 C 77 16 119/68 97 03/06/21 22:49 36.6 C 68 16 103/71 98 03/06/21 22:37 36.4 C L 70 16 134/80 90 03/06/21 21:27 36.3 C L 69 18 113/69 96 Pulse Ox 03/07/21 07:34 03/07/21 06:34 03/07/21 06:04 03/07/21 05:34 03/07/21 05:04 03/07/21 04:34 03/07/21 04:04 03/07/21 03:34 03/07/21 03:04 03/07/21 02:34 03/07/21 02:04 03/07/21 01:34 03/07/21 01:04 03/07/21 00:34 03/07/21 00:19 03/07/21 00:04 03/06/21 23:59 03/06/21 23:49 03/06/21 23:34 03/06/21 23:19 03/06/21 23:07 98 03/06/21 23:05 03/06/21 23:04 03/06/21 22:49 03/06/21 22:37 03/06/21 21:27 03/07/21 05:15 03/07/21 05:15 Coding Level of Care Code 16291 Subseq Hosp Care Lvl 3 Diagnoses TIA (transient ischemic attack) G45.9 Stroke-like symptom R29.90 Schizophrenia F20.9 Admitted to intensive care unit Z78.9
[2021-03-07] MEDS: AMANTADINE HCL 100 MG CAPSULE PO SCH ×2 (09:41→20:24)
[2021-03-07] MEDS ORDERED: Nursing to Pharmacy Communication SCH (09:45)
[2021-03-07] MEDS: haloperidoL 5 MG TAB PO SCH ×2 (10:25→20:24)
[2021-03-07] MEDS: ATORVASTATIN 40 MG TAB PO SCH (10:25)
[2021-03-07] MEDS ORDERED: BENZTROPINE MESYLATE 1 MG/ML 2 ML AMP IV PRN (12:08)
--- NOTE | 2021-03-07 12:21 | Psychiatric Progress Note ---
Date of Service March 07, 2021 Impression / Recommendations Impression Patient is a 70-year-old male with schizophrenia, paranoid delusions at baseline with EPS on combo of Invega and Haldol. Nl EEG last hospitalization does not necessarily rule out seizure, what he is describing last night somewhat suspicious for partial seizure, obviously could also be atypical dystonic reaction despite mid-higher range amantadine dosing. Doubt catatonia as so transient but remains in differential. Will start Haldol taper (10 mg am, 15 mg hs) as was not aggressive during last hospital course and monitor for recurrence. Should he have another spell I'd suggest IV Cogentin 1 mg stat. If ineffective, consider Ativan but hate to give if already appears obtunded unless challenge for more lasting catatonic features. Dr. Swartz updated re: recs/orders. Risk Factors Assessment Male: Yes : Yes Do You Have Access To A Gun?: No Mental Health Diagnoses: Yes Substance Use Disorders: No Hopelessness: No Protective Factors Assessment Stable Relationships: Yes Supportive Family: Yes Interval History Chief Complaint "I knew what was happening I just couldn't talk". Review of Systems Notes tremor, ate well, no sedation this am. cooperative with meds. Subjective Subjective Patient was seen & assessed and interval progress reviewed with liaison, interval history reviewed, patient known to me from last hospital stay, 90+ yo father having difficulty caring for patient at home so only out of hospital briefly. Clearly has some longstanding Parkinsonian symptoms from high dose antipsychotic medications despite amantadine. Haldol was maintained at 30 mg daily last stay following consultation with outpatient psychiatrist and plan to return home as exhausted options. Now readmit, more deconditioned. Period of decreased responsiveness last night, drooling and facial droop. Patient more reality focussed in conversation today but reports belief that his father is hospitalized following a large March 06 gathering (this would need to be confirmed with family". States that he was drooling and couldn't speak but was aware of nurses talking to him/etc. last pm. States wasn't as bad as episodes at home labelled syncope. Physical Exam Psychiatric Orientation: alert, oriented to person and oriented to place Apperance: + disheveled Eye Contact: + fair eye contact Motor Behavior: + tremor poor articulation at times, no visible drooling or facial droop. Affect: + flat affect "I'm fine just let me know next steps" Thought Process: + concrete thought process Thought Content: + delusions Suicidal Thoughts: denies suicidal thoughts Homicidal Thoughts: denies homicidal thoughts Hallucinations: no auditory hallucinations and no visual hallucinations Cognition: attention grossly intact and language grossly intact Insight: + poor insight Judgement: + poor judgement Vital Signs (Past 24 Hours) Last Vital Signs Temp 36.6 C 03/07/21 07:34 Pulse 77 03/07/21 07:34 Resp 14 03/07/21 07:34 BP 130/72 03/07/21 07:34 Pulse Ox 94 03/07/21 07:34 Results & Data ([facility]) Laboratory Results Laboratory Results - last 24 hr 03/06/21 03/06/21 03/06/21 16:22 20:20 21:28 WBC RBC Hgb Hct MCV MCH MCHC RDW Std Deviation RDW Coeff of Nerissa Plt Count MPV Immature Gran % (Auto) Neut % (Auto) Lymph % (Auto) [place] % (Auto) Eos % (Auto) Baso % (Auto) Neut # (Auto) Lymph # (Auto) [place] # (Auto) Eos # (Auto) Baso # (Auto) Immature Gran # (Auto) APTT PTT Ratio Sodium Potassium Chloride Carbon Dioxide Anion Gap BUN Creatinine Est Cr Clr Drug Dosing Est GFR ( Amer) Est GFR (Non-Af Amer) BUN/Creatinine Ratio Glucose POC Glucose 114 H 111 H 105 H Calcium Phosphorus Magnesium Triglycerides Cholesterol LDL Cholesterol, Calc VLDL Cholesterol, Calc HDL Cholesterol Cholesterol/HDL Ratio Nasal Screen MRSA (PCR) 03/06/21 03/06/21 03/06/21 21:42 21:42 21:42 WBC 6.56 RBC 4.72 Hgb 15.1 Hct 43.0 MCV 91.1 MCH 32.0 MCHC 35.1 RDW Std Deviation 42.1 RDW Coeff of Nerissa 12.6 Plt Count 183 MPV 9.6 Immature Gran % (Auto) 0.2 Neut % (Auto) 57.2 Lymph % (Auto) 28.7 [place] % (Auto) 9.9 Eos % (Auto) 3.8 Baso % (Auto) 0.2 Neut # (Auto) 3.76 Lymph # (Auto) 1.88 [place] # (Auto) 0.65 H Eos # (Auto) 0.25 Baso # (Auto) 0.01 Immature Gran # (Auto) 0.01 APTT 23.4 PTT Ratio 0.9 Sodium Potassium Chloride Carbon Dioxide Anion Gap BUN Creatinine Est Cr Clr Drug Dosing Est GFR ( Amer) Est GFR (Non-Af Amer) BUN/Creatinine Ratio Glucose POC Glucose Calcium Phosphorus Magnesium 2.2 Triglycerides Cholesterol LDL Cholesterol, Calc VLDL Cholesterol, Calc HDL Cholesterol Cholesterol/HDL Ratio Nasal Screen MRSA (PCR) 03/06/21 03/07/21 03/07/21 23:32 05:15 05:15 WBC 6.46 RBC 4.89 Hgb 15.6 Hct 45.4 MCV 92.8 MCH 31.9 MCHC 34.4 RDW Std Deviation 43.4 RDW Coeff of Nerissa 12.8 Plt Count 155 MPV 9.7 Immature Gran % (Auto) 0.2 Neut % (Auto) 63.8 Lymph % (Auto) 23.8 [place] % (Auto) 8.8 Eos % (Auto) 3.1 Baso % (Auto) 0.3 Neut # (Auto) 4.12 Lymph # (Auto) 1.54 [place] # (Auto) 0.57 Eos # (Auto) 0.20 Baso # (Auto) 0.02 Immature Gran # (Auto) 0.01 APTT PTT Ratio Sodium 140 Potassium 3.7 Chloride 107 Carbon Dioxide 25 Anion Gap 8.0 BUN 18 Creatinine 0.71 Est Cr Clr Drug Dosing 103.1 Est GFR ( Amer) 110.2 Est GFR (Non-Af Amer) 95.1 BUN/Creatinine Ratio 25.7 H Glucose 95 POC Glucose Calcium 8.6 Phosphorus 3.4 Magnesium 1.9 Triglycerides 129 Cholesterol 185 LDL Cholesterol, Calc 122 VLDL Cholesterol, Calc 26 HDL Cholesterol 37 Cholesterol/HDL Ratio 5 Nasal Screen MRSA (PCR) Negative 03/07/21 03/07/21 06:07 11:06 WBC RBC Hgb Hct MCV MCH MCHC RDW Std Deviation RDW Coeff of Nerissa Plt Count MPV Immature Gran % (Auto) Neut % (Auto) Lymph % (Auto) [place] % (Auto) Eos % (Auto) Baso % (Auto) Neut # (Auto) Lymph # (Auto) [place] # (Auto) Eos # (Auto) Baso # (Auto) Immature Gran # (Auto) APTT PTT Ratio Sodium Potassium Chloride Carbon Dioxide Anion Gap BUN Creatinine Est Cr Clr Drug Dosing Est GFR ( Amer) Est GFR (Non-Af Amer) BUN/Creatinine Ratio Glucose POC Glucose 114 H 145 H Calcium Phosphorus Magnesium Triglycerides Cholesterol LDL Cholesterol, Calc VLDL Cholesterol, Calc HDL Cholesterol Cholesterol/HDL Ratio Nasal Screen MRSA (PCR) Current Inpatient Medications Current Inpatient Medications: Current Inpatient Medications Acetaminophen (Acetaminophen 325 Mg Tab) 650 mg PO Q4H PRN PRN Reason: Pain or Fever Stop: 03/31/21 23:06 Last Admin: 03/04/21 08:37 Dose: 650 mg Documented by: Amantadine HCl (Amantadine Hcl 100 Mg Capsule) 100 mg PO BID [facility] Stop: 03/31/21 23:06 Last Admin: 03/07/21 09:41 Dose: 100 mg Documented by: Aspirin (Aspirin 81 Mg Ectab) 81 mg PO DAILY [facility] Stop: 04/01/21 08:59 Last Admin: 03/06/21 08:30 Dose: 81 mg Documented by: Aspirin (No Aspirin Within 24 Hrs Of Tpa For Stroke) 1 ea PO UD [facility] Stop: 03/07/21 22:29 Atorvastatin Calcium (Atorvastatin 40 Mg Tab) 40 mg PO QAM [facility] Stop: 04/06/21 08:59 Last Admin: 03/07/21 10:25 Dose: 40 mg Documented by: Benztropine Mesylate (Benztropine Mesylate 1 Mg/Ml 2 Ml Amp) 1 mg IV BID PRN PRN Reason: drooling/decreased responsiveness with muscle spasm Stop: 04/06/21 12:07 Dextrose (Dextrose 50% 50 Ml Syringe) 25 - 50 ml IV UD PRN; Protocol PRN Reason: Hypoglycemia Protocol Stop: 04/05/21 22:37 Glucagon (Glucagon For Inj 1 Mg Vial) 1 mg SQ UD PRN; Protocol PRN Reason: Hypoglycemia Protocol Stop: 04/05/21 22:37 Glucose (Glucose 10 Tabs/Tube) 4 - 8 tabs PO UD PRN; Protocol PRN Reason: Hypoglycemia Protocol Stop: 04/05/21 22:37 Glucose (Glucose 40% Gel 15 Gm Tube) 15 - 30 gm PO UD PRN; Protocol PRN Reason: Hypoglycemia Protocol Stop: 04/05/21 22:37 Haloperidol (Haloperidol 5 Mg Tab) 10 mg PO QAM [facility] Stop: 04/01/21 08:59 Last Admin: 03/07/21 10:25 Dose: 10 mg Documented by: Haloperidol (Haloperidol 5 Mg Tab) 15 mg PO HS [facility] Stop: 04/06/21 20:59 Promethazine HCl 12.5 mg/ (Sodium Chloride) 50.5 mls @ 202 mls/hr IV Q6H PRN PRN Reason: Nausea And Vomiting Stop: 04/05/21 23:14 Insulin Aspart (Insulin Aspart 100 Units/Ml 3 Ml Pen) 0 units SC ACHS [facility] Stop: 04/06/21 11:29 Miscellaneous (Carbohydrates For Hypoglycemia ) 15 - 30 gm PO UD PRN PRN Reason: Hypoglycemia Protocol Stop: 04/05/21 22:37 Miscellaneous Information (Pharmacist Discharge Med Rec Consult) 1 ea N/A UD PRN PRN Reason: Consult Stop: 04/05/21 22:37 Polyethylene Glycol (Polyethylene (Miralax) 17 Gm Pack) 17 gm PO DAILY PRN PRN Reason: Constipation Stop: 03/31/21 23:06
--- NOTE | 2021-03-07 14:34 | Consultation Report ---
DATE OF CONSULTATION: 03/07/2021. CHIEF COMPLAINT: Right facial droop, dysarthria. A 70-year-old male admitted to the hospital on 03/01/2021 for an unresponsive episode. Stroke alert was called last evening around 9:30 as the patient was found to have garbled speech and a right facial droop by nursing. His last known normal was yesterday at 7:00 p.m. His blood sugar was in the 110s. He has no prior history of similar symptoms. A stroke alert was called for dysarthria, right nasolabial fold flattening, and noted tremor. Telestroke consultation was performed and the patient received IV tPA. He was transferred to the ICU for post-tPA care. Of note, the patient was admitted for a syncopal/unresponsive episode a few days prior. He does have a history of paranoid schizophrenia. He has been discharged in the past for an unresponsive syncopal episode. He was discharged back to home and then presented for similar complaint. He also has generalized deconditioning including ambulatory dysfunction. Psychiatry has been consulted. Other pertinent past medical history includes type 2 diabetes as well as tremors. ALLERGIES: No known allergies. MEDICATIONS: Amantadine 100 mg twice daily, aspirin 81 mg daily, haloperidol 10 mg in the morning and 20 mg at night, Invega 230 mg intramuscular monthly. PAST MEDICAL HISTORY: Hyperlipidemia, hypertension, paranoid schizophrenia, tobacco use disorder, status post AAA repair, diabetes, unresponsive episode. PAST SURGICAL HISTORY: Balloon angioplasty of the right proximal common iliac artery with stent placement in 06/2020, abdominal aortic aneurysm repair using a single graft in [place] in 09/2019, ventral hernia repair in 09/2019, reconstructive knee surgery in 1970. FAMILY HISTORY: No known pertinent family history. SOCIAL HISTORY: He smokes 1/4 pack a day for 40 years. No alcohol use. No drug use. REVIEW OF SYSTEMS: Pertinent for right facial droop and dysarthria. All other review of systems was negative except as noted above. PHYSICAL EXAMINATION: VITAL SIGNS: Blood pressure 130/72, pulse of 77, respiratory rate 14, temperature 36.6 degrees Celsius, oxygen saturations 94% on room air. Patient appears stated age, no distress. HEENT: His head is normocephalic and atraumatic. He has normal eyelids. Normal conjunctivae. NECK: Supple. RESPIRATORY: Normal respiratory effort. CARDIAC: Pulses are normal. ABDOMEN: Nondistended. SKIN: No skin rash. NEUROLOGIC: He is awake, alert, oriented to person, place, and time. His knowledge is appropriate. Comprehension is intact. He can repeat. He has no dysarthria. Eyes are midline. Extraocular muscles are intact. Pupils are symmetric. Face is symmetric. Facial sensation is intact. Intact hearing. Palate is symmetric. Good shoulder shrug. Tongue is midline. Gait evaluation, deferred. No ataxia with [id number] testing, upper extremity tremor, sensation is intact. Muscle tone is normal. Muscle exam no focal weakness. Reflexes show a negative Guerline sign and no ankle clonus. DIAGNOSTIC TESTING AND LABORATORY VALUES: WBC 6.46, hemoglobin 15.6, platelet count is 155. INR is pending. Sodium is 140, potassium 3.7, chloride is 107, carbon dioxide is 25, BUN is 18, creatinine 0.71, glucose is 95, magnesium is 1.9. LDL cholesterol is 122, HDL is 37. MRI of the brain without IV contrast showed no acute intracranial abnormality. Age related involutional change noting minimal microangiopathic disease. No hemorrhage or mass effect, no restricted diffusion to suggest acute ischemia. [place] white matter differentiation is preserved. Head and neck CTA showed no significant stenosis, occlusion or aneurysm within the [place]. No significant stenosis, occlusion or dissection within the carotid or vertebral arteries. Head CT noncontrast showed no hemorrhage, mass effect or evidence of acute territorial ischemia. ASSESSMENT AND PLAN: A 70-year-old male with a history of paranoid schizophrenia, hypertension, and hyperlipidemia, on aspirin with recent presumed transient ischemic attack, manifesting as a right facial droop and mild dysarthria. Symptoms have resolved. MRI of the brain was completed and shows no evidence of acute stroke. CTA of head and neck shows no high-grade stenosis or occlusion. Recommend dual antiplatelet therapy, aspirin 81 mg daily and Plavix 75 mg daily after repeat CT head noncontrast this evening. The patient will continue dual antiplatelet therapy for 21 days and then stop aspirin and continue Plavix indefinitely. Recommend starting a high-intensity statin, Lipitor 40 mg daily for secondary stroke prevention. Continue telemetry while patient is inpatient. Recent echocardiogram was completed this morning showed a normal ejection fraction of 60-65%, normal left ventricle. No cardiac source of embolism was identified. Otherwise, Neurology will follow up the results of his repeat CT head contrast 24 hours post-tPA. The patient can follow up with Neurology as an outpatient in 8 weeks. Please contact me with any additional questions or concerns. Job ID: [id number] MTDD
--- NOTE | 2021-03-07 16:44 | Hospitalist Progress Note ---
Date of Service March 07, 2021 Assessment & Plan (1) Weakness: Patient is a 70 yr male with H/O Paranoid schizophrenia who was recently in the hospital for unresponsive syncopal episode, was discharged back home, presents with similar complaints. Syncope /unresponsive episode Likely secondary to medication noncompliance/misuse CT Head: No acute intracranial findings Fall precautions Resolved Presumed TIA S/P TPA DD: Partial seizure, atypical dystonic reaction MRI Brain:No acute intracranial abnormality. -Head/Neck CTA: No significant stenosis, occlusion, or aneurysm within the [place]. No significant stenosis, occlusion, or dissection identified within the carotid or vertebral arteries. Dual antiplatelet therapy with aspirin, Plavix after repeat CT head-recommended by neurology Aspirin held for now Plan to repeat CT head post TPA when appropriate Started on Lipitor 40 mg daily Needs follow-up with neurology upon discharge General deconditioning Ambulatory dysfunction Patient had multiple attempts to reintegrate with community but failed Appreciate psychiatry input Family no longer able to care for the patient PT OT:Recommends SNF Unsafe to be discharged home Will likely need permanent placement Case management to help with discharge planning Plan to discharge when placement available Paranoid schizophrenia: Appreciate psychiatry input Haldol dose tapered down to 10 mg AM, 15 mg HS Patient has another dystonic reaction, plan for Cogentin 1 mg X 1, If ineffective Ativan DM II HbA1C:5.2 Hold PO meds Continue ISS while hospitalized H/O Occasional tremors. H/O Hypertension Continue home meds Neuroendocrine tumor: CT imaging reviewed and discussed with Dr.Nilesh Escudero by prior hospitalist Needs to follow up with gastrointestinal and oncology as outpatient DVT Px: SCDs post TPA Code Status Full Code Disposition SNF as able Admission and Anticipated Discharge Date Admission Date: March 01, 2021 Subjective Patient is seen and examined at bedside Received tPA overnight for presumed CVA No complaints this morning Offers no complaints In ICU post TPA Haldol being tapered by Psych Denies chest pain, dyspnea, dizziness, nausea, abdominal pain Review of Systems Review of Systems: All systems reviewed & are unremarkable except as noted in HPI & below Physical Exam Physical Exam: Physical Exam: Vitals signs as noted above General Appearance:Moderately built and nourished, no apparent distress Head: normocephalic, Atraumatic Eyes: normal inspection, EOMI Neck: supple, Trachea midline Respiratory/Chest: Normal breath sounds, CTA, No accessory muscle use Cardiovascular: S1, S2, No murmur Abdomen/GI:Soft, Non tender, Bowel sounds present Extremities/Musculoskeletal:normal inspection, no edema Neurologic/Psych:AAO, grossly no focal neurological deficits Skin: normal color, warm Results & Data Results & Data ([facility]) Vital Signs (Past 12 Hours) Vital Signs Temp Pulse Resp BP BP Pulse Ox 03/07/21 15:34 87 18 127/85 95 03/07/21 14:34 36.7 C 92 H 16 100/75 92 03/07/21 13:34 91 H 16 104/70 97 03/07/21 12:34 37.1 C 104 H 16 103/82 96 03/07/21 11:34 101 H 16 119/84 95 03/07/21 10:34 90 16 104/73 96 03/07/21 09:34 74 16 118/84 97 03/07/21 08:34 79 16 138/82 96 03/07/21 07:34 36.6 C 77 14 130/72 94 03/07/21 06:34 36.7 C 68 16 122/75 96 03/07/21 06:04 36.6 C 71 18 133/81 98 03/07/21 05:34 36.6 C 71 16 107/65 98 03/07/21 05:04 36.6 C 69 16 112/79 98 Laboratory Results Short CBC 03/06/21 03/07/21 Range/Units 21:42 05:15 WBC 6.56 6.46 (4.8-10.8) K/uL Hgb 15.1 15.6 (14.0-18.0) g/dL Hct 43.0 45.4 (42-52) % Plt Count 183 155 (130-400) K/uL BMP 03/07/21 05:15 Sodium 140 Potassium 3.7 Chloride 107 Carbon Dioxide 25 BUN 18 Creatinine 0.71 Glucose 95 Calcium 8.6
--- NOTE | 2021-03-07 17:24 | Electrocardiogram Report ---
Test Reason : Blood Pressure : / mmHG Vent. Rate : 069 BPM Atrial Rate : 069 BPM P-R Int : 162 ms QRS Dur : 098 ms QT Int : 384 ms P-R-T Axes : 027 -11 035 degrees QTc Int : 411 ms Normal sinus rhythm Cannot rule out Inferior infarct When compared with ECG of 03-MAR-2021 05:19, No significant change Confirmed by Luiz Max ([id number]) on 03/07/2021 5:24:11 PM Referred By: REFERRED SELF Confirmed By:Luiz Max
[2021-03-08 05:33] LABS: Basophils # (auto) 0.04 K/uL (0-0.2); Basophils % (auto) 0.7 %; Eosinophils # (auto) 0.28 K/uL (0-0.5); Eosinophils % (auto) 4.6 %; Hematocrit (blood only) 40.6 % (42-52); Hemoglobin 13.9 g/dL (14.0-18.0); Immature Granulocytes # (auto) 0.01 K/uL (0.00-0.02); Immature Granulocytes % (auto) 0.2 %; Lymphocytes # (auto) 1.69 K/uL (1.2-3.4); Lymphocytes % (auto) 27.6 %; Mean Corpuscular Hemoglobin 31.5 pg (25-34); Mean Corpuscular Hgb Conc 34.2 g/dL (32-36); Mean Corpuscular Volume 92.1 fL (80-100); Mean Platelet Volume 9.2 fL (7.4-10.4); Monocytes % (auto) 11.4 %; Neutrophils # (auto) 3.41 K/uL (1.4-6.5); Neutrophils % (auto) 55.5 %; Platelet Count 164 K/uL (130-400); RDW Coefficient of Variation 12.8 % (11.5-14.5); RDW Standard Deviation 43.3 fL (36.4-46.3); Red Blood Count 4.41 M/uL (4.7-6.1); White Blood Count 6.13 K/uL (4.8-10.8)
[2021-03-08 05:57] LABS: BUN Creatinine Ratio 22.4 (10-20); Calcium 8.4 mg/dl (8.5-10.1); Creatinine Clr Calc Pharmacy 85.1 ml/min; Est GFR (African American) 101.8 ml/min; Est GFR (Non-African American) 87.9 ml/min; Magnesium 2.2 mg/dl (1.8-2.4)
--- NOTE | 2021-03-08 07:27 | CT Scan Report ---
HEAD CT NONCONTRAST CT DOSE: 614.27 mGy.cm HISTORY: Stroke like symptoms. Post СВЕТЛАНА. TECHNIQUE: Multiaxial CT images of the head were performed without the use of intravenous contrast. A utomated exposure control was utilized for this study. A dose lowering technique was utilized adheri ng to the principles of ALARA. Comparison: Head CTA 03/06/2021. Findings: Small retention cyst within the right maxillary sinus. The calvarium and skull base are int act. The ventricles and sulci are within normal limits. There is no mass, hematoma, midline shift, or acute infarct. Impression: No acute intracranial abnormality. ACT 112: Negative or not required by law. Electronically signed by: Ji Flynn M.D. 03/08/2021 7:25 AM
[2021-03-08] MEDS: INSULIN ASPART 100 UNITS/ML 3 ML PEN SC SCH ×4 (07:39→20:56)
[2021-03-08] MEDS: CLOPIDOGREL BISULFATE 75 MG TAB PO SCH (09:23)
[2021-03-08] MEDS: ASPIRIN 81 MG ECTAB PO SCH (09:23)
[2021-03-08] MEDS: ATORVASTATIN 40 MG TAB PO SCH (09:23)
[2021-03-08] MEDS: AMANTADINE HCL 100 MG CAPSULE PO SCH ×2 (09:23→19:56)
[2021-03-08] MEDS: haloperidoL 5 MG TAB PO SCH ×2 (09:23→19:56)
--- NOTE | 2021-03-08 09:47 | Communication Note ---
Date of Service: March 08, 2021 interim chart review, liaison to sanna, compliant with Haldol 15 mg last night. Nursing identified significant desat overnight, didn't tolerate bipap well. Will continue to decrease hs Haldol to minimize sedation, perhaps tapering again tomorrow, must be done slowly to monitor for agitation and withdrawal dyskinesias.
[2021-03-08] MEDS ORDERED: CLOPIDOGREL BISULFATE 75 MG TAB PO SCH (10:51)
--- NOTE | 2021-03-08 13:05 | Hospitalist Progress Note ---
Date of Service March 08, 2021 Assessment & Plan (1) Weakness: Patient is a 70 yr male with H/O Paranoid schizophrenia who was recently in the hospital for unresponsive syncopal episode, was discharged back home, presents with similar complaints. Syncope /unresponsive episode Likely secondary to medication noncompliance/misuse CT Head: No acute intracranial findings Fall precautions Resolved Presumed TIA S/P TPA DD: Partial seizure, atypical dystonic reaction MRI Brain:No acute intracranial abnormality. -Head/Neck CTA: No significant stenosis, occlusion, or aneurysm within the [place]. No significant stenosis, occlusion, or dissection identified within the carotid or vertebral arteries. -Repeat CT head:No acute intracranial abnormality. Dual antiplatelet therapy with aspirin, Plavix Continue Lipitor 40 mg daily Needs follow-up with neurology upon discharge Denies any focal weakness General deconditioning Ambulatory dysfunction Patient had multiple attempts to reintegrate with community but failed Appreciate psychiatry input Family no longer able to care for the patient PT OT:Recommends SNF Unsafe to be discharged home Will likely need permanent placement Case management to help with discharge planning Plan to discharge when placement available Paranoid schizophrenia: Haldol dose tapered down to 10 mg AM, 15 mg HS Patient has another dystonic reaction, plan for Cogentin 1 mg X 1, If ineffective then Ativan Plan to titrate down Haldol to minimize sedation, EPS Appreciate psychiatry input DM II HbA1C:5.2 Hold PO meds Continue ISS while hospitalized H/O Occasional tremors. H/O Hypertension Continue home meds Neuroendocrine tumor: CT imaging reviewed and discussed with Dr.Nilesh Escudero by prior hospitalist Needs to follow up with gastrointestinal and oncology as outpatient DVT Px: SCDs post TPA Code Status Full Code Disposition SNF as able Admission and Anticipated Discharge Date Admission Date: March 01, 2021 Subjective Patient is seen and examined at bedside Offers no complaints Hypoxic overnight, saturating well on 2 liters Denies chest pain, dyspnea, dizziness, nausea, abdominal pain Plan to transfer out of ICU today Review of Systems Review of Systems: All systems reviewed & are unremarkable except as noted in HPI & below Physical Exam Physical Exam: Physical Exam: Vitals signs as noted above General Appearance:Moderately built and nourished, no apparent distress Head: normocephalic, Atraumatic Eyes: normal inspection, EOMI Neck: supple, Trachea midline Respiratory/Chest: Normal breath sounds, CTA, No accessory muscle use Cardiovascular: S1, S2, No murmur Abdomen/GI:Soft, Non tender, Bowel sounds present Extremities/Musculoskeletal:normal inspection, no edema Neurologic/Psych:AAO, grossly no focal neurological deficits Skin: normal color, warm Results & Data Results & Data ([facility]) Vital Signs (Past 12 Hours) Vital Signs Temp Pulse Pulse Resp BP BP Pulse Ox 03/08/21 10:00 89 16 117/66 97 03/08/21 09:00 81 17 114/70 95 03/08/21 08:00 77 20 131/82 95 03/08/21 07:00 67 19 130/67 97 03/08/21 06:26 98 03/08/21 06:00 61 15 136/67 91 03/08/21 05:00 68 18 109/62 95 03/08/21 04:00 36.6 C 68 15 104/57 L 97 03/08/21 02:56 65 14 105/74 93 03/08/21 02:41 95 03/08/21 02:00 72 15 105/47 L 96 03/08/21 01:00 64 18 108/82 99 Laboratory Results Short CBC 03/08/21 Range/Units 05:18 WBC 6.13 (4.8-10.8) K/uL Hgb 13.9 L (14.0-18.0) g/dL Hct 40.6 L (42-52) % Plt Count 164 (130-400) K/uL BMP 03/08/21 05:18 Sodium 141 Potassium 4.0 Chloride 108 H Carbon Dioxide 31 BUN 19 H Creatinine 0.86 Glucose 102 H Calcium 8.4 L
[2021-03-09 06:53] LABS: Basophils # (auto) 0.02 K/uL (0-0.2); Basophils % (auto) 0.4 %; Eosinophils % (auto) 3.8 %; Hematocrit (blood only) 41.2 % (42-52); Hemoglobin 14.1 g/dL (14.0-18.0); Immature Granulocytes # (auto) 0.01 K/uL (0.00-0.02); Immature Granulocytes % (auto) 0.2 %; Lymphocytes % (auto) 28.7 %; Mean Corpuscular Hemoglobin 31.8 pg (25-34); Mean Corpuscular Hgb Conc 34.2 g/dL (32-36); Mean Corpuscular Volume 92.8 fL (80-100); Mean Platelet Volume 9.1 fL (7.4-10.4); Monocytes # (auto) 0.56 K/uL (0.11-0.59); Monocytes % (auto) 10.7 %; Neutrophils # (auto) 2.94 K/uL (1.4-6.5); Neutrophils % (auto) 56.2 %; Platelet Count 145 K/uL (130-400); RDW Coefficient of Variation 12.7 % (11.5-14.5); RDW Standard Deviation 43.3 fL (36.4-46.3); Red Blood Count 4.44 M/uL (4.7-6.1); White Blood Count 5.23 K/uL (4.8-10.8)
[2021-03-09 07:37] LABS: Calcium 8.6 mg/dl (8.5-10.1); Creatinine Clr Calc Pharmacy 110.9 ml/min; Est GFR (African American) 113.5 ml/min; Magnesium 2.1 mg/dl (1.8-2.4); Potassium 3.7 mmol/L (3.5-5.1)
[2021-03-09] MEDS: CLOPIDOGREL BISULFATE 75 MG TAB PO SCH (08:12)
[2021-03-09] MEDS: ASPIRIN 81 MG ECTAB PO SCH (08:12)
[2021-03-09] MEDS: INSULIN ASPART 100 UNITS/ML 3 ML PEN SC SCH ×4 (08:12→20:31)
[2021-03-09] MEDS: ATORVASTATIN 40 MG TAB PO SCH (08:12)
[2021-03-09] MEDS: haloperidoL 5 MG TAB PO SCH ×2 (08:12→20:31)
[2021-03-09] MEDS: AMANTADINE HCL 100 MG CAPSULE PO SCH ×2 (08:12→20:27)
--- NOTE | 2021-03-09 11:03 | Communication Note ---
Date of Service: March 09, 2021 case reviewed with liaison, interim chart reviewed. No agitation. Continue Haldol taper to 10 mg po BID. No further decrease anticipated for at least one week.
--- NOTE | 2021-03-09 16:59 | Hospitalist Progress Note ---
Date of Service March 09, 2021 Assessment & Plan (1) Weakness: Patient is a 70 yr male with H/O Paranoid schizophrenia who was recently in the hospital for unresponsive syncopal episode, was discharged back home, presents with similar complaints. Syncope /unresponsive episode Likely secondary to medication noncompliance/misuse CT Head: No acute intracranial findings Fall precautions Resolved Presumed TIA S/P TPA DD: Partial seizure, atypical dystonic reaction MRI Brain:No acute intracranial abnormality. -Head/Neck CTA: No significant stenosis, occlusion, or aneurysm within the [place]. No significant stenosis, occlusion, or dissection identified within the carotid or vertebral arteries. -Repeat CT head:No acute intracranial abnormality. Dual antiplatelet therapy with aspirin, Plavix for 21 days then plavix alone indefinitely Continue Lipitor 40 mg daily Needs follow-up with neurology upon discharge in 8 weeks Denies any focal weakness General deconditioning Ambulatory dysfunction Patient had multiple attempts to reintegrate with community but failed Appreciate psychiatry input Family no longer able to care for the patient PT OT:Recommends SNF Unsafe to be discharged home Will likely need permanent placement Case management to help with discharge planning Plan to discharge when placement available Paranoid schizophrenia: Haldol dose tapered down to 10 mg BID (03/09/21) Psychiatry following closely Earlier patient had another dystonic reaction, plan for Cogentin 1 mg X 1, If ineffective then Ativan Plan to titrate down Haldol to minimize sedation, EPS Appreciate psychiatry input DM II HbA1C:5.2% Hold PO meds Continue ISS while hospitalized H/O Occasional tremors. H/O Hypertension Continue home meds Neuroendocrine tumor: CT imaging reviewed and discussed with Dr.Nilesh Escudero by prior hospitalist Needs to follow up with gastrointestinal and oncology as outpatient DVT Px: SCDs post TPA Code Status : Full Code Disposition: SNF as able Admission and Anticipated Discharge Date Admission Date: March 01, 2021 Subjective Patient is seen in follow up of schizophrenia, unresponsive episode Currently he is lying in bed, in no acute distress Offers no complaints Hypoxic overnight, saturating well on 2 liters Denies chest pain, dyspnea, dizziness, nausea, abdominal pain Transferred out of ICU Psychiatry following Review of Systems Review of Systems: All systems reviewed & are unremarkable except as noted in HPI & below Constitutional: no fever and no chills Respiratory: no cough and no dyspnea Cardiovascular: no chest pain and no palpitations Gastrointestinal: no abdominal pain, no nausea and no vomiting Physical Exam Physical Exam: General Appearance: Moderately built and nourished, no apparent distress Head: normocephalic, Atraumatic Eyes: normal inspection, EOMI Neck: supple, Trachea midline Respiratory/Chest: Normal breath sounds, CTA, No accessory muscle use Cardiovascular: S1, S2, No murmur Abdomen/GI:Soft, Non tender, Bowel sounds present Extremities/Musculoskeletal:normal inspection, no edema Neurologic/Psych:AAO, grossly no focal neurological deficits, moves extremities spontaneously, speech fluent but slow, no facial asymmetry noted Skin: normal color, warm Results & Data Results & Data ([facility]) Vital Signs (Past 12 Hours) Vital Signs Temp Pulse Pulse Pulse Resp BP BP 03/09/21 16:13 78 03/09/21 15:41 36.6 C 71 18 120/76 03/09/21 11:17 36.4 C L 76 18 111/74 03/09/21 07:10 70 03/09/21 06:58 36.5 C 62 18 119/73 Pulse Ox 03/09/21 16:13 03/09/21 15:41 98 03/09/21 11:17 99 03/09/21 07:10 03/09/21 06:58 98 Laboratory Results 03/09/21 03/09/21 03/09/21 Range/Units 16:47 11:27 07:36 WBC (4.8-10.8) K/uL RBC (4.7-6.1) M/uL Hgb (14.0-18.0) g/dL Hct (42-52) % MCV (80-100) fL MCH (25-34) pg MCHC (32-36) g/dL RDW Std Deviation (36.4-46.3) fL RDW Coeff of Nerissa (11.5-14.5) % Plt Count (130-400) K/uL MPV (7.4-10.4) fL Immature Gran % (Auto) % Neut % (Auto) % Lymph % (Auto) % [place] % (Auto) % Eos % (Auto) % Baso % (Auto) % Neut # (Auto) (1.4-6.5) K/uL Lymph # (Auto) (1.2-3.4) K/uL [place] # (Auto) (0.11-0.59) K/uL Eos # (Auto) (0-0.5) K/uL Baso # (Auto) (0-0.2) K/uL Immature Gran # (Auto) (0.00-0.02) K/uL Sodium (136-145) mmol/L Potassium (3.5-5.1) mmol/L Chloride (98-107) mmol/L Carbon Dioxide (21-32) mmol/L Anion Gap (3-11) BUN (7-18) mg/dl Creatinine (0.6-1.4) mg/dl Est Cr Clr Drug Dosing ml/min Est GFR ( Amer) ml/min Est GFR (Non-Af Amer) ml/min BUN/Creatinine Ratio (10-20) Glucose (70-99) mg/dl POC Glucose 104 H 131 H 101 H (70-99) mg/dl Calcium (8.5-10.1) mg/dl Magnesium (1.8-2.4) mg/dl 03/09/21 03/09/21 03/08/21 Range/Units 06:25 06:25 20:31 WBC 5.23 (4.8-10.8) K/uL RBC 4.44 L (4.7-6.1) M/uL Hgb 14.1 (14.0-18.0) g/dL Hct 41.2 L (42-52) % MCV 92.8 (80-100) fL MCH 31.8 (25-34) pg MCHC 34.2 (32-36) g/dL RDW Std Deviation 43.3 (36.4-46.3) fL RDW Coeff of Nerissa 12.7 (11.5-14.5) % Plt Count 145 (130-400) K/uL MPV 9.1 (7.4-10.4) fL Immature Gran % (Auto) 0.2 % Neut % (Auto) 56.2 % Lymph % (Auto) 28.7 % [place] % (Auto) 10.7 % Eos % (Auto) 3.8 % Baso % (Auto) 0.4 % Neut # (Auto) 2.94 (1.4-6.5) K/uL Lymph # (Auto) 1.50 (1.2-3.4) K/uL [place] # (Auto) 0.56 (0.11-0.59) K/uL Eos # (Auto) 0.20 (0-0.5) K/uL Baso # (Auto) 0.02 (0-0.2) K/uL Immature Gran # (Auto) 0.01 (0.00-0.02) K/uL Sodium 141 (136-145) mmol/L Potassium 3.7 (3.5-5.1) mmol/L Chloride 108 H (98-107) mmol/L Carbon Dioxide 29 (21-32) mmol/L Anion Gap 4.0 (3-11) BUN 17 (7-18) mg/dl Creatinine 0.66 (0.6-1.4) mg/dl Est Cr Clr Drug Dosing 110.9 ml/min Est GFR ( Amer) 113.5 ml/min Est GFR (Non-Af Amer) 98.0 ml/min BUN/Creatinine Ratio 25.0 H (10-20) Glucose 97 (70-99) mg/dl POC Glucose 104 H (70-99) mg/dl Calcium 8.6 (8.5-10.1) mg/dl Magnesium 2.1 (1.8-2.4) mg/dl 03/08/21 Range/Units 17:11 WBC (4.8-10.8) K/uL RBC (4.7-6.1) M/uL Hgb (14.0-18.0) g/dL Hct (42-52) % MCV (80-100) fL MCH (25-34) pg MCHC (32-36) g/dL RDW Std Deviation (36.4-46.3) fL RDW Coeff of Nerissa (11.5-14.5) % Plt Count (130-400) K/uL MPV (7.4-10.4) fL Immature Gran % (Auto) % Neut % (Auto) % Lymph % (Auto) % [place] % (Auto) % Eos % (Auto) % Baso % (Auto) % Neut # (Auto) (1.4-6.5) K/uL Lymph # (Auto) (1.2-3.4) K/uL [place] # (Auto) (0.11-0.59) K/uL Eos # (Auto) (0-0.5) K/uL Baso # (Auto) (0-0.2) K/uL Immature Gran # (Auto) (0.00-0.02) K/uL Sodium (136-145) mmol/L Potassium (3.5-5.1) mmol/L Chloride (98-107) mmol/L Carbon Dioxide (21-32) mmol/L Anion Gap (3-11) BUN (7-18) mg/dl Creatinine (0.6-1.4) mg/dl Est Cr Clr Drug Dosing ml/min Est GFR ( Amer) ml/min Est GFR (Non-Af Amer) ml/min BUN/Creatinine Ratio (10-20) Glucose (70-99) mg/dl POC Glucose 123 H (70-99) mg/dl Calcium (8.5-10.1) mg/dl Magnesium (1.8-2.4) mg/dl Medications Administered Current Inpatient Medications Acetaminophen (Acetaminophen 325 Mg Tab) 650 mg PO Q4H PRN PRN Reason: Pain or Fever Stop: 03/31/21 23:06 Last Admin: 03/04/21 08:37 Dose: 650 mg Documented by: Amantadine HCl (Amantadine Hcl 100 Mg Capsule) 100 mg PO BID [facility] Stop: 03/31/21 23:06 Last Admin: 03/09/21 08:12 Dose: 100 mg Documented by: Aspirin (Aspirin 81 Mg Ectab) 81 mg PO DAILY [facility] Stop: 04/01/21 08:59 Last Admin: 03/09/21 08:12 Dose: 81 mg Documented by: Atorvastatin Calcium (Atorvastatin 40 Mg Tab) 40 mg PO [facility] Stop: 04/06/21 08:59 Last Admin: 03/09/21 08:12 Dose: 40 mg Documented by: Benztropine Mesylate (Benztropine Mesylate 1 Mg/Ml 2 Ml Amp) 1 mg IV BID PRN PRN Reason: drooling/decreased responsiven Stop: 04/06/21 12:07 Clopidogrel Bisulfate (Clopidogrel Bisulfate 75 Mg Tab) [facility] [place] [place] Stop: 04/07/21 08:59 Last Admin: 03/09/21 08:12 Dose: 75 mg Documented by: Dextrose (Dextrose 50% 50 Ml Syringe) 25 - 50 ml IV UD PRN; Protocol PRN Reason: Hypoglycemia Protocol Stop: 04/05/21 22:37 Glucagon (Glucagon For Inj 1 Mg Vial) 1 mg SQ UD PRN; Protocol PRN Reason: Hypoglycemia Protocol Stop: 04/05/21 22:37 Glucose (Glucose 10 Tabs/Tube) 4 - 8 tabs PO UD PRN; Protocol PRN Reason: Hypoglycemia Protocol Stop: 04/05/21 22:37 Glucose (Glucose 40% Gel 15 Gm Tube) 15 - 30 gm PO UD PRN; Protocol PRN Reason: Hypoglycemia Protocol Stop: 04/05/21 22:37 Haloperidol (Haloperidol 5 Mg Tab) 10 mg PO BID [facility] Stop: 04/08/21 20:59 Promethazine HCl 12.5 mg/ (Sodium Chloride) 50.5 mls @ 202 mls/hr IV Q6H PRN PRN Reason: Nausea And Vomiting Stop: 04/05/21 23:14 Insulin Aspart (Insulin Aspart 100 Units/Ml 3 Ml Pen) 0 units SC ACHS [facility] Stop: 04/06/21 11:29 Last Admin: 03/09/21 12:20 Dose: 3 units Documented by: Miscellaneous (Carbohydrates For Hypoglycemia ) 15 - 30 gm PO UD PRN PRN Reason: Hypoglycemia Protocol Stop: 04/05/21 22:37 Miscellaneous Information (Pharmacist Discharge Med Rec Consult) 1 ea N/A UD PRN PRN Reason: Consult Stop: 04/05/21 22:37 Polyethylene Glycol (Polyethylene (Miralax) 17 Gm Pack) 17 gm PO DAILY PRN PRN Reason: Constipation Stop: 03/31/21 23:06
[2021-03-10 06:49] LABS: Hematocrit (blood only) 40.6 % (42-52); Hemoglobin 13.9 g/dL (14.0-18.0); Mean Corpuscular Hemoglobin 31.8 pg (25-34); Mean Corpuscular Hgb Conc 34.2 g/dL (32-36); Mean Corpuscular Volume 92.9 fL (80-100); Mean Platelet Volume 9.1 fL (7.4-10.4); Platelet Count 158 K/uL (130-400); RDW Coefficient of Variation 12.6 % (11.5-14.5); RDW Standard Deviation 43.1 fL (36.4-46.3); Red Blood Count 4.37 M/uL (4.7-6.1); White Blood Count 4.98 K/uL (4.8-10.8)
--- NOTE | 2021-03-10 07:00 | Hospitalist Progress Note ---
Date of Service March 10, 2021 Assessment & Plan Admission and Anticipated Discharge Date Admission Date: March 01, 2021 Subjective Last night Haldol was held as patient is somewhat drowsy. thank you Results & Data Results & Data ([facility]) Vital Signs (Past 12 Hours) Vital Signs Temp Pulse Pulse Resp BP BP Pulse Ox 03/10/21 03:59 36.5 C 70 18 118/75 99 03/09/21 23:29 36.6 C 63 18 135/82 98 03/09/21 22:20 50 L 03/09/21 19:43 37.0 C 71 20 111/72 100
[2021-03-10 07:22] LABS: BUN Creatinine Ratio 30.5 (10-20); Calcium 8.8 mg/dl (8.5-10.1); Creatinine Clr Calc Pharmacy 116.2 ml/min; Est GFR (African American) 115.7 ml/min; Est GFR (Non-African American) 99.8 ml/min; Magnesium 2.1 mg/dl (1.8-2.4); Phosphorus 2.7 mg/dl (2.5-4.9); Potassium 3.7 mmol/L (3.5-5.1)
--- NOTE | 2021-03-10 07:51 | Hospitalist Progress Note ---
Date of Service March 10, 2021 Assessment & Plan (1) Weakness: Patient is a 70 yr male with H/O Paranoid schizophrenia who was recently in the hospital for unresponsive syncopal episode, was discharged back home, presents with similar complaints. Syncope /unresponsive episode Likely secondary to medication noncompliance/misuse CT Head: No acute intracranial findings Fall precautions Resolved Presumed TIA S/P TPA DD: Partial seizure, atypical dystonic reaction MRI Brain:No acute intracranial abnormality. -Head/Neck CTA: No significant stenosis, occlusion, or aneurysm within the [place]. No significant stenosis, occlusion, or dissection identified within the carotid or vertebral arteries. -Repeat CT head:No acute intracranial abnormality. Dual antiplatelet therapy with aspirin, Plavix for 21 days then plavix alone indefinitely Continue Lipitor 40 mg daily Needs follow-up with neurology upon discharge in 8 weeks Denies any focal weakness General deconditioning Ambulatory dysfunction Patient had multiple attempts to reintegrate with community but failed Appreciate psychiatry input Family no longer able to care for the patient PT OT:Recommends SNF Unsafe to be discharged home Will likely need permanent placement Case management to help with discharge planning Plan to discharge when placement available Paranoid schizophrenia: Haldol dose tapered down to 10 mg BID (03/09/21) Psychiatry following closely Last night (03/09) Haldol was held as patient was drowsy Earlier patient had another dystonic reaction, plan for Cogentin 1 mg X 1, If ineffective then Ativan Plan to titrate down Haldol to minimize sedation, EPS Appreciate psychiatry input DM II HbA1C:5.2% Hold PO meds Continue ISS while hospitalized H/O Occasional tremors. H/O Hypertension Continue home meds Neuroendocrine tumor: CT imaging reviewed and discussed with Dr.Nilesh Escudero by prior hospitalist Needs to follow up with gastrointestinal and oncology as outpatient DVT Px: SCDs post TPA Code Status : Full Code Disposition: SNF as able Admission and Anticipated Discharge Date Admission Date: March 01, 2021 Subjective Patient is seen in follow up of schizophrenia, unresponsive episode Last night haldol was held as pt was drowsy Currently pt is lying in bed, in no acute distress He is mildly tremulous Offers no complaints Previously hypoxic overnight, saturating well on 2 liters , now seems to be on RA, cont. to monitor Denies chest pain, dyspnea, dizziness, nausea, abdominal pain Psychiatry following Review of Systems Review of Systems: All systems reviewed & are unremarkable except as noted in HPI & below Constitutional: no fever and no chills Respiratory: no cough and no dyspnea Cardiovascular: no chest pain and no palpitations Gastrointestinal: no abdominal pain, no nausea and no vomiting Physical Exam Physical Exam: General Appearance: Moderately built and nourished, no apparent distress Head: normocephalic, Atraumatic Eyes: normal inspection, EOMI Neck: supple, Trachea midline Respiratory/Chest: Normal breath sounds, CTA, No accessory muscle use Cardiovascular: S1, S2, No murmur Abdomen/GI:Soft, Non tender, Bowel sounds present Extremities/Musculoskeletal:normal inspection, no edema Neurologic/Psych:AAO, grossly no focal neurological deficits, moves extremities spontaneously, speech fluent but slow, no facial asymmetry noted Skin: normal color, warm Results & Data Results & Data ([facility]) Vital Signs (Past 12 Hours) Vital Signs Temp Pulse Pulse Resp BP Pulse Ox 03/10/21 07:24 53 L 03/10/21 03:59 36.5 C 70 18 118/75 99 03/09/21 23:29 36.6 C 63 18 135/82 98 03/09/21 22:20 50 L Laboratory Results 03/10/21 03/10/21 03/10/21 Range/Units 07:48 06:11 06:11 WBC 4.98 (4.8-10.8) K/uL RBC 4.37 L (4.7-6.1) M/uL Hgb 13.9 L (14.0-18.0) g/dL Hct 40.6 L (42-52) % MCV 92.9 (80-100) fL MCH 31.8 (25-34) pg MCHC 34.2 (32-36) g/dL RDW Std Deviation 43.1 (36.4-46.3) fL RDW Coeff of Nerissa 12.6 (11.5-14.5) % Plt Count 158 (130-400) K/uL MPV 9.1 (7.4-10.4) fL Sodium 140 (136-145) mmol/L Potassium 3.7 (3.5-5.1) mmol/L Chloride 108 H (98-107) mmol/L Carbon Dioxide 28 (21-32) mmol/L Anion Gap 4.0 (3-11) BUN 19 H (7-18) mg/dl Creatinine 0.63 (0.6-1.4) mg/dl Est Cr Clr Drug Dosing 116.2 ml/min Est GFR ( Amer) 115.7 ml/min Est GFR (Non-Af Amer) 99.8 ml/min BUN/Creatinine Ratio 30.5 H (10-20) Glucose 97 (70-99) mg/dl POC Glucose 97 (70-99) mg/dl Calcium 8.8 (8.5-10.1) mg/dl Phosphorus 2.7 (2.5-4.9) mg/dl Magnesium 2.1 (1.8-2.4) mg/dl 03/09/21 03/09/21 03/09/21 Range/Units 20:15 16:47 11:27 WBC (4.8-10.8) K/uL RBC (4.7-6.1) M/uL Hgb (14.0-18.0) g/dL Hct (42-52) % MCV (80-100) fL MCH (25-34) pg MCHC (32-36) g/dL RDW Std Deviation (36.4-46.3) fL RDW Coeff of Nerissa (11.5-14.5) % Plt Count (130-400) K/uL MPV (7.4-10.4) fL Sodium (136-145) mmol/L Potassium (3.5-5.1) mmol/L Chloride (98-107) mmol/L Carbon Dioxide (21-32) mmol/L Anion Gap (3-11) BUN (7-18) mg/dl Creatinine (0.6-1.4) mg/dl Est Cr Clr Drug Dosing ml/min Est GFR ( Amer) ml/min Est GFR (Non-Af Amer) ml/min BUN/Creatinine Ratio (10-20) Glucose (70-99) mg/dl POC Glucose 117 H 104 H 131 H (70-99) mg/dl Calcium (8.5-10.1) mg/dl Phosphorus (2.5-4.9) mg/dl Magnesium (1.8-2.4) mg/dl Medications Administered Current Inpatient Medications Acetaminophen (Acetaminophen 325 Mg Tab) 650 mg PO Q4H PRN PRN Reason: Pain or Fever Stop: 03/31/21 23:06 Last Admin: 03/04/21 08:37 Dose: 650 mg Documented by: Amantadine HCl (Amantadine Hcl 100 Mg Capsule) 100 mg PO BID [facility] Stop: 03/31/21 23:06 Last Admin: 03/09/21 20:27 Dose: 100 mg Documented by: Aspirin (Aspirin 81 Mg Ectab) 81 mg PO DAILY [facility] Stop: 04/01/21 08:59 Last Admin: 03/09/21 08:12 Dose: 81 mg Documented by: Atorvastatin Calcium (Atorvastatin 40 Mg Tab) 40 mg PO QAM [facility] Stop: 04/06/21 08:59 Last Admin: 03/09/21 08:12 Dose: 40 mg Documented by: Benztropine Mesylate (Benztropine Mesylate 1 Mg/Ml 2 Ml Amp) 1 mg IV BID PRN PRN Reason: drooling/decreased responsiven Stop: 04/06/21 12:07 Clopidogrel Bisulfate (Clopidogrel Bisulfate 75 Mg Tab) 75 mg PO [facility] Stop: 04/07/21 08:59 Last Admin: 03/09/21 08:12 Dose: 75 mg Documented by: Dextrose (Dextrose 50% 50 Ml Syringe) 25 - 50 ml IV UD PRN; Protocol PRN Reason: Hypoglycemia Protocol Stop: 04/05/21 22:37 Glucagon (Glucagon For Inj 1 Mg Vial) 1 mg SQ UD PRN; Protocol PRN Reason: Hypoglycemia Protocol Stop: 04/05/21 22:37 Glucose (Glucose 10 Tabs/Tube) 4 - 8 tabs PO UD PRN; Protocol PRN Reason: Hypoglycemia Protocol Stop: 04/05/21 22:37 Glucose (Glucose 40% Gel 15 Gm Tube) 15 - 30 gm PO UD PRN; Protocol PRN Reason: Hypoglycemia Protocol Stop: 04/05/21 22:37 Haloperidol (Haloperidol 5 Mg Tab) 10 mg PO BID [facility] Stop: 04/08/21 20:59 Last Admin: 03/09/21 20:31 Dose: Not Given Documented by: Promethazine HCl 12.5 mg/ (Sodium Chloride) 50.5 mls @ 202 mls/hr IV Q6H PRN PRN Reason: Nausea And Vomiting Stop: 04/05/21 23:14 Insulin Aspart (Insulin Aspart 100 Units/Ml 3 Ml Pen) 0 units SC [facility] Stop: 04/06/21 11:29 Last Admin: 03/09/21 20:31 Dose: Not Given Documented by: Miscellaneous (Carbohydrates For Hypoglycemia ) 15 - 30 gm PO UD PRN PRN Reason: Hypoglycemia Protocol Stop: 04/05/21 22:37 Miscellaneous Information (Pharmacist Discharge Med Rec Consult) 1 ea N/A UD PRN PRN Reason: Consult Stop: 04/05/21 22:37 Polyethylene Glycol (Polyethylene (Miralax) 17 Gm Pack) 17 gm PO DAILY PRN PRN Reason: Constipation Stop: 03/31/21 23:06
[2021-03-10] MEDS: ATORVASTATIN 40 MG TAB PO SCH (08:27)
[2021-03-10] MEDS: ASPIRIN 81 MG ECTAB PO SCH (08:27)
[2021-03-10] MEDS: AMANTADINE HCL 100 MG CAPSULE PO SCH ×2 (08:27→20:27)
[2021-03-10] MEDS: INSULIN ASPART 100 UNITS/ML 3 ML PEN SC SCH ×4 (08:28→20:19)
[2021-03-10] MEDS: CLOPIDOGREL BISULFATE 75 MG TAB PO SCH (08:28)
[2021-03-10] MEDS: haloperidoL 5 MG TAB PO SCH ×2 (08:29→20:28)
[2021-03-10] MEDS ORDERED: POTASSIUM CHLORIDE CRTAB 20 MEQ TABCR PO STA (10:10)
[2021-03-10] MEDS: SENNA 8.6 MG TAB PO SCH (10:54)
[2021-03-11 08:22] LABS: BUN Creatinine Ratio 20.9 (10-20); Calcium 8.8 mg/dl (8.5-10.1); Creatinine Clr Calc Pharmacy 92.7 ml/min; Est GFR (African American) 105.4 ml/min; Potassium 3.9 mmol/L (3.5-5.1)
[2021-03-11] MEDS: INSULIN ASPART 100 UNITS/ML 3 ML PEN SC SCH ×4 (08:28→20:47)
[2021-03-11] MEDS: SENNA 8.6 MG TAB PO SCH (08:29)
[2021-03-11] MEDS: AMANTADINE HCL 100 MG CAPSULE PO SCH ×2 (08:29→20:48)
[2021-03-11] MEDS: CLOPIDOGREL BISULFATE 75 MG TAB PO SCH (08:29)
[2021-03-11] MEDS: haloperidoL 5 MG TAB PO SCH ×2 (08:29→20:48)
[2021-03-11] MEDS: ATORVASTATIN 40 MG TAB PO SCH (08:30)
[2021-03-11] MEDS: ASPIRIN 81 MG ECTAB PO SCH (08:30)
--- NOTE | 2021-03-11 08:40 | Hospitalist Progress Note ---
Date of Service March 11, 2021 Assessment & Plan (1) Weakness: Patient is a 70 yr male with H/O Paranoid schizophrenia who was recently in the hospital for unresponsive syncopal episode, was discharged back home, presents with similar complaints. Syncope /unresponsive episode Likely secondary to medication noncompliance/misuse CT Head: No acute intracranial findings Fall precautions Resolved Presumed TIA S/P TPA DD: Partial seizure, atypical dystonic reaction MRI Brain:No acute intracranial abnormality. -Head/Neck CTA: No significant stenosis, occlusion, or aneurysm within the [place]. No significant stenosis, occlusion, or dissection identified within the carotid or vertebral arteries. -Repeat CT head:No acute intracranial abnormality. Dual antiplatelet therapy with aspirin, Plavix for 21 days then plavix alone indefinitely Continue Lipitor 40 mg daily Needs follow-up with neurology upon discharge in 8 weeks Denies any focal weakness General deconditioning Ambulatory dysfunction Patient had multiple attempts to reintegrate with community but failed Appreciate psychiatry input Family no longer able to care for the patient PT OT:Recommends SNF Unsafe to be discharged home Will likely need permanent placement Case management to help with discharge planning Plan to discharge when placement available Paranoid schizophrenia: Haldol dose tapered down to 10 mg BID (03/09/21) Psychiatry following closely At night (03/09) Haldol was held as patient was drowsy Earlier patient had another dystonic reaction, plan for Cogentin 1 mg X 1, If ineffective then Ativan Plan to titrate down Haldol to minimize sedation, EPS Appreciate psychiatry input DM II HbA1C:5.2% Hold PO meds Continue ISS while hospitalized H/O Occasional tremors. H/O Hypertension Continue home meds Neuroendocrine tumor: CT imaging reviewed and discussed with Dr.Nilesh Escudero by prior hospitalist Needs to follow up with gastrointestinal and oncology as outpatient DVT Px: SCDs post TPA Code Status : Full Code Disposition: SNF as able Admission and Anticipated Discharge Date Admission Date: March 01, 2021 Subjective Patient is seen in follow up of schizophrenia, unresponsive episode Currently is sitting up in bed , eating, has good appetite, in no acute distress Offers no complaints Previously hypoxic overnight, saturating well on 2 liters , now seems to be on RA, cont. to monitor Denies chest pain, dyspnea, dizziness, nausea, abdominal pain Psychiatry following Review of Systems Review of Systems: All systems reviewed & are unremarkable except as noted in HPI & below Constitutional: no fever and no chills Respiratory: no cough and no dyspnea Cardiovascular: no chest pain and no palpitations Gastrointestinal: no abdominal pain and no vomiting Physical Exam Physical Exam: General Appearance: Moderately built and nourished, no apparent distress Head: normocephalic, Atraumatic Eyes: normal inspection, EOMI Neck: supple, Trachea midline Respiratory/Chest: Normal breath sounds, CTA, No accessory muscle use Cardiovascular: S1, S2, No murmur Abdomen/GI:Soft, Non tender, Bowel sounds present Extremities/Musculoskeletal:normal inspection, no edema Neurologic/Psych:AAO, grossly no focal neurological deficits, moves extremities spontaneously, speech fluent but slow, no facial asymmetry noted Skin: normal color, warm Results & Data Results & Data ([facility]) Vital Signs (Past 12 Hours) Vital Signs Temp Pulse Pulse Resp BP Pulse Ox 03/11/21 07:43 67 03/11/21 06:52 36.4 C L 18 110/73 94 03/11/21 03:14 36.6 C 56 L 18 148/72 H 98 03/11/21 00:05 65 03/10/21 23:16 36.6 C 72 20 121/78 98 Laboratory Results 03/11/21 03/11/21 03/10/21 Range/Units 07:29 07:23 20:10 Sodium 139 (136-145) mmol/L Potassium 3.9 (3.5-5.1) mmol/L Chloride 107 (98-107) mmol/L Carbon Dioxide 28 (21-32) mmol/L Anion Gap 4.0 (3-11) BUN 16 (7-18) mg/dl Creatinine 0.79 (0.6-1.4) mg/dl Est Cr Clr Drug Dosing 92.7 ml/min Est GFR ( Amer) 105.4 ml/min Est GFR (Non-Af Amer) 91.0 ml/min BUN/Creatinine Ratio 20.9 H (10-20) Glucose 98 (70-99) mg/dl POC Glucose 100 H 133 H (70-99) mg/dl Calcium 8.8 (8.5-10.1) mg/dl 03/10/21 03/10/21 Range/Units 16:37 11:51 Sodium (136-145) mmol/L Potassium (3.5-5.1) mmol/L Chloride (98-107) mmol/L Carbon Dioxide (21-32) mmol/L Anion Gap (3-11) BUN (7-18) mg/dl Creatinine (0.6-1.4) mg/dl Est Cr Clr Drug Dosing ml/min Est GFR ( Amer) ml/min Est GFR (Non-Af Amer) ml/min BUN/Creatinine Ratio (10-20) Glucose (70-99) mg/dl POC Glucose 85 106 H (70-99) mg/dl Calcium (8.5-10.1) mg/dl Medications Administered Current Inpatient Medications Acetaminophen (Acetaminophen 325 Mg Tab) 650 mg PO Q4H PRN PRN Reason: Pain or Fever Stop: 03/31/21 23:06 Last Admin: 03/04/21 08:37 Dose: 650 mg Documented by: Amantadine HCl (Amantadine Hcl 100 Mg Capsule) 100 mg PO BID [facility] Stop: 03/31/21 23:06 Last Admin: 03/11/21 08:29 Dose: 100 mg Documented by: Aspirin (Aspirin 81 Mg Ectab) 81 mg PO DAILY [facility] Stop: 04/01/21 08:59 Last Admin: 03/11/21 08:30 Dose: 81 mg Documented by: Atorvastatin Calcium ([facility]atin 40 Mg Tab) [facility] Stop: 04/06/21 08:59 Last Admin: 03/11/21 08:30 Dose: 40 mg Documented by: Benztropine Mesylate (Benztropine Mesylate 1 Mg/Ml 2 Ml Amp) 1 mg IV BID PRN PRN Reason: drooling/decreased responsiven Stop: 04/06/21 12:07 Clopidogrel Bisulfate (Clopidogrel Bisulfate 75 Mg Tab) [facility] [place] Stop: 04/07/21 08:59 Last Admin: 03/11/21 08:29 Dose: 75 mg Documented by: Dextrose (Dextrose 50% 50 Ml Syringe) 25 - 50 ml IV UD PRN; Protocol PRN Reason: Hypoglycemia Protocol Stop: 04/05/21 22:37 Glucagon (Glucagon For Inj 1 Mg Vial) 1 mg SQ UD PRN; Protocol PRN Reason: Hypoglycemia Protocol Stop: 04/05/21 22:37 Glucose (Glucose 10 Tabs/Tube) 4 - 8 tabs PO UD PRN; Protocol PRN Reason: Hypoglycemia Protocol Stop: 04/05/21 22:37 Glucose (Glucose 40% Gel 15 Gm Tube) 15 - 30 gm PO UD PRN; Protocol PRN Reason: Hypoglycemia Protocol Stop: 04/05/21 22:37 Haloperidol (Haloperidol 5 Mg Tab) 10 mg PO BID [facility] Stop: 04/08/21 20:59 Last Admin: 03/11/21 08:29 Dose: 10 mg Documented by: Promethazine HCl 12.5 mg/ (Sodium Chloride) 50.5 mls @ 202 mls/hr IV Q6H PRN PRN Reason: Nausea And Vomiting Stop: 04/05/21 23:14 Insulin Aspart (Insulin Aspart 100 Units/Ml 3 Ml Pen) 0 units SC ACHS [facility] Stop: 04/06/21 11:29 Last Admin: 03/11/21 08:28 Dose: 3 units Documented by: Miscellaneous (Carbohydrates For Hypoglycemia ) 15 - 30 gm PO UD PRN PRN Reason: Hypoglycemia Protocol Stop: 04/05/21 22:37 Polyethylene Glycol (Polyethylene (Miralax) 17 Gm Pack) 17 gm PO DAILY PRN PRN Reason: Constipation Stop: 03/31/21 23:06 Sennosides (Senna 8.6 Mg Tab) 8.6 mg PO QAM [facility] Stop: 04/09/21 10:14 Last Admin: 03/11/21 08:29 Dose: 8.6 mg Documented by:
--- NOTE | 2021-03-12 07:52 | Hospitalist Progress Note ---
Date of Service March 12, 2021 Assessment & Plan (1) Weakness: Patient is a 70 yr male with H/O Paranoid schizophrenia who was recently in the hospital for unresponsive syncopal episode, was discharged back home, presents with similar complaints. Syncope /unresponsive episode Likely secondary to medication noncompliance/misuse CT Head: No acute intracranial findings Fall precautions Resolved Presumed TIA S/P TPA DD: Partial seizure, atypical dystonic reaction MRI Brain:No acute intracranial abnormality. -Head/Neck CTA: No significant stenosis, occlusion, or aneurysm within the [place]. No significant stenosis, occlusion, or dissection identified within the carotid or vertebral arteries. -Repeat CT head:No acute intracranial abnormality. Dual antiplatelet therapy with aspirin, Plavix for 21 days then plavix alone indefinitely Continue Lipitor 40 mg daily Needs follow-up with neurology upon discharge in 8 weeks Denies any focal weakness General deconditioning Ambulatory dysfunction Patient had multiple attempts to reintegrate with community but failed Appreciate psychiatry input Family no longer able to care for the patient PT OT:Recommends SNF Unsafe to be discharged home Will likely need permanent placement Case management to help with discharge planning Plan to discharge when placement available Paranoid schizophrenia: Haldol dose tapered down to 10 mg BID (03/09/21) Psychiatry following closely At night (03/09) Haldol was held as patient was drowsy Earlier patient had another dystonic reaction, plan for Cogentin 1 mg X 1, If ineffective then Ativan Plan to titrate down Haldol to minimize sedation, EPS Appreciate psychiatry input DM II HbA1C:5.2% Hold PO meds Continue ISS while hospitalized H/O Occasional tremors. H/O Hypertension Continue home meds Neuroendocrine tumor: CT imaging reviewed and discussed with Dr.Nilesh Escudero by prior hospitalist Needs to follow up with gastrointestinal and oncology as outpatient DVT Px: SCDs post TPA Code Status : Full Code Disposition: SNF as able Admission and Anticipated Discharge Date Admission Date: March 01, 2021 Subjective Patient is seen in follow up of schizophrenia, unresponsive episode Currently is lying in bed , in no acute distress Offers no complaints Previously hypoxic overnight, saturating well on 2 liters , now on RA, cont. to monitor Denies chest pain, dyspnea, dizziness, nausea, abdominal pain Psychiatry following Review of Systems Review of Systems: All systems reviewed & are unremarkable except as noted in HPI & below Constitutional: no fever and no chills Respiratory: no cough and no dyspnea Cardiovascular: no chest pain and no palpitations Gastrointestinal: no abdominal pain, no nausea and no vomiting Physical Exam Physical Exam: General Appearance: Moderately built and nourished, no apparent distress Head: normocephalic, Atraumatic Eyes: normal inspection, EOMI Neck: supple, Trachea midline Respiratory/Chest: Normal breath sounds, CTA, No accessory muscle use Cardiovascular: S1, S2, No murmur Abdomen/GI:Soft, Non tender, Bowel sounds present Extremities/Musculoskeletal:normal inspection, no edema Neurologic/Psych:AAO, grossly no focal neurological deficits, moves extremities spontaneously, speech fluent but slow, no facial asymmetry noted Skin: normal color, warm Results & Data Results & Data ([facility]) Vital Signs (Past 12 Hours) Vital Signs Temp Pulse Pulse Pulse Resp BP Pulse Ox 03/12/21 07:14 67 03/12/21 03:30 36.4 C L 72 18 105/72 94 03/11/21 23:48 74 03/11/21 23:22 36.4 C L 67 18 126/85 96 Laboratory Results 03/12/21 03/11/21 03/11/21 Range/Units 07:28 20:05 16:30 Sodium (136-145) mmol/L Potassium (3.5-5.1) mmol/L Chloride (98-107) mmol/L Carbon Dioxide (21-32) mmol/L Anion Gap (3-11) BUN (7-18) mg/dl Creatinine (0.6-1.4) mg/dl Est Cr Clr Drug Dosing ml/min Est GFR ( Amer) ml/min Est GFR (Non-Af Amer) ml/min BUN/Creatinine Ratio (10-20) Glucose (70-99) mg/dl POC Glucose 107 H 130 H 114 H (70-99) mg/dl Calcium (8.5-10.1) mg/dl 03/11/21 03/11/21 Range/Units 11:27 07:29 Sodium 139 (136-145) mmol/L Potassium 3.9 (3.5-5.1) mmol/L Chloride 107 (98-107) mmol/L Carbon Dioxide 28 (21-32) mmol/L Anion Gap 4.0 (3-11) BUN 16 (7-18) mg/dl Creatinine 0.79 (0.6-1.4) mg/dl Est Cr Clr Drug Dosing 92.7 ml/min Est GFR ( Amer) 105.4 ml/min Est GFR (Non-Af Amer) 91.0 ml/min BUN/Creatinine Ratio 20.9 H (10-20) Glucose 98 (70-99) mg/dl POC Glucose 144 H (70-99) mg/dl Calcium 8.8 (8.5-10.1) mg/dl Medications Administered Current Inpatient Medications Acetaminophen (Acetaminophen 325 Mg Tab) 650 mg PO Q4H PRN PRN Reason: Pain or Fever Stop: 03/31/21 23:06 Last Admin: 03/04/21 08:37 Dose: 650 mg Documented by: Amantadine HCl (Amantadine Hcl 100 Mg Capsule) 100 mg PO BID [facility] Stop: 03/31/21 23:06 Last Admin: 03/11/21 20:48 Dose: 100 mg Documented by: Aspirin (Aspirin 81 Mg Ectab) 81 mg PO DAILY [facility] Stop: 04/01/21 08:59 Last Admin: 03/11/21 08:30 Dose: 81 mg Documented by: Atorvastatin Calcium (Atorvastatin 40 Mg Tab) 40 mg PO QAM [facility] Stop: 04/06/21 08:59 Last Admin: 03/11/21 08:30 Dose: 40 mg Documented by: Benztropine Mesylate (Benztropine Mesylate 1 Mg/Ml 2 Ml Amp) 1 mg IV BID PRN PRN Reason: drooling/decreased responsiven Stop: 04/06/21 12:07 Clopidogrel Bisulfate ([facility]idog[facility] 75 Mg Tab) [facility] Stop: 04/07/21 08:59 Last Admin: 03/11/21 08:29 Dose: 75 mg Documented by: Dextrose (Dextrose 50% 50 Ml Syringe) 25 - 50 ml IV UD PRN; Protocol PRN Reason: Hypoglycemia Protocol Stop: 04/05/21 22:37 Glucagon (Glucagon For Inj 1 Mg Vial) 1 mg SQ UD PRN; Protocol PRN Reason: Hypoglycemia Protocol Stop: 04/05/21 22:37 Glucose (Glucose 10 Tabs/Tube) 4 - 8 tabs PO UD PRN; Protocol PRN Reason: Hypoglycemia Protocol Stop: 04/05/21 22:37 Glucose (Glucose 40% Gel 15 Gm Tube) 15 - 30 gm PO UD PRN; Protocol PRN Reason: Hypoglycemia Protocol Stop: 04/05/21 22:37 Haloperidol (Haloperidol 5 Mg Tab) 10 mg PO BID [facility] Stop: 04/08/21 20:59 Last Admin: 03/11/21 20:48 Dose: 10 mg Documented by: Promethazine HCl 12.5 mg/ (Sodium Chloride) 50.5 mls @ 202 mls/hr IV Q6H PRN PRN Reason: Nausea And Vomiting Stop: 04/05/21 23:14 Insulin Aspart (Insulin Aspart 100 Units/Ml 3 Ml Pen) 0 units SC ACHS [facility] Stop: 04/06/21 11:29 Last Admin: 03/11/21 20:47 Dose: Not Given Documented by: Miscellaneous (Carbohydrates For Hypoglycemia ) 15 - 30 gm PO UD PRN PRN Reason: Hypoglycemia Protocol Stop: 04/05/21 22:37 Polyethylene Glycol (Polyethylene (Miralax) 17 Gm Pack) 17 gm PO DAILY PRN PRN Reason: Constipation Stop: 03/31/21 23:06 Sennosides (Senna 8.6 Mg Tab) 8.6 mg PO QAM [facility] Stop: 04/09/21 10:14 Last Admin: 03/11/21 08:29 Dose: 8.6 mg Documented by:
[2021-03-12] MEDS: AMANTADINE HCL 100 MG CAPSULE PO SCH ×2 (09:14→19:35)
[2021-03-12] MEDS: SENNA 8.6 MG TAB PO SCH (09:14)
[2021-03-12] MEDS: ASPIRIN 81 MG ECTAB PO SCH (09:14)
[2021-03-12] MEDS: CLOPIDOGREL BISULFATE 75 MG TAB PO SCH (09:14)
[2021-03-12] MEDS: ATORVASTATIN 40 MG TAB PO SCH (09:15)
[2021-03-12] MEDS: haloperidoL 5 MG TAB PO SCH ×2 (09:15→19:35)
[2021-03-12] MEDS: INSULIN ASPART 100 UNITS/ML 3 ML PEN SC SCH ×4 (09:18→20:30)
[2021-03-12 15:44] LABS: Hematocrit (blood only) 45.4 % (42-52); Hemoglobin 16.1 g/dL (14.0-18.0); Mean Corpuscular Hemoglobin 31.9 pg (25-34); Mean Corpuscular Volume 90.1 fL (80-100); Mean Platelet Volume 9.3 fL (7.4-10.4); Platelet Count 176 K/uL (130-400); RDW Coefficient of Variation 12.7 % (11.5-14.5); RDW Standard Deviation 41.3 fL (36.4-46.3); Red Blood Count 5.04 M/uL (4.7-6.1); White Blood Count 6.93 K/uL (4.8-10.8)
[2021-03-12] MEDS ORDERED: SODIUM CHLORIDE 0.9% 1000ML 500 ML IV ONE (15:45)
[2021-03-12 16:03] LABS: BUN Creatinine Ratio 19.9 (10-20); Calcium 9.4 mg/dl (8.5-10.1); Creatinine Clr Calc Pharmacy 77.1 ml/min; Est GFR (African American) 93.6 ml/min; Est GFR (Non-African American) 80.8 ml/min; Potassium 4.2 mmol/L (3.5-5.1)
[2021-03-12 16:10] LABS: Mean Corpuscular Hgb Conc 35.5 g/dL (32-36)
--- NOTE | 2021-03-13 07:43 | Hospitalist Progress Note ---
Date of Service March 13, 2021 Assessment & Plan (1) Weakness: Patient is a 70 yr male with H/O Paranoid schizophrenia who was recently in the hospital for unresponsive syncopal episode, was discharged back home, presents with similar complaints. Syncope /unresponsive episode Likely secondary to medication noncompliance/misuse CT Head: No acute intracranial findings Fall precautions Resolved Presumed TIA S/P TPA DD: Partial seizure, atypical dystonic reaction MRI Brain:No acute intracranial abnormality. -Head/Neck CTA: No significant stenosis, occlusion, or aneurysm within the [place]. No significant stenosis, occlusion, or dissection identified within the carotid or vertebral arteries. -Repeat CT head:No acute intracranial abnormality. Dual antiplatelet therapy with aspirin, Plavix for 21 days then plavix alone indefinitely Continue Lipitor 40 mg daily Needs follow-up with neurology upon discharge in 8 weeks Denies any focal weakness General deconditioning Ambulatory dysfunction Patient had multiple attempts to reintegrate with community but failed Appreciate psychiatry input Family no longer able to care for the patient PT OT:Recommends SNF Unsafe to be discharged home Will likely need permanent placement Case management to help with discharge planning Plan to discharge when placement available Paranoid schizophrenia: Haldol dose tapered down to 10 mg BID (03/09/21) Psychiatry following closely At night (03/09) Haldol was held as patient was drowsy Earlier patient had another dystonic reaction, plan for Cogentin 1 mg X 1, If ineffective then Ativan Plan to titrate down Haldol to minimize sedation, EPS Appreciate psychiatry input DM II HbA1C:5.2% Hold PO meds Continue ISS while hospitalized H/O Occasional tremors. H/O Hypertension Continue home meds Neuroendocrine tumor: CT imaging reviewed and discussed with Dr.Nilesh Escudero by prior hospitalist Needs to follow up with gastrointestinal and oncology as outpatient DVT Px: SCDs post TPA Code Status : Full Code Disposition: SNF as able Admission and Anticipated Discharge Date Admission Date: March 01, 2021 Subjective Patient is seen in follow up of schizophrenia, unresponsive episode Currently is lying in bed , in no acute distress Yesterday had a vasovagal episode in the bathroom while he was trying to have a bowel movement. Noticed by his nurse, tima blackmon was called. Patient recovered very shortly and was answering questions appropriately. Work-up was negative. Denies chest pain, dyspnea, dizziness, nausea, abdominal pain Encouraged more p.o. fluid intake, patient says he mostly drinks only milk Psychiatry following Review of Systems Review of Systems: All systems reviewed & are unremarkable except as noted in HPI & below Constitutional: no fever and no chills Respiratory: no cough and no dyspnea Cardiovascular: no chest pain and no palpitations Gastrointestinal: no abdominal pain, no nausea and no vomiting Physical Exam Physical Exam: General Appearance: Moderately built and nourished, no apparent distress Head: normocephalic, Atraumatic Eyes: normal inspection, EOMI Neck: supple, Trachea midline Respiratory/Chest: Normal breath sounds, CTA, No accessory muscle use Cardiovascular: S1, S2, No murmur Abdomen/GI:Soft, Non tender, Bowel sounds present Extremities/Musculoskeletal:normal inspection, no edema Neurologic/Psych:AAO, grossly no focal neurological deficits, moves extremities spontaneously, speech fluent but slow, no facial asymmetry noted Skin: normal color, warm Results & Data Results & [facility] ([facility]) Vital Signs (Past 12 Hours) Vital Signs Temp Pulse Pulse Pulse Pulse Resp BP 03/13/21 07:35 36.4 C L 63 12 03/13/21 07:12 72 03/13/21 04:14 36.6 C 76 18 113/77 03/13/21 02:34 81 03/12/21 22:35 37.1 C 82 17 97/68 L 03/12/21 19:56 36.4 C L 96 H 20 BP Pulse Ox 03/13/21 07:35 118/70 95 03/13/21 07:12 03/13/21 04:14 96 03/13/21 02:34 03/12/21 22:35 93 03/12/21 19:56 102/68 95
[2021-03-13] MEDS: INSULIN ASPART 100 UNITS/ML 3 ML PEN SC SCH ×4 (08:36→21:12)
[2021-03-13] MEDS: ASPIRIN 81 MG ECTAB PO SCH (08:37)
[2021-03-13] MEDS: CLOPIDOGREL BISULFATE 75 MG TAB PO SCH (08:37)
[2021-03-13] MEDS: haloperidoL 5 MG TAB PO SCH ×2 (08:37→21:11)
[2021-03-13] MEDS: ATORVASTATIN 40 MG TAB PO SCH (08:37)
[2021-03-13] MEDS: AMANTADINE HCL 100 MG CAPSULE PO SCH ×2 (08:37→21:09)
[2021-03-13] MEDS: POLYETHYLENE (MIRALAX) 17 GM PACK PO SCH (12:32)
[2021-03-14] MEDS: INSULIN ASPART 100 UNITS/ML 3 ML PEN SC SCH ×3 (08:05→12:20)
--- NOTE | 2021-03-14 08:15 | Hospitalist Progress Note ---
Date of Service March 14, 2021 Assessment & Plan (1) Weakness: Patient is a 70 yr male with H/O Paranoid schizophrenia who was recently in the hospital for unresponsive syncopal episode, was discharged back home, presents with similar complaints. Syncope /unresponsive episode Likely secondary to medication noncompliance/misuse CT Head: No acute intracranial findings Fall precautions Resolved Presumed TIA S/P TPA DD: Partial seizure, atypical dystonic reaction MRI Brain:No acute intracranial abnormality. -Head/Neck CTA: No significant stenosis, occlusion, or aneurysm within the [place]. No significant stenosis, occlusion, or dissection identified within the carotid or vertebral arteries. -Repeat CT head:No acute intracranial abnormality. Dual antiplatelet therapy with aspirin, Plavix for 21 days then plavix alone indefinitely - (STOP aspirin on March 28) and continue Plavix alone indefinitely Continue Lipitor 40 mg daily Needs follow-up with neurology upon discharge in 8 weeks Denies any focal weakness General deconditioning Ambulatory dysfunction Patient had multiple attempts to reintegrate with community but failed Appreciate psychiatry input Family no longer able to care for the patient PT OT:Recommends SNF Unsafe to be discharged home Will likely need permanent placement Case management to help with discharge planning Plan to discharge to [facility] Paranoid schizophrenia: Haldol dose tapered down to 10 mg BID (03/09/21) Psychiatry following closely At night (03/09) Haldol was held as patient was drowsy Earlier patient had another dystonic reaction, plan for Cogentin 1 mg X 1, If ineffective then Ativan Plan to titrate down Haldol to minimize sedation, EPS Appreciate psychiatry input DM II HbA1C:5.2% Hold PO meds Continue ISS while hospitalized H/O Occasional tremors. H/O Hypertension Continue home meds Neuroendocrine tumor: CT imaging reviewed and discussed with Dr.Nilesh Escudero by prior hospitalist Needs to follow up with gastrointestinal and oncology as outpatient Appointment scheduled with Dr. Escudero - oncologist, for March 25 DVT Px: SCDs post TPA Code Status : Full Code Disposition: [facility] Admission and Anticipated Discharge Date Admission Date: March 01, 2021 Subjective Patient is seen in follow up of schizophrenia, unresponsive episode Currently is lying in bed , in no acute distress Denies chest pain, dyspnea, dizziness, nausea, abdominal pain Encouraged more p.o. fluid intake, patient says he mostly drinks only milk Psychiatry following Review of Systems Review of Systems: All systems reviewed & are unremarkable except as noted in HPI & below Constitutional: no fever and no chills Respiratory: no cough and no dyspnea Cardiovascular: no chest pain and no palpitations Gastrointestinal: no abdominal pain, no nausea and no vomiting Physical Exam Physical Exam: General Appearance: Moderately built and nourished, no apparent distress Head: normocephalic, Atraumatic Eyes: normal inspection, EOMI Neck: supple, Trachea midline Respiratory/Chest: Normal breath sounds, CTA, No accessory muscle use Cardiovascular: S1, S2, No murmur Abdomen/GI:Soft, Non tender, Bowel sounds present Extremities/Musculoskeletal:normal inspection, no edema Neurologic/Psych:AAO, grossly no focal neurological deficits, moves extremities spontaneously, speech fluent but slow, no facial asymmetry noted Skin: normal color, warm Results & Data Results & Data ([facility]) Vital Signs (Past 12 Hours) Vital Signs Temp Pulse Pulse Resp BP Pulse Ox 03/14/21 07:22 36.5 C 73 18 109/72 96 03/14/21 07:00 78 03/14/21 03:27 36.5 C 70 18 120/73 93 03/14/21 01:49 71 03/13/21 22:16 36.4 C L 74 18 127/84 95
[2021-03-14] MEDS: ASPIRIN 81 MG ECTAB PO SCH (08:22)
[2021-03-14] MEDS: CLOPIDOGREL BISULFATE 75 MG TAB PO SCH (08:22)
[2021-03-14] MEDS: haloperidoL 5 MG TAB PO SCH (08:22)
[2021-03-14] MEDS: ATORVASTATIN 40 MG TAB PO SCH (08:22)
[2021-03-14] MEDS: POLYETHYLENE (MIRALAX) 17 GM PACK PO SCH (08:22)
[2021-03-14] MEDS: AMANTADINE HCL 100 MG CAPSULE PO SCH (08:22)
--- NOTE | 2021-03-14 11:21 | Discharge Summary ---
Date of Service March 14, 2021 Admission HPI Per Admitting Provider This is a 70-year-old male with past medical history significant for hyperlipidemia, hypertension, not on any medications, history of paranoid schizophrenia, history of tobacco use disorder, history of status post AAA re pair using a stent graft, history of status post repair of ventral hernia, history of diabetes who presents with an unresponsive episode. The patient was recently in the hospital with a similar episode, thought it was secondary to schizophrenia medicine and workup was negative. The patient was discharged home. 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 At home, the patient is living with his 92-year-old father. Today he was sleeping in the bed, was pretty much unresponsive per the EMS and was brought in here. Currently, patient is back to his usual self. He says same thing happened last time. Currently, resting comfortably, hemodynamically stable. Denies any chest pain, no shortness of breath, no cough, no headache, no fever, no blurred vision, no earache, no runny nose, no sore throat, no nausea, no abdominal pain. Says he moved his bowels yesterday normal and normal bladder movements. He had his lunch today. Otherwise, he is ambulating okay until this episode happened. It was felt not safe to send him back home. Admission Exam Per Admitting Provider GENERAL: The patient is of moderate build, not in acute distress. VITAL SIGNS: Temperature 36.8, pulse 64, respiratory rate 16, blood pressure 118/77, oxygen 95% on room air. HEENT: Pupils equal, round and reactive to light. Oral mucosa moist. NECK: No JVD. No neck masses. CARDIOVASCULAR: S1 and S2 heard. Regular rate and rhythm. No murmur, no gallop. RESPIRATORY SYSTEM: Normal AP diameter. No accessory muscle use. No wheezes, no crackles. ABDOMEN: Soft, bowel sounds present, nontender, no distention. CENTRAL NERVOUS SYSTEM: Alert and oriented. No facial droop. Speech clear. Insight is okay. Obeys simple commands. Moves extremities. EXTREMITIES: Mild pedal edema present, no erythema seen. Principal Diagnosis Paranoid schizophrenia Presumed TIA Unresponsive episode Neuroendocrine tumor Discharge Exam General Appearance: Moderately built and nourished, no apparent distress Head: normocephalic, Atraumatic Eyes: normal inspection, EOMI Neck: supple, Trachea midline Respiratory/Chest: Normal breath sounds, CTA, No accessory muscle use Cardiovascular: S1, S2, No murmur Abdomen/GI:Soft, Non tender, Bowel sounds present Extremities/Musculoskeletal:normal inspection, no edema Neurologic/Psych:AAO, grossly no focal neurological deficits, moves extremities spontaneously, speech fluent but slow, no facial asymmetry noted Skin: normal color, warm Discharge Data Allergies Allergy/AdvReac Type Severity Reaction Status Date / Time No Known Allergies Allergy Unknown Verified 03/01/21 18:38 Consultations 03/01/21 20:46 ED Decision to Admit Stat 03/02/21 14:03 Consult Psychiatry Routine 03/06/21 22:38 Consult Stonemason Apprentice Routine Consult Neurology Routine Ordered Studies 03/01/21 18:08 CT head/brain wo con Stat IMPRESSION: No acute intracranial findings 03/02/21 13:46 CT chest diagnostic w con Routine IMPRESSION: 1. Again seen is hyperdense/hypervascular abdominal lymphadenopathy as detailed above, with a possible small bowel lesion in the right lower quadrant. This is unchanged as compared to 02/14/2021. Correlation with the patient's oncological history be required. 2. Emphysema. 3. Small pulmonary pleural-based nodules measure up to 6 mm. These are pathologically indeterminant and attention at follow-up is recommended. 4. There is no airspace consolidation or pleural effusion. 5. Cholelithiasis. 6. Additional findings as above. 03/02/21 13:47 CT abd pelvis oral and IV con Routine IMPRESSION: 1. Again seen is hyperdense/hypervascular abdominal lymphadenopathy as detailed above, with a possible small bowel lesion in the right lower quadrant. This is unchanged as compared to 02/14/2021. Correlation with the patient's oncological history be required. 2. Emphysema. 3. Small pulmonary pleural-based nodules measure up to 6 mm. These are pathologically indeterminant and attention at follow-up is recommended. 4. There is no airspace consolidation or pleural effusion. 5. Cholelithiasis. 6. Additional findings as above. 03/06/21 21:32 CT head/brain wo con Urgent IMPRESSION: There is no hemorrhage, mass effect, or evidence of acute territorial ischemia by CT criteria. 03/06/21 22:35 CT angio head w con Urgent CT angio neck with con Urgent IMPRESSION: 1. No significant stenosis, occlusion, or aneurysm within the [place]. 2. No significant stenosis, occlusion, or dissection identified within the carotid or vertebral arteries. 03/07/21 00:32 MR brain wo con Routine IMPRESSION: No acute intracranial abnormality. 03/07/21 22:40 CT head/brain wo con Routine Impression: No acute intracranial abnormality. Hospital Course (1) Weakness: Patient is a 70 yr male with H/O Paranoid schizophrenia who was recently in the hospital for unresponsive syncopal episode, was discharged back home, presents with similar complaints. Syncope /unresponsive episode Likely secondary to medication noncompliance/misuse CT Head: No acute intracranial findings Fall precautions Resolved Presumed TIA S/P TPA DD: Partial seizure, atypical dystonic reaction MRI Brain:No acute intracranial abnormality. -Head/Neck CTA: No significant stenosis, occlusion, or aneurysm within the [place]. No significant stenosis, occlusion, or dissection identified within the carotid or vertebral arteries. -Repeat CT head:No acute intracranial abnormality. Dual antiplatelet therapy with aspirin, Plavix for 21 days then plavix alone indefinitely - (STOP aspirin on March 28) and continue Plavix alone indefinitely Continue Lipitor 40 mg daily Needs follow-up with neurology upon discharge in 8 weeks Denies any focal weakness General deconditioning Ambulatory dysfunction Patient had multiple attempts to reintegrate with community but failed Appreciate psychiatry input Family no longer able to care for the patient PT OT:Recommends SNF Unsafe to be discharged home Will likely need permanent placement Case management to help with discharge planning Plan to [facility] Paranoid schizophrenia: Haldol dose tapered down to 10 mg BID (03/09/21) Psychiatry following closely At night (03/09) Haldol was held as patient was drowsy Earlier patient had another dystonic reaction, plan for Cogentin 1 mg X 1, If ineffective then Ativan Plan to titrate down Haldol to minimize sedation, EPS Appreciate psychiatry input DM II HbA1C:5.2% Hold PO meds Continue ISS while hospitalized H/O Occasional tremors. H/O Hypertension Continue home meds Neuroendocrine tumor: CT imaging reviewed and discussed with Dr.Nilesh Escudero by prior hospitalist Needs to follow up with gastrointestinal and oncology as outpatient Appointment scheduled with Dr. Escudero - oncologist, for March 25 DVT Px: SCDs post TPA Code Status : Full Code Disposition: [facility] Total Time Total Time Spent Total Time Spent (In Minutes): 35 Total Time Includes: Examination of the Patient, Discharge Planning, Medication Reconciliation and Communication With Other Providers Discharge Plan Discharge Items Patient Disposition: Transfer Care Home Fac Reason For Visit: ILLNESS Discharge Diagnosis: Paranoid schizophrenia Presumed TIA Unresponsive episode Neuroendocrine tumor Activity: Per Instructions section Non-emergency contact: Primary Care Provider, Neurologist, Oncologist and Psychiatrist Call non-emergency contact if: you have any medication questions and your symptoms worsen Follow-up/Referrals: Karri Escudero MD [Surgeon] - (Date & Time 03/25/2021 9:45 AM Provider Krari Escudero MD Department Hematology/Oncology [facility] ) Cholo Santiago MD [Primary Care Provider] - Diet: Carb Consistent or DM2 and Heart Healthy Diet Comment: Encourage p.o. fluid intake Addtl Attending Provider Instructions: Follow-up with primary care doctor within 1 week. Continue Haldol at lower dose, 10 mg twice a day until you are seen again by psychiatry, at your next follow-up appointment. For presumed TIA episode, continue aspirin and Plavix for 21 days (Plavix was started on March 08), and then continue only Plavix indefinitely (stop taking aspirin on March 29). You will need to follow-up with neurology within 8 weeks. For neuroendocrine tumor, the appointment was scheduled for you with oncologist, Dr. Escudero, for March 25. Pending Studies at Discharge: No Stand-Alone Forms: [facility] [employer] Skilled Items Patient informed of condition?: Yes DNR: No Discharge Level of Care: Skilled Communicable Disease: No Discharge Prognosis: Stable Lines: None Urinary Catheter: No Medications and DC Order Prescriptions: New clopidogrel 75 mg Tablet 75 mg PO QAM Qty: 30 RF: 0 atorvastatin 40 mg Tablet 40 mg PO QAM Qty: 30 RF: 0 polyethylene glycol 3350 [Miralax] 17 gram Powder In Packet 17 g PO DAILY PRN (Reason: constipation) Qty: 14 RF: 0 Continued amantadine HCl 100 mg tablet 100 mg PO BID RF: 0 Invega Sustenna 234 mg/1.5 mL Syringe 234 mg IM MONTHLY RF: 0 pioglitazone 30 mg Tablet 30 mg PO DAILY RF: 0 aspirin 81 mg Tablet,Delayed Release (Dr/Ec) 81 mg PO DAILY RF: 0 haloperidol 10 mg tablet 10 mg PO QAM RF: 0 Changed haloperidol 10 mg tablet 10 mg PO HS Qty: 0 RF: 0 Discharge Orders: Discharge Order (Routine); Ordered 03/14/21 Ordered By: Shun Hardy Admission Data Admit Date/Time: 03/01/21 21:29 Attending Provider: Shun Hardy Admit Provider: Adebayo Palacios Primary Care Provider: Cholo Santiago Other Providers: [place],[facility], [place] ; Adebayo Palacios ; Dr Dontae ; Chelsie Servin ; [facility] ; Brady Flores ; Chica Menendez ; Nabor Denny ; Chica Balbuena ; Arvind Romeo ; Howard Swartz
[2021-03-14] MEDS: ACETAMINOPHEN 325 MG TAB PO PRN (13:32)
--- NOTE | 2021-03-28 07:23 | Coding Query ---
CODING QUERY To promote full compliance with coding requirements relating to patient care, provider participation is requested in all cases of dressage judge uncertainty. Please assist us with the question(s) below: Coding Question(s): Documentation in the record as on Discharge Summary shows, "Syncope /unresponsive episode Likely secondary to medication noncompliance/misuse" and the H&P documents, "Syncope /unresponsive episode most likely secondary to his psychiatric medications". Please specify below, in your clinical opinion, regarding the medication "misuse" in order to determine correct coding. ( ) Medication Misuse means the patient took too much of his psychiatric medication - overdose ( x ) Medication Misuse means the patient took too little of his psychiatric medication - underdosing ( ) Medication Misuse means the patient too much of another medication - overdose. Please Specify ( ) Medication Misuse means the patient too too little of another medication - underdosing. Please Specify ( ) Other: Please Specify ( ) Unknown Physician's Response(s): Per Psychiatry notes - from last and also previous admission - patient tends to stop his haldol abruptly Thank you Noa Fierro Principal Diagnosis: "that condition established after study, to be chiefly responsible for occasioning the admission of the patient to the hospital for care." Co-Existing Principal Diagnosis: "when two or more diagnoses equally meet the criteria for principal diagnosis as determined by the circumstances of admission, diagnostic work up, and/or therapy provided, and the Alphabetic Index, Tabular List, or another coding guideline does not provide sequencing direction, any one of the diagnoses may be sequenced first." "When the physician has documented what appears to be a current diagnosis in the body of the record, but has not included the diagnosis in the final diagnostic statement, the physician should be asked whether the diagnosis should be added." (Source Coding Clinic 2 QTR90. p3-4) JOHNY
== END 2021-03-14 15:37 | DRG 884 ==
LOC: ED 17:32 → 2N 21:29 → SUATTDRO 21:29 → 2N 22:51 → 1E 03-06 22:23 → 2W 03-08 00:37